=== PATIENT | male | born 1970 ===

== ENCOUNTER 2017-05-18 21:22 | Inpatient (IN) | payer MEDICARE, MEDICAID ==
[2017-05-18 21:25] VITALS: O2SAT 98
--- NOTE | 2017-05-18 21:56 | ED PDOC ---
HPI: Psych/Substance Abuse Time Seen by Provider: 05/18/17 21:30 Chief Complaint (Nursing): Psychiatric Evaluation Chief Complaint (Provider): suicidal ideations History Per: Patient History/Exam Limitations: no limitations Additional History Per: Patient Additional Complaint(s): 47 y/o male history of diabetes, depression brought in by EMS for crisis eval. Patient states he has been having suicidal ideations since Father's Day, due to of his father. Patient denies current plan. Denies homicidal ideations, hallucinations, drug/alcohol use. Patient also notes chronic diabetic foot ulcer to bottom of right foot a months. States he is being followed by a Floating Operator out of [facility]. Denies fever, nausea/vomiting, swelling to area. Past Medical History Reviewed: Historical Data, Nursing Documentation, Vital Signs Vital Signs: Last Vital Signs Temp 98.6 F 05/18/17 21:23 Pulse 124 H 05/18/17 21:23 Resp 20 05/18/17 21:23 BP 114/61 05/18/17 21:23 Pulse Ox 98 05/18/17 21:23 - Medical History PMH: Anxiety, Depression, Diabetes (Blood sugar 283), HTN, Schizophrenia Denies: Hepatitis, HIV, Chronic Kidney Disease, Seizures, Sexually Transmitted Disease - Family History Family History: States: Unknown Family Hx - Immunization History Hx Tetanus Toxoid Vaccination: No Hx Influenza Vaccination: No Hx Pneumococcal Vaccination: No - Home Medications Home Medications: Ambulatory Orders Medication Instructions Recorded chlorproMAZINE [Thorazine] 50 mg PO QID #0 tab 05/26/15 clonazePAM [Klonopin] 0.5 mg PO TID #0 tab 05/26/15 traZODone [Desyrel] 200 mg PO HS #0 tab 05/26/15 Escitalopram [Lexapro] 20 mg PO DAILY #0 tab 06/03/15 GlipiZIDE [Glucotrol] 2.5 mg PO BID #0 tab 06/03/15 risperiDONE [RisperDAL Tab] 3 mg PO BID #0 tab 06/03/15 metFORMIN [glucOPHAGE] 1,000 mg PO BID 12/27/15 Escitalopram [Lexapro] 20 mg PO DAILY #30 tab 01/06/16 busPIRone [Buspar] 15 mg PO BID #60 tab 01/06/16 hydrOXYzine HCl [Atarax] 50 mg PO Q12 #60 tab 01/06/16 risperiDONE [RisperDAL Tab] 2 mg PO BID #60 tab 01/06/16 traZODone [Desyrel] 50 mg PO HS PRN #30 tab 01/06/16 - Allergies Allergies/Adverse Reactions: Allergies Allergy/AdvReac Type Severity Reaction Status Date / Time No Known Allergies Allergy Verified 10/13/15 19:18 Review of Systems ROS Statement: Except As Marked, All Systems Reviewed And Found Negative Psych: Positive for: Suicidal ideation Physical Exam - Reviewed Nursing Documentation Reviewed: Yes Vital Signs Reviewed: Yes - Physical Exam Appears: Positive for: Well, Non-toxic, No Acute Distress (poor hygiene) Head Exam: Positive for: ATRAUMATIC, NORMAL INSPECTION, NORMOCEPHALIC Skin: Positive for: Normal Color Eye Exam: Positive for: Normal appearance ENT: Positive for: Normal ENT Inspection Cardiovascular/Chest: Positive for: Regular Rate, Rhythm Respiratory: Positive for: Normal Breath Sounds Extremity: Positive for: Normal ROM, Other (2x2cm right plantar foot ulceration near base 2-3 digits. Ulcer dry; no active drainage, surrounding erythema, edema, or tenderness noted) Neurologic/Psych: Positive for: Alert, Oriented. Negative for: Motor/Sensory Deficits - Laboratory Results Result Diagrams: 05/18/17 22:05 05/18/17 22:06 - ECG ECG: Positive for: Viewed By Me (reviewed by ED attending) ECG Rhythm: Positive for: Sinus Rhythm O2 Sat by Pulse Oximetry: 98 Pulse Ox Interpretation: Normal - Radiology X-Ray: Viewed By Me X-Ray Interpretation: No Acute Disease - Other Rad xray right foot X-Ray: Viewed By Me (reviewed with ED attending) X-Ray Interpretation: no acute findings, chronic surgical changes - Progress ED Course And Treament: labs, urine, crisis eval Patient evaluated by commissary worker; to be admitted as per Dr. Navarro. Medical Decision Making Medical Decision Making: Patient medically stable for psych admission. Disposition - Clinical Impression Clinical Impression: Schizoaffective disorder - Patient ED Disposition Is Patient to be Admitted: Yes - Disposition Disposition Time: 23:45 Condition: STABLE
[2017-05-18 22:10] LABS: BASO # 0.1 K/uL (0.0-0.2); BASO % 1.3 % (0.0-2.0); EOS # 0.1 K/uL (0.0-0.7); EOS % 0.9 % (0.0-4.0); HEMATOCRIT 39.1 % (35.0-51.0); LYMPH # 3.1 K/uL (1.0-4.3); LYMPH % 29.1 % (20.0-40.0); MEAN CELL VOLUME 100.2 fl (80.0-94.0); MEAN CORPUSCULAR HEMOGLOBIN 34.3 pg (27.0-31.0); MEAN CORPUSCULAR HGB CONC 34.2 g/dL (33.0-37.0); MONO # 0.8 K/uL (0.0-0.8); NEUT # 6.4 K/uL (1.8-7.0); NEUT % 60.7 % (50.0-75.0); RED CELL DISTRIBUTION WIDTH 12.9 % (11.5-14.5); WHITE BLOOD COUNT 10.6 K/uL (4.8-10.8)
[2017-05-18 22:21] LABS: ALB/GLOB RATIO 0.9 (1.0-2.1); ALCOHOL SERUM 163 mg/dl (0-10); ALKALINE PHOSPHATASE 84 U/L (38-126); ALT/SGPT 62 U/L (21-72); AST/SGOT 51 U/L (17-59); BLOOD UREA NITROGEN 7 mg/dl (9-20); CARBON DIOXIDE 21 mmol/L (22-30); CHLORIDE 92 mmol/L (98-107); GFR AFRICAN-AMERICAN > 60; GLUCOSE,RANDOM 245 mg/dL (75-110); POTASSIUM 4.1 MMOL/L (3.6-5.0); SODIUM 128 mmol/l (132-148); TOTAL PROTEIN 8.4 G/DL (6.3-8.2)
[2017-05-18 22:53] LABS: RBC URINE 1 /hpf (0-3); URINE BACTERIA RARE (<OCC); URINE BILIRUBIN NEGATIVE (NEGATIVE); URINE BLOOD SMALL (NEGATIVE); URINE COLOR YELLOW (YELLOW); URINE GLUCOSE (UA) 150 mg/dL (Normal); URINE KETONE NEGATIVE (NEGATIVE); URINE LEUKOCYTE ESTERASE NEG Leu/uL (Negative); URINE PROTEIN NEGATIVE (NEGATIVE); URINE UROBILINOGEN 0.2-1.0 mg/dL (0.2-1.0); WBC URINE 1 /hpf (0-5)
[2017-05-18] MEDS ORDERED: Sodium Chloride 0.9% 1,000 ML IV STA (23:13)
[2017-05-18] MEDS ORDERED: Dextrose 50% SYRINGE Inj (50 ml) IV PRN (23:14)
[2017-05-18] MEDS ORDERED: Glucagon Recombinant 1 mg Inj IM PRN (23:14)
[2017-05-19] MEDS ORDERED: Alum-Mag Hydrox-Simethicone Susp (30 mL) PO PRN (02:45)
[2017-05-19] MEDS ORDERED: Magnesium Hydroxide Susp 30 ml UD PO PRN (02:45)
[2017-05-19] MEDS ORDERED: DiphenhydrAMINE 50 mg/ml Inj IM PRN (02:45)
[2017-05-19 06:27] VITALS: RESP 18
[2017-05-19] MEDS ORDERED: Insulin Regular 100 units/ml SC SCH (07:30)
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
[2017-05-19] MEDS: Insulin Regular 100 units/ml SC SCH ×3 (09:26→16:49)
--- NOTE | 2017-05-19 10:29 | RAD ---
HISTORY: admit COMPARISON: None available. TECHNIQUE: Chest, one view. FINDINGS: In a soto limited by habitus. LUNGS: No focal consolidation. Please note that chest x-ray has limited sensitivity for the detection of pulmonary masses. PLEURA: No significant pleural effusion identified. No definite pneumothorax . CARDIOVASCULAR: The cardiomediastinal silhouette appears within normal limits of size. OSSEOUS STRUCTURES: Osseous demineralization. Degenerative changes of the spine and shoulders. VISUALIZED UPPER ABDOMEN: Elevation of the right hemidiaphragm. OTHER FINDINGS: None. IMPRESSION: No focal consolidation, significant pleural effusion, or definite pneumothorax identified.
[2017-05-19 11:42] LABS: T4 8.71 ug/dl (5.5-11.0)
[2017-05-19 11:56] LABS: THYROID STIMULATING HORMONE 0.94 mIU/ML (0.46-4.68)
--- NOTE | 2017-05-19 13:39 | CP.PCM.CON ---
<Robert Champion - Last Filed: 05/19/17 17:26> History of Present Illness - History of Present Illness History of Present Illness: 47 YO M w/ h/o uncontrolled DM, depresion anxiety came into the ER after having suicidal ideations. He was drinking at home on his mother birthday and he started having feelings of committing suicide. He has a history of previous suicide attempts. PT admits to decrease in appetitie. He has normal bowl and bladder. - He states he lost all his medications 2 months ago and has not been taking them. - He also complains of a foot ulcer on the bottom of the right foot. His foot ulcer started 8 months ago and he saw a doctor one month ago for him to come to the hospital which he didnt do. He states it reoccurs. Denies any fever, chills , nausea or vomiting. He also has had pins and needle sensation down his legs and feet for some time. He is concerned that that the fungus from his foot has spread to his face. - Pt states he used to have htn in the past but no longer has it after he lost 60 pounds. - Pt report of a non productive cough which has been occuring for some time can not quantify a specific time period. Denies any coughling up of blood or weight loss. When patient was here one year ago Chest CT showed extensive cystic changes in lungs as well as bronchiectasis. Also a non specific ill defined nodular density at the lingula .8cmx1.3cm was seen. 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 PMH: DM, Depression, Anxiety, Schizophrenia PSH: Right shoulder pain. "toe surgery" by Dr. Brennan FH: Mother: Bone Cancer. Brother: DM, Depression SH: 1/2 PPD x 30 years. Socially uses alcohol, lives with his mother Past Patient History - Infectious Disease Hx of Infectious Diseases: None - Tetanus Immunizations Tetanus Immunization: Unknown - Past Medical History & Family History Past Medical History?: Yes - Past Social History Smoking Status: Heavy Smoker > 10 Cigarettes Daily - CARDIAC Hx Hypertension: Yes - PULMONARY Hx Tuberculosis: No - NEUROLOGICAL Hx Seizures: No - HEENT Hx HEENT Problems: No - RENAL Hx Chronic Kidney Disease: No - ENDOCRINE/METABOLIC Hx Endocrine Disorders: Yes Hx Diabetes Mellitus Type 2: Yes - HEMATOLOGICAL/ONCOLOGICAL Hx Human Immunodeficiency Virus (HIV): No - INTEGUMENTARY Hx Dermatological Problems: No - MUSCULOSKELETAL/RHEUMATOLOGICAL Hx Musculoskeletal Disorders: No Hx Falls: Yes Hx Unsteady Gait: No - GASTROINTESTINAL Hx Gastrointestinal Disorders: No - GENITOURINARY/GYNECOLOGICAL Hx Sexually Transmitted Disorders: Yes (erectile Dysfunction) - PSYCHIATRIC Hx Anxiety: Yes Hx Depression: Yes Hx Schizophrenia: Yes Hx Substance Use: No - SURGICAL HISTORY Hx Surgeries: Yes Hx Orthopedic Surgery: Yes (Right shoulder 1991 rotator cuff and dislocation 1988) - ANESTHESIA Hx Anesthesia: Yes Hx Anesthesia Reactions: No Hx Malignant Hyperthermia: No Meds Home Medications: Home Medication List Medication Instructions Recorded Confirmed Type Aluminum Hydroxide/Magnesium H 30 ml PO Q4 PRN #1 udc 05/19/17 Rx [Maalox 30 ml] DiphenhydrAMINE [Benadryl] 50 mg PO Q6 PRN #30 cap 05/19/17 Rx LORazepam [Ativan] 2 mg PO Q4 PRN #30 tab 05/19/17 Rx MetFORMIN [glucoPHAGE] 1,000 mg PO BID 30 Days 05/19/17 Rx Nicotine 14 mg/24 hr [Nicoderm CQ] 1 each TD DAILY #30 patch 05/19/17 Rx Sertraline [Zoloft] 50 mg PO DAILY #30 tab 05/19/17 Rx chlordiazePOXIDE [Chlordiazepoxide 25 mg PO TID #30 cap 05/19/17 Rx HCl] risperiDONE [RisperDAL Tab] 0.5 mg PO Q12 #30 tab 05/19/17 Rx Allergies/Adverse Reactions: Allergies Allergy/AdvReac Type Severity Reaction Status Date / Time No Known Allergies Allergy Verified 10/13/15 19:18 - Medications Medications: Current Medications Acetaminophen (Tylenol 325mg Tab) 650 mg PO Q4 PRN PRN Reason: Pain, moderate (4-7) Al Hydrox/Mg Hydrox/Simethicone (Maalox Plus 30 Ml) 30 ml PO Q4 PRN PRN Reason: Dyspepsia Chlordiazepoxide (Librium) 25 mg PO TID JOESPH Last Admin: 05/19/17 12:21 Dose: 25 mg Diphenhydramine HCl (Benadryl) 50 mg IM Q6 PRN PRN Reason: Extrapyramidal S/S Unable PO Diphenhydramine HCl (Benadryl) 50 mg PO Q6 PRN PRN Reason: Extrapyramidal Symptoms Diphenhydramine HCl (Benadryl) 50 mg PO HS PRN PRN Reason: Sleep Haloperidol (Haldol) 5 mg PO Q4 PRN PRN Reason: Agitation Haloperidol Lactate (Haldol) 5 mg IM Q4 PRN PRN Reason: Agitation, Unable to Take PO Insulin Human Regular (Humulin R) 0 units SC ACCU-CHECK JOESPH PRN Reason: Protocol Last Admin: 05/19/17 12:16 Dose: 2 unit Lorazepam (Ativan) 2 mg IM Q4 PRN PRN Reason: Anxiety/Agitation,Unable PO Lorazepam (Ativan) 2 mg PO Q4 PRN PRN Reason: Anxiety/Agitation Last Admin: 05/19/17 05:09 Dose: 2 mg Magnesium Hydroxide (Milk Of Magnesia) 30 ml PO HS PRN PRN Reason: Constipation Metformin HCl (Glucophage) 1,000 mg PO BID [facility] Last Admin: 05/19/17 12:13 Dose: 1,000 mg Nicotine (Nicoderm Cq) 1 patch TD DAILY [facility] Risperidone (Risperdal Tab) 0.5 mg PO Q12 [facility] Last Admin: 05/19/17 12:14 Dose: 0.5 mg Sertraline HCl (Zoloft) 50 mg PO DAILY [facility] Last Admin: 05/19/17 12:15 Dose: 50 mg Physical Exam - Constitutional Appears: No Acute Distress, Unkempt - Head Exam Head Exam: NORMAL INSPECTION - Eye Exam Eye Exam: EOMI, Normal appearance Pupil Exam: PERRL - ENT Exam ENT Exam: Mucous Membranes Moist, Normal Exam - Neck Exam Neck exam: Positive for: Normal Inspection - Respiratory Exam Respiratory Exam: Clear to Auscultation Bilateral, NORMAL BREATHING PATTERN Additional comments: decreased breath sound at left lower base - Cardiovascular Exam Cardiovascular Exam: REGULAR RHYTHM, +S1, +S2 - Extremities Exam Extremities exam: Negative for: calf tenderness Additional comments: Normal ROM -The right foot appears to be edematous. Has a foul odor, similar to that of psudomonas. 2x 2 cm right plantar foot ulceration near base 2-3 digits. - Onchomycosis noted on toenails b/l on both feet. - Neurological Exam Neurological exam: Alert, CN II-XII Intact, Oriented x3 - Psychiatric Exam Psychiatric exam: Depressed - Skin Additional comments: Cystic acne noted on the malor region of his face b/l Results - Vital Signs Recent Vital Signs: Last Vital Signs Temp 98.1 F 05/19/17 06:00 Pulse 91 H 05/19/17 06:00 Resp 18 05/19/17 06:00 BP 120/80 05/19/17 06:00 Pulse Ox 98 05/19/17 01:13 - Labs Result Diagrams: 05/18/17 22:05 05/18/17 22:06 Labs: Laboratory Results - last 24 hr 05/19/17 05/19/17 05/19/17 06:30 11:00 11:06 POC Glucose (mg/dL) 259 H 218 H Triglycerides 56 Cholesterol 106 LDL Cholesterol Direct 63 HDL Cholesterol 31 Thyroxine (T4) 8.71 TSH 3rd Generation 0.94 Assessment & Plan - Assessment and Plan (Free Text) Assessment: 1) Depression - Mx as per psych 2) Schizophrenia - Mx as per psych 3) DM 2 - Metformin 1000 BID (hold untill Contrast foot mri is done) - Sliding scale - F/U w/ HBA1c 4) Right foot ulcer most likely secondary to uncontrolled diabetes: Most likely psuedomonas in orgin - F/U with x ray reports for foot - MRI w/ and w/o contrast recommended - Wound care consult placed - podiatry consult requested - Wound culture recommended - SEND PATIENT TO THE ER TO BE REVALUATED AND TRANSFER TO MED SURG: FOOT ULCER LIKELY CAUSED BY PSEUDOMONAS. WORKUP AND TREATMENT HAS BEEN DISCUSSED WITH THE ER ATTENDING. 5) Hyponatremia most likely secondary to anti psychotic medication Recommend Normal saline @ 75 ml hour 6) Chronic Non productive cough - X ray from this visit was wnl - Chest CT from 12/2015 showed extensive cystic changes in lungs as well as bronchiectasis. Also a non specific ill defined nodular density at the lingula .8cmx1.3cm was seen - Have patient follow up outpatient for further work up. - Encourage to to stop smoking - Recommend non contrast CT while patient is admitted. <Toro Peck - Last Filed: 05/19/17 23:43> Results - Vital Signs Recent Vital Signs: Last Vital Signs Temp 97.9 F 05/19/17 15:41 Pulse 105 H 05/19/17 15:41 Resp 18 05/19/17 15:41 BP 111/68 05/19/17 15:41 Pulse Ox 98 05/19/17 01:13 - Labs Result Diagrams: 05/18/17 22:05 05/18/17 22:06 Labs: Laboratory Results - last 24 hr 05/19/17 05/19/17 05/19/17 06:30 11:00 11:00 POC Glucose (mg/dL) 259 H Hemoglobin A1c 9.1 H Triglycerides 56 Cholesterol 106 LDL Cholesterol Direct 63 HDL Cholesterol 31 Thyroxine (T4) 8.71 TSH 3rd Generation 0.94 RPR 05/19/17 05/19/17 05/19/17 11:00 11:06 15:35 POC Glucose (mg/dL) 218 H 262 H Hemoglobin A1c Triglycerides Cholesterol LDL Cholesterol Direct HDL Cholesterol Thyroxine (T4) TSH 3rd Generation RPR Nonreactive Attending/Attestation - Attestation I have personally seen and examined this patient.: Yes I have fully participated in the care of the patient.: Yes I have reviewed all pertinent clinical information: Yes Notes (Text): 05/19/17 23:43 Patient was transferred to ER and then I admitted patient to general medical floor. Please see my H&P dated 05/19/17. Toro Peck D.O.
[2017-05-19 15:42] VITALS: BP 111/68; PULSE 105; TEMP 97.9
--- NOTE | 2017-05-19 16:06 | RAD ---
PROCEDURE: Right Foot Radiographs. HISTORY: foot ulcer COMPARISON: None. FINDINGS: BONES: Normal. No fracture. Current study reveals what appears represent acute destructive changes involving the base of the proximal phalanx 2nd toe of. There appears to be lateral and possibly some plantar subluxation of the base of the proximal phalanx 2nd toe as well. Gas within the medial aspect of the 2nd toe near the distal aspect of the proximal phalanx felt be present. It is unclear whether there are disorder destructive changes of the head of the 2nd metatarsal. There are destructive changes of the head of the 1st metatarsal which appear chronic (Chronic osteomyelitis) and are associated with medial and probably dorsal subluxation of the proximal aspect of the proximal phalanx, at this 1st MTP joint. Early destructive changes proximal aspect of the proximal phalanx 1st toe not excluded. Significant soft tissue swelling most significant involving the 1st and 2nd toes with surrounding cellulitis. Consistent with surrounding cellulitis. Postoperative resection distal aspect of the 3rd metatarsal with the proximal migration of the remaining digits of the 3rd toe. JOINTS: As above SOFT TISSUES: As above OTHER FINDINGS: None. IMPRESSION: Findings consistent with acute destructive changes/ osteomyelitis involving the proximal aspect proximal phalanx 2nd toe with significant soft tissue swelling and air within the medial soft tissues consistent with cellulitis ; rule out gas-forming organism. It is unclear whether there may be early destructive changes involving the head of the 2nd metatarsal as well. . There is lateral and suspected plantar subluxation of the proximal aspect of the proximal phalanx Chronic destructive changes (chronic osteomyelitis) involving the head of the 1st metatarsal with medial and suspected dorsal subluxation of the proximal aspect of the proximal phalanx 1st toe. Early destructive changes proximal aspect of the proximal phalanx 1st toe not excluded. . Diffuse soft tissue swelling on consistent with cellulitis Postoperative amputation distal aspect 3rd metatarsal with proximal migration of the remaining digits of the 3rd toe.
--- NOTE | 2017-05-19 17:53 | CP.PCM.CON ---
History of Present Illness - History of Present Illness History of Present Illness: 47 y/o male with PMHX of DM, schizophrenic disorder, suicidal ideations presents to our service with wound on the right foot. Patient states he has had the ulcer for over [address] King at [facility] but has not seen him in over a month. Pt states he does not take his diabetes or psych medications because he lost them 2 months ago. Patient experiences depression which is why he was brought into the hospital. Patient admits to social EtOH use and smokes 1 pack of cigarettes every 2 days. Patient denies any drug use. Patient has a history of shoulder surgery and a right foot partial amputation to remove part of his 3rd toe. Patient denies doing anything to treat the wound. Pt denies F/N/V/C/SOB. Review of Systems - Review of Systems Review of Systems: All systems reviewed and found to be negative outside of HPI Past Patient History - Infectious Disease Hx of Infectious Diseases: None - Tetanus Immunizations Tetanus Immunization: Unknown - Past Medical History & Family History Past Medical History?: Yes - Past Social History Smoking Status: Heavy Smoker > 10 Cigarettes Daily - CARDIAC Hx Hypertension: Yes - PULMONARY Hx Tuberculosis: No - NEUROLOGICAL Hx Seizures: No - HEENT Hx HEENT Problems: No - RENAL Hx Chronic Kidney Disease: No - ENDOCRINE/METABOLIC Hx Endocrine Disorders: Yes Hx Diabetes Mellitus Type 2: Yes - HEMATOLOGICAL/ONCOLOGICAL Hx Human Immunodeficiency Virus (HIV): No - INTEGUMENTARY Hx Dermatological Problems: No - MUSCULOSKELETAL/RHEUMATOLOGICAL Hx Musculoskeletal Disorders: No Hx Falls: Yes Hx Unsteady Gait: No - GASTROINTESTINAL Hx Gastrointestinal Disorders: No - GENITOURINARY/GYNECOLOGICAL Hx Sexually Transmitted Disorders: Yes (erectile Dysfunction) - PSYCHIATRIC Hx Anxiety: Yes Hx Depression: Yes Hx Schizophrenia: Yes Hx Substance Use: No - SURGICAL HISTORY Hx Surgeries: Yes Hx Orthopedic Surgery: Yes (Right shoulder 1991 rotator cuff and dislocation 1988) - ANESTHESIA Hx Anesthesia: Yes Hx Anesthesia Reactions: No Hx Malignant Hyperthermia: No Meds Home Medications: Home Medication List Medication Instructions Recorded Confirmed Type Aluminum Hydroxide/Magnesium H 30 ml PO Q4 PRN #1 udc 05/19/17 Rx [Maalox 30 ml] DiphenhydrAMINE [Benadryl] 50 mg PO Q6 PRN #30 cap 05/19/17 Rx LORazepam [Ativan] 2 mg PO Q4 PRN #30 tab 05/19/17 Rx MetFORMIN [glucoPHAGE] 1,000 mg PO BID 30 Days 05/19/17 Rx Nicotine 14 mg/24 hr [Nicoderm CQ] 1 each TD DAILY #30 patch 05/19/17 Rx Sertraline [Zoloft] 50 mg PO DAILY #30 tab 05/19/17 Rx chlordiazePOXIDE [Chlordiazepoxide 25 mg PO TID #30 cap 05/19/17 Rx HCl] risperiDONE [RisperDAL Tab] 0.5 mg PO Q12 #30 tab 05/19/17 Rx Allergies/Adverse Reactions: Allergies Allergy/AdvReac Type Severity Reaction Status Date / Time No Known Allergies Allergy Verified 10/13/15 19:18 - Medications Medications: Current Medications Acetaminophen (Tylenol 325mg Tab) 650 mg PO Q4 PRN PRN Reason: Pain, moderate (4-7) Last Admin: 05/19/17 15:11 Dose: 650 mg Al Hydrox/Mg Hydrox/Simethicone (Maalox Plus 30 Ml) 30 ml PO Q4 PRN PRN Reason: Dyspepsia Chlordiazepoxide (Librium) 25 mg PO TID [facility] Last Admin: 05/19/17 16:56 Dose: 25 mg Diphenhydramine HCl (Benadryl) 50 mg IM Q6 PRN PRN Reason: Extrapyramidal S/S Unable PO Diphenhydramine HCl (Benadryl) 50 mg PO Q6 PRN PRN Reason: Extrapyramidal Symptoms Diphenhydramine HCl (Benadryl) 50 mg PO HS PRN PRN Reason: Sleep Haloperidol (Haldol) 5 mg PO Q4 PRN PRN Reason: Agitation Haloperidol Lactate (Haldol) 5 mg IM Q4 PRN PRN Reason: Agitation, Unable to Take PO Insulin Human Regular (Humulin R) 0 units SC ACCU-CHECK [facility] PRN Reason: Protocol Last Admin: 05/19/17 16:49 Dose: 3 unit Lorazepam (Ativan) 2 mg IM Q4 PRN PRN Reason: Anxiety/Agitation,Unable PO Lorazepam (Ativan) 2 mg PO Q4 PRN PRN Reason: Anxiety/Agitation Last Admin: 05/19/17 15:07 Dose: 2 mg Magnesium Hydroxide (Milk Of Magnesia) 30 ml PO HS PRN PRN Reason: Constipation Metformin HCl (Glucophage) 1,000 mg PO BID [facility] Last Admin: 05/19/17 16:48 Dose: 1,000 mg Nicotine (Nicoderm Cq) 1 patch TD DAILY [facility] Risperidone (Risperdal Tab) 0.5 mg PO Q12 [facility] Last Admin: 05/19/17 12:14 Dose: 0.5 mg Sertraline HCl (Zoloft) 50 mg PO DAILY [facility] Last Admin: 05/19/17 12:15 Dose: 50 mg Physical Exam - Constitutional Appears: Well, Non-toxic, No Acute Distress - Extremities Exam Additional comments: Right lower extremity focused exam: Vasc: DP/PT 2/4, TG warm to warm, no varicosities, CFT < 3 sec x 5. Derm: 2x2cm sub met 3 ulceration with hyperkeratotic borders. (+) malodor. Mild erythema noted at periwound area. No fluctuance, no drainage. No prone to bone. Hyperpigmentation noted at dorsal aspect of 3rd toe. Neuro: Protective sensation diminished B/L. Ortho: Minimal tenderness on palpation of ulceration. Muscle strength testing deferred at this time due to nature of wound. - Neurological Exam Neurological exam: Alert, Oriented x3 - Psychiatric Exam Psychiatric exam: Normal Affect, Normal Mood Results - Vital Signs Recent Vital Signs: Last Vital Signs Temp 97.9 F 05/19/17 15:41 Pulse 105 H 05/19/17 15:41 Resp 18 05/19/17 15:41 BP 111/68 05/19/17 15:41 Pulse Ox 98 05/19/17 01:13 - Labs Result Diagrams: 05/18/17 22:05 05/18/17 22:06 Labs: Laboratory Results - last 24 hr 05/19/17 05/19/17 05/19/17 06:30 11:00 11:00 POC Glucose (mg/dL) 259 H Hemoglobin A1c 9.1 H Triglycerides 56 Cholesterol 106 LDL Cholesterol Direct 63 HDL Cholesterol 31 Thyroxine (T4) 8.71 TSH 3rd Generation 0.94 RPR 05/19/17 05/19/17 05/19/17 11:00 11:06 15:35 POC Glucose (mg/dL) 218 H 262 H Hemoglobin A1c Triglycerides Cholesterol LDL Cholesterol Direct HDL Cholesterol Thyroxine (T4) TSH 3rd Generation RPR Nonreactive Assessment & Plan - Assessment and Plan (Free Text) Assessment: 47 y/o diabetic male presents with right plantar ulceration. Plan: Pt seen and evaluated at bedside Discussed plan with Dr. Bennett Discussed plan with medical team to transfer pt to ER so he can be transferred to a medical floor for possible IV abx Discussed plan with medical team to order MRI Chart and x-rays reviewed - images reveal possible chronic osteomyelitis of the 1st and 2nd metatarsals and hx of 3rd met head resection Wound culture taken and sent Applied DSD to R foot Ordered MRI of R foot and awaiting results Podiatry will continue to follow patient while in house
--- NOTE | 2017-05-19 23:53 | CARD ---
APPROVED REPORT EKG Measurement Heart [id number] <Conclusion> Normal sinus rhythm Normal ECG
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
== END 2017-05-19 18:36 | disposition short-term general hospital (02) | DRG 885 ==
LOC: H.ER 21:22 → H.ERHOLD 23:47 → H.STEP 05-19 02:30
PROVIDERS: ADMIT Psychiatry & Neurology Psychiatry; ATTEND Psychiatry & Neurology Psychiatry
DX: F32.3 Major depressive disorder, single episode, severe with psychotic features (principal); E11.621 Type 2 diabetes mellitus with foot ulcer; E87.1 Hypo-osmolality and hyponatremia; R45.851 Suicidal ideations; F10.99 Alcohol use, unspecified with unspecified alcohol-induced disorder; M86.671 Other chronic osteomyelitis, right ankle and foot; E11.65 Type 2 diabetes mellitus with hyperglycemia; I10 Essential (primary) hypertension; Y90.6 Blood alcohol level of 120-199 mg/100 ml; B96.5 Pseudomonas (aeruginosa) (mallei) (pseudomallei) as the cause of diseases classified elsewhere; Z91.19 Patient's noncompliance with other medical treatment and regimen; L97.519 Non-pressure chronic ulcer of other part of right foot with unspecified severity; T43.505A Adverse effect of unspecified antipsychotics and neuroleptics, initial encounter; R05 Cough; F17.210 Nicotine dependence, cigarettes, uncomplicated

== ENCOUNTER 2017-05-19 18:35 | Inpatient (IN) | payer MEDICARE, MEDICAID ==
--- NOTE | 2017-05-19 19:17 | ED PDOC ---
HPI: General Adult Time Seen by Provider: 05/19/17 18:40 Chief Complaint (Nursing): Wound Check Chief Complaint (Provider): Diabetic Foot Ulcer History Per: Patient History/Exam Limitations: no limitations Onset/Duration Of Symptoms: Days (ulcer started getting worse in October (7x months)) Current Symptoms Are (Timing): Still Present Severity: Moderate Additional Complaint(s): 47 year old male with a pertinent medical history of hypertension and diabetes is sent to the ED from psych for a diabetic foot ulcer for IV antibiotics as per podiatry. The patient had a toe removed by from the [facility]. In October (7x months ago) his ulcer on his right foot started to worsen. He denies having fever. Patient is non-compliant with his hypertension and diabetic medications because he lost his medications. PMD: Past Medical History Reviewed: Historical Data, Nursing Documentation, Vital Signs Vital Signs: Last Vital Signs Temp 98.7 F 05/19/17 19:07 Pulse 97 H 05/19/17 19:07 Resp 16 05/19/17 19:07 BP 110/79 05/19/17 19:07 Pulse Ox 100 05/19/17 19:07 - Medical History PMH: Anxiety, Depression, Diabetes (Blood sugar 283), HTN, Schizophrenia, Sexually Transmitted Disease (erectile Dysfunction) Denies: Hepatitis, HIV, Chronic Kidney Disease, Seizures - Surgical History Other surgeries: toe removed - Family History Family History: States: Unknown Family Hx - Social History Current smoker - smoking cessation education provided: No Alcohol: None Drugs: Denies - Immunization History Hx Tetanus Toxoid Vaccination: No Hx Influenza Vaccination: No Hx Pneumococcal Vaccination: No - Home Medications Home Medications: Ambulatory Orders Medication Instructions Recorded chlorproMAZINE [Thorazine] 50 mg PO QID #0 tab 05/26/15 clonazePAM [Klonopin] 0.5 mg PO TID #0 tab 05/26/15 traZODone [Desyrel] 200 mg PO HS #0 tab 05/26/15 Escitalopram [Lexapro] 20 mg PO DAILY #0 tab 06/03/15 GlipiZIDE [Glucotrol] 2.5 mg PO BID #0 tab 06/03/15 risperiDONE [RisperDAL Tab] 3 mg PO BID #0 tab 06/03/15 metFORMIN [glucOPHAGE] 1,000 mg PO BID 12/27/15 Escitalopram [Lexapro] 20 mg PO DAILY #30 tab 01/06/16 busPIRone [Buspar] 15 mg PO BID #60 tab 01/06/16 hydrOXYzine HCl [Atarax] 50 mg PO Q12 #60 tab 01/06/16 risperiDONE [RisperDAL Tab] 2 mg PO BID #60 tab 01/06/16 traZODone [Desyrel] 50 mg PO HS PRN #30 tab 01/06/16 Aluminum Hydroxide/Magnesium H 30 ml PO Q4 PRN #1 udc 05/19/17 [Maalox 30 ml] DiphenhydrAMINE [Benadryl] 50 mg PO Q6 PRN #30 cap 05/19/17 LORazepam [Ativan] 2 mg PO Q4 PRN #30 tab 05/19/17 MetFORMIN [glucoPHAGE] 1,000 mg PO BID 30 Days 05/19/17 Nicotine 14 mg/24 hr [Nicoderm CQ] 1 each TD DAILY #30 patch 05/19/17 Sertraline [Zoloft] 50 mg PO DAILY #30 tab 05/19/17 chlordiazePOXIDE [Chlordiazepoxide 25 mg PO TID #30 cap 05/19/17 HCl] risperiDONE [RisperDAL Tab] 0.5 mg PO Q12 #30 tab 05/19/17 - Allergies Allergies/Adverse Reactions: Allergies Allergy/AdvReac Type Severity Reaction Status Date / Time No Known Allergies Allergy Verified 10/13/15 19:18 Review of Systems ROS Statement: Except As Marked, All Systems Reviewed And Found Negative Constitutional: Negative for: Fever Musculoskeletal: Positive for: Other (foot ulcer infection) Physical Exam - Reviewed Nursing Documentation Reviewed: Yes Vital Signs Reviewed: Yes - Physical Exam Appears: Positive for: Well, Non-toxic, No Acute Distress Head Exam: Positive for: ATRAUMATIC, NORMOCEPHALIC Skin: Positive for: Normal Color, Warm, Dry Neck: Positive for: Normal Cardiovascular/Chest: Positive for: Regular Rate, Rhythm Respiratory: Positive for: Normal Breath Sounds. Negative for: Respiratory Distress Extremity: Positive for: Other (left foot has dressing: exam deferred, patient is followed by podiatry) Neurologic/Psych: Positive for: Alert, Oriented (3x) - ECG O2 Sat by Pulse Oximetry: 100 (RA) Pulse Ox Interpretation: Normal Medical Decision Making Medical Decision Makin:40 Initial impression: 47 year old male with an infected diabetic left foot ulcer. Initial plan: * CMP * CBC * d-dimer * sed rate * PT/PTT * vancomycin inj 1gm sodium chloride .9% 250ml IVPB * zosyn 4.5gm sodium chloride .9% 100ml IVPB * blood culture * US duplex extremities venous right * reevaluation 19:19 Patient will be admitted to med/surg under Toro Peck MD for an infected diabetic foot ulcer. Scribe Attestation: Documented by Ara Remy, acting as a scribe for Aure Abdi MD. Provider Scribe Attestation: All medical record entries made by the Scribe were at my direction and personally dictated by me. I have reviewed the chart and agree that the record accurately reflects my personal performance of the history, physical exam, medical decision making, and the department course for this patient. I have also personally directed, reviewed, and agree with the discharge instructions and disposition.
[2017-05-19] MEDS ORDERED: Piperacillin/Tazobact 4.5 GM in Sodium Chloride 0.9% 100 ML IVPB ONE (19:30)
--- NOTE | 2017-05-19 20:38 | CP.PCM.HP ---
History of Present Illness - History of Present Illness History of Present Illness: Hospitalist Admission H&P (Patient was seen and examined in the ER Bed 21 at 7: 30 PM 05/19/17) PMD: Dr. Blue but has not seen him for some time now CODE STATUS: FULL CODE. NO Living Will/Advance Directive. Designates Arielle Fuller [phone] as his Health Care Proxy. CHIEF COMPLAINT: Right Foot Ulcer 47 year old male (DM 2 Insulin Dependent, Anxiety/Depression, Schizophrenia, Suicide Attempt October 2016 by overdosing on Insulin, RUL Lung Mass, Acne) who was brought into [facility] ER on 05/18/17 after he called 911 stating that he was suicidal. He was drinking alcohol at his home as it was his Mom's birthday, afterwards feelings of wanting to kill himself were brought on. He was cleared by the ER for in-patient Psychiatry Unit at [facility]. Hospitalist service was consulted for medical management. Examination earlier today in the Psychiatry Unit revealed an Right Foot Pedal Surface ulcer that was malodorous. Patient revealed that he has had an ulcer in this area for the past 8 months and it was not until end of March 2017 that he went to see Dr. King who at that time had instructed him to go immediately to the hospital. However, patient stated he did not go and did not have an explanation as to why he did not. It was recommended by me that the patient be transferred to the medical floor for further management. Patient was transferred to the ER for admission to medical surgical unit. As patient had seen Dr. Blue in the past and although patient has not seen him for some time, patient was admitted to the Hospitalist service for further management. Currently upon FULL ROS: Poor Appetite for some time Hears "robotic" voices telling him to hurt himself Dry cough that comes and goes Episode of nausea/vomiting after breakfast this morning but then had lunch and dinner without incidence. NO abdominal pain Some lightheadedness after the episode of nausea/vomiting in the morning but not afterwards Blurriness of vision that has been present for some time now NO other complaints UPON FULL ROS PMHx:DM 2 Insulin Dependent, Anxiety/Depression, Schizophrenia, Suicide Attempt October 2016 by overdosing on Insulin, RUL Lung Mass, Acne, Left Ankle Fracture , Right Shoulder Dislocation PSHx: Left Ankle Surgery 1982, Right Shoulder Surgery 1991 ALL: Denies Medications: NOT taking any medications at home as he had lost his insurance Social Hx: Unemployed, Living with Mom, (+) Tobacco: 1 pack every 2 days for past 2.5 years, (+) Alcohol: 3 beers on Saturdays and Sundays, NO illicit drugs Family Hx: Mom ("Bone CA"), Dad ( of [place] at 62 y/o), Step Brother ( of [place] at 31) Present on Admission - Present on Admission Any Indicators Present on Admission: Yes History of DVT/PE: No History of Uncontrolled Diabetes: Yes Urinary Catheter: No Decubitus Ulcer Present: No Review of Systems - Review of Systems Review of Systems: Please See HPI Past Patient History - Infectious Disease Hx of Infectious Diseases: None - Tetanus Immunizations Tetanus Immunization: Unknown - Past Medical History & Family History Past Medical History?: Yes Pertinent Family History: Please See HPI - Past Social History Alcohol: None Drugs: Denies - CARDIAC Hx Hypertension: Yes - PULMONARY Hx Tuberculosis: No - NEUROLOGICAL Hx Seizures: No - HEENT Hx HEENT Problems: No - RENAL Hx Chronic Kidney Disease: No - ENDOCRINE/METABOLIC Hx Endocrine Disorders: Yes Hx Diabetes Mellitus Type 2: Yes - HEMATOLOGICAL/ONCOLOGICAL Hx Human Immunodeficiency Virus (HIV): No - INTEGUMENTARY Hx Dermatological Problems: No - MUSCULOSKELETAL/RHEUMATOLOGICAL Hx Musculoskeletal Disorders: Yes Hx Falls: Yes Other/Comment: Right foot wound - GASTROINTESTINAL Hx Gastrointestinal Disorders: No - GENITOURINARY/GYNECOLOGICAL Hx Sexually Transmitted Disorders: Yes (erectile Dysfunction) - PSYCHIATRIC Hx Anxiety: Yes Hx Depression: Yes Hx Schizophrenia: Yes - SURGICAL HISTORY Hx Surgeries: Yes Hx Orthopedic Surgery: Yes (Right shoulder 1991 rotator cuff and dislocation 1988) - ANESTHESIA Hx Anesthesia: Yes Hx Anesthesia Reactions: No Hx Malignant Hyperthermia: No Meds Allergies/Adverse Reactions: Allergies Allergy/AdvReac Type Severity Reaction Status Date / Time No Known Allergies Allergy Verified 10/13/15 19:18 Physical Exam - Constitutional Appears: Non-toxic, No Acute Distress - Head Exam Head Exam: ATRAUMATIC, NORMAL INSPECTION, NORMOCEPHALIC - Eye Exam Eye Exam: EOMI, Normal appearance, PERRL Pupil Exam: NORMAL ACCOMODATION, PERRL - ENT Exam ENT Exam: Mucous Membranes Moist, Normal Exam, Normal External Ear Exam, Normal Oropharynx - Neck Exam Neck exam: Positive for: Normal Inspection Additional comments: NO cervical/supraclavicular/submandibular lymphadenopathy - Respiratory Exam Respiratory Exam: Clear to Auscultation Bilateral, NORMAL BREATHING PATTERN Additional comments: CTA B/L, NO R/R/W - Cardiovascular Exam Cardiovascular Exam: REGULAR RHYTHM, +S1, +S2 Additional comments: NO S1 and NS2, NO M/R/G - GI/Abdominal Exam GI & Abdominal Exam: Normal Bowel Sounds, Soft Additional comments: BSx4, Soft, NT, ND, NO HSM, NO guarding/rebound tenderness - Extremities Exam Additional comments: Pulses are strong and equal bilateral UE Pulse in the Left LE is stronger than the Right LE (+) Edema and erythema of all of the toes of the right foot (+) Right foot pedal surface ulcer at the base of the second phalynx that has a hyperkeratotic rim with surround erythema, warmth, and edema and is malodorous and is slightly tender to palpation. Capillary Refill is 2 seconds bilateral UE and LE - Neurological Exam Neurological exam: Alert, CN II-XII Intact, Oriented x3 - Psychiatric Exam Psychiatric exam: Flat Affect Additional comments: Patient is more concerned about the Acne on his skin than the Right Foot Ulcer despite explaining the seriousness of the lesion. Results - Vital Signs Recent Vital Signs: Last Vital Signs Temp 98.7 F 05/19/17 19:07 Pulse 97 H 05/19/17 19:07 Resp 16 05/19/17 19:07 BP 110/79 05/19/17 19:07 Pulse Ox 100 05/19/17 19:33 - Labs Result Diagrams: 05/19/17 19:55 05/19/17 20:25 Assessment & Plan (1) Diabetic ulcer of right foot Assessment and Plan: Admit the medical surgical unit Osteomyelitis is likely Right Foot X Ray 05/18/17 showed acute destructive changes/osteomyelitis (please see full report) MRI Right Foot with and without contrast ordered for 9 AM 05/20/17 as Metformin for DM 2 was given in the Psychiatry Unit today 05/19/17 at 9 AM F/U Venous Doppler of the Right Leg F/U Wound Culture performed by Podiatry Resident working with Dr. Aleena Perez: there help is greatly appreciated F/U Blood Culture F/U ESR F/U ID Dr. Khloe Robert further recommendations concerning antibiotic Vancomycin 1 gm IV Q12H starting at 7 PM 05/19/17 F/U Vancomycin Trough at 6:30 AM 05/21/17 Zosyn 3.375 gm IV Q6H Status: Acute (2) Hyponatremia Assessment and Plan: Na on 05/18/17 was 128 This could be possibly secondary to Risperidone which can cause release of ADH. Therefore NO excess free fluid and Nursing order placed to fluid restrict patient for now at 2 L per day Monitor if it does not improve with the fluid restriction than speak with Psychiatry to see if Risperdal dose can be reduced and also further workup the Hyponatremia with Urine Osm, Urine Na, Morning Cortisol (TSH and Triglycerides were normal) Status: Acute (3) Suicide ideation Assessment and Plan: 1:[address] Malhotra consult Status: Acute (4) DM type 2, uncontrolled, with lower extremity ulcer Assessment and Plan: Patient states that he was on Metformin 1,000 mg PO 2x/day, Januvia unspecified dose 2x/day, Lantus 24 units SC 1x/day but has not taken these medications since this past December 2016 due to lack of insurance and then he stated that he lost the medications. Hold the Metformin for 48 hours after the performance of the MRI Right Foot with and with out contrast at 9 AM on 05/20/17. Also probably not a good idea to place this patient on Insulin for alf considering prior suicide attempt by overdosing on insulin Regular Insulin Sliding Scale Medium with Accuchecks ACHS for now Heart Healthy Low Carbohydrate Diet Lisinopril 2.5 mg PO 1x/day for Renal Protection HgBA1C is 9.1 LDL is at goal < 100 at 63 therefore hold off on Statin TSH and T4 are normal Status: Acute (5) Mass of right lung Assessment and Plan: Upon discharge from Psychiatry at [facility] in December 2015 (please see that admission for details) patient and his were insructed to follow up with PMD Dr. Blue for repeat CT Chest of Chest for questionable area in the Right Lung. However, this never happened. CT Chest without contrast has been ordered stat Status: Suspected (6) Anxiety and depression Assessment and Plan: Sertraline 50 mg PO 1x/day Status: Chronic (7) Schizophrenia, unspecified Assessment and Plan: Risperidone 0.5 mg PO Q12H F/U further recommendations from Psychiatry Dr. Marya Status: Chronic (8) Alcohol intoxication Assessment and Plan: As per ER records 05/18/17 patient presented intoxicated I did not see any signs of withdrawl at the time of my exam in the ER Ativan 1 mg IV Q6H PRN Agitation/Signs Withdrawl Status: Acute (9) Nicotine addiction Assessment and Plan: Nicotine Patch 14 mg TD 1x/day Status: Chronic (10) Prophylactic measure Assessment and Plan: Protonix 40 mg PO 1x/day for GI Prophylaxis Heparin 5,000 Unit SQ Q8H and SCD Left Leg for DVT Prophylaxis for DVT Risk Score of 2 Status: Acute
[2017-05-19 20:41] LABS: BASO # 0.1 K/uL (0.0-0.2); BASO % 0.9 % (0.0-2.0); EOS # 0.1 K/uL (0.0-0.7); EOS % 1.1 % (0.0-4.0); HEMATOCRIT 37.2 % (35.0-51.0); LYMPH % 23.3 % (20.0-40.0); MEAN CELL VOLUME 101.8 fl (80.0-94.0); MEAN CORPUSCULAR HGB CONC 33.4 g/dL (33.0-37.0); MEAN PLATELET VOLUME 9.6 fl (7.2-11.7); MONO # 0.8 K/uL (0.0-0.8); NEUT # 5.5 K/uL (1.8-7.0); NEUT % 64.7 % (50.0-75.0); WHITE BLOOD COUNT 8.5 K/uL (4.8-10.8)
[2017-05-19 20:50] LABS: PARTIAL THROMBOPLASTIN TIME 32.3 Seconds (25.6-37.1)
[2017-05-19 20:56] LABS: ALB/GLOB RATIO 0.9 (1.0-2.1); ALKALINE PHOSPHATASE 74 U/L (38-126); ALT/SGPT 50 U/L (21-72); AST/SGOT 40 U/L (17-59); BILIRUBIN,TOTAL 0.8 mg/dl (0.2-1.3); BLOOD UREA NITROGEN 11 mg/dl (9-20); CALCIUM 8.6 mg/dL (8.4-10.2); CARBON DIOXIDE 27 mmol/L (22-30); CHLORIDE 94 mmol/L (98-107); GFR AFRICAN-AMERICAN > 60; GLUCOSE,RANDOM 210 mg/dL (75-110); SODIUM 131 mmol/l (132-148); TOTAL PROTEIN 7.4 G/DL (6.3-8.2)
--- NOTE | 2017-05-19 20:58 | US ---
EXAM: US Duplex Right Lower Extremity Veins CLINICAL HISTORY: 47 years old, male; Signs and symptoms; Edema, localized; Lower extremity, right; Additional info: Leg edema TECHNIQUE: Real-time ultrasound scan of the veins of the right lower extremity with color Doppler flow, spectral waveform analysis and compression. COMPARISON: No relevant prior studies available. FINDINGS: Deep veins: Normal color and spectral Doppler flow. Normal compressibility. No deep vein thrombosis from common femoral to popliteal vein. Superficial veins: No thrombosis. Soft tissues: No popliteal cyst. IMPRESSION: 1. No evidence of DVT within RIGHT lower extremity. 2. Incidental/non-acute findings are described above.
--- NOTE | 2017-05-19 21:01 | CT ---
EXAM: CT Chest Without Intravenous Contrast CLINICAL HISTORY: 47 years old, male; Signs and symptoms; Mass, lump, or swelling in the chest; Additional info: History of questionable right uppler lobe mass TECHNIQUE: Axial computed tomography images of the chest without intravenous contrast. This CT exam was performed using one or more of the following dose reduction techniques: automated exposure control, adjustment of the mA and/or kV according to patient size, and/or use of iterative reconstruction technique. Coronal and sagittal reformatted images were created and reviewed. COMPARISON: No relevant prior studies available. FINDINGS: Limitations: Lack of intravenous contrast. Lungs: Moderate emphysematous changes. No consolidation. Minimal atelectasis/scarring. Few pulmonary nodules, up to 0.3 cm. Pleural space: No pneumothorax. No significant effusion. Heart: No cardiomegaly. No significant pericardial effusion. Bones/joints: No acute fracture. Soft tissues: Mild gynecomastia. Vasculature: Mild atherosclerotic disease. No aneurysm. Lymph nodes: No pathologically enlarged lymph nodes. Liver: Fatty infiltration. Gallbladder and bile ducts: Gallstone. Adrenals: Small LEFT adrenal adenoma. Mild hypertrophy of RIGHT adrenal gland. IMPRESSION: 1. Emphysema. 2. Pulmonary nodules. For low-risk patients, no follow-up is necessary. For high-risk patients (smoking history or other known risk factors) recommend CT at 12 months and if unchanged, no further follow-up. 3. Incidental/non-acute findings are described above.
[2017-05-19] MEDS: Insulin Regular 100 units/ml SC SCH (22:04)
[2017-05-19] MEDS: Pantoprazole 40 mg EC Tab PO SCH (22:04)
--- NOTE | 2017-05-19 23:00 | US ---
EXAM: US Duplex Left Lower Extremity Veins CLINICAL HISTORY: 47 years old, male; Abnormal findings; Abnormal lab test; Elevated d-dimer TECHNIQUE: Real-time ultrasound scan of the veins of the left lower extremity with color Doppler flow, spectral waveform analysis and compression. COMPARISON: No relevant prior studies available. FINDINGS: Deep veins: Normal color and spectral Doppler flow. Normal compressibility. No deep vein thrombosis from common femoral to popliteal vein. Superficial veins: No thrombosis. Soft tissues: No popliteal cyst. IMPRESSION: 1. No evidence of DVT within LEFT lower extremity. 2. Incidental/non-acute findings are described above.
[2017-05-20] MEDS: Piperacillin/Tazobact 3.375 GM in Sodium Chloride 0.9% 100 ML IVPB SCH ×3 (04:02→17:40)
[2017-05-20] MEDS: Insulin Regular 100 units/ml SC SCH ×4 (06:29→21:41)
--- NOTE | 2017-05-20 06:53 | CP.PCM.PN ---
Subjective - Date & Time of Evaluation Date of Evaluation: 05/20/17 Time of Evaluation: 06:30 - Subjective Subjective: 47 y/o male with PMHX of DM, schizophrenic disorder, suicidal ideations is consulted with podiatry for right sub met 2 ulcer. He is seen at bedside resting comfortably. Nurse was also in the room monitoring. He states that he has throbbing pain at the area of the ulcer. He denies any acute events overnight. He denies n/v/sob/cp/chills or F. Objective - Vital Signs/Intake and Output Vital Signs (last 24 hours): Temp Pulse Resp BP Pulse Ox 97.2 F L 91 H 20 99/67 L 98 05/20/17 00:04 05/20/17 00:04 05/20/17 00:04 05/20/17 00:04 05/20/17 00:04 Intake and Output: 05/19/17 05/20/17 18:59 06:59 Intake Total 100 Balance 100 - Medications Medications: Current Medications Heparin Sodium (Porcine) (Heparin) 5,000 units SC Q8 [facility] PRN Reason: Protocol Last Admin: 05/20/17 01:00 Dose: 5,000 units Vancomycin HCl 1 gm/ Sodium (Chloride) 250 mls @ 166.667 mls/hr IVPB Q12H [facility] Last Admin: 05/20/17 06:28 Dose: 166.667 mls/hr Piperacillin Sod/Tazobactam (Sod 3.375 gm/ Sodium Chloride) 100 mls @ 100 mls/ hr IVPB Q6 [facility] Last Admin: 05/20/17 04:02 Dose: 100 mls/hr Insulin Human Regular (Humulin R) 0 units SC ACHS [facility] Last Admin: 05/20/17 06:29 Dose: 6 units Lisinopril (Zestril) 2.5 mg PO DAILY [facility] Lorazepam (Ativan) 1 mg IVP Q6 PRN PRN Reason: Agitation Last Admin: 05/20/17 02:03 Dose: 1 mg Nicotine (Nicoderm Cq) 1 patch TD DAILY [facility] Pantoprazole Sodium (Protonix Ec Tab) 40 mg PO DAILY [facility] Last Admin: 05/19/17 22:04 Dose: 40 mg Risperidone (Risperdal Tab) 0.5 mg PO Q12H [facility] Last Admin: 05/19/17 22:04 Dose: 0.5 mg Sertraline HCl (Zoloft) 50 mg PO DAILY [facility] - Labs Labs: 05/19/17 19:55 05/19/17 20:25 PT 16.1 Seconds (9.8-13.1) H 05/19/17 19:55 INR 1.4 (0.9-1.2) H 05/19/17 19:55 APTT 32.3 Seconds (25.6-37.1) 05/19/17 19:55 - Constitutional Appears: Well, Non-toxic, No Acute Distress - Extremities Exam Additional comments: Vasc: DP/PT 2/4, TG warm to warm, no varicosities, CFT < 3 sec x 5. no peripheral edema noted bilaterally. Derm: 2x2cm sub met 3 ulceration with hyperkeratotic borders. (+) malodor present. Mild erythema noted at periwound area. No fluctuance, no drainage. No prone to bone. Hyperpigmentation noted at dorsal aspect of 3rd toe. Neuro: Protective sensation diminished B/L. Ortho: Throbbing tenderness on palpation of ulceration. - Neurological Exam Neurological Exam: Alert, Awake, Oriented x3 - Psychiatric Exam Psychiatric exam: Normal Affect, Normal Mood Assessment and Plan - Assessment and Plan (Free Text) Assessment: 47 y/o diabetic male presents with right plantar ulceration. Plan: Patient seen and evaluated at bedside Discussed plan in detail with Dr. Bennett Chart, labs and vitals: afebrile, no leukocytosis, ESR elevated (63) Chart and x-rays reviewed: images reveal possible chronic osteomyelitis of the 1st and 2nd metatarsals and hx of 3rd met head resection MRI ordered of R foot (r/o OM) Per Dr. Bennett pt will require weber- or isolated metatarsal head resection as ulceration is secondary to transfer lesion pending MRI results Foot wound cx pending Applied DSD to R foot Podiatry will continue to follow patient while in house
--- NOTE | 2017-05-20 08:40 | CP.PCM.PCO ---
Physician Communication Note - Physician Communication Note Physician Communication Note: Please see above
[2017-05-20] MEDS: Pantoprazole 40 mg EC Tab PO SCH (09:32)
--- NOTE | 2017-05-20 09:45 | CP.PCM.PN ---
Subjective - Date & Time of Evaluation Date of Evaluation: 05/20/17 Time of Evaluation: 09:20 - Subjective Subjective: 47 YO M seen ambulating in the hallway. He appears to be doing well. Denies any overnight events. He continues to hear robotic voices and feels is dosage of his psych medication needs to be increased. He is tolerating regular diet well with no nausea or vomiting. Denies any problems with urinating and passing stool. Denies any fever, chills, night sweats. - He is concerned about his facial acne. He has been advised to follow up outpatient with his PMD treatment, because the pharmacy was called and didn't have any antibacterial face washes. - He is scheduled to have his MRI of his foot today. Objective - Vital Signs/Intake and Output Vital Signs (last 24 hours): Temp Pulse Resp BP Pulse Ox 97.2 F L 91 H 20 99/67 L 98 05/20/17 00:04 05/20/17 00:04 05/20/17 00:04 05/20/17 00:04 05/20/17 00:04 Intake and Output: 05/20/17 05/20/17 06:59 18:59 Intake Total 100 Balance 100 - Medications Medications: Current Medications Heparin Sodium (Porcine) (Heparin) 5,000 units SC Q8 [facility] PRN Reason: Protocol Last Admin: 05/20/17 01:00 Dose: 5,000 units Vancomycin HCl 1 gm/ Sodium (Chloride) 250 mls @ 166.667 mls/hr IVPB Q12H [facility] Last Admin: 05/20/17 06:28 Dose: 166.667 mls/hr Piperacillin Sod/Tazobactam (Sod 3.375 gm/ Sodium Chloride) 100 mls @ 100 mls/ hr IVPB Q6 [facility] Last Admin: 05/20/17 04:02 Dose: 100 mls/hr Insulin Human Regular (Humulin R) 0 units SC ACHS [facility] Last Admin: 05/20/17 06:29 Dose: 6 units Lisinopril (Zestril) 2.5 mg PO DAILY [facility] Lorazepam (Ativan) 1 mg IVP Q6 PRN PRN Reason: Agitation Last Admin: 05/20/17 02:03 Dose: 1 mg Nicotine (Nicoderm Cq) 1 patch TD DAILY [facility] Pantoprazole Sodium (Protonix Ec Tab) 40 mg PO DAILY [facility] Last Admin: 05/19/17 22:04 Dose: 40 mg Risperidone (Risperdal Tab) 0.5 mg PO Q12H [facility] Last Admin: 05/19/17 22:04 Dose: 0.5 mg Saccharomyces Boulardii (Florastor) 250 mg PO BID [facility] Sertraline HCl (Zoloft) 50 mg PO DAILY [facility] - Labs Labs: 05/19/17 19:55 05/19/17 20:25 PT 16.1 Seconds (9.8-13.1) H 05/19/17 19:55 INR 1.4 (0.9-1.2) H 05/19/17 19:55 APTT 32.3 Seconds (25.6-37.1) 05/19/17 19:55 - Constitutional Appears: No Acute Distress - Head Exam Head Exam: NORMAL INSPECTION - Eye Exam Eye Exam: Normal appearance, PERRL Pupil Exam: PERRL - Respiratory Exam Respiratory Exam: Clear to Ausculation Bilateral, NORMAL BREATHING PATTERN - Cardiovascular Exam Cardiovascular Exam: REGULAR RHYTHM, +S1, +S2 - GI/Abdominal Exam GI & Abdominal Exam: Soft, Normal Bowel Sounds. absent: Tenderness - Extremities Exam Additional comments: Dressing over right foot appears clean dry and intact - Neurological Exam Neurological Exam: Alert, Awake, Oriented x3 - Skin Additional comments: Acne and erythema noted over bridge of the nose and malar region Assessment and Plan - Assessment and Plan (Free Text) Assessment: Assessment & Plan (1) Diabetic ulcer of right foot Assessment and Plan: Osteomyelitis is likely Right Foot X Ray 05/18/17 showed acute destructive changes/osteomyelitis (please see full report) MRI Right Foot with and without contrast ordered for 9 AM today as Metformin for DM 2 was given in the Psychiatry Unit yesterday on 05/19/17 at 9 AM No evidence of DVT on Rt and lft lower extremities on Venous Doppler F/U Wound Culture performed by Podiatry Resident working with Dr. Aleena Perez: there help is greatly appreciated ESR was 63 F/U Blood Culture F/U ID Dr. Khloe Robert further recommendations concerning antibiotic Vancomycin 1 gm IV Q12H starting at 7 PM 05/19/17 F/U Vancomycin Trough at 6:30 AM 05/21/17 Zosyn 3.375 gm IV Q6H Status: Acute (2) Hyponatremia Assessment and Plan: Na on 05/19/17 is 131 This could be possibly secondary to Risperidone which can cause release of ADH. Therefore NO excess free fluid and Nursing order placed to fluid restrict patient for now at 2 L per day Monitor if it does not improve with the fluid restriction than speak with Psychiatry to see if Risperdal dose can be reduced and also further workup the Hyponatremia with Urine Osm, Urine Na, Morning Cortisol (TSH and Triglycerides were normal) - F/U w/ BMP Status: Acute (3) Suicide ideation Assessment and Plan: 1:[address] Malhotra consult Status: Acute (4) DM type 2, uncontrolled, with lower extremity ulcer Assessment and Plan: Patient states that he was on Metformin 1,000 mg PO 2x/day, Januvia unspecified dose 2x/day, Lantus 24 units SC 1x/day but has not taken these medications since this past December 2016 due to lack of insurance and then he stated that he lost the medications. Hold the Metformin for 48 hours after the performance of the MRI Right Foot with and with out contrast at 9 AM on 05/20/17. Also probably not a good idea to place this patient on Insulin for chcf considering prior suicide attempt by overdosing on insulin Regular Insulin Sliding Scale Medium with Accuchecks ACHS for now Heart Healthy Low Carbohydrate Diet Lisinopril 2.5 mg PO 1x/day for Renal Protection HgBA1C is 9.1 LDL is at goal < 100 at 63 therefore hold off on Statin TSH and T4 are normal Status: Acute (5) Mass of right lung Assessment and Plan: Upon discharge from Psychiatry at [facility] in December 2015 (please see that admission for details) patient and his were insructed to follow up with PMD Dr. Blue for repeat CT Chest of Chest for questionable area in the Right Lung. However, this never happened. - Repeat CT on 05/19 was limited because contrast was not used. But showed findings of empysema. Few pulm nodules up to.3cm in size. Reccomend CT in 1 year. Status: Suspected (6) Anxiety and depression Assessment and Plan: Sertraline 50 mg PO 1x/day Status: Chronic (7) Schizophrenia, unspecified Assessment and Plan: Risperidone 0.5 mg PO Q12H F/U further recommendations from Psychiatry Dr. Malhotra Status: Chronic (8) Alcohol intoxication Assessment and Plan: As per ER records 05/18/17 patient presented intoxicated I did not see any signs of withdrawl at the time of my exam in the ER Ativan 1 mg IV Q6H PRN Agitation/Signs Withdrawl Status: Acute (9) Nicotine addiction Assessment and Plan: Nicotine Patch 14 mg TD 1x/day Status: Chronic (10) Facial adult acne possibley secondary to the Rispirdone - Pharmacy was called, they do not carry any antibacterial face washes, or topical acne antibiotics - Patient has been advised to follow up with his PMD outpatient (11) Prophylactic measure Assessment and Plan: Protonix 40 mg PO 1x/day for GI Prophylaxis Heparin 5,000 Unit SQ Q8H and SCD Left Leg for DVT Prophylaxis for DVT Risk Score of 2 Status: Acute
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
[2017-05-20] MEDS: Saccharomyces Boulardi 250 mg Cap PO SCH ×2 (12:15→17:21)
[2017-05-20 12:59] LABS: BLOOD UREA NITROGEN 7 mg/dl (9-20); CALCIUM 8.7 mg/dL (8.4-10.2); CARBON DIOXIDE 28 mmol/L (22-30); CHLORIDE 96 mmol/L (98-107); GFR AFRICAN-AMERICAN > 60; GLUCOSE,RANDOM 231 mg/dL (75-110); POTASSIUM 3.7 MMOL/L (3.6-5.0); SODIUM 132 mmol/l (132-148)
[2017-05-20] MEDS ORDERED: Piperacillin/Tazobact 3.375 GM in Sodium Chloride 0.9% 100 ML IVPB SCH (18:00)
--- NOTE | 2017-05-20 19:22 | CP.PCM.PN ---
Subjective - Date & Time of Evaluation Date of Evaluation: 05/20/17 Time of Evaluation: 19:20 - Subjective Subjective: ID NOTE AGREE C PRESENT RX ,FORMAL NOTE TO FOLLOW Objective - Vital Signs/Intake and Output Vital Signs (last 24 hours): Temp Pulse Resp BP Pulse Ox 99 F 90 18 103/70 96 05/20/17 16:12 05/20/17 16:12 05/20/17 16:12 05/20/17 16:12 05/20/17 16:12 - Medications Medications: Current Medications Heparin Sodium (Porcine) (Heparin) 5,000 units SC Q8 [facility] PRN Reason: Protocol Last Admin: 05/20/17 17:21 Dose: 5,000 units Vancomycin HCl 1 gm/ Sodium (Chloride) 250 mls @ 166.667 mls/hr IVPB Q12H [facility] Last Admin: 05/20/17 06:28 Dose: 166.667 mls/hr Piperacillin Sod/Tazobactam (Sod 3.375 gm/ Sodium Chloride) 100 mls @ 100 mls/ hr IVPB 0000,0600,1200,1800 [facility] Insulin Human Regular (Humulin R) 0 units SC ACHS [facility] Last Admin: 05/20/17 17:22 Dose: 6 units Lisinopril (Zestril) 2.5 mg PO DAILY [facility] Last Admin: 05/20/17 09:33 Dose: 2.5 mg Lorazepam (Ativan) 1 mg IVP Q6 PRN PRN Reason: Agitation Last Admin: 05/20/17 02:03 Dose: 1 mg Nicotine (Nicoderm Cq) 1 patch TD DAILY [facility] Last Admin: 05/20/17 12:15 Dose: 1 patch Pantoprazole Sodium (Protonix Ec Tab) 40 mg PO DAILY [facility] Last Admin: 05/20/17 09:32 Dose: 40 mg Risperidone (Risperdal Tab) 1 mg PO Q12 [facility] Saccharomyces Boulardii (Florastor) 250 mg PO BID [facility] Last Admin: 05/20/17 17:21 Dose: 250 mg Sertraline HCl (Zoloft) 50 mg PO DAILY [facility] Last Admin: 05/20/17 09:32 Dose: 50 mg - Labs Labs: 05/19/17 19:55 05/20/17 12:10 PT 16.1 Seconds (9.8-13.1) H 05/19/17 19:55 INR 1.4 (0.9-1.2) H 05/19/17 19:55 APTT 32.3 Seconds (25.6-37.1) 05/19/17 19:55
[2017-05-21] MEDS: Piperacillin/Tazobact 3.375 GM in Sodium Chloride 0.9% 100 ML IVPB SCH ×4 (00:15→18:04)
[2017-05-21] MEDS: Insulin Regular 100 units/ml SC SCH ×4 (06:42→21:15)
--- NOTE | 2017-05-21 07:34 | CP.PCM.PN ---
Subjective - Date & Time of Evaluation Date of Evaluation: 05/21/17 Time of Evaluation: 09:30 - Subjective Subjective: Patient seen and examined bedside with podiatry residents. lying in bed in nDA. Denies any CP, SOB, palpitations. n, cough, pain. Complains of throbbing sensation to his right foot. Still concerned with his facial acne Still with suicidal thoughts and hearing voices about killing himself Objective - Vital Signs/Intake and Output Vital Signs (last 24 hours): Temp Pulse Resp BP Pulse Ox 99 F 81 20 129/84 98 05/21/17 01:19 05/21/17 01:19 05/21/17 01:19 05/21/17 01:19 05/21/17 01:19 - Medications Medications: Current Medications Heparin Sodium (Porcine) (Heparin) 5,000 units SC Q8 [facility] PRN Reason: Protocol Last Admin: 05/21/17 00:12 Dose: 5,000 units Vancomycin HCl 1 gm/ Sodium (Chloride) 250 mls @ 166.667 mls/hr IVPB Q12H [facility] Last Admin: 05/21/17 06:57 Dose: 166.667 mls/hr Piperacillin Sod/Tazobactam (Sod 3.375 gm/ Sodium Chloride) 100 mls @ 100 mls/ hr IVPB 0000,0600,1200,1800 [facility] Last Admin: 05/21/17 06:01 Dose: 100 mls/hr Insulin Human Regular (Humulin R) 0 units SC ACHS [facility] Last Admin: 05/21/17 06:42 Dose: 6 units Lisinopril (Zestril) 2.5 mg PO DAILY [facility] Last Admin: 05/20/17 09:33 Dose: 2.5 mg Lorazepam (Ativan) 1 mg IVP Q6 PRN PRN Reason: Agitation Last Admin: 05/21/17 06:10 Dose: 1 mg Nicotine (Nicoderm Cq) 1 patch TD DAILY [facility] Last Admin: 05/20/17 12:15 Dose: 1 patch Pantoprazole Sodium (Protonix Ec Tab) 40 mg PO DAILY [facility] Last Admin: 05/20/17 09:32 Dose: 40 mg Risperidone (Risperdal Tab) 1 mg PO Q12 [facility] Last Admin: 05/20/17 21:17 Dose: 1 mg Saccharomyces Boulardii (Florastor) 250 mg PO BID [facility] Last Admin: 05/20/17 17:21 Dose: 250 mg Sertraline HCl (Zoloft) 50 mg PO DAILY [facility] Last Admin: 05/20/17 09:32 Dose: 50 mg - Labs Labs: 05/19/17 19:55 05/20/17 12:10 PT 16.1 Seconds (9.8-13.1) H 05/19/17 19:55 INR 1.4 (0.9-1.2) H 05/19/17 19:55 APTT 32.3 Seconds (25.6-37.1) 05/19/17 19:55 - Constitutional Appears: Non-toxic, No Acute Distress - Head Exam Head Exam: ATRAUMATIC, NORMAL INSPECTION, NORMOCEPHALIC - Eye Exam Eye Exam: EOMI, Normal appearance, PERRL Pupil Exam: NORMAL ACCOMODATION Additional comments: facial acne with erythema mostly located to nasolabial folds - ENT Exam ENT Exam: Mucous Membranes Moist, Normal Exam - Neck Exam Neck Exam: Full ROM, Normal Inspection - Respiratory Exam Respiratory Exam: Clear to Ausculation Bilateral, NORMAL BREATHING PATTERN. absent: Rales, Rhonchi, Wheezes - Cardiovascular Exam Cardiovascular Exam: REGULAR RHYTHM, RRR, +S1, +S2. absent: JVD - GI/Abdominal Exam GI & Abdominal Exam: Soft, Normal Bowel Sounds. absent: Distended, Guarding, Tenderness, Rebound - Rectal Exam Rectal Exam: Deferred - Extremities Exam Extremities Exam: Full ROM, Normal Capillary Refill, Normal Inspection. absent : Calf Tenderness, Pedal Edema - Back Exam Back Exam: NORMAL INSPECTION - Neurological Exam Neurological Exam: Alert, Awake, CN II-XII Intact, Oriented x3 - Psychiatric Exam Psychiatric exam: Anxious, Depressed Additional comments: suicidal thoughts and hearing voices - Skin Skin Exam: Erythema (facial with acne), Warm Assessment and Plan - Assessment and Plan (Free Text) Assessment: 47 year old male with PMH DM 2 Insulin Dependent, Anxiety/Depression, Schizophrenia, Suicide Attempt October 2016 by overdosing on Insulin, Acne was brought into [facility] ER on 05/18/17 after he called 911 stating that he was suicidal. He was drinking alcohol at his home as it was his Mom's birthday, afterwards feelings of wanting to kill himself , with auditory hallucinations. He was cleared by the ER for in-patient Psychiatry Unit at [facility]. Hospitalist service was consulted for medical management. Examination in the Psychiatry Unit revealed an Right Foot Pedal Surface ulcer that was malodorous. Patient revealed that he has had an ulcer in this area for the past 8 months and it was not until end of March 2017 that he went to see Dr. King who at that time had instructed him to go immediately to the hospital. However, patient stated he did not go and did not have an explanation as to why he did not.Patient admitted to medical floor for further management. Podiatry consulted and started on IV Vancomycin and Zosyn. 1. Diabetic ulcer of right foot Cultures still pending Podiatry and ID on consult Follow up MRI of the foot to rule out Osteomyelis Continue Vancomycin and Zosyn IV Possible for OR depending on MRI redaings If osteomyelitis present will need PICC line placement for fci IVantibiotics 2. Hyponatremia resolved 3. Suicidal ideation with hallucinations/ schizofrenia psychiatry consult appreciated Continue risperdal, Zoloft and 1:1 observation for safety 4. DM type 2, uncontrolled, with lower extremity ulcer Patient states that he was on Metformin 1,000 mg PO 2x/day, Januvia unspecified dose 2x/day, Lantus 24 units SC 1x/day but has not taken these medications since this past December 2016 due to lack of insurance and then he stated that he lost the medications. Hold the Metformin for 48 hours after the performance of the MRI Right Foot with and with out contrast at 9 AM on 05/20/17. Also probably not a good idea to place this patient on Insulin for fci considering prior suicide attempt by overdosing on insulin Regular Insulin Sliding Scale Medium with Accuchecks ACHS for now Heart Healthy Low Carbohydrate Diet Lisinopril 2.5 mg PO 1x/day for Renal Protection HgBA1C is 9.5 Start Glipizide 10 mg po BID and Januvia 100 mg po daily LDL is at goal < 100 at 63 therefore hold off on Statin TSH and T4 are normal 5.Multiple lung nodules seen on CT chest Follow up with repeat Ct in 6 months - 1 year 6. Anxiety and depression management as per psych 7. 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 Prophylactic measure Protonix for GI Prophylaxis Heparin and SCD for DVT Prophylaxis
[2017-05-21] MEDS: Saccharomyces Boulardi 250 mg Cap PO SCH ×2 (09:05→16:26)
[2017-05-21] MEDS: Pantoprazole 40 mg EC Tab PO SCH (09:06)
--- NOTE | 2017-05-21 11:58 | CP.PCM.PN ---
Subjective - Date & Time of Evaluation Date of Evaluation: 05/21/17 Time of Evaluation: 08:00 - Subjective Subjective: 47 year old male patient with PMHx of DM, schizophrenia, suicidal ideations seen at bedside resting comfortably. Patient reports continued throbbing to the ulcer site and admits that he typically has no feeling to both feet. Patient denies any acute events overnight. Patient is AAOx3 and NAD. Patient denies N/V/ F/D/SOB/CP. No other pedal complaints at this time. Objective - Vital Signs/Intake and Output Vital Signs (last 24 hours): Temp Pulse Resp BP Pulse Ox 97.5 F L 75 19 108/72 94 L 05/21/17 08:01 05/21/17 08:01 05/21/17 08:01 05/21/17 09:06 05/21/17 08:01 - Medications Medications: Current Medications Heparin Sodium (Porcine) (Heparin) 5,000 units SC Q8 [facility] PRN Reason: Protocol Last Admin: 05/21/17 09:05 Dose: 5,000 units Vancomycin HCl 1 gm/ Sodium (Chloride) 250 mls @ 166.667 mls/hr IVPB Q12H [facility] Last Admin: 05/21/17 06:57 Dose: 166.667 mls/hr Piperacillin Sod/Tazobactam (Sod 3.375 gm/ Sodium Chloride) 100 mls @ 100 mls/ hr IVPB 0000,0600,1200,1800 [facility] Last Admin: 05/21/17 06:01 Dose: 100 mls/hr Insulin Human Regular (Humulin R) 0 units SC ACHS [facility] Last Admin: 05/21/17 06:42 Dose: 6 units Lisinopril (Zestril) 2.5 mg PO DAILY [facility] Last Admin: 05/21/17 09:06 Dose: 2.5 mg Lorazepam (Ativan) 1 mg IVP Q6 PRN PRN Reason: Agitation Last Admin: 05/21/17 06:10 Dose: 1 mg Nicotine (Nicoderm Cq) 1 patch TD DAILY [facility] Last Admin: 05/21/17 09:06 Dose: 1 patch Pantoprazole Sodium (Protonix Ec Tab) 40 mg PO DAILY [facility] Last Admin: 05/21/17 09:06 Dose: 40 mg Risperidone (Risperdal Tab) 1 mg PO Q12 [facility] Last Admin: 05/21/17 09:06 Dose: 1 mg Saccharomyces Boulardii (Florastor) 250 mg PO BID [facility] Last Admin: 05/21/17 09:05 Dose: 250 mg Sertraline HCl (Zoloft) 50 mg PO DAILY [facility] Last Admin: 05/21/17 09:07 Dose: 50 mg - Labs Labs: 05/19/17 19:55 05/20/17 12:10 PT 16.1 Seconds (9.8-13.1) H 05/19/17 19:55 INR 1.4 (0.9-1.2) H 05/19/17 19:55 APTT 32.3 Seconds (25.6-37.1) 05/19/17 19:55 - Constitutional Appears: Well, Non-toxic, No Acute Distress - Extremities Exam Additional comments: Focused right lower extremity physical exam: Vasc: DP and PT pulses palpable 2/4. CFT WNL to all digits tested. No edema noted. Mild erythema noted to periwound. Neuro: Gross sensation diminished. Derm: Ulceration measuring approximately 0.8 x 1.5 x 1.3 cm noted sub met 3. + malodor, undermining, and tunneling @ 9:00. Serosanguinous drainage noted. No fluctuance noted. No probe to bone. Hyperkeratotic rim noted. Hyperpigmentation noted to dorsum of foot. Ortho: Tenderness to palpation noted to ulceration. - Neurological Exam Neurological Exam: Alert, Awake, Oriented x3 - Psychiatric Exam Psychiatric exam: Normal Affect, Normal Mood Assessment and Plan - Assessment and Plan (Free Text) Assessment: 47 year old male with plantar ulceration secondary to DM Plan: Patient seen and evaluated with Hospitalist Dr. Ulrich present. Charts, labs, vitals reviewed. Discussed with attending Dr. Bennett. Dressings changed with DSD. Wound cx still pending. Awaiting full report of MRI R foot to rule out OM Per Dr. Bennett, patient will require weber- or isolated metatarsal head resection as ulceration is secondary to transfer lesions. Awaiting MRI results. Podiatry will continue to follow patient while in-house.
--- NOTE | 2017-05-21 13:44 | CT ---
PROCEDURE: CT Chest with contrast (Pulmonary Angiogram) HISTORY: elevated d-dimmer COMPARISON: Comparison made with CT scan chest 05/19/2017. TECHNIQUE: Axial computed tomography images were obtained of the chest in the pulmonary arterial phase of enhancement. Coronal and sagittal reformatted images were created and reviewed. Intravenous contrast dose: 98 cc Visipaque 320 contrast material. Radiation dose: Total exam DLP = 431.97 mGy-cm. This CT exam was performed using one or more of the following dose reduction techniques: Automated exposure control, adjustment of the mA and/or kV according to patient size, and/or use of iterative reconstruction technique. FINDINGS: PULMONARY ARTERIES: The visualized portions of the pulmonary trunk, right and left main, lobar, segmental and proximal subsegmental branches of the pulmonary arteries are the well opacified. No definitive filling defects seen to suggest acute central pulmonary embolus. Pulmonary trunk measures approximately 3.3 cm. Rule out underlying mild pulmonary arterial hypertension. . Few small bilateral hilar lymph nodes. AORTA: Ascending thoracic aorta measures approximately 3.7 cm and descending thoracic aorta measures approximately 2.8 cm. Three-vessel arch. No evidence of aortic dissection. LUNGS: Significant centrilobular emphysematous changes upper lobe predominance. . No focal consolidation. . Few small pulmonary nodules again noted. Recommend followup CT scan in 6 months the to assess stability PLEURAL SPACES: Unremarkable. No effusion or pneuomothorax. HEART: Unremarkable. No cardiomegaly. No significant pericardial effusion. LYMPH NODES: Again noted are several small mediastinal lymph nodes nonspecific. BONES, CHEST WALL: Unremarkable. No fracture or destructive lesion Suspect old fracture right proximal 7th rib. OTHER FINDINGS: Bilateral mild changes of gynecomastia. . Fatty infiltration. Cholelithiasis with wall thickening of the gallbladder that could be due to incomplete distention secondary to nonfasting state. Small hiatal hernia with wall thickening of the distal esophagus that could be due to protrusion gastric mucosa. Esophagitis not excluded. Left adrenal nodule. Mild enlarged right adrenal gland. IMPRESSION: No evidence of acute central pulmonary embolus. Significant centrilobular emphysematous changes upper lobe predominance. Few small pulmonary nodules again noted. Recommend followup CT scan in 6 months. See above discussion for additional details an incidental findings.
--- NOTE | 2017-05-21 19:17 | CON ---
DATE: 05/21/2017 The patient is on [address]. HISTORY OF PRESENT ILLNESS: The patient is a 47-year-old male with a history of insulin-dependent diabetes, anxiety, severe depression, schizophrenia, suicide attempt in the past, apparently attempted to overdose on insulin. He also has a history of a right upper lobe mass. He was brought to [facility] ER initially to be evaluated for suicidal ideation. Subsequently he was noted to have a right foot ulceration that was definitely malodorous. He also gave history of this ulcer for some time and he had been ignoring it and did not go see his Public Health Social Worker or primary care physician. He had also had a history of infection of this foot in the past, for which he has had a toe removed. His primary care physician is Dr. Blue who he has not seen in some time. The patient is alert and cooperative with me, but states he does hear voices and that was why originally he came to the ER. He has not been taking any of his medications that was given because he lost his insurance. He has been living with his mother. He a smoker and drinks beer on the weekends. No history of lung disease. PHYSICAL EXAMINATION: HEENT: Head is normocephalic and atraumatic. EYES: Within normal limits. EARS: Within normal limits. NOSE: No discharge. THROAT: Some mild erythema. NECK: Supple. LUNGS: Decreased breath sounds at bases. HEART: Regular sinus rhythm. ABDOMEN: Positive bowel sounds. EXTREMITIES: He has pulses bilaterally, left being stronger than those on the right. He has a surface ulcer at the base of the 2nd phalanx that has a hyperkeratotic rim with erythema and edema. It is malodorous and is tender to palpation. The wound has been cultured and patient is also being seen by podiatry who had ordered an MRI and at present time, waiting for the results of that. LABORATORY DATA: His white count is 8.5, hemoglobin is 12.4, platelet count is low at 128. Sed rate is high at 63. Blood sugars are up. GFR is greater than 60. Two creatinines, one is 0.6 and one is 0.7. Vancomycin trough was 5.7. IMPRESSION AND PLAN: At the present time, we will continue with the vancomycin and piperacillin pending the results of all returns of cultures that were taken. Follow the vancomycin troughs regularly and we shall review the MRI. I feel this patient should definitely be treated long-term with IV antibiotics, at least 4-6 weeks. Kye Robert MD cc: 61 TT: 05/21/2017 19:16:15 Confirmation # [id number] Dictation # [id number] chirag PAT
[2017-05-22] MEDS: Piperacillin/Tazobact 3.375 GM in Sodium Chloride 0.9% 100 ML IVPB SCH ×5 (00:11→23:02)
[2017-05-22] MEDS: Insulin Regular 100 units/ml SC SCH ×4 (07:28→21:47)
[2017-05-22 08:12] LABS: ALB/GLOB RATIO 0.8 (1.0-2.1); ALKALINE PHOSPHATASE 69 U/L (38-126); ALT/SGPT 44 U/L (21-72); AST/SGOT 42 U/L (17-59); BILIRUBIN,TOTAL 0.4 mg/dl (0.2-1.3); BLOOD UREA NITROGEN 9 mg/dl (9-20); CALCIUM 8.9 mg/dL (8.4-10.2); CARBON DIOXIDE 28 mmol/L (22-30); CHLORIDE 98 mmol/L (98-107); GFR AFRICAN-AMERICAN > 60; GLUCOSE,RANDOM 268 mg/dL (75-110); POTASSIUM 3.8 MMOL/L (3.6-5.0); SODIUM 135 mmol/l (132-148); TOTAL PROTEIN 7.1 G/DL (6.3-8.2)
[2017-05-22] MEDS: Pantoprazole 40 mg EC Tab PO SCH (08:40)
[2017-05-22] MEDS: Saccharomyces Boulardi 250 mg Cap PO SCH ×2 (08:40→16:27)
--- NOTE | 2017-05-22 08:43 | CP.PCM.PN ---
Subjective - Date & Time of Evaluation Date of Evaluation: 05/22/17 Time of Evaluation: 09:30 - Subjective Subjective: Patient seen and examined bedside.Hemodynamically stable, afebrile . Denies any CP, SOB, palpitations. Complains of throbbing sensation to his right foot. MRI foot showed plantar 2.5 cm abscess and osteomyelitis of distal seconda metatarsal and first phalanx Still with suicidal thoughts and hearing voices Objective - Vital Signs/Intake and Output Vital Signs (last 24 hours): Temp Pulse Resp BP Pulse Ox 98.3 F 77 19 109/73 97 05/22/17 08:02 05/22/17 08:40 05/22/17 08:02 05/22/17 08:40 05/22/17 08:02 - Medications Medications: Current Medications Glipizide (Glucotrol) 10 mg PO BIDAC [facility] Last Admin: 05/22/17 08:39 Dose: 10 mg Heparin Sodium (Porcine) (Heparin) 5,000 units SC Q8 [facility] PRN Reason: Protocol Last Admin: 05/22/17 08:39 Dose: 5,000 units Piperacillin Sod/Tazobactam (Sod 3.375 gm/ Sodium Chloride) 100 mls @ 100 mls/ hr IVPB 0000,0600,1200,1800 [facility] Last Admin: 05/22/17 05:58 Dose: 100 mls/hr Vancomycin HCl 1 gm/ Sodium (Chloride) 250 mls @ 166.667 mls/hr IVPB Q12@0900, 2100 [facility] Last Admin: 05/22/17 08:41 Dose: 166.667 mls/hr Insulin Human Regular (Humulin R) 0 units SC ACHS [facility] Last Admin: 05/22/17 07:28 Dose: 4 units Lisinopril (Zestril) 2.5 mg PO DAILY [facility] Last Admin: 05/22/17 08:40 Dose: 2.5 mg Lorazepam (Ativan) 1 mg IVP Q6 PRN PRN Reason: Agitation Last Admin: 05/22/17 03:55 Dose: 1 mg Nicotine (Nicoderm Cq) 1 patch TD DAILY [facility] Last Admin: 05/22/17 08:40 Dose: 1 patch Pantoprazole Sodium (Protonix Ec Tab) 40 mg PO DAILY [facility] Last Admin: 05/22/17 08:40 Dose: 40 mg Risperidone (Risperdal Tab) 1 mg PO Q12 [facility] Last Admin: 05/22/17 08:40 Dose: 1 mg Saccharomyces Boulardii (Florastor) 250 mg PO BID [facility] Last Admin: 05/22/17 08:40 Dose: 250 mg Sertraline HCl (Zoloft) 50 mg PO DAILY [facility] Last Admin: 05/22/17 08:41 Dose: 50 mg Sitagliptin Phosphate (Januvia) 100 mg PO DAILY [facility] Last Admin: 05/22/17 08:40 Dose: 100 mg - Labs Labs: 05/19/17 19:55 05/22/17 07:00 PT 16.1 Seconds (9.8-13.1) H 05/19/17 19:55 INR 1.4 (0.9-1.2) H 05/19/17 19:55 APTT 32.3 Seconds (25.6-37.1) 05/19/17 19:55 - Constitutional Appears: Non-toxic, No Acute Distress - Head Exam Head Exam: ATRAUMATIC, NORMAL INSPECTION, NORMOCEPHALIC Additional comments: facial acne - Eye Exam Eye Exam: EOMI, Normal appearance, PERRL Pupil Exam: NORMAL ACCOMODATION - ENT Exam ENT Exam: Mucous Membranes Moist, Normal Exam - Neck Exam Neck Exam: Full ROM, Normal Inspection - Respiratory Exam Respiratory Exam: Clear to Ausculation Bilateral. absent: Rales, Rhonchi, Wheezes - Cardiovascular Exam Cardiovascular Exam: REGULAR RHYTHM, +S1, +S2. absent: JVD - GI/Abdominal Exam GI & Abdominal Exam: Soft, Normal Bowel Sounds. absent: Distended, Tenderness, Rebound - Rectal Exam Rectal Exam: Deferred - Extremities Exam Extremities Exam: Full ROM, Normal Capillary Refill, Normal Inspection. absent : Calf Tenderness, Pedal Edema - Back Exam Back Exam: NORMAL INSPECTION - Neurological Exam Neurological Exam: Alert, Awake, CN II-XII Intact, Oriented x3 - Psychiatric Exam Psychiatric exam: Anxious, Flat Affect - Skin Skin Exam: Dry, Warm Additional comments: facial acne right foot plantar aspect ulcer 2.1x 1.9 cm Assessment and Plan - Assessment and Plan (Free Text) Assessment: 47 year old male with PMH DM 2 Insulin Dependent, Anxiety/Depression, Schizophrenia, Suicide Attempt October 2016 by overdosing on Insulin, Acne was brought into [facility] ER on 05/18/17 after he called 911 stating that he was suicidal. He was drinking alcohol at his home as it was his Mom's birthday, afterwards feelings of wanting to kill himself , with auditory hallucinations. He was cleared by the ER for in-patient Psychiatry Unit at [facility]. Hospitalist service was consulted for medical management. Examination in the Psychiatry Unit revealed an Right Foot Pedal Surface ulcer that was malodorous. Patient revealed that he has had an ulcer in this area for the past 8 months and it was not until end of March 2017 that he went to see Dr. King who at that time had instructed him to go immediately to the hospital. However, patient stated he did not go and did not have an explanation as to why he did not.Patient admitted to medical floor for further management. Podiatry consulted and patient was started on IV Vancomycin and Zosyn.MRI of the foot showed 2.5 cm abscess to plantar aspect and osteomyelitis of distal second metatarsal and first phalanx. Patient to go to OR in AM by podiatry 1. Diabetic ulcer of right foot Cultures still pending Podiatry and ID on consult MRI of the foot showed plantar abscess and osteomyelitis For OR in AM Will place PICC line in Am for terminal block assembler IV antibiotics ( 4-6 weeks) 2. Hyponatremia resolved 3. Suicidal ideation with hallucinations/ schizofrenia psychiatry consult appreciated Continue risperdal, Zoloft and 1:1 observation for safety 4. DM type 2, uncontrolled, with lower extremity ulcer Patient states that he was on Metformin 1,000 mg PO 2x/day, Januvia unspecified dose 2x/day, Lantus 24 units SC 1x/day but has not taken these medications since this past December 2016 due to lack of insurance and then he stated that he lost the medications. Hold the Metformin for 48 hours after the performance of the MRI Right Foot with and with out contrast at 9 AM on 05/20/17. Also probably not a good idea to place this patient on Insulin for custodial considering prior suicide attempt by overdosing on insulin Regular Insulin Sliding Scale Medium with Accuchecks ACHS for now Heart Healthy Low Carbohydrate Diet Lisinopril 2.5 mg PO 1x/day for Renal Protection HgBA1C is 9.5 Start Glipizide 10 mg po BID and Januvia 100 mg po daily LDL is at goal < 100 at 63 therefore hold off on Statin TSH and T4 are normal 5.Multiple lung nodules seen on CT chest Follow up with repeat Ct in 6 months - 1 year 6. Anxiety and depression management as per psych 7. 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 Prophylactic measure Protonix for GI Prophylaxis Heparin and SCD for DVT Prophylaxis
--- NOTE | 2017-05-22 09:29 | CP.PCM.PN ---
Subjective - Date & Time of Evaluation Date of Evaluation: 05/22/17 Time of Evaluation: 08:30 - Subjective Subjective: 47 year old male patient with PMHx of DM, schizophrenia, suicidal ideations seen for right foot ulcer. Patient was seen at bedside resting comfortably. Patient states that he has no pain but admits to a throbbing sensation of is right foot. Patient denies any acute events overnight. Patient denies N/V/F/D/ SOB/CP or chills. No other pedal complaints at this time. Objective - Vital Signs/Intake and Output Vital Signs (last 24 hours): Temp Pulse Resp BP Pulse Ox 98.3 F 77 19 109/73 97 05/22/17 08:02 05/22/17 08:40 05/22/17 08:02 05/22/17 08:40 05/22/17 08:02 - Medications Medications: Current Medications Glipizide (Glucotrol) 10 mg PO BIDAC [facility] Last Admin: 05/22/17 08:39 Dose: 10 mg Heparin Sodium (Porcine) (Heparin) 5,000 units SC Q8 [facility] PRN Reason: Protocol Last Admin: 05/22/17 08:39 Dose: 5,000 units Piperacillin Sod/Tazobactam (Sod 3.375 gm/ Sodium Chloride) 100 mls @ 100 mls/ hr IVPB 0000,0600,1200,1800 [facility] Last Admin: 05/22/17 05:58 Dose: 100 mls/hr Vancomycin HCl 1 gm/ Sodium (Chloride) 250 mls @ 166.667 mls/hr IVPB Q12@0900, 2100 [facility] Last Admin: 05/22/17 08:41 Dose: 166.667 mls/hr Insulin Human Regular (Humulin R) 0 units SC ACHS [facility] Last Admin: 05/22/17 07:28 Dose: 4 units Lisinopril (Zestril) 2.5 mg PO DAILY [facility] Last Admin: 05/22/17 08:40 Dose: 2.5 mg Lorazepam (Ativan) 1 mg IVP Q6 PRN PRN Reason: Agitation Last Admin: 05/22/17 03:55 Dose: 1 mg Nicotine (Nicoderm Cq) 1 patch TD DAILY [facility] Last Admin: 05/22/17 08:40 Dose: 1 patch Pantoprazole Sodium (Protonix Ec Tab) 40 mg PO DAILY [facility] Last Admin: 05/22/17 08:40 Dose: 40 mg Risperidone (Risperdal Tab) 1 mg PO Q12 [facility] Last Admin: 05/22/17 08:40 Dose: 1 mg Saccharomyces Boulardii (Florastor) 250 mg PO BID [facility] Last Admin: 05/22/17 08:40 Dose: 250 mg Sertraline HCl (Zoloft) 50 mg PO DAILY [facility] Last Admin: 05/22/17 08:41 Dose: 50 mg Sitagliptin Phosphate (Januvia) 100 mg PO DAILY [facility] Last Admin: 05/22/17 08:40 Dose: 100 mg - Labs Labs: 05/19/17 19:55 05/22/17 07:00 PT 16.1 Seconds (9.8-13.1) H 05/19/17 19:55 INR 1.4 (0.9-1.2) H 05/19/17 19:55 APTT 32.3 Seconds (25.6-37.1) 05/19/17 19:55 - Constitutional Appears: Well, Non-toxic, No Acute Distress - Extremities Exam Additional comments: Focused right lower extremity physical exam: Vasc: DP and PT pulses palpable 2/4. CFT WNL to all digits tested. No edema noted. Mild erythema noted to periwound. Neuro: Gross sensation diminished and protective sensation diminished. Derm: Ulceration measuring approximately 0.8 x 1.5 x 1.3 cm noted sub met 3. + malodor, undermining, and tunneling.. Serosanguinous drainage noted. No fluctuance noted. No probe to bone. Hyperkeratotic rim noted. Hyperpigmentation noted to dorsum of foot. Opening to 1st interspace Right foot noted: 1 cc of serousangious drainage expressed and probes approximately 1.5 cm; mild purulence and mild odor noted to drainage Ortho: Mild tenderness to palpation noted to ulceration. - Neurological Exam Neurological Exam: Alert, Awake, Oriented x3 - Psychiatric Exam Psychiatric exam: Normal Affect, Normal Mood Assessment and Plan - Assessment and Plan (Free Text) Assessment: 47 year old male with Right plantar ulceration secondary to DM Plan: Patient seen and evaluated at bedside. Charts, labs, vitals reviewed Discussed plan in detail with attending Dr. Bennett. Dressings changed with DSD. Wound cx still pending. Awaiting full report of MRI R foot to rule out OM. Will continue to monitor R 1st interspace opening: serousangous fluid expressed with mild odor X-rays ordered and reviewed: no signs of soft tissue emphysema Patient to OR tomorrow afternoon for Right Christine metatarsal head resection NPO after 6AM Heparin to be stopped in AM Podiatry will continue to follow patient while in-house.
--- NOTE | 2017-05-22 10:54 | RAD ---
PROCEDURE: Right foot dated 05/22/2017 HISTORY: Right foot ulcer COMPARISON: Comparison made with prior study 05/18/2017. Correlation also made with MRI of the lower extremity 05/20/2017 FINDINGS: Current study re- demonstrates. Destructive changes involving the base of the proximal phalanx 2nd toe . There appears to be lateral and possibly some plantar subluxation of the base of the proximal phalanx 2nd toe as well. Gas within the medial aspect of the 2nd toe near the distal aspect of the proximal phalanx felt be present. It is unclear whether there are disorder destructive changes of the head of the 2nd metatarsal. There are destructive changes of the head of the 1st metatarsal which appear chronic (questionable chronic osteomyelitis) and are associated with medial and probably dorsal subluxation of the proximal aspect of the proximal phalanx, at this 1st MTP joint. Early destructive changes proximal aspect of the proximal phalanx 1st toe not excluded. Significant soft tissue swelling most significant involving the 1st and 2nd toes consistent with surrounding cellulitis most pronounced involving the plantar soft tissues where apparent ulceration is located. Please refer 2 of MRI of the right foot and corresponding report. No change postoperative resection distal aspect of the 3rd metatarsal with the proximal migration of the remaining digits of the 3rd toe. IMPRESSION: Re- demonstrated are destructive changes/ osteomyelitis involving the proximal aspect proximal phalanx 2nd toe with significant soft tissue swelling consistent with cellulitis. It is unclear whether there may be early destructive changes involving the head of the 2nd metatarsal as well. . There is lateral and suspected plantar subluxation of the proximal aspect of the proximal phalanx Chronic destructive changes (questionable chronic osteomyelitis) involving the head of the 1st metatarsal with medial and suspected dorsal subluxation of the proximal aspect of the proximal phalanx 1st toe. Early destructive changes proximal aspect of the proximal phalanx 1st toe not excluded. . Diffuse soft tissue swelling on consistent with cellulitis Again noted are postoperative amputation distal aspect 3rd metatarsal with proximal migration of the remaining digits of the 3rd toe.
[2017-05-23] MEDS: Piperacillin/Tazobact 3.375 GM in Sodium Chloride 0.9% 100 ML IVPB SCH ×4 (05:41→23:58)
[2017-05-23 06:16] LABS: MEAN CELL VOLUME 101.9 fl (80.0-94.0); MEAN CORPUSCULAR HEMOGLOBIN 34.5 pg (27.0-31.0); MEAN CORPUSCULAR HGB CONC 33.9 g/dL (33.0-37.0); RED CELL DISTRIBUTION WIDTH 12.9 % (11.5-14.5); WHITE BLOOD COUNT 6.3 K/uL (4.8-10.8)
[2017-05-23] MEDS: Insulin Regular 100 units/ml SC SCH ×4 (07:22→21:54)
--- NOTE | 2017-05-23 07:59 | CP.PCM.PN ---
Subjective - Date & Time of Evaluation Date of Evaluation: 05/23/17 Time of Evaluation: 08:24 - Subjective Subjective: 47 y/o male seen at bedside for R foot ulceration. Pt appears to be resting comfortably and is in NAD. Pt is AAOx3. Pt states that he has not had anything to eat or drink since midnight last night. Pt is aware of going to surgery today. Pt denies of any acute overnight events. Pt denies of any F/N/V/C/SOB. Pt 's dressing is clean, dry, and intact. Objective - Vital Signs/Intake and Output Vital Signs (last 24 hours): Temp Pulse Resp BP Pulse Ox 98.2 F 72 19 133/78 96 05/23/17 01:00 05/23/17 01:00 05/23/17 01:00 05/23/17 01:00 05/23/17 01:00 - Medications Medications: Current Medications Glipizide (Glucotrol) 10 mg PO BIDAC [facility] Last Admin: 05/22/17 16:27 Dose: 10 mg Heparin Sodium (Porcine) (Heparin) 5,000 units SC Q8 [facility] PRN Reason: Protocol Last Admin: 05/23/17 00:59 Dose: 5,000 units Piperacillin Sod/Tazobactam (Sod 3.375 gm/ Sodium Chloride) 100 mls @ 100 mls/ hr IVPB 0000,0600,1200,1800 [facility] Last Admin: 05/23/17 05:41 Dose: 100 mls/hr Vancomycin HCl 1 gm/ Sodium (Chloride) 250 mls @ 166.667 mls/hr IVPB Q12@0900, 2100 [facility] Last Admin: 05/22/17 20:43 Dose: 166.667 mls/hr Insulin Human Regular (Humulin R) 0 units SC ACHS [facility] Last Admin: 05/23/17 07:22 Dose: 6 units Lisinopril (Zestril) 2.5 mg PO DAILY [facility] Last Admin: 05/22/17 08:40 Dose: 2.5 mg Lorazepam (Ativan) 1 mg IVP Q6 PRN PRN Reason: Agitation Last Admin: 05/23/17 02:30 Dose: 1 mg Nicotine (Nicoderm Cq) 1 patch TD DAILY [facility] Last Admin: 05/22/17 08:40 Dose: 1 patch Pantoprazole Sodium (Protonix Ec Tab) 40 mg PO DAILY [facility] Last Admin: 05/22/17 08:40 Dose: 40 mg Risperidone (Risperdal Tab) 1 mg PO Q12 [facility] Last Admin: 05/22/17 21:47 Dose: 1 mg Saccharomyces Boulardii (Florastor) 250 mg PO BID [facility] Last Admin: 05/22/17 16:27 Dose: 250 mg Sertraline HCl (Zoloft) 50 mg PO DAILY [facility] Last Admin: 05/22/17 08:41 Dose: 50 mg Sitagliptin Phosphate (Januvia) 100 mg PO DAILY [facility] Last Admin: 05/22/17 08:40 Dose: 100 mg - Labs Labs: 05/23/17 05:15 05/22/17 07:00 PT 16.1 Seconds (9.8-13.1) H 05/19/17 19:55 INR 1.4 (0.9-1.2) H 05/19/17 19:55 APTT 32.3 Seconds (25.6-37.1) 05/19/17 19:55 - Constitutional Appears: Well, Non-toxic, No Acute Distress - Extremities Exam Additional comments: Pt's dressing is clean, dry and intact. No strike through noted. No malodor noted. - Neurological Exam Neurological Exam: Alert, Awake, Oriented x3 Assessment and Plan - Assessment and Plan (Free Text) Assessment: 47 y/o male with R foot ulceration secondary to DM neuropathy Plan: Pt was seen and examined at bedside Plan discussed with attending Dr. Bennett Right foot xray report: -OM of proximal aspect proximal phalanx 2nd toe with significant soft tissue swelling consistent with cellulitis. -Lateral & suspected plantar subluxation of the proximal aspect of the proximal phalanx. -Chronic destructive changes (questionable chronic osteomyelitis) involving the head of the 1st metatarsal with medial and suspected dorsal subluxation of the proximal aspect of the proximal phalanx 1st toe. Early destructive changes proximal aspect of the proximal phalanx 1st toe not excluded. Diffuse soft tissue swelling on consistent with cellulitis Right foot MRI: taken, pending official report Plan for OR today early afternoon for right foot 2nd metatarsal head resection and wound debridement. Will require medical clearance from primary team prior to OR Pt NPO status was confirmed Pt has exhausted all conservative treatment at this time now requires surgical intervention Pt was explained procedure and post-operative course All pt's questions were answered to satisfaction No guarantees were made Pt understands all risks, benefits and complications of procedure Iv abx as per ID (on garrison and dilshad) Podiatry will continue to follow pt while he remains in house
[2017-05-23] MEDS: Saccharomyces Boulardi 250 mg Cap PO SCH ×2 (08:19→17:03)
[2017-05-23] MEDS: Pantoprazole 40 mg EC Tab PO SCH (08:20)
--- NOTE | 2017-05-23 09:43 | PCM.PYCHPN ---
Psychiatric Progress Note - Psychiatric Progress Note Patient seen today, length of contact: Patient evaluated, chart reviewed Patient Chief Complaint: "I'm still hearing voices" Problems Identified/Issues Discussed: Patient continues to report command auditory hallucinations to harm himself, but he denies any current plan/intent. We discussed increasing the Risperdal again for his continued psychosis. He is stressed about his pending surgical procedure. Medication Change: Yes (Increase Risperdal to 3 mg PO HS) Medical Record Reviewed: Yes Mental Status Examination - Cognitive Function Orientation: Person, Place, Situation, Time Memory: Intact Attention: WNL Concentration: WNL Association: [facility] Fund of Knowledge: [facility] Decription of patient's judgement and insights: Fair I/J - Mood Mood: Depressed - Affect Affect: Constricted - Speech Speech: Appropriate - Formal Thought Process Formal Thought Process: Hallucinations Psychotic Thoughts and Behaviors: +CAH - Suicidal Ideation Suicidal Ideation: No Plan: Patient reports command auditory hallucinations to harm himself, but denies actual suicidal plan or intent and does not want to respond to the voices. - Homicidal Ideation Homicidal Ideation: No Goal/Treatment Plan - Goal/Treatment Plan Need for Continued Stay: Remain at risks for inpatient hospitalization Progress Toward Problem(s) and Goals/Treatment Plan: Impression: Major Depressive Disorder w/ psychotic features, Alcohol Use Disorder Recommendations: -Increase Risperdal to 3 mg PO HS -Continue Zoloft 50 mg PO Daily -Continue 1:1 for safety
[2017-05-23] MEDS: Sodium Chloride 0.9% 1,000 ML IV SCH (10:13)
[2017-05-23 11:10] LABS: RBC URINE 3 /hpf (0-3); URINE BACTERIA RARE (<OCC); URINE BILIRUBIN NEGATIVE (NEGATIVE); URINE BLOOD NEGATIVE (NEGATIVE); URINE COLOR YELLOW (YELLOW); URINE GLUCOSE (UA) >=500 mg/dL (Normal); URINE KETONE NEGATIVE (NEGATIVE); URINE LEUKOCYTE ESTERASE NEG Leu/uL (Negative); URINE PROTEIN NEGATIVE (NEGATIVE); URINE UROBILINOGEN 0.2-1.0 mg/dL (0.2-1.0); WBC URINE < 1 /hpf (0-5)
--- NOTE | 2017-05-23 13:05 | CP.PCM.PN ---
Subjective - Date & Time of Evaluation Date of Evaluation: 05/23/17 Time of Evaluation: 12:48 - Subjective Subjective: - 47 YO M w/ h/o uncontrolled DM2, schizophrenia w/ a ulcer at the base of his right foot is seen at bedside. Patient is hemodynamically stable. Denies any chest pain, SOB, palpitations. Continues complaining of throbbing sensation of his foot. Pts dressing over right foot appears clean, dry intact. The right foot wound showed positive culture for Proteus mirabilis and Staph aureaus. - Pt has been NPO overnight, he is scheduled for surgery today at 2pm for right foot 2nd metatarsal head resection and wound debridement. - Denies N/V/D/fever - Patient is medically cleared for surgery. Objective - Vital Signs/Intake and Output Vital Signs (last 24 hours): Temp Pulse Resp BP Pulse Ox 98.4 F 78 20 129/72 97 05/23/17 09:00 05/23/17 09:00 05/23/17 09:00 05/23/17 09:00 05/23/17 09:00 - Medications Medications: Current Medications Glipizide (Glucotrol) 10 mg PO BIDAC [facility] Last Admin: 05/23/17 08:20 Dose: Not Given Heparin Sodium (Porcine) (Heparin) 5,000 units SC Q8 [facility] PRN Reason: Protocol Last Admin: 05/23/17 00:59 Dose: 5,000 units Piperacillin Sod/Tazobactam (Sod 3.375 gm/ Sodium Chloride) 100 mls @ 100 mls/ hr IVPB 0000,0600,1200,1800 [facility] Last Admin: 05/23/17 11:28 Dose: 100 mls/hr Vancomycin HCl 1 gm/ Sodium (Chloride) 250 mls @ 166.667 mls/hr IVPB Q12@0900, 2100 [facility] Last Admin: 05/23/17 08:23 Dose: 166.667 mls/hr Sodium Chloride (Sodium Chloride 0.9%) 1,000 mls @ 100 mls/hr IV .Q10H [facility] Stop: 05/24/17 08:44 Last Admin: 05/23/17 10:13 Dose: 100 mls/hr Insulin Human Regular (Humulin R) 0 units SC ACHS [facility] Last Admin: 05/23/17 12:11 Dose: Not Given Lisinopril (Zestril) 2.5 mg PO DAILY [facility] Last Admin: 05/23/17 08:21 Dose: Not Given Lorazepam (Ativan) 1 mg IVP Q6 PRN PRN Reason: Agitation Last Admin: 05/23/17 10:33 Dose: 1 mg Nicotine (Nicoderm Cq) 1 patch TD DAILY [facility] Last Admin: 05/23/17 10:10 Dose: 1 patch Pantoprazole Sodium (Protonix Ec Tab) 40 mg PO DAILY [facility] Last Admin: 05/23/17 08:20 Dose: Not Given Risperidone (Risperdal Tab) 3 mg PO [facility] Saccharomyces Boulardii (Florastor) 250 mg PO BID [facility] Last Admin: 05/23/17 08:19 Dose: Not Given Sertraline HCl (Zoloft) 50 mg PO DAILY [facility] Last Admin: 05/23/17 08:21 Dose: Not Given Sitagliptin Phosphate (Januvia) 100 mg PO DAILY [facility] Last Admin: 05/23/17 08:20 Dose: Not Given - Labs Labs: 05/23/17 05:15 05/22/17 07:00 PT 16.1 Seconds (9.8-13.1) H 05/19/17 19:55 INR 1.4 (0.9-1.2) H 05/19/17 19:55 APTT 32.3 Seconds (25.6-37.1) 05/19/17 19:55 - Constitutional Appears: No Acute Distress - Head Exam Head Exam: ATRAUMATIC, NORMAL INSPECTION, NORMOCEPHALIC - Eye Exam Eye Exam: Normal appearance Pupil Exam: NORMAL ACCOMODATION, PERRL - ENT Exam ENT Exam: Mucous Membranes Moist - Respiratory Exam Respiratory Exam: Clear to Ausculation Bilateral, NORMAL BREATHING PATTERN - Cardiovascular Exam Cardiovascular Exam: REGULAR RHYTHM, +S1, +S2 - GI/Abdominal Exam GI & Abdominal Exam: Soft, Normal Bowel Sounds - Extremities Exam Additional comments: Dressing over right foot appears C/D/I - Neurological Exam Neurological Exam: Alert, Awake, CN II-XII Intact, Oriented x3 - Psychiatric Exam Psychiatric exam: Anxious, Normal Affect, Normal Mood - Skin Skin Exam: Normal Color Additional comments: Acne over malar region of face. Assessment and Plan - Assessment and Plan (Free Text) Assessment: Assessment: 47 year old male with PMH DM 2 Insulin Dependent, Anxiety/Depression, Schizophrenia, Suicide Attempt October 2016 by overdosing on Insulin, Acne was brought into [facility] ER on 05/18/17 after he called 911 stating that he was suicidal. He was drinking alcohol at his home as it was his Mom's birthday, afterwards feelings of wanting to kill himself , with auditory hallucinations. He was cleared by the ER for in-patient Psychiatry Unit at [facility]. Hospitalist service was consulted for medical management. Examination in the Psychiatry Unit revealed an Right Foot Pedal Surface ulcer that was malodorous. Patient revealed that he has had an ulcer in this area for the past 8 months and it was not until end of March 2017 that he went to see Dr. King who at that time had instructed him to go immediately to the hospital. However, patient stated he did not go and did not have an explanation as to why he did not.Patient admitted to medical floor for further management. Podiatry consulted and patient was started on IV Vancomycin and Zosyn.MRI of the foot showed 2.5 cm abscess to plantar aspect and osteomyelitis of distal second metatarsal and first phalanx. Patient is scheduled for surgery today 1. Diabetic ulcer of right foot Podiatry and ID on consult MRI of the foot showed plantar abscess and osteomyelitis Cultures were positive for Proteus mirabilis and Staph Aureus OR today at 2pm for 2nd metatarsal head resection and wound debridement of right foot. Will place PICC line for nursing home IV antibiotics ( 4-6 weeks) 2. Hyponatremia resolved 3. Suicidal ideation with hallucinations/ schizofrenia psychiatry consult appreciated Continue risperdal, Zoloft and 1:1 observation for safety 4. DM type 2, uncontrolled, with lower extremity ulcer Patient states that he was on Metformin 1,000 mg PO 2x/day, Januvia unspecified dose 2x/day, Lantus 24 units SC 1x/day but has not taken these medications since this past December 2016 due to lack of insurance and then he stated that he lost the medications. 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 Anxiety and depression management as per psych 7. Alcohol intoxication no signs of withdrawal As per ER records 05/18/17 patient presented intoxicated Ativan 1 mg IV Q6H PRN Agitation/Signs Withdrawl 8.Nicotine addiction Nicotine Patch 14 mg TD 1x/day 9.Facial adult acne possibly secondary to the Rispirdone Patient has been advised to follow up with his PMD/credentials specialist outpatient 10. Prophylactic measure Protonix for GI Prophylaxis ( Heparin hugo for surgery today) restart after surgery . SCD for DVT Prophylaxis
[2017-05-23] MEDS ORDERED: Sodium Chloride 0.9% 1,000 ML IV ONE ×2 (14:06→15:52)
--- NOTE | 2017-05-23 14:18 | MRI ---
MRI right forefoot History: Diabetic ulcer. Evaluate for osteomyelitis. Comparison: None available. Technique: Multi-echo multiplanar sequences were performed through the right forefoot without and with the use of intravenous contrast. Findings: Plantar soft tissue abscess containing gas and fluid estimated at approximately 3 centimeters at the level of the 2nd digit at the metatarsal head and proximal phalanges. Prominent soft tissue ulceration with adjacent edema and inflammation. Prominent bone marrow signal abnormality within the 2nd digit at the level of the proximal phalanx and metatarsal head with decreased T1 signal and increased STIR signal consistent with acute osteomyelitis. Osseous deformity of the proximal base of the 2nd phalanx. Superior subluxation of the proximal phalanx in relationship to the metatarsal head. Marrow edema extends into the 2nd metatarsal shaft. Prominent signal abnormality with patchy decreased T1 signal and patchy increased STIR signal seen at the head of the 3rd metatarsal bone with adjacent signal abnormality within the 3rd metatarsal shaft which may represent an osteomyelitis, possibly acute on chronic. Apparent osseous deformity at this level. Clinical correlation. Correlation with bony CT may be helpful to better evaluate fine osseous anatomy at this level. Prominent deformity of the 1st metatarsal head with prominent dislocation of the 1st MTP joint space with medial subluxation and dislocation of the 1st proximal phalanx in relationship to the metatarsal head. Cortical irregularity noted at the base of the 1st proximal phalanx and head of the 1st metatarsal bone. Signal abnormality is noted with patchy decreased T1 signal and increased STIR signal at these levels which may represent an osteomyelitis, possibly acute on chronic. Clinical correlation. Correlation with bone CT may be helpful to better evaluate the osseous anatomy at this level and exclude osseous injury. Fraying with increased signal seen at the visualized Lisfranc ligament which may represent a low grade sprain and or mild partial tearing. Minimal nonspecific reactive edema seen at the head of the 5th metatarsal bone. Impression: 1. Plantar soft tissue abscess containing gas and fluid estimated at approximately 3 centimeters at the level of the 2nd digit at the metatarsal head and proximal phalanges. Prominent soft tissue ulceration with adjacent edema and inflammation. Prominent bone marrow signal abnormality within the 2nd digit at the level of the proximal phalanx and metatarsal head with decreased T1 signal and increased STIR signal consistent with acute osteomyelitis. Osseous deformity of the proximal base of the 2nd phalanx. Superior subluxation of the proximal phalanx in relationship to the metatarsal head. Marrow edema extends into the 2nd metatarsal shaft. 2. Prominent signal abnormality with patchy decreased T1 signal and patchy increased STIR signal seen at the head of the 3rd metatarsal bone with adjacent signal abnormality within the 3rd metatarsal shaft which may represent an osteomyelitis, possibly acute on chronic. Apparent osseous deformity at this level. Clinical correlation. Correlation with bony CT may be helpful to better evaluate fine osseous anatomy at this level. 3. Prominent deformity of the 1st metatarsal head with prominent dislocation of the 1st MTP joint space with medial subluxation and dislocation of the 1st proximal phalanx in relationship to the metatarsal head. Cortical irregularity noted at the base of the 1st proximal phalanx and head of the 1st metatarsal bone. Signal abnormality is noted with patchy decreased T1 signal and increased STIR signal at these levels which may represent an osteomyelitis, possibly acute on chronic. Clinical correlation. Correlation with bone CT may be helpful to better evaluate the osseous anatomy at this level and exclude osseous injury. 4. Fraying with increased signal seen at the visualized Lisfranc ligament which may represent a low grade sprain and or mild partial tearing. 5. Minimal nonspecific reactive edema seen at the head of the 5th metatarsal bone. These findings were preliminarily reported at 1:21 p.m. on 05/20/[address] Mat Gasca from [facility].
[2017-05-23] MEDS ORDERED: Bupivacaine 0.5% 50 ML IJ ONE ×2 (14:20→15:07)
[2017-05-23] MEDS ORDERED: Lidocaine 1% Inj (20ml) IJ ONE (14:20)
[2017-05-23] MEDS ORDERED: Oxycodone/Acetaminophen 5/325 mg Tab PO PRN (15:24)
[2017-05-23] MEDS ORDERED: HYDROmorphone 0.5 mg/0.5 ml ISec IVP PRN (15:26)
--- NOTE | 2017-05-23 15:31 | PCM.SURG1 ---
Surgeon's Initial Post Op Note - Surgeon's Notes Surgeon: Dr. Chiquita Bennett Credit Reference Clerk: Dr. Peace Ashley Type of Anesthesia: MAC, Local Anesthesia Administered By: Dr. Benson Pre-Operative Diagnosis: Chronic, infected right foot diabetic ulceration with osteomyelitis of second metatarsal head and second proximal phalanx Operative Findings: See operative report. M: 2-0 and 3-0 nylon suture, 0.25 inch iodoform packing. I: 20 cc 1:1 1% lidocaine plain and 0.5% marcaine plain Post-Operative Diagnosis: same Operation Performed: right foot second metatarsal head and second proximal phalanx base resection with debridement of wound and primary wound closure Specimen/Specimens Removed: Right foot second metatarsal head bone and second proximal phalanx base Estimated Blood Loss: EBL {In ML}: 15 Blood Products Given: N/A Drains Used: No Drains Post-Op Condition: Good Date of Surgery/Procedure: 05/23/17 Time of Surgery/Procedure: 14:30
--- NOTE | 2017-05-23 18:06 | OP ---
PROCEDURE DATE: 05/23/2017 PREOPERATIVE DIAGNOSIS: Right foot second digit and second metatarsal osteomyelitis with right foot plantar partial thickness ulceration. POSTOPERATIVE DIAGNOSIS: Right foot second digit and second metatarsal osteomyelitis with right foot plantar partial thickness ulceration. PRIMARY SURGEON: Chiquita Bennett DPM. ANESTHESIOLOGY CRNA: Dr. Ag Cespedes, PGY-1. ANESTHESIOLOGIST: Dr. Benson. ANESTHESIA TYPE: IV sedation with local. Local was 20 mL of a 1:1 mixture of 0.5% Marcaine plain to 1% lidocaine plain. PROCEDURE PERFORMED: Right foot second metatarsal head resection with right second digit proximal phalanx base resection, debridement of right foot plantar ulcer, and delayed primary closure of right foot. INDICATIONS: The patient is a 47-year-old male with the above stated diagnosis. The patient signed the consent after careful explanation of risks, benefits and complications. Elaborating further, the patient was told that the patient will need to follow up with IV antibiotics for a period of 8+ weeks, and the previously discussed surgical procedure that was suggested was extended from selected digit amputation and extending to second ray amputation with additional also debridement as needed. The patient understands the risk of potential additional foot infection with risk of foot and additional spread of osteomyelitis threatening the foot. The patient requesting only metatarsal head resection and base of the second digit to be bony procedures to control osteomyelitis. The consent after explanation of the subsequent risks, benefits , complications. PREPARATION: The patient was then wheeled into the operating room and placed on the operating room table in the supine position. IV sedation was began, and once confirmed to have been achieved, 20 mL of a 1:1 local mixture of 0.5% Marcaine plain to 1% lidocaine plain was injected in a local block type fashion to the right foot. Local anesthesia was confirmed to have been achieved. The foot was prepped and draped in the usual sterile manner and the procedure began. PROCEDURE #1: Attention was then directed to the dorsal aspect of the right second digit where using a #15 blade, a longitudinal incision measuring 4 cm was made overlying the first metatarsophalangeal joint. At this time, the incision was extended down through the dermal and epidermal tissue layers down to subcutaneous tissue with care taken to avoid all vital neurovascular structures and all bleeders ligated and cauterized as needed. At this time, using a #15 blade, head and base of second metatarsal and second proximal phalanx respectively were then freed of their fibrous and ligamentous attachments at the level of the metatarsophalangeal joint. Periosteum and metatarsophalangeal joint capsule were then resected using a #15 blade and combination of crown and collar. Once all soft tissue attachments were appreciated, reduction of second digit was appreciated. Digit noted to still be contracted and subluxed dorsally of the metatarsal head. Transverse tenotomy was then performed of extensor digitorum longus and extensor digitorum brevis tendon bodies extending to the second digit. At this time, improved translocation and reduction of subluxation of second digit was appreciated, though not completely reduced to proper anatomical position. At this time, a sagittal saw was introduced to operative field and a bevel transverse osteotomy was placed, oriented dorsal distally to plantar proximally of the second metatarsal head and neck. This specimen was then passed from the operative field and sent for microbiology and pathology. Attention was then directed to the proximal aspect of the proximal phalanx base where oscillating saw was then used to resect the base. This specimen was then passed for wound culture and pathology. At this time, surgical correction of the second digit was noted to be greatly improved. Attention was then directed to the plantar aspect of the right foot to the second metatarsal head plantar ulceration, which was debrided of all hyperkeratotic and fibrotic tissue using a #15 blade down to the layer of subcutaneous tissue. Total area resected totalled 5 cm2. At this time, pulse lavage was introduced to the operative field. Surgical sites were then flushed with copious amounts of sterile saline totaling 3000 mL in total. At this time, attention was then directed back to the dorsal aspect of the foot where quarter inch iodoform packing was placed into the dorsal surgical site. Full thickness closure of the dorsal incision was achieved using 3-0 nylon in a horizontal bridging suture type fashion. Attention was then directed to the plantar aspect of the foot to the ulceration site, which has to this point been debrided. Delayed primary reclosure was performed. Resection of ulcer margins to create a longitudinal oriented ulcer bed was created to allow for better plantar skin cosmesis and reduction of scar tissue. Primary wound closure was then achieved using 2-0 nylon suture in a retention suture type fashion. Skin closure was appreciated to be well coapted at this time. Both surgical sites were then cleansed with sterile saline. Dressed with Betadine soaked 4 x 4 Adaptic, 4 x 4 gauze, ABD pads, Zaid, Kerlix and a loosely adhered Miguel Angel wrap. POSTOPERATIVE CONDITION: The patient was taken to the PACU unit with vital signs stable and neurovascular status intact to the right foot and right second digit respectively. The patient will be followed inhouse at [facility] by podiatry service and Dr. Bennett. Ag Cespedes DPM Chiqutia Bennett DPM cc: [id number] TT: 05/23/2017 18:05:13 mn MTDD
--- NOTE | 2017-05-23 19:18 | CARD ---
APPROVED REPORT EKG Measurement Heart [id number] <Conclusion> Normal sinus rhythm Prolonged QT Abnormal ECG
[2017-05-23] MEDS: Oxycodone/Acetaminophen 5/325 mg Tab PO PRN (22:44)
[2017-05-24] MEDS: Sodium Chloride 0.9% 1,000 ML IV SCH ×3 (02:00→12:42)
[2017-05-24] MEDS: Oxycodone/Acetaminophen 5/325 mg Tab PO PRN ×2 (04:12→13:23)
[2017-05-24] MEDS: Piperacillin/Tazobact 3.375 GM in Sodium Chloride 0.9% 100 ML IVPB SCH ×3 (05:37→17:42)
--- NOTE | 2017-05-24 06:51 | CP.PCM.PN ---
Subjective - Date & Time of Evaluation Date of Evaluation: 05/24/17 Time of Evaluation: 06:46 - Subjective Subjective: 47 y/o male seen at bedside for POD#1 s/p R 2nd met head and proximal phalanx resection (DOS: 05/23/17). Patient is resting comfortably, AAOx3 and NAD. Patient admits that 30 minutes after he got back to his room from surgery, he walked from his bed to the bathroom and back, without using his surgical shoe. Patient states that blood was oozing from his surgical site as he was walking on it. Patient did not know he had to use the surgical shoe. Patient reports increased pain to his right foot this morning. Patient was not wearing his surgical shoe this morning. Patient denies N/V/F/D/SOB/CP. No other pedal complaints at this time. Objective - Vital Signs/Intake and Output Vital Signs (last 24 hours): Temp Pulse Resp BP Pulse Ox 98.9 F 81 18 109/74 97 05/24/17 05:05 05/24/17 05:05 05/24/17 05:05 05/24/17 05:05 05/24/17 05:05 Intake and Output: 05/23/17 05/24/17 18:59 06:59 Intake Total 900 Balance 900 - Medications Medications: Current Medications Acetaminophen (Tylenol 325mg Tab) 650 mg PO Q4 PRN PRN Reason: Pain, Mild (1-3) Glipizide (Glucotrol) 10 mg PO BIDAC [facility] Last Admin: 05/23/17 17:03 Dose: 10 mg Heparin Sodium (Porcine) (Heparin) 5,000 units SC Q8 [facility] PRN Reason: Protocol Last Admin: 05/23/17 00:59 Dose: 5,000 units Piperacillin Sod/Tazobactam (Sod 3.375 gm/ Sodium Chloride) 100 mls @ 100 mls/ hr IVPB 0000,0600,1200,1800 [facility] [place] Last Admin: 05/24/17 05:37 Dose: 100 mls/hr Vancomycin HCl 1 gm/ Sodium (Chloride) 250 mls @ 166.667 mls/hr IVPB Q12@0900, 2100 [facility] [place] Last Admin: 05/23/17 21:14 Dose: 166.667 mls/hr Sodium Chloride (Sodium Chloride 0.9%) 1,000 mls @ 100 mls/hr IV .Q10H [facility] [place] Stop: 05/24/17 08:44 Last Admin: 05/24/17 06:32 Dose: Not Given Sodium Chloride (Sodium Chloride 0.9%) 1,000 mls @ 100 mls/hr IV .Q10H [facility] [place] Last Admin: 05/24/17 02:00 Dose: Not Given Insulin Human Regular (Humulin R) 0 units SC ACHS [facility] [place] Last Admin: 05/23/17 21:54 Dose: 8 units Lisinopril (Zestril) 2.5 mg PO DAILY [facility] Last Admin: 05/23/17 08:21 Dose: Not Given Lorazepam (Ativan) 1 mg IVP Q6 PRN PRN Reason: Agitation Last Admin: 05/23/17 10:33 Dose: 1 mg Nicotine (Nicoderm Cq) 1 patch TD DAILY [facility] Last Admin: 05/23/17 10:10 Dose: 1 patch Oxycodone/Acetaminophen (Percocet 5/325 Mg Tab) 1 tab PO Q4 PRN PRN Reason: Pain, moderate (4-7) Stop: 05/26/17 15:25 Oxycodone/Acetaminophen (Percocet 5/325 Mg Tab) 2 tab PO Q4 PRN PRN Reason: Pain, severe (8-10) Stop: 05/26/17 15:25 Last Admin: 05/24/17 04:12 Dose: 2 tab Pantoprazole Sodium (Protonix Ec Tab) 40 mg PO DAILY [facility] Last Admin: 05/23/17 08:20 Dose: Not Given Risperidone (Risperdal Tab) 3 mg PO HS [facility] [place] Last Admin: 05/23/17 21:16 Dose: 3 mg Saccharomyces Boulardii (Florastor) 250 mg PO BID [facility] [place] Last Admin: 05/23/17 17:03 Dose: 250 mg Sertraline HCl (Zoloft) 50 mg PO DAILY [facility] Last Admin: 05/23/17 08:21 Dose: Not Given Sitagliptin Phosphate (Januvia) 100 mg PO DAILY [facility] [place] Last Admin: 05/23/17 08:20 Dose: Not Given - Labs Labs: 05/23/17 05:15 05/22/17 07:00 PT 16.1 Seconds (9.8-13.1) H 06/22/17 19:55 INR 1.4 (0.9-1.2) H 05/19/17 19:55 APTT 32.3 Seconds (25.6-37.1) 05/19/17 19:55 - Constitutional Appears: Well, Non-toxic, No Acute Distress - Extremities Exam Additional comments: Focused right lower extremity physical exam: Vasc: DP and PT pulses palpable 2/4. CFT WNL to all digits tested. Nonpitting edema noted to forefoot. Erythema noted to 2nd digit. Neuro: Gross sensation diminished. Derm: Surgical site at dorsum of 2nd digit and plantar 2nd met head appear to be well-coapted with sutures intact and packing in place. No wound dehiscence noted. Sanguinous drainage noted to surgical sites. No fluctuance, malodor, purulence noted. Hyperpigmentation noted to dorsum of foot. Ortho: Pain on palpation noted to forefoot. - Neurological Exam Neurological Exam: Alert, Awake, Oriented x3 - Psychiatric Exam Psychiatric exam: Normal Affect, Normal Mood Assessment and Plan - Assessment and Plan (Free Text) Assessment: 47 year old male POD#1 s/p right 2nd met head resection and 2nd proximal phalanx base resection Plan: Patient was examined and evaluated. Charts, labs, vitals reviewed: afebrile, WBC WNL @ 6.3 Discussed with attending, Dr. Bennett. Packing was removed; no active drainage was noted, surgical sutures are intact Dressing changed with betadine soaked adaptic, 4x4s, kerlix, ABD, and OFELIA. Surgical shoe re-applied to foot. Informed patient of the importance of wearing surgical shoe while ambulating. Partial WB to right heel. Continue abx per ID: Vancomycin, Zosyn Pt is for PICC line placement Stable per podiatry Podiatry will continue to follow while in-house.
[2017-05-24 07:40] LABS: BLOOD UREA NITROGEN 9 mg/dl (9-20); CALCIUM 8.2 mg/dL (8.4-10.2); CARBON DIOXIDE 27 mmol/L (22-30); CHLORIDE 97 mmol/L (98-107); GFR AFRICAN-AMERICAN > 60; GLUCOSE,RANDOM 232 mg/dL (75-110); POTASSIUM 3.4 MMOL/L (3.6-5.0); SODIUM 133 mmol/l (132-148)
[2017-05-24 07:52] LABS: HEMATOCRIT 34.2 % (35.0-51.0); MEAN CELL VOLUME 102.4 fl (80.0-94.0); MEAN CORPUSCULAR HEMOGLOBIN 34.5 pg (27.0-31.0); MEAN CORPUSCULAR HGB CONC 33.7 g/dL (33.0-37.0); RED CELL DISTRIBUTION WIDTH 12.8 % (11.5-14.5); WHITE BLOOD COUNT 7.4 K/uL (4.8-10.8)
--- NOTE | 2017-05-24 09:16 | CP.PCM.PN ---
Subjective - Date & Time of Evaluation Date of Evaluation: 05/24/17 Time of Evaluation: 09:10 - Subjective Subjective: 47 YO M seen at bedside on POD#1 s/p R 2nd met head and proximal phalanx resection 05/23/17. Patient is seen at bedside doing well. He slept well over night.Pain is controlled with medication. Has been tolerating PO intake, denies any nausea or vomiting. Has been passing flatus with no problem. - PAtient states he did not know that he has to wear a surgical shoe after the surgery, but now he has been wearing the shoe. - Since his increase in dosage of Risperidone he states that his auditory hallucinations have subsided. - Denies any chest pain, SOB, F/N/V * Will consult IR to place PICC line for long term care pharmacist antibiotics Objective - Vital Signs/Intake and Output Vital Signs (last 24 hours): Temp Pulse Resp BP Pulse Ox 97.7 F 75 20 95/62 L 98 05/24/17 08:22 05/24/17 08:22 05/24/17 08:22 05/24/17 08:22 05/24/17 08:22 - Medications Medications: Current Medications Acetaminophen (Tylenol 325mg Tab) 650 mg PO Q4 PRN PRN Reason: Pain, Mild (1-3) Glipizide (Glucotrol) 10 mg PO BIDAC [facility] Last Admin: 05/23/17 17:03 Dose: 10 mg Heparin Sodium (Porcine) (Heparin) 5,000 units SC Q8 JOESPH PRN Reason: Protocol Last Admin: 05/23/17 00:59 Dose: 5,000 units Piperacillin Sod/Tazobactam (Sod 3.375 gm/ Sodium Chloride) 100 mls @ 100 mls/ hr IVPB 0000,0600,1200,1800 [facility] Last Admin: 05/24/17 05:37 Dose: 100 mls/hr Vancomycin HCl 1 gm/ Sodium (Chloride) 250 mls @ 166.667 mls/hr IVPB Q12@0900, 2100 [facility] Last Admin: 05/23/17 21:14 Dose: 166.667 mls/hr Sodium Chloride (Sodium Chloride 0.9%) 1,000 mls @ 100 mls/hr IV .Q10H [facility] Last Admin: 05/24/17 02:00 Dose: Not Given Insulin Human Regular (Humulin R) 0 units SC ACHS [facility] Last Admin: 05/23/17 21:54 Dose: 8 units Lisinopril (Zestril) 2.5 mg PO DAILY [facility] Last Admin: 05/23/17 08:21 Dose: Not Given Lorazepam (Ativan) 1 mg IVP Q6 PRN PRN Reason: Agitation Last Admin: 05/23/17 10:33 Dose: 1 mg Nicotine (Nicoderm Cq) 1 patch TD DAILY [facility] Last Admin: 05/23/17 10:10 Dose: 1 patch Oxycodone/Acetaminophen (Percocet 5/325 Mg Tab) 1 tab PO Q4 PRN PRN Reason: Pain, moderate (4-7) Stop: 05/26/17 15:25 Oxycodone/Acetaminophen (Percocet 5/325 Mg Tab) 2 tab PO Q4 PRN PRN Reason: Pain, severe (8-10) Stop: 05/26/17 15:25 Last Admin: 05/24/17 04:12 Dose: 2 tab Pantoprazole Sodium (Protonix Ec Tab) 40 mg PO DAILY [facility] Last Admin: 05/23/17 08:20 Dose: Not Given Risperidone (Risperdal Tab) 3 mg PO HS [facility] Last Admin: 05/23/17 21:16 Dose: 3 mg Saccharomyces Boulardii (Florastor) 250 mg PO BID [facility] Last Admin: 05/23/17 17:03 Dose: 250 mg Sertraline HCl (Zoloft) 50 mg PO DAILY [facility] Last Admin: 05/23/17 08:21 Dose: Not Given Sitagliptin Phosphate (Januvia) 100 mg PO DAILY [facility] Last Admin: 05/23/17 08:20 Dose: Not Given - Labs Labs: 05/24/17 05:25 05/24/17 05:25 PT 16.1 Seconds (9.8-13.1) H 05/19/17 19:55 INR 1.4 (0.9-1.2) H 05/19/17 19:55 APTT 32.3 Seconds (25.6-37.1) 05/19/17 19:55 - Constitutional Appears: No Acute Distress - Head Exam Head Exam: NORMAL INSPECTION, NORMOCEPHALIC - Eye Exam Eye Exam: Normal appearance - Neck Exam Neck Exam: Full ROM, Normal Inspection - Respiratory Exam Respiratory Exam: Clear to Ausculation Bilateral, NORMAL BREATHING PATTERN - Cardiovascular Exam Cardiovascular Exam: REGULAR RHYTHM, +S1, +S2 - GI/Abdominal Exam GI & Abdominal Exam: Soft, Normal Bowel Sounds. absent: Tenderness - Extremities Exam Additional comments: Right foot Surgical boot and dressing intact. Sensation over toes diminished secondary most likely to DM. Capilary refill <2 sec. Bad toenail hygine, - Neurological Exam Neurological Exam: Alert, Awake, Oriented x3 Assessment and Plan - Assessment and Plan (Free Text) Assessment: Assessment: 47 year old male with PMH DM 2 Insulin Dependent, Anxiety/Depression, Schizophrenia, Suicide Attempt October 2016 by overdosing on Insulin, Acne was brought into [facility] ER on 05/18/17 after he called 911 stating that he was suicidal. He was drinking alcohol at his home as it was his Mom's birthday, afterwards feelings of wanting to kill himself , with auditory hallucinations. He was cleared by the ER for in-patient Psychiatry Unit at [facility]. Hospitalist service was consulted for medical management. Examination in the Psychiatry Unit revealed an Right Foot Pedal Surface ulcer that was malodorous. Patient revealed that he has had an ulcer in this area for the past 8 months and it was not until end of March 2017 that he went to see Dr. King who at that time had instructed him to go immediately to the hospital. However, patient stated he did not go and did not have an explanation as to why he did not.Patient admitted to medical floor for further management. Podiatry consulted and patient was started on IV Vancomycin and Zosyn.MRI of the foot showed 2.5 cm abscess to plantar aspect and osteomyelitis of distal second metatarsal and first phalanx. Patient is POD#1 s/p R 2nd met head and proximal phalanx resection 05/23/17. Tolerated the procedure well. 1. Diabetic ulcer of right foot Podiatry and ID on consult MRI of the foot showed plantar abscess and osteomyelitis Cultures were positive for Proteus mirabilis and Staph Aureus POD#1 s/p R 2nd met head and proximal phalanx resection 05/23/17. Tolerated the procedure well. Post op Hb: was 11.5. Consider placing PICC line for jail IV antibiotics ( 4-6 weeks). Consult IR. Pain is controlled with Percocet Wear Surgical Shoe Continue with Physio therapy 2. Hyponatremia resolved 3. Suicidal ideation with hallucinations/ schizophrenia psychiatry consult appreciated Continue risperdal, Zoloft and 1:1 observation for safety 4. DM type 2, uncontrolled, with lower extremity ulcer Patient states that he was on Metformin 1,000 mg PO 2x/day, Januvia unspecified dose 2x/day, Lantus 24 units SC 1x/day but has not taken these medications since this past December 2016 due to lack of insurance and then he stated that he lost the medications. Consider starting the Metformin after the surgery today, was initially hugo after contrast MRI was done for 48 hours Also probably not a good idea to place this patient on Insulin for long term care pharmacist considering prior suicide attempt by overdosing on insulin Regular Insulin Sliding Scale Medium with Accuchecks ACHS for now Heart Healthy Low Carbohydrate Diet Lisinopril 2.5 mg PO 1x/day for Renal Protection HgBA1C is 9.5 Start Glipizide 10 mg po BID and Januvia 100 mg po daily LDL is at goal < 100 at 63 therefore hold off on Statin TSH and T4 are normal 5.Multiple lung nodules seen on CT chest Follow up with repeat Ct in 6 months - 1 year 6. Anxiety and depression management as per psych 7. 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 Prophylactic measure Protonix for GI Prophylaxis Heparin SCD for DVT Prophylaxis
[2017-05-24] MEDS: Saccharomyces Boulardi 250 mg Cap PO SCH ×2 (09:19→16:29)
[2017-05-24] MEDS: Pantoprazole 40 mg EC Tab PO SCH (09:20)
[2017-05-24] MEDS: Insulin Regular 100 units/ml SC SCH ×3 (09:21→17:44)
--- NOTE | 2017-05-24 09:57 | PCM.PYCHPN ---
Psychiatric Progress Note - Psychiatric Progress Note Patient seen today, length of contact: Patient evaluated, chart reviewed Patient Chief Complaint: "I'm still hearing voices" Problems Identified/Issues Discussed: Patient continues to report auditory hallucinations, but denies any ideation to harm himself. We discussed increasing the Risperdal again for his continued psychosis. Patient is agreeable to psychiatric hospitalization once he is medically stable. Medication Change: Yes (Increase Risperdal to 2 mg PO Q12) Medical Record Reviewed: Yes Mental Status Examination - Cognitive Function Orientation: Person, Place, Situation, Time Memory: Intact Attention: WNL Concentration: WNL Association: [facility] Fund of Knowledge: [facility] Decription of patient's judgement and insights: Fair I/J - Mood Mood: Depressed - Affect Affect: Constricted - Speech Speech: Appropriate - Formal Thought Process Formal Thought Process: Hallucinations Psychotic Thoughts and Behaviors: +AH - Suicidal Ideation Suicidal Ideation: No - Homicidal Ideation Homicidal Ideation: No Goal/Treatment Plan - Goal/Treatment Plan Need for Continued Stay: Remain at risks for inpatient hospitalization, Discharge may exacerbated symptoms Progress Toward Problem(s) and Goals/Treatment Plan: Impression: Major Depressive Disorder w/ psychotic features, Alcohol Use Disorder Recommendations: -Increase Risperdal to 2 mg PO Q12 -Continue Zoloft 50 mg PO Daily -Continue 1:1 for safety -Transfer to geriatric psychiatry unit once he is medically stable
--- NOTE | 2017-05-24 11:57 | PCM.SURG1 ---
Surgeon's Initial Post Op Note - Surgeon's Notes Surgeon: Willian Oconnor MD College Dean: None Type of Anesthesia: Local Pre-Operative Diagnosis: Poor venous access Operative Findings: Patent right basilic vein. Post-Operative Diagnosis: Poor venous access Operation Performed: Single lumen picc placement right basilic vein, 35 cm. Tip in SVC. Specimen/Specimens Removed: nONE Estimated Blood Loss: EBL {In ML}: 2 Blood Products Given: N/A Drains Used: No Drains Post-Op Condition: Fair Date of Surgery/Procedure: 05/24/17 Time of Surgery/Procedure: 11:50
--- NOTE | 2017-05-24 14:21 | RAD ---
Right foot 05/23/2017. . Two views of the right foot performed and compared with prior study 05/22/2017. Findings: The current study reveals interval resection distal aspect 2nd metatarsal. Subcutaneous air and infiltration changes within the surgical bed. Persistent surrounding the circumferential soft tissue swelling. Questionable chronic osteomyelitis distal aspect 1st metatarsal associated with medial and probably dorsal subluxation of the proximal aspect of the proximal phalanx, at this 1st MTP joint. Early destructive changes proximal aspect of the proximal phalanx 1st toe not excluded. . No other changes. Impression: interval resection distal aspect 2nd metatarsal. Subcutaneous air and infiltration changes within the surgical bed. Persistent surrounding the circumferential soft tissue swelling. . No other changes ; see above discussion for additional details.
[2017-05-24 16:29] VITALS: BP 114/78; PULSE 78; RESP 18; TEMP 97.6; O2SAT 97
--- NOTE | 2017-05-24 17:29 | CP.PCM.DIS ---
Provider - Provider Date of Admission: 05/19/17 19:19 Attending physician: Toro Peck MD Primary care physician: Dr. Blue Consults: psychiatry ID consult podiatry consult Time Spent in preparation of Discharge (in minutes): 20 Hospital Course - Lab Results Lab Results: Micro Results 05/19/17 19:55 Blood-Venous Blood Culture - Preliminary NO GROWTH AFTER 4 DAYS Most Recent Lab Values WBC 7.4 K/uL (4.8-10.8) 05/24/17 05:25 RBC 3.34 Mil/uL (4.40-5.90) L 05/24/17 05:25 Hgb 11.5 g/dL (12.0-18.0) L 05/24/17 05:25 Hct 34.2 % (35.0-51.0) L 05/24/17 05:25 MCV 102.4 fl (80.0-94.0) H 05/24/17 05:25 MCH 34.5 pg (27.0-31.0) H 05/24/17 05:25 MCHC 33.7 g/dL (33.0-37.0) 05/24/17 05:25 RDW 12.8 % (11.5-14.5) 05/24/17 05:25 Plt Count 169 K/uL (130-400) 05/24/17 05:25 MPV 9.6 fl (7.2-11.7) 05/19/17 19:55 Neut % (Auto) 64.7 % (50.0-75.0) 05/19/17 19:55 Lymph % (Auto) 23.3 % (20.0-40.0) 05/19/17 19:55 Luce % (Auto) 10.0 % (0.0-10.0) 05/19/17 19:55 Eos % (Auto) 1.1 % (0.0-4.0) 05/19/17 19:55 Baso % (Auto) 0.9 % (0.0-2.0) 05/19/17 19:55 Neut # 5.5 K/uL (1.8-7.0) 05/19/17 19:55 Lymph # 2.0 K/uL (1.0-4.3) 05/19/17 19:55 Luce # 0.8 K/uL (0.0-0.8) 05/19/17 19:55 Eos # 0.1 K/uL (0.0-0.7) 05/19/17 19:55 Baso # 0.1 K/uL (0.0-0.2) 05/19/17 19:55 ESR 63 mm/hr (0-15) H 05/19/17 19:55 PT 16.1 Seconds (9.8-13.1) H 05/19/17 19:55 INR 1.4 (0.9-1.2) H 05/19/17 19:55 APTT 32.3 Seconds (25.6-37.1) 05/19/17 19:55 D-Dimer, Quantitative 567 ng/mlDDU (0-230) H 05/19/17 19:55 Sodium 133 mmol/l (132-148) 05/24/17 05:25 Potassium 3.4 MMOL/L (3.6-5.0) L 05/24/17 05:25 Chloride 97 mmol/L (98-107) L 05/24/17 05:25 Carbon Dioxide 27 mmol/L (22-30) 05/24/17 05:25 Anion Gap 12 (10-20) 05/24/17 05:25 BUN 9 mg/dl (9-20) 05/24/17 05:25 Creatinine 0.6 mg/dL (0.8-1.5) L 05/24/17 05:25 Est GFR ( Amer) > 60 05/24/17 05:25 Est GFR (Non-Af Amer) > 60 05/24/17 05:25 POC Glucose (mg/dL) 289 mg/dL (65-110) H 05/24/17 16:35 Random Glucose 232 mg/dL (75-110) H 05/24/17 05:25 Hemoglobin A1c 9.1 % (4.2-6.5) H 05/24/17 12:05 Calcium 8.2 mg/dL (8.4-10.2) L 05/24/17 05:25 Total Bilirubin 0.4 mg/dl (0.2-1.3) 05/22/17 07:00 AST 42 U/L (17-59) 05/22/17 07:00 ALT 44 U/L (21-72) 05/22/17 07:00 Alkaline Phosphatase 69 U/L (38-126) 05/22/17 07:00 Total Protein 7.1 G/DL (6.3-8.2) 05/22/17 07:00 Albumin 3.2 g/dL (3.5-5.0) L 05/22/17 07:00 Globulin 3.9 gm/dL (2.2-3.9) 05/22/17 07:00 Albumin/Globulin Ratio 0.8 (1.0-2.1) L 05/22/17 07:00 Procalcitonin 0.08 NG/ML (0.19-0.49) L 05/22/17 07:00 Urine Color Yellow (YELLOW) 05/23/17 10:53 Urine Clarity Clear (Clear) 05/23/17 10:53 Urine pH 6.0 (5.0-8.0) 05/23/17 10:53 Ur Specific Norman 1.017 (1.003-1.030) 05/23/17 10:53 Urine Protein Negative mg/dL (NEGATIVE) 05/23/17 10:53 Urine Glucose (UA) >=500 mg/dL (Normal) 05/23/17 10:53 Urine Ketones Negative mg/dL (NEGATIVE) 05/23/17 10:53 Urine Blood Negative (NEGATIVE) 05/23/17 10:53 Urine Nitrate Negative (NEGATIVE) 05/23/17 10:53 Urine Bilirubin Negative (NEGATIVE) 05/23/17 10:53 Urine Urobilinogen 0.2-1.0 mg/dL (0.2-1.0) 05/23/17 10:53 Ur Leukocyte Esterase Neg Bebo/uL (Negative) 05/23/17 10:53 Urine RBC (Auto) 3 /hpf (0-3) 05/23/17 10:53 Urine Microscopic WBC < 1 /hpf (0-5) 05/23/17 10:53 Ur Squamous Epith Cells < 1 /hpf (0-5) 05/23/17 10:53 Urine Bacteria Rare (<OCC) 05/23/17 10:53 Vancomycin Trough 5.9 ug/mL (5.0-10.0) 05/21/17 18:50 - Hospital Course Hospital Course: 47 year old male with PMH DM 2 Insulin Dependent, Anxiety/Depression, Schizophrenia, Suicide Attempt October 2016 by overdosing on Insulin, Acne was brought into [facility] ER on 05/18/17 after he called 911 stating that he was suicidal. He was drinking alcohol at his home as it was his Mom's birthday, afterwards feelings of wanting to kill himself , with auditory hallucinations. He was cleared by the ER for in-patient Psychiatry Unit at [facility]. Hospitalist service was consulted for medical management. Examination in the Psychiatry Unit revealed an Right Foot Pedal Surface ulcer that was malodorous. Patient revealed that he has had an ulcer in this area for the past 8 months and it was not until end of March 2017 that he went to see Dr. King who at that time had instructed him to go immediately to the hospital. However, patient stated he did not go and did not have an explanation as to why he did not.Patient admitted to medical floor for further management. Podiatry and ID was consulted and patient was started on IV Vancomycin and Zosyn.MRI of the foot showed 2.5 cm abscess to plantar aspect and osteomyelitis of distal second metatarsal and first phalanx. Patient underwent Right 2nd met head and proximal phalanx resection 05/23/17. Tolerated the procedure well.Post procedure medically doing well but still with auditory hallucinations. Patient will need to continue IV antibiotics for osteomyelitis for 4-6 weeks . PICC line placed .PT was consulted and patient trained for partial weight bearing to RLE as per podiatry recommendations. Discussed with patient and psychiatrist . Patient still needs to be treated and optimized or his psychiatric condition and psych admission is recommended. Patient agrees with plan and to go to psych unit for management. [facility] patient while in house and after discharge 1. Diabetic ulcer of right foot Podiatry and ID consulted MRI of the foot showed plantar abscess and osteomyelitis Cultures were positive for Proteus mirabilis and Staph Aureus POD#2 s/p R 2nd met head and proximal phalanx resection 05/23/17. Tolerated the procedure well. Will need iv antibiotics for 4-6 weeks. PICC line placed Partil lweight bearing to RLE PT consulted . Will need to wear the special orthopedic boot at all times Podiatry to follow up . Pain is controlled with Percocet 2. Hyponatremia resolved 3. Suicidal ideation with hallucinations/ schizophrenia psychiatry consult appreciated Continue risperdal, Zoloft and 1:1 observation for safety Will d/c to psych unit for further management 4. DM type 2, uncontrolled, with lower extremity ulcer Patient states that he was on Metformin 1,000 mg PO 2x/day, Januvia unspecified dose 2x/day, Lantus 24 units SC 1x/day but has not taken these medications since this past December 2016 due to lack of insurance and then he stated that he lost the medications. Started metformin after the surgery , was initially hugo after contrast MRI was done for 48 hours Also probably not a good idea to place this patient on Insulin for assisted considering prior suicide attempt by overdosing on insulin Regular Insulin Sliding Scale Medium with Accuchecks ACHS for now Heart Healthy Low Carbohydrate Diet Lisinopril 2.5 mg PO 1x/day for Renal Protection HgBA1C is 9.5 Started Glipizide 10 mg po BID and Januvia 100 mg po daily LDL is at goal < 100 at 63 therefore hold off on Statin TSH and T4 are normal 5.Multiple lung nodules seen on CT chest Follow up with repeat Ct in 6 months - 1 year 6. Anxiety and depression management as per psych 7. 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 Prophylactic measure Protonix for GI Prophylaxis Heparin SCD for DVT Prophylaxis Discharge Exam - Head Exam Head Exam: NORMAL INSPECTION, NORMOCEPHALIC - Eye Exam Eye Exam: EOMI, Normal appearance, PERRL Pupil Exam: NORMAL ACCOMODATION - ENT Exam ENT Exam: Mucous Membranes Moist, Normal Exam - Neck Exam Neck exam: Full Rom, Normal Inspection - Respiratory Exam Respiratory Exam: Clear to PA & Lateral, NORMAL BREATHING PATTERN. absent: Rhonchi, Respiratory Distress - Cardiovascular Exam Cardiovascular Exam: REGULAR RHYTHM, +S1, +S2. absent: JVD - GI/Abdominal Exam GI & Abdominal Exam: Normal Bowel Sounds, Soft. absent: Distended, Guarding, Rebound, Tenderness - Rectal Exam Rectal Exam: Deferred - Extremities Exam Extremities exam: normal capillary refill, pedal pulses present Additional comments: right foot dressing in place, toes appear edematous with dry blood, warm to touch - Back Exam Back exam: NORMAL INSPECTION - Neurological Exam Neurological exam: Alert, CN II-XII Intact, Oriented x3 - Psychiatric Exam Psychiatric exam: Anxious, Flat Affect Additional comments: with auditory hallucinations - Skin Skin Exam: Dry, Warm Discharge Plan - Follow Up Plan Condition: STABLE Disposition: DISCH TO PSYCH HOSP PLAN READ Patient education suggested?: No Additional Instructions: partial weight bearing to RLE wear orthopedic boot at all times Follow up with podiatry IV antibiotics for 4-6 weeks Remove PICC line after IV antibiotic treatment finished Referrals: Andrea Blue MD [Staff Provider] -
--- NOTE | 2017-05-24 18:28 | CP.PCM.PN ---
Subjective - Date & Time of Evaluation Date of Evaluation: 05/24/17 Time of Evaluation: 18:28 - Subjective Subjective: I D NOTE CULTURES REVIEWED WII START ROCEPHEN 2GM IVPBQ24 DC ZOSYN Objective - Vital Signs/Intake and Output Vital Signs (last 24 hours): Temp Pulse Resp BP Pulse Ox 97.6 F 78 18 114/78 97 05/24/17 16:28 05/24/17 16:28 05/24/17 16:28 05/24/17 16:28 05/24/17 16:28 - Medications Medications: Current Medications Acetaminophen (Tylenol 325mg Tab) 650 mg PO Q4 PRN PRN Reason: Pain, Mild (1-3) Glipizide (Glucotrol) 10 mg PO BIDAC [facility] Last Admin: 05/24/17 16:29 Dose: 10 mg Heparin Sodium (Porcine) (Heparin) 5,000 units SC Q8 JOESPH PRN Reason: Protocol Last Admin: 05/24/17 17:43 Dose: 5,000 units Vancomycin HCl 1 gm/ Sodium (Chloride) 250 mls @ 166.667 mls/hr IVPB Q12@0900, 2100 [facility] Last Admin: 05/24/17 09:20 Dose: 166.667 mls/hr Sodium Chloride (Sodium Chloride 0.9%) 1,000 mls @ 100 mls/hr IV .Q10H [facility] Last Admin: 05/24/17 12:42 Dose: Not Given Ceftriaxone Sodium 2 gm/ (Sodium Chloride) 100 mls @ 100 mls/hr IVPB DAILY [facility] Insulin Human Regular (Humulin R) 0 units SC ACHS [facility] Last Admin: 05/24/17 17:44 Dose: 6 units Lisinopril (Zestril) 2.5 mg PO DAILY [facility] Last Admin: 05/24/17 09:29 Dose: Not Given Lorazepam (Ativan) 1 mg IVP Q6 PRN PRN Reason: Agitation Last Admin: 05/23/17 10:33 Dose: 1 mg Metformin HCl (Glucophage) 1,000 mg PO BID [facility] Last Admin: 05/24/17 17:43 Dose: 1,000 mg Nicotine (Nicoderm Cq) 1 patch TD DAILY [facility] Last Admin: 05/24/17 09:19 Dose: 1 patch Oxycodone/Acetaminophen (Percocet 5/325 Mg Tab) 1 tab PO Q4 PRN PRN Reason: Pain, moderate (4-7) Stop: 05/26/17 15:25 Oxycodone/Acetaminophen (Percocet 5/325 Mg Tab) 2 tab PO Q4 PRN PRN Reason: Pain, severe (8-10) Stop: 05/26/17 15:25 Last Admin: 05/24/17 13:23 Dose: 2 tab Pantoprazole Sodium (Protonix Ec Tab) 40 mg PO DAILY [facility] Last Admin: 05/24/17 09:20 Dose: 40 mg Risperidone (Risperdal Tab) 2 mg PO Q12 [facility] Last Admin: 05/24/17 12:40 Dose: 2 mg Saccharomyces Boulardii (Florastor) 250 mg PO BID [facility] Last Admin: 05/24/17 16:29 Dose: 250 mg Sertraline HCl (Zoloft) 50 mg PO DAILY [facility] Last Admin: 05/24/17 09:20 Dose: 50 mg Sitagliptin Phosphate (Januvia) 100 mg PO DAILY [facility] Last Admin: 05/24/17 09:19 Dose: 100 mg - Labs Labs: 05/24/17 05:25 05/24/17 05:25 PT 16.1 Seconds (9.8-13.1) H 05/19/17 19:55 INR 1.4 (0.9-1.2) H 05/19/17 19:55 APTT 32.3 Seconds (25.6-37.1) 05/19/17 19:55
[2017-05-25] MEDS ORDERED: cefTRIAXone 2 GM in Sodium Chloride 0.9% 100 ML IVPB SCH (09:00)
--- NOTE | 2017-05-25 11:52 | VASCULAR ---
PROCEDURE: Date of procedure: 05/24/2017 Procedure: 1. Placement of a right arm PICC with ultrasound and fluoroscopic guidance, CPT 05732 2. PICC tip confirmation with spot radiograph and is in the superior vena cava Medications: 1 percent lidocaine Total Fluoro time: 3 seconds Radiation: 0.35 mGy EBL: 2 cc HISTORY: Infection requiring long-term IV antibiotics TECHNIQUE: Following informed consent and procedure time-out, the patient was placed supine on the interventional table and the right arm prepped and draped in the usual sterile fashion. Ultrasound showed a patent and compressible right basilic vein. After the skin was anesthetized with lidocaine, the basilic vein was accessed with micro micropuncture technique using ultrasound guidance. A guidewire was then advanced under fluoroscopic guidance into the superior vena cava. An image documenting ultrasound guidance for vascular access was permanently saved. The length of the single-lumen 4 Estonian PICC was trimmed to 35 centimeters and advanced through a peel-away sheath. The PICC was position with tip of PICC confirm a spot radiograph the superior vena cava. The PICC was secured to the patient's skin. The PICC was flushed. A biopatch and sterile dressing was applied. IMPRESSION: Placement of a single-lumen 4 Estonian PICC trimmed to 35 centimeters via right basilic vein. The tip of the PICC is confirmed with spot radiograph and is in the superior vena cava.
== END 2017-05-24 18:44 | DRG 623 ==
LOC: H.ER 18:35 → H.ERHOLD 19:19 → H.MEDSURG1 21:20
PROVIDERS: ADMIT Family Medicine; ATTEND Family Medicine
PROC: 0JBQ0ZZ Excision of Right Foot Subcutaneous Tissue and Fascia, Open Approach (ICD-10-PCS; 2017-05-23)
PROC: 0YQM0ZZ Repair Right Foot, Open Approach (ICD-10-PCS; 2017-05-23)
PROC: 0QBN0ZZ Excision of Right Metatarsal, Open Approach (ICD-10-PCS; 2017-05-23 14:00)
PROC: 02HV33Z Insertion of Infusion Device into Superior Vena Cava, Percutaneous Approach (ICD-10-PCS; principal; 2017-05-24)
DX: E11.69 Type 2 diabetes mellitus with other specified complication (principal); R45.851 Suicidal ideations; M86.671 Other chronic osteomyelitis, right ankle and foot; E11.40 Type 2 diabetes mellitus with diabetic neuropathy, unspecified; E11.621 Type 2 diabetes mellitus with foot ulcer; F32.3 Major depressive disorder, single episode, severe with psychotic features; E87.1 Hypo-osmolality and hyponatremia; R44.0 Auditory hallucinations; L02.611 Cutaneous abscess of right foot; L97.519 Non-pressure chronic ulcer of other part of right foot with unspecified severity; Z79.4 Long term (current) use of insulin; E11.65 Type 2 diabetes mellitus with hyperglycemia; T43.595A Adverse effect of other antipsychotics and neuroleptics, initial encounter; F20.9 Schizophrenia, unspecified; Z91.19 Patient's noncompliance with other medical treatment and regimen; Z91.14 Patient's other noncompliance with medication regimen; F17.200 Nicotine dependence, unspecified, uncomplicated; L70.9 Acne, unspecified; F41.9 Anxiety disorder, unspecified; I10 Essential (primary) hypertension; B95.61 Methicillin susceptible Staphylococcus aureus infection as the cause of diseases classified elsewhere; B96.4 Proteus (mirabilis) (morganii) as the cause of diseases classified elsewhere; R91.8 Other nonspecific abnormal finding of lung field; F10.129 Alcohol abuse with intoxication, unspecified; Z91.018 Allergy to other foods

== ENCOUNTER 2017-05-24 19:18 | Inpatient (IN) | payer MEDICARE, MEDICAID ==
[2017-05-24 19:54] VITALS: BMI 26.1
[2017-05-24] MEDS ORDERED: DiphenhydrAMINE 50 mg/ml Inj IM PRN (20:23)
[2017-05-24] MEDS ORDERED: Magnesium Hydroxide Susp 30 ml UD PO PRN (20:23)
[2017-05-24] MEDS ORDERED: Alum-Mag Hydrox-Simethicone Susp (30 mL) PO PRN (20:23)
[2017-05-24] MEDS ORDERED: Bismuth Subsalicylate 262 mg/15 ml Sus (240 ml) PO SCH ×2 (21:00)
[2017-05-24] MEDS ORDERED: Patient's Own Med (Vancomycin 1 Gm [Vancomycin 1gm In Normal Saline Addvantage] 1 GM) IVPB SCH (21:00)
[2017-05-24] MEDS: Insulin Regular 100 units/ml SC SCH (21:02)
[2017-05-24] MEDS: Oxycodone/Acetaminophen 5/325 mg Tab PO PRN (21:08)
[2017-05-24] MEDS ORDERED: Bismuth Subsalicylate 262 mg/15 ml Sus (240 ml) PO PRN (22:16)
[2017-05-25 07:43] LABS: T4 9.48 ug/dl (5.5-11.0)
[2017-05-25] MEDS: Oxycodone/Acetaminophen 5/325 mg Tab PO PRN ×3 (08:20→23:57)
[2017-05-25] MEDS: Insulin Regular 100 units/ml SC SCH ×4 (08:22→21:08)
[2017-05-25] MEDS: Saccharomyces Boulardi 250 mg Cap PO SCH ×2 (08:24→16:17)
[2017-05-25] MEDS: Pantoprazole 40 mg EC Tab PO SCH (08:25)
[2017-05-25] MEDS: cefTRIAXone 2 GM in Sodium Chloride 0.9% 100 ML IVPB SCH (08:30)
--- NOTE | 2017-05-25 08:39 | CP.PCM.CON ---
History of Present Illness - History of Present Illness History of Present Illness: 47 y/o male with PMH of DM, schizophrenic disorder and suicidal ideations is seen by podiatry at bedside for POD#2 s/p R 2nd met head and proximal phalanx resection (DOS: 05/23/17). Patient is resting comfortably, AAOx3 and NAD. Patient states that he has been partially walking on his right foot without the surgical shoe. Patient was wearing surgical shoe at time of our visit. Patient states he is experiencing a throbbing pain that comes and goes. Patient states his pain is well controlled by Percocet. Patient denies N/V/F/D/SOB/CP. No other pedal complaints at this time. Review of Systems - Review of Systems All systems: reviewed and no additional remarkable complaints except (per HPI) Review of Systems: review of systems shown to be negative except as per HPI - Constitutional Constitutional: As Per HPI Past Patient History - Infectious Disease Hx of Infectious Diseases: None - Tetanus Immunizations Tetanus Immunization: Unknown - Past Medical History & Family History Past Medical History?: Yes - Past Social History Smoking Status: Current Some Days Smoker - CARDIAC Hx Hypertension: Yes - PULMONARY Hx Tuberculosis: No - NEUROLOGICAL Hx Seizures: No - HEENT Hx HEENT Problems: No - RENAL Hx Chronic Kidney Disease: No - ENDOCRINE/METABOLIC Hx Endocrine Disorders: Yes Hx Diabetes Mellitus Type 2: Yes - HEMATOLOGICAL/ONCOLOGICAL Hx Human Immunodeficiency Virus (HIV): No - INTEGUMENTARY Hx Dermatological Problems: No Other/Comment: Facial rash - MUSCULOSKELETAL/RHEUMATOLOGICAL Hx Musculoskeletal Disorders: Yes Hx Falls: Yes Hx Osteomyelitis: Yes Other/Comment: Right foot wound - GASTROINTESTINAL Hx Gastrointestinal Disorders: No - GENITOURINARY/GYNECOLOGICAL Hx Sexually Transmitted Disorders: Yes (erectile Dysfunction) - PSYCHIATRIC Hx Depression: Yes Hx Schizophrenia: Yes Hx Substance Use: (denies) - SURGICAL HISTORY Hx Surgeries: Yes Hx Orthopedic Surgery: Yes (Right shoulder 1992 rotator cuff and dislocation 1988) Other/Comment: R foot wound debridement - ANESTHESIA Hx Anesthesia: Yes Hx Anesthesia Reactions: No Hx Malignant Hyperthermia: No Meds Allergies/Adverse Reactions: Allergies Allergy/AdvReac Type Severity Reaction Status Date / Time walnut Allergy ITCHING Verified 05/25/17 06:02 water chestnut Allergy ITCHING Verified 05/25/17 06:02 apples Allergy ITCHING Uncoded 05/25/17 06:02 - Medications Medications: Current Medications Acetaminophen (Tylenol 325mg Tab) 650 mg PO Q4 PRN PRN Reason: Pain, Mild (1-3) Acetaminophen (Tylenol 325mg Tab) 650 mg PO Q4 PRN PRN Reason: for pain 4-7 Al Hydrox/Mg Hydrox/Simethicone (Maalox Plus 30 Ml) 30 ml PO Q4 PRN PRN Reason: Dyspepsia Bismuth Subsalicylate (Pepto-Bismol) 524 mg PO Q4 PRN PRN Reason: Diarrhea Diphenhydramine HCl (Benadryl) 50 mg IM Q6 PRN PRN Reason: Extrapyramidal S/S Unable PO Diphenhydramine HCl (Benadryl) 50 mg PO Q6 PRN PRN Reason: Extrapyramidal Symptoms Diphenhydramine HCl (Benadryl) 50 mg PO HS PRN PRN Reason: Sleep Last Admin: 05/25/17 00:00 Dose: 50 mg Glipizide (Glucotrol) 10 mg PO BIDAC [facility] Last Admin: 05/25/17 08:24 Dose: 10 mg Haloperidol (Haldol) 5 mg PO Q4 PRN PRN Reason: Agitation Haloperidol Lactate (Haldol) 5 mg IM Q4 PRN PRN Reason: Agitation, Unable to Take PO Ceftriaxone Sodium 2 gm/ (Sodium Chloride) 100 mls @ 100 mls/hr IVPB DAILY [facility] Last Admin: 05/25/17 08:30 Dose: 100 mls/hr Vancomycin HCl 1 gm/ Sodium (Chloride) 250 mls @ 166.667 mls/hr IVPB Q12 [facility] Last Admin: 05/24/17 21:21 Dose: 166.667 mls/hr Insulin Human Regular (Humulin R) 0 units SC ACHS [facility] PRN Reason: Protocol Last Admin: 05/25/17 08:22 Dose: 1 unit Lisinopril (Zestril) 2.5 mg PO DAILY [facility] Last Admin: 05/25/17 08:25 Dose: 2.5 mg Lorazepam (Ativan) 2 mg IM Q4 PRN PRN Reason: Anxiety/Agitation,Unable PO Lorazepam (Ativan) 2 mg PO Q4 PRN PRN Reason: anxiety/agitation Magnesium Hydroxide (Milk Of Magnesia) 30 ml PO HS PRN PRN Reason: Constipation Nicotine (Nicoderm Cq) 1 patch TD DAILY [facility] Last Admin: 05/25/17 08:24 Dose: 1 patch Oxycodone/Acetaminophen (Percocet 5/325 Mg Tab) 1 tab PO Q4 PRN PRN Reason: Pain, moderate (4-7) Stop: 05/27/17 20:18 Oxycodone/Acetaminophen (Percocet 5/325 Mg Tab) 2 tab PO Q4 PRN PRN Reason: Pain, severe (8-10) Stop: 05/27/17 20:18 Last Admin: 05/25/17 08:20 Dose: 2 tab Pantoprazole Sodium (Protonix Ec Tab) 40 mg PO DAILY [facility] Last Admin: 05/25/17 08:25 Dose: 40 mg Risperidone (Risperdal Tab) 2 mg PO Q12 [facility] Last Admin: 05/25/17 08:24 Dose: 2 mg Saccharomyces Boulardii (Florastor) 250 mg PO BID [facility] Last Admin: 05/25/17 08:24 Dose: 250 mg Sertraline HCl (Zoloft) 50 mg PO DAILY [facility] Last Admin: 05/25/17 08:25 Dose: 50 mg Sitagliptin Phosphate (Januvia) 100 mg PO DAILY [facility] Last Admin: 05/25/17 08:24 Dose: 100 mg Physical Exam - Constitutional Appears: Well, Non-toxic, No Acute Distress - Extremities Exam Additional comments: Right lower extremity focused physical exam: Vasc: DP/PT pulses palpable 2/4. CFT <3 sec x5 digits. Nonpitting edema noted to forefoot. Neuro: Gross sensation diminished. Derm: Sanguinous strikethrough noted at dorsal aspect of dressing. Surgical sites at dorsum of 2nd digit and plantar 2nd met head appear to be well-coapted with sutures intact. No wound dehiscence noted. Sanguinous drainage noted to surgical sites. No fluctuance, malodor, or purulence noted. Hyperpigmentation noted to dorsum of foot. Ortho: Pain on palpation noted to forefoot. - Neurological Exam Neurological exam: Alert, Oriented x3 - Psychiatric Exam Psychiatric exam: Normal Affect, Normal Mood Results - Vital Signs Recent Vital Signs: Last Vital Signs Temp 97.3 F L 05/25/17 05:53 Pulse 78 05/25/17 08:25 Resp 20 05/25/17 05:53 BP 120/77 05/25/17 08:25 Pulse Ox - Labs Labs: Laboratory Results - last 24 hr 05/24/17 05/25/17 05/25/17 20:31 05:45 07:06 POC Glucose (mg/dL) 293 H 183 H Thyroxine (T4) 9.48 TSH 3rd Generation 2.17 Assessment & Plan - Assessment and Plan (Free Text) Assessment: 47 year old male POD#2 s/p right 2nd met head resection and 2nd proximal phalanx base resection Plan: Patient was seen and evaluated at bedside Charts, labs, vitals reviewed: afebrile, WBC 7.4 Discussed with attending, Dr. Bennett. Surgical sites examined with all sutures shown to be intact Dressing changed with betadine soaked adaptic, 4x4s, kerlix, ABD, and OFELIA. Surgical shoe re-applied to foot. Reminded patient of the importance of wearing surgical shoe while ambulating. Partial WB to right heel. Cont. abx per ID (Dr. Villa following): currently on Vancomycin IV, patient has PICC line, F/U ID recs regarding duration of IV abx Wound cx 05/19/17: Proteus mirabilis, Staph aureus Wound cx 05/23/17 intra-op pending Stable per podiatry Podiatry will continue to follow while in-house.
[2017-05-25] MEDS ORDERED: cefTRIAXone (Rocephin) 2 gm Inj IVPB SCH (09:00)
--- NOTE | 2017-05-25 10:46 | CP.PCM.CON ---
<Robert Champion - Last Filed: 05/25/17 11:38> History of Present Illness - History of Present Illness History of Present Illness: 47 year old male (DM 2 Insulin Dependent, Anxiety/Depression, Schizophrenia, Suicide Attempt October 2016 by overdosing on Insulin, RUL Lung Mass, Acne) who was brought into [facility] ER on 05/18/17 after he called 911 stating that he was suicidal. He was admitted to [facility] untill 05/19/17 when he was evaluated by the hospitalist team and the podiatry team, and transferred to [facility] for further work up and treatment for his right foot ulcer which she failed to get treatment for even after being refered by his PMD. On MRI he was found to have osteomyelitis of second metatarsal head and second proximal phalanx. Patient had tolerated the procedure well, and a PICC line was placed for IV antibiotics for the next 4-6 weeks. Patient was transfered back to [facility] yesterday for psych treatment. PMHx:DM 2 Insulin Dependent, Anxiety/Depression, Schizophrenia, Suicide Attempt October 2016 by overdosing on Insulin, RUL Lung Mass, Acne, Left Ankle Fracture , Right Shoulder Dislocation PSHx: Left Ankle Surgery 1981, Right Shoulder Surgery 1991 ALL: Denies Medications: NOT taking any medications at home as he had lost his insurance Social Hx: Unemployed, Living with Mom, (+) Tobacco: 1 pack every 2 days for past 2.5 years, (+) Alcohol: 3 beers on Saturdays and Sundays, NO illicit drugs Family Hx: Mom ("Bone [place]"), Dad ( of [place] at 62 y/o), Step Brother ( of [place] at 31) Review of Systems - Review of Systems All systems: reviewed and no additional remarkable complaints except Review of Systems: Acne noted on the maller region of the face. Past Patient History - Infectious Disease Hx of Infectious Diseases: None - Tetanus Immunizations Tetanus Immunization: Unknown - Past Medical History & Family History Past Medical History?: Yes - Past Social History Smoking Status: Current Some Days Smoker - CARDIAC Hx Hypertension: Yes - PULMONARY Hx Tuberculosis: No - NEUROLOGICAL Hx Seizures: No - HEENT Hx HEENT Problems: No - RENAL Hx Chronic Kidney Disease: No - ENDOCRINE/METABOLIC Hx Endocrine Disorders: Yes Hx Diabetes Mellitus Type 2: Yes - HEMATOLOGICAL/ONCOLOGICAL Hx Human Immunodeficiency Virus (HIV): No - INTEGUMENTARY Hx Dermatological Problems: No Other/Comment: Facial rash - MUSCULOSKELETAL/RHEUMATOLOGICAL Hx Musculoskeletal Disorders: Yes Hx Falls: Yes Hx Osteomyelitis: Yes Other/Comment: Right foot wound - GASTROINTESTINAL Hx Gastrointestinal Disorders: No - GENITOURINARY/GYNECOLOGICAL Hx Sexually Transmitted Disorders: Yes (erectile Dysfunction) - PSYCHIATRIC Hx Depression: Yes Hx Schizophrenia: Yes Hx Substance Use: (denies) - SURGICAL HISTORY Hx Surgeries: Yes Hx Orthopedic Surgery: Yes (Right shoulder 1991 rotator cuff and dislocation 1988) Other/Comment: R foot wound debridement - ANESTHESIA Hx Anesthesia: Yes Hx Anesthesia Reactions: No Hx Malignant Hyperthermia: No Meds Allergies/Adverse Reactions: Allergies Allergy/AdvReac Type Severity Reaction Status Date / Time walnut Allergy ITCHING Verified 05/25/17 06:02 water chestnut Allergy ITCHING Verified 05/25/17 06:02 apples Allergy ITCHING Uncoded 05/25/17 06:02 - Medications Medications: Current Medications Acetaminophen (Tylenol 325mg Tab) 650 mg PO Q4 PRN PRN Reason: Pain, Mild (1-3) Acetaminophen (Tylenol 325mg Tab) 650 mg PO Q4 PRN PRN Reason: for pain 4-7 Al Hydrox/Mg Hydrox/Simethicone (Maalox Plus 30 Ml) 30 ml PO Q4 PRN PRN Reason: Dyspepsia Bismuth Subsalicylate (Pepto-Bismol) 524 mg PO Q4 PRN PRN Reason: Diarrhea Diphenhydramine HCl (Benadryl) 50 mg IM Q6 PRN PRN Reason: Extrapyramidal S/S Unable PO Diphenhydramine HCl (Benadryl) 50 mg PO Q6 PRN PRN Reason: Extrapyramidal Symptoms Diphenhydramine HCl (Benadryl) 50 mg PO HS PRN PRN Reason: Sleep Last Admin: 05/25/17 00:00 Dose: 50 mg Glipizide (Glucotrol) 10 mg PO BIDAC [facility] Last Admin: 05/25/17 08:24 Dose: 10 mg Haloperidol (Haldol) 5 mg PO Q4 PRN PRN Reason: Agitation Haloperidol Lactate (Haldol) 5 mg IM Q4 PRN PRN Reason: Agitation, Unable to Take PO Ceftriaxone Sodium 2 gm/ (Sodium Chloride) 100 mls @ 100 mls/hr IVPB DAILY [facility] Last Admin: 05/25/17 08:30 Dose: 100 mls/hr Vancomycin HCl 1 gm/ Sodium (Chloride) 250 mls @ 166.667 mls/hr IVPB Q12 [facility] Last Admin: 05/25/17 10:08 Dose: 166.667 mls/hr Insulin Human Regular (Humulin R) 0 units SC ACHS [facility] PRN Reason: Protocol Last Admin: 05/25/17 08:22 Dose: 1 unit Lisinopril (Zestril) 2.5 mg PO DAILY [facility] Last Admin: 05/25/17 08:25 Dose: 2.5 mg Lorazepam (Ativan) 2 mg IM Q4 PRN PRN Reason: Anxiety/Agitation,Unable PO Lorazepam (Ativan) 2 mg PO Q4 PRN PRN Reason: anxiety/agitation Magnesium Hydroxide (Milk Of Magnesia) 30 ml PO HS PRN PRN Reason: Constipation Nicotine (Nicoderm Cq) 1 patch TD DAILY [facility] Last Admin: 05/25/17 08:24 Dose: 1 patch Oxycodone/Acetaminophen (Percocet 5/325 Mg Tab) 1 tab PO Q4 PRN PRN Reason: Pain, moderate (4-7) Stop: 05/27/17 20:18 Oxycodone/Acetaminophen (Percocet 5/325 Mg Tab) 2 tab PO Q4 PRN PRN Reason: Pain, severe (8-10) Stop: 05/27/17 20:18 Last Admin: 05/25/17 08:20 Dose: 2 tab Pantoprazole Sodium (Protonix Ec Tab) 40 mg PO DAILY [facility] Last Admin: 05/25/17 08:25 Dose: 40 mg Risperidone (Risperdal Tab) 2 mg PO Q12 [facility] Last Admin: 05/25/17 08:24 Dose: 2 mg Saccharomyces Boulardii (Florastor) 250 mg PO BID [facility] Last Admin: 05/25/17 08:24 Dose: 250 mg Sertraline HCl (Zoloft) 50 mg PO DAILY [facility] Last Admin: 05/25/17 08:25 Dose: 50 mg Sitagliptin Phosphate (Januvia) 100 mg PO DAILY [facility] Last Admin: 05/25/17 08:24 Dose: 100 mg Physical Exam - Constitutional Appears: No Acute Distress - Head Exam Head Exam: NORMAL INSPECTION - Eye Exam Eye Exam: EOMI, Normal appearance - Neck Exam Neck exam: Positive for: Normal Inspection - Respiratory Exam Respiratory Exam: Clear to Auscultation Bilateral, NORMAL BREATHING PATTERN - Cardiovascular Exam Cardiovascular Exam: REGULAR RHYTHM, +S1, +S2 - GI/Abdominal Exam GI & Abdominal Exam: Normal Bowel Sounds, Soft. absent: Tenderness - Extremities Exam Extremities exam: Positive for: normal inspection. Negative for: calf tenderness Additional comments: Dressing over right foot clean dry and intact. Surgical boot in place. Neuro vascular intact. - Neurological Exam Neurological exam: Alert, Oriented x3 - Skin Additional comments: Acne and erythema over mallor region of the face Results - Vital Signs Recent Vital Signs: Last Vital Signs Temp 97.3 F L 05/25/17 05:53 Pulse 78 05/25/17 08:25 Resp 20 05/25/17 05:53 BP 120/77 05/25/17 08:25 Pulse Ox - Labs Labs: Laboratory Results - last 24 hr 05/24/17 05/25/17 05/25/17 20:31 05:45 07:06 POC Glucose (mg/dL) 293 H 183 H Thyroxine (T4) 9.48 TSH 3rd Generation 2.17 Assessment & Plan - Assessment and Plan (Free Text) Assessment: 47 year old male with PMH DM 2 Insulin Dependent, Anxiety/Depression, Schizophrenia, Suicide Attempt October 2016 by overdosing on Insulin, Acne was brought into [facility] ER on 05/18/17 after he called 911 stating that he was suicidal. He was drinking alcohol at his home as it was his Mom's birthday, afterwards feelings of wanting to kill himself , with auditory hallucinations. He was cleared by the ER for in-patient Psychiatry Unit at [facility]. Hospitalist service was consulted for medical management. Examination in the Psychiatry Unit revealed an Right Foot Pedal Surface ulcer that was malodorous. Patient revealed that he has had an ulcer in this area for the past 8 months and it was not until end of March 2017 that he went to see Dr. King who at that time had instructed him to go immediately to the hospital. However, patient stated he did not go and did not have an explanation as to why he did not.Patient admitted to medical floor for further management. Podiatry and ID was consulted and patient was started on IV Vancomycin and Zosyn.MRI of the foot showed 2.5 cm abscess to plantar aspect and osteomyelitis of distal second metatarsal and first phalanx. Patient underwent Right 2nd met head and proximal phalanx resection 05/23/17. Tolerated the procedure well.Post procedure medically doing well but still with auditory hallucinations. Patient will need to continue IV antibiotics for osteomyelitis for 4-6 weeks . PICC line placed .PT was consulted and patient trained for partial weight bearing to RLE as per podiatry recommendations. Patient is now currently in [facility] podiatry to follow up patient while in house and after discharge 1. Diabetic ulcer of right foot Podiatry and ID consulted MRI of the foot showed plantar abscess and osteomyelitis Cultures were positive for Proteus mirabilis and Staph Aureus POD#2 s/p R 2nd met head and proximal phalanx resection 05/23/17. Tolerated the procedure well. Will need iv antibiotics for 4-6 weeks. PICC line placed. Curently receiving Vancomycin and clindamycin Partil lweight bearing to RLE PT consulted . Will need to wear the special orthopedic boot at all times Pain is controlled with Percocet 2. Hyponatremia resolved 3. Suicidal ideation with hallucinations/ schizophrenia psychiatry consult appreciated Continue risperdal, Zoloft and 1:1 observation for safety - continue psych recommendation 4. DM type 2, uncontrolled, with lower extremity ulcer Patient states that he was on Metformin 1,000 mg PO 2x/day, Januvia unspecified dose 2x/day, Lantus 24 units SC 1x/day but has not taken these medications since this past December 2016 due to lack of insurance and then he stated that he lost the medications. 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 Anxiety and depression management as per psych 7. 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 Prophylactic measure Protonix for GI Prophylaxis Heparin SCD for DVT Prophylaxis <Vivian Ventura - Last Filed: 05/25/17 12:49> Meds - Medications Medications: Current Medications Acetaminophen (Tylenol 325mg Tab) 650 mg PO Q4 PRN PRN Reason: Pain, Mild (1-3) Acetaminophen (Tylenol 325mg Tab) 650 mg PO Q4 PRN PRN Reason: for pain 4-7 Al Hydrox/Mg Hydrox/Simethicone (Maalox Plus 30 Ml) 30 ml PO Q4 PRN PRN Reason: Dyspepsia Bismuth Subsalicylate (Pepto-Bismol) 524 mg PO Q4 PRN PRN Reason: Diarrhea Diphenhydramine HCl (Benadryl) 50 mg IM Q6 PRN PRN Reason: Extrapyramidal S/S Unable PO Diphenhydramine HCl (Benadryl) 50 mg PO Q6 PRN PRN Reason: Extrapyramidal Symptoms Diphenhydramine HCl (Benadryl) 50 mg PO HS PRN PRN Reason: Sleep Last Admin: 05/25/17 00:00 Dose: 50 mg Glipizide (Glucotrol) 10 mg PO BIDAC [facility] Last Admin: 05/25/17 08:24 Dose: 10 mg Haloperidol (Haldol) 5 mg PO Q4 PRN PRN Reason: Agitation Haloperidol Lactate (Haldol) 5 mg IM Q4 PRN PRN Reason: Agitation, Unable to Take PO Ceftriaxone Sodium 2 gm/ (Sodium Chloride) 100 mls @ 100 mls/hr IVPB DAILY [facility] Last Admin: 05/25/17 08:30 Dose: 100 mls/hr Vancomycin HCl 1 gm/ Sodium (Chloride) 250 mls @ 166.667 mls/hr IVPB Q12 [facility] Last Admin: 05/25/17 10:08 Dose: 166.667 mls/hr Insulin Human Regular (Humulin R) 0 units SC ACHS [facility] PRN Reason: Protocol Last Admin: 05/25/17 11:52 Dose: 2 unit Lisinopril (Zestril) 2.5 mg PO DAILY [facility] Last Admin: 05/25/17 08:25 Dose: 2.5 mg Lorazepam (Ativan) 2 mg IM Q4 PRN PRN Reason: Anxiety/Agitation,Unable PO Lorazepam (Ativan) 2 mg PO Q4 PRN PRN Reason: anxiety/agitation Magnesium Hydroxide (Milk Of Magnesia) 30 ml PO HS PRN PRN Reason: Constipation Nicotine (Nicoderm Cq) 1 patch TD DAILY [facility] Last Admin: 05/25/17 08:24 Dose: 1 patch Oxycodone/Acetaminophen (Percocet 5/325 Mg Tab) 1 tab PO Q4 PRN PRN Reason: Pain, moderate (4-7) Stop: 05/27/17 20:18 Oxycodone/Acetaminophen (Percocet 5/325 Mg Tab) 2 tab PO Q4 PRN PRN Reason: Pain, severe (8-10) Stop: 05/27/17 20:18 Last Admin: 05/25/17 08:20 Dose: 2 tab Pantoprazole Sodium (Protonix Ec Tab) 40 mg PO DAILY [facility] Last Admin: 05/25/17 08:25 Dose: 40 mg Risperidone (Risperdal Tab) 2 mg PO Q12 [facility] Last Admin: 05/25/17 08:24 Dose: 2 mg Saccharomyces Boulardii (Florastor) 250 mg PO BID [facility] Last Admin: 05/25/17 08:24 Dose: 250 mg Sertraline HCl (Zoloft) 50 mg PO DAILY [facility] Last Admin: 05/25/17 08:25 Dose: 50 mg Sitagliptin Phosphate (Januvia) 100 mg PO DAILY [facility] Last Admin: 05/25/17 08:24 Dose: 100 mg Results - Vital Signs Recent Vital Signs: Last Vital Signs Temp 97.3 F L 05/25/17 05:53 Pulse 78 05/25/17 08:25 Resp 20 05/25/17 05:53 BP 120/77 05/25/17 08:25 Pulse Ox - Labs Labs: Laboratory Results - last 24 hr 05/24/17 05/25/17 05/25/17 20:31 05:45 07:06 POC Glucose (mg/dL) 293 H 183 H Thyroxine (T4) 9.48 TSH 3rd Generation 2.17 Attending/Attestation - Attestation I have personally seen and examined this patient.: Yes I have fully participated in the care of the patient.: Yes I have reviewed all pertinent clinical information: Yes Notes (Text): 05/25/17 12:49 seen and examined with resident, discussed with Dr. Robert Champion, agree [facility] findings and plan as above.
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
--- NOTE | 2017-05-26 08:04 | CP.PCM.PN ---
Subjective - Date & Time of Evaluation Date of Evaluation: 05/26/17 Time of Evaluation: 07:55 - Subjective Subjective: 47 y/o male seen and evaluated by podiatry at bedside for POD#3 s/p R 2nd met head and proximal phalanx resection (DOS: 05/23/17). Patient is resting comfortably at bedside. Patient states he is experiencing a throbbing pain which bothers him the most. Denies any acute events overnight. Patient denies N/ V/F/D/SOB/CP or chills. No other pedal complaints at this time. Objective - Vital Signs/Intake and Output Vital Signs (last 24 hours): Temp Pulse Resp BP Pulse Ox 97.7 F 75 18 119/75 05/26/17 06:00 05/26/17 06:00 05/26/17 06:00 05/26/17 06:00 - Medications Medications: Current Medications Acetaminophen (Tylenol 325mg Tab) 650 mg PO Q4 PRN PRN Reason: Pain, Mild (1-3) Acetaminophen (Tylenol 325mg Tab) 650 mg PO Q4 PRN PRN Reason: for pain 4-7 Al Hydrox/Mg Hydrox/Simethicone (Maalox Plus 30 Ml) 30 ml PO Q4 PRN PRN Reason: Dyspepsia Bismuth Subsalicylate (Pepto-Bismol) 524 mg PO Q4 PRN PRN Reason: Diarrhea Diphenhydramine HCl (Benadryl) 50 mg IM Q6 PRN PRN Reason: Extrapyramidal S/S Unable PO Diphenhydramine HCl (Benadryl) 50 mg PO Q6 PRN PRN Reason: Extrapyramidal Symptoms Diphenhydramine HCl (Benadryl) 50 mg PO HS PRN PRN Reason: Sleep Last Admin: 05/25/17 00:00 Dose: 50 mg Glipizide (Glucotrol) 10 mg PO BIDAC JOESPH Last Admin: 05/25/17 16:17 Dose: 10 mg Haloperidol (Haldol) 5 mg PO Q4 PRN PRN Reason: Agitation Last Admin: 05/25/17 23:58 Dose: 5 mg Haloperidol Lactate (Haldol) 5 mg IM Q4 PRN PRN Reason: Agitation, Unable to Take PO Ceftriaxone Sodium 2 gm/ (Sodium Chloride) 100 mls @ 100 mls/hr IVPB DAILY [facility] Last Admin: 05/25/17 08:30 Dose: 100 mls/hr Vancomycin HCl 1 gm/ Sodium (Chloride) 250 mls @ 166.667 mls/hr IVPB Q12 [facility] Last Admin: 05/25/17 21:11 Dose: 166.667 mls/hr Insulin Human Regular (Humulin R) 0 units SC ACHS JOESPH PRN Reason: Protocol Last Admin: 05/25/17 21:08 Dose: Not Given Lisinopril (Zestril) 2.5 mg PO DAILY [facility] Last Admin: 05/25/17 08:25 Dose: 2.5 mg Lorazepam (Ativan) 2 mg IM Q4 PRN PRN Reason: Anxiety/Agitation,Unable PO Lorazepam (Ativan) 2 mg PO Q4 PRN PRN Reason: anxiety/agitation Magnesium Hydroxide (Milk Of Magnesia) 30 ml PO HS PRN PRN Reason: Constipation Nicotine (Nicoderm Cq) 1 patch TD DAILY [facility] Last Admin: 05/25/17 08:24 Dose: 1 patch Oxycodone/Acetaminophen (Percocet 5/325 Mg Tab) 1 tab PO Q4 PRN PRN Reason: Pain, moderate (4-7) Stop: 05/27/17 20:18 Last Admin: 05/25/17 23:57 Dose: 1 tab Oxycodone/Acetaminophen (Percocet 5/325 Mg Tab) 2 tab PO Q4 PRN PRN Reason: Pain, severe (8-10) Stop: 05/27/17 20:18 Last Admin: 05/25/17 08:20 Dose: 2 tab Pantoprazole Sodium (Protonix Ec Tab) 40 mg PO DAILY [facility] Last Admin: 05/25/17 08:25 Dose: 40 mg Risperidone (Risperdal Tab) 2 mg PO Q12 [facility] Last Admin: 05/25/17 21:10 Dose: 2 mg Saccharomyces Boulardii (Florastor) 250 mg PO BID [facility] Last Admin: 05/25/17 16:17 Dose: 250 mg Sertraline HCl (Zoloft) 50 mg PO DAILY [facility] Last Admin: 05/25/17 08:25 Dose: 50 mg Sitagliptin Phosphate (Januvia) 100 mg PO DAILY [facility] Last Admin: 05/25/17 08:24 Dose: 100 mg - Constitutional Appears: Well, Non-toxic, No Acute Distress - Extremities Exam Additional comments: Right lower extremity focused physical exam: Vasc: DP/PT pulses palpable 2/4. CFT <3 sec x5 digits. Nonpitting edema noted to forefoot. Neuro: Gross sensation diminished. Derm: Sanguinous strikethrough noted on surgical dressing covering dorsal surgical incision site. Surgical sites at dorsum of 2nd digit and plantar 2nd met head appear to be well-coapted with sutures intact. No wound dehiscence noted. No drainage noted to the surgical site. No fluctuance, malodor, or purulence noted. Hyperpigmentation noted to dorsum of foot. Ortho: Pain on palpation noted to forefoot. - Neurological Exam Neurological Exam: Alert, Awake, Oriented x3 - Psychiatric Exam Psychiatric exam: Normal Affect, Normal Mood Assessment and Plan - Assessment and Plan (Free Text) Assessment: 47 year old male POD#3 s/p right 2nd met head resection and 2nd proximal phalanx base resection Plan: Patient was seen and evaluated at bedside Charts, labs, vitals reviewed: afebrile Discussed plan with attending Dr. Bennett Surgical sites examined with all sutures shown to be intact Dressing changed with betadine soaked adaptic, 4x4s, kerlix, ABD, and OFELIA. Surgical shoe re-applied to foot. Reminded patient of the importance of wearing surgical shoe while ambulating. Partial WB to right heel. Cont. abx per ID (Dr. Villa following): currently on Vancomycin IV, patient has PICC line, F/U ID recs regarding duration of IV abx Wound cx 05/19/17: Proteus mirabilis, Staph aureus Wound cx 05/23/17 intra-op prelim. no growth Stable per podiatry Podiatry will continue to follow while in-house.
--- NOTE | 2017-05-26 08:12 | PCM.PYCHPN ---
Psychiatric Progress Note - Psychiatric Progress Note Patient seen today, length of contact: Patient evaluated, case discussed with team, chart reviewed, 35 min Patient Chief Complaint: "I'm hearing less voices" Problems Identified/Issues Discussed: Patient reports that he continues to hear intermittent auditory hallucinations but that they are diminished and not command in nature. He reports that his mood is improving overall. He denies adverse effects to medications. We discussed continued titration of Risperdal. r/b/se reviewed. Medication Change: Yes (Increase Risperdal to 2 mg PO Daily/ 3 mg PO HS) Medical Record Reviewed: Yes Consults ordered or reviewed: Medicine consult, Podiatry consult Mental Status Examination - Cognitive Function Orientation: Person, Place, Situation, Time Memory: Intact Attention: WNL Concentration: WNL Association: WNL Fund of Knowledge: WNL - Mood Mood: Depressed - Affect Affect: Constricted, Depressed - Speech Speech: Appropriate - Formal Thought Process Formal Thought Process: Hallucinations Psychotic Thoughts and Behaviors: +AH (not command) - Suicidal Ideation Suicidal Ideation: No - Homicidal Ideation Homicidal Ideation: No Goal/Treatment Plan - Goal/Treatment Plan Need for Continued Stay: Remain at risks for inpatient hospitalization, Discharge may exacerbated symptoms Progress Toward Problem(s) and Goals/Treatment Plan: Major Depressive Disorder w/ psychotic features, Alcohol Use Disorder; patient continues to be acutely psychotic. He would benefit from continued hospitalization for treatment, safety and stabilization. -Continue Zoloft 50 mg PO Daily -Increase Risperdal to 2 mg PO AM/ 3 mg PO HS; will continue to titrate as clinically indicated -Individual and group therapy -Medicine/surgery/podiatry consults -Disposition planning Estimated Date of D/C: 05/30/17
[2017-05-26] MEDS: Insulin Regular 100 units/ml SC SCH ×4 (08:28→21:07)
[2017-05-26] MEDS: Saccharomyces Boulardi 250 mg Cap PO SCH ×2 (08:29→16:27)
[2017-05-26] MEDS: Pantoprazole 40 mg EC Tab PO SCH (08:32)
[2017-05-26] MEDS: cefTRIAXone 2 GM in Sodium Chloride 0.9% 100 ML IVPB SCH (10:30)
[2017-05-26] MEDS ORDERED: Hydrogen Peroxide 3% Soln (480ml) TP ONE (12:29)
[2017-05-26] MEDS: Oxycodone/Acetaminophen 5/325 mg Tab PO PRN ×3 (12:29→19:36)
[2017-05-27] MEDS: Oxycodone/Acetaminophen 5/325 mg Tab PO PRN ×3 (02:20→21:22)
--- NOTE | 2017-05-27 08:20 | CP.PCM.PN ---
Subjective - Date & Time of Evaluation Date of Evaluation: 05/27/17 Time of Evaluation: 08:20 - Subjective Subjective: 47 y/o male seen and evaluated by podiatry at bedside for POD#4 s/p R 2nd met head and proximal phalanx resection (DOS: 05/23/17). Patient is resting comfortably at bedside. Patient states he is still experiencing the intermittent throbbing pain for which he takes Percocet, but overall feels alright today. Patient denies any acute events overnight. Patient denies F/C/N/V /SOB. No other pedal complaints at this time. Objective - Vital Signs/Intake and Output Vital Signs (last 24 hours): Temp Pulse Resp BP Pulse Ox 97.1 F L 68 18 113/73 05/27/17 05:57 05/27/17 05:57 05/27/17 05:57 05/27/17 05:57 - Medications Medications: Current Medications Acetaminophen (Tylenol 325mg Tab) 650 mg PO Q4 PRN PRN Reason: Pain, Mild (1-3) Acetaminophen (Tylenol 325mg Tab) 650 mg PO Q4 PRN PRN Reason: for pain 4-7 Al Hydrox/Mg Hydrox/Simethicone (Maalox Plus 30 Ml) 30 ml PO Q4 PRN PRN Reason: Dyspepsia Bismuth Subsalicylate (Pepto-Bismol) 524 mg PO Q4 PRN PRN Reason: Diarrhea Diphenhydramine HCl (Benadryl) 50 mg IM Q6 PRN PRN Reason: Extrapyramidal S/S Unable PO Diphenhydramine HCl (Benadryl) 50 mg PO Q6 PRN PRN Reason: Extrapyramidal Symptoms Diphenhydramine HCl (Benadryl) 50 mg PO HS PRN PRN Reason: Sleep Last Admin: 05/25/17 00:00 Dose: 50 mg Glipizide (Glucotrol) 10 mg PO BIDAC JOESPH Last Admin: 05/26/17 16:27 Dose: 10 mg Haloperidol (Haldol) 5 mg PO Q4 PRN PRN Reason: Agitation Last Admin: 05/25/17 23:58 Dose: 5 mg Haloperidol Lactate (Haldol) 5 mg IM Q4 PRN PRN Reason: Agitation, Unable to Take PO Ceftriaxone Sodium 2 gm/ (Sodium Chloride) 100 mls @ 100 mls/hr IVPB DAILY [facility] Last Admin: 05/26/17 10:30 Dose: 100 mls/hr Vancomycin HCl 1 gm/ Sodium (Chloride) 250 mls @ 166.667 mls/hr IVPB Q12 [facility] Last Admin: 05/26/17 21:12 Dose: 166.667 mls/hr Insulin Human Regular (Humulin R) 0 units SC ACHS [facility] PRN Reason: Protocol Last Admin: 05/26/17 21:07 Dose: Not Given Lisinopril (Zestril) 2.5 mg PO DAILY [facility] Last Admin: 05/26/17 08:30 Dose: 2.5 mg Lorazepam (Ativan) 2 mg IM Q4 PRN PRN Reason: Anxiety/Agitation,Unable PO Lorazepam (Ativan) 2 mg PO Q4 PRN PRN Reason: anxiety/agitation Magnesium Hydroxide (Milk Of Magnesia) 30 ml PO HS PRN PRN Reason: Constipation Nicotine (Nicoderm Cq) 1 patch TD DAILY [facility] Last Admin: 05/26/17 08:30 Dose: 1 patch Oxycodone/Acetaminophen (Percocet 5/325 Mg Tab) 1 tab PO Q4 PRN PRN Reason: Pain, moderate (4-7) Stop: 05/27/17 20:18 Last Admin: 05/25/17 23:57 Dose: 1 tab Oxycodone/Acetaminophen (Percocet 5/325 Mg Tab) 2 tab PO Q4 PRN PRN Reason: Pain, severe (8-10) Stop: 05/27/17 20:18 Last Admin: 05/27/17 02:20 Dose: 2 tab Pantoprazole Sodium (Protonix Ec Tab) 40 mg PO DAILY [facility] Last Admin: 05/26/17 08:32 Dose: 40 mg Risperidone (Risperdal Tab) 2 mg PO DAILY [facility] Last Admin: 05/26/17 08:58 Dose: 2 mg Risperidone (Risperdal Tab) 3 mg PO HS [facility] Last Admin: 05/26/17 21:07 Dose: 3 mg Saccharomyces Boulardii (Florastor) 250 mg PO BID [facility] Last Admin: 05/26/17 16:27 Dose: 250 mg Sertraline HCl (Zoloft) 50 mg PO DAILY [facility] Last Admin: 05/26/17 08:29 Dose: 50 mg Sitagliptin Phosphate (Januvia) 100 mg PO DAILY [facility] Last Admin: 05/26/17 08:29 Dose: 100 mg Zolpidem Tartrate (Ambien) 5 mg PO HS PRN PRN Reason: Insomnia - Constitutional Appears: Well, Non-toxic, No Acute Distress - Extremities Exam Additional comments: Right lower extremity focused physical exam: Vasc: DP/PT pulses palpable 2/4. CFT <3 sec x5 digits. Mild nonpitting edema noted to forefoot surrounding surgical incision site. Neuro: Protective sensation grossly diminished. Derm: Sanguinous strikethrough noted on portion of surgical dressing covering dorsal surgical incision site. Surgical sites at dorsum of 2nd digit and plantar 2nd met head well-coapted with sutures intact. No wound dehiscence, no drainage, no fluctuance, malodor, or purulence noted. Ortho: Pain on palpation noted to forefoot. - Neurological Exam Neurological Exam: Alert, Awake, Oriented x3 - Psychiatric Exam Psychiatric exam: Normal Affect, Normal Mood Assessment and Plan - Assessment and Plan (Free Text) Assessment: 47 year old male POD#4 s/p right 2nd met head resection and 2nd proximal phalanx base resection Plan: Patient was seen and evaluated at bedside Charts, labs, vitals reviewed: afebrile Discussed plan with attending Dr. Bennett Surgical sites examined with all sutures shown to be intact Cleaned surgical incision sites and dry blood with peroxide and 4x4s Dressing changed with betadine soaked adaptic, 4x4s, kerlix, ABD, and OFELIA. Surgical shoe re-applied to foot. Patient to continue using walker and partial WB to right heel. Cont. abx per ID (Dr. Robert following): currently on Vancomycin IV, patient has PICC line, F/U ID recs regarding duration of IV abx Wound cx 05/19/17: Proteus mirabilis, Staph aureus Wound cx 05/23/17 intra-op prelim. no growth Stable per podiatry. Discussed with patient again importance of following up with Dr. Bennett as an outpatient. Pt will require further foot surgery in future (following completion of IV abx) for weber-metatarsal head resection. Podiatry will continue to follow while in-house.
[2017-05-27] MEDS: Saccharomyces Boulardi 250 mg Cap PO SCH ×2 (08:51→16:52)
[2017-05-27] MEDS: Insulin Regular 100 units/ml SC SCH ×4 (08:52→21:07)
[2017-05-27] MEDS: Pantoprazole 40 mg EC Tab PO SCH (08:54)
[2017-05-27] MEDS: cefTRIAXone 2 GM in Sodium Chloride 0.9% 100 ML IVPB SCH (10:51)
[2017-05-27] MEDS ORDERED: Oxycodone/Acetaminophen 5/325 mg Tab PO PRN (21:12)
[2017-05-28] MEDS: Saccharomyces Boulardi 250 mg Cap PO SCH (08:40)
[2017-05-28] MEDS: Pantoprazole 40 mg EC Tab PO SCH (08:43)
[2017-05-28] MEDS: Insulin Regular 100 units/ml SC SCH ×3 (09:26→22:43)
--- NOTE | 2017-05-28 10:43 | CP.PCM.PN ---
Subjective - Date & Time of Evaluation Date of Evaluation: 05/28/17 Time of Evaluation: 10:38 - Subjective Subjective: 47 y/o male seen and evaluated by podiatry at bedside for POD#5 s/p R 2nd met head and proximal phalanx resection (DOS: 05/23/17). Patient is resting and asleep at time of visit. Patient states he is still experiencing the intermittent throbbing pain for which he takes Percocet, but overall feels alright today. Patient states that he has been ambulating with the surgical shoe at all times, with and without the walker, but that the throbbing pain comes when he does not use the walker. Patient denies any acute events overnight. Patient denies F/C/N/V/SOB. No other pedal complaints at this time. Objective - Vital Signs/Intake and Output Vital Signs (last 24 hours): Temp Pulse Resp BP Pulse Ox 97.7 F 76 16 111/71 05/28/17 05:59 05/28/17 08:46 05/28/17 05:59 05/28/17 08:46 - Medications Medications: Current Medications Acetaminophen (Tylenol 325mg Tab) 650 mg PO Q4 PRN PRN Reason: Pain, Mild (1-3) Acetaminophen (Tylenol 325mg Tab) 650 mg PO Q4 PRN PRN Reason: for pain 4-7 Al Hydrox/Mg Hydrox/Simethicone (Maalox Plus 30 Ml) 30 ml PO Q4 PRN PRN Reason: Dyspepsia Bismuth Subsalicylate (Pepto-Bismol) 524 mg PO Q4 PRN PRN Reason: Diarrhea Diphenhydramine HCl (Benadryl) 50 mg IM Q6 PRN PRN Reason: Extrapyramidal S/S Unable PO Diphenhydramine HCl (Benadryl) 50 mg PO Q6 PRN PRN Reason: Extrapyramidal Symptoms Diphenhydramine HCl (Benadryl) 50 mg PO HS PRN PRN Reason: Sleep Last Admin: 05/25/17 00:00 Dose: 50 mg Glipizide (Glucotrol) 10 mg PO BIDAC JOESPH Last Admin: 05/28/17 08:40 Dose: 10 mg Haloperidol (Haldol) 5 mg PO Q4 PRN PRN Reason: Agitation Last Admin: 05/27/17 16:57 Dose: 5 mg Haloperidol Lactate (Haldol) 5 mg IM Q4 PRN PRN Reason: Agitation, Unable to Take PO Ceftriaxone Sodium 2 gm/ (Sodium Chloride) 100 mls @ 100 mls/hr IVPB DAILY [facility] Last Admin: 05/27/17 10:51 Dose: 100 mls/hr Vancomycin HCl 1 gm/ Sodium (Chloride) 250 mls @ 166.667 mls/hr IVPB Q12 [facility] Last Admin: 05/28/17 08:44 Dose: 166.667 mls/hr Insulin Human Regular (Humulin R) 0 units SC ACHS JOESPH PRN Reason: Protocol Last Admin: 05/28/17 09:26 Dose: Not Given Lisinopril (Zestril) 2.5 mg PO DAILY [facility] Last Admin: 05/28/17 08:46 Dose: 2.5 mg Lorazepam (Ativan) 2 mg IM Q4 PRN PRN Reason: Anxiety/Agitation,Unable PO Lorazepam (Ativan) 2 mg PO Q4 PRN PRN Reason: anxiety/agitation Magnesium Hydroxide (Milk Of Magnesia) 30 ml PO HS PRN PRN Reason: Constipation Nicotine (Nicoderm Cq) 1 patch TD DAILY [facility] Last Admin: 05/28/17 08:43 Dose: 1 patch Oxycodone/Acetaminophen (Percocet 5/325 Mg Tab) 1 tab PO Q6 PRN PRN Reason: Pain, moderate (4-7) Stop: 05/30/17 21:13 Oxycodone/Acetaminophen (Percocet 5/325 Mg Tab) 2 tab PO Q6 PRN PRN Reason: Pain, severe (8-10) Stop: 05/30/17 21:14 Last Admin: 05/27/17 21:22 Dose: 2 tab Pantoprazole Sodium (Protonix Ec Tab) 40 mg PO DAILY [facility] Last Admin: 05/28/17 08:43 Dose: 40 mg Risperidone (Risperdal Tab) 2 mg PO DAILY [facility] Last Admin: 05/28/17 08:44 Dose: 2 mg Risperidone (Risperdal Tab) 3 mg PO HS [facility] Last Admin: 05/27/17 21:19 Dose: 3 mg Saccharomyces Boulardii (Florastor) 250 mg PO BID [facility] Last Admin: 05/28/17 08:40 Dose: 250 mg Sertraline HCl (Zoloft) 50 mg PO DAILY [facility] Last Admin: 05/28/17 08:48 Dose: 50 mg Sitagliptin Phosphate (Januvia) 100 mg PO DAILY [facility] Last Admin: 05/28/17 08:42 Dose: 100 mg Zolpidem Tartrate (Ambien) 5 mg PO HS PRN PRN Reason: Insomnia - Constitutional Appears: Well, Non-toxic, No Acute Distress - Extremities Exam Additional comments: Right lower extremity focused physical exam: Vasc: DP/PT pulses palpable 2/4. CFT <3 sec x5 digits. Mild nonpitting edema noted to forefoot surrounding surgical incision site. Neuro: Protective sensation grossly diminished. Derm: Minimal sanguinous strikethrough noted today on surgical dressing covering dorsal surgical incision site. Surgical sites at dorsum of 2nd digit and plantar 2nd met head well-coapted with sutures intact. Mild maceration noted to dorsal surgical incision site. No wound dehiscence, no drainage, no fluctuance, malodor, or purulence noted. Ortho: No pain on palpation noted to forefoot dorsally or plantarly at surgical incision sites. - Neurological Exam Neurological Exam: Alert, Awake, Oriented x3 - Psychiatric Exam Psychiatric exam: Normal Affect, Normal Mood Assessment and Plan - Assessment and Plan (Free Text) Assessment: 47 year old male POD#5 s/p right 2nd met head resection and 2nd proximal phalanx base resection Plan: Patient was seen and evaluated at bedside Charts, labs, vitals reviewed: afebrile Discussed plan with attending Dr. Bennett Surgical sites examined with all sutures shown to be intact Dressing changed with betadine soaked Telfa, 4x4s, kerlix and OFELIA. Surgical shoe re-applied to foot. Patient to continue using walker and partial WB to right heel. Cont. abx per ID (Dr. Robert following) Patient to be DC Tuesday or Tuesday- contact ID to find out duration of IV abx Wound cx 05/23/17 intra-op prelim. no growth - final pending Stable per podiatry. Discussed with patient again importance of following up with Dr. Bennett as an outpatient in [facility]. Pt will require further foot surgery in future (following completion of IV abx) for weber-metatarsal head resection. Podiatry will continue to follow while in-house.
[2017-05-28] MEDS: cefTRIAXone 2 GM in Sodium Chloride 0.9% 100 ML IVPB SCH (10:47)
--- NOTE | 2017-05-28 11:13 | PCM.PYCHPN ---
Psychiatric Progress Note - Psychiatric Progress Note Patient seen today, length of contact: Patient evaluated, case discussed with team, chart reviewed, 35 min Patient Chief Complaint: came to hospital feeling depressed hearing voices commentary and command to hurt self-reports is less believes would not act on it believes he would not act on it believes current dose is helping -does feel as though is depressed. rx adherent per staff. receiving iv antibiotics for foot being followed by podiatry. 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 therapy Medication Change: No (increase sertraline to 75mg po day (25mg po x one dose today)) Medical Record Reviewed: Yes Mental Status Examination - Cognitive Function Orientation: Person, Place, Situation, Time Memory: Intact Attention: WNL Concentration: WNL Association: WNL Fund of Knowledge: [facility] Decription of patient's judgement and insights: impaired - Mood Mood: Depressed - Affect Affect: Constricted, Depressed - Speech Speech: Appropriate - Formal Thought Process Formal Thought Process: Hallucinations - Suicidal Ideation Suicidal Ideation: No - Homicidal Ideation Homicidal Ideation: No Goal/Treatment Plan - Goal/Treatment Plan Need for Continued Stay: Remain at risks for inpatient hospitalization, Discharge may exacerbated symptoms Progress Toward Problem(s) and Goals/Treatment Plan: inpt admission adjust med per clinical status-will increase sertraline to75mg vital signs and clinical observation per clinical status and protocol follow up per pmd and podiatry discharge planning in progress Estimated Date of D/C: 05/30/17 - Smoking Cessation Smoking Cessation Initiated: No Reason for not providing: deferred
[2017-05-28] MEDS ORDERED: Vancomycin 1 g Inj ONE (17:00)
[2017-05-28] MEDS ORDERED: Saccharomyces Boulardi 250 mg Cap ONE (17:00)
[2017-05-28] MEDS ORDERED: Insulin Regular 100 units/ml ONE (17:00)
[2017-05-28] MEDS ORDERED: Oxycodone/Acetaminophen 5/325 mg Tab ONE (17:00)
[2017-05-28] MEDS: Oxycodone/Acetaminophen 5/325 mg Tab PO PRN (21:48)
[2017-05-29] MEDS: Saccharomyces Boulardi 250 mg Cap PO SCH ×2 (08:39→16:07)
[2017-05-29] MEDS: Pantoprazole 40 mg EC Tab PO SCH (08:40)
[2017-05-29] MEDS: Insulin Regular 100 units/ml SC SCH ×5 (08:41→21:15)
[2017-05-29] MEDS: Oxycodone/Acetaminophen 5/325 mg Tab PO PRN ×2 (08:44→16:06)
[2017-05-29] MEDS: cefTRIAXone 2 GM in Sodium Chloride 0.9% 100 ML IVPB SCH (08:50)
--- NOTE | 2017-05-29 10:14 | CP.PCM.PN ---
Subjective - Date & Time of Evaluation Date of Evaluation: 05/29/17 Time of Evaluation: 10:11 - Subjective Subjective: 47 y/o male seen and evaluated by podiatry at bedside for POD#6 s/p R 2nd met head and proximal phalanx resection (DOS: 05/23/17). Patient is resting at time of visit. Patient states he is still experiencing the intermittent throbbing pain for which he takes Percocet, but overall feels alright today. Patient states that he has been ambulating with the surgical shoe at all times, with and without the walker. Patient denies any acute events overnight. Patient denies F/C/N/V/SOB. No other pedal complaints at this time. Objective - Vital Signs/Intake and Output Vital Signs (last 24 hours): Temp Pulse Resp BP Pulse Ox 97.1 F L 63 20 132/90 05/29/17 06:00 05/29/17 08:42 05/29/17 06:00 05/29/17 08:42 - Medications Medications: Current Medications Acetaminophen (Tylenol 325mg Tab) 650 mg PO Q4 PRN PRN Reason: Pain, Mild (1-3) Acetaminophen (Tylenol 325mg Tab) 650 mg PO Q4 PRN PRN Reason: for pain 4-7 Al Hydrox/Mg Hydrox/Simethicone (Maalox Plus 30 Ml) 30 ml PO Q4 PRN PRN Reason: Dyspepsia Bismuth Subsalicylate (Pepto-Bismol) 524 mg PO Q4 PRN PRN Reason: Diarrhea Diphenhydramine HCl (Benadryl) 50 mg IM Q6 PRN PRN Reason: Extrapyramidal S/S Unable PO Diphenhydramine HCl (Benadryl) 50 mg PO Q6 PRN PRN Reason: Extrapyramidal Symptoms Diphenhydramine HCl (Benadryl) 50 mg PO HS PRN PRN Reason: Sleep Last Admin: 05/25/17 00:00 Dose: 50 mg Glipizide (Glucotrol) 10 mg PO BIDAC JOESPH Last Admin: 05/29/17 08:40 Dose: 10 mg Haloperidol (Haldol) 5 mg PO Q4 PRN PRN Reason: Agitation Last Admin: 05/28/17 19:30 Dose: 5 mg Haloperidol Lactate (Haldol) 5 mg IM Q4 PRN PRN Reason: Agitation, Unable to Take PO Ceftriaxone Sodium 2 gm/ (Sodium Chloride) 100 mls @ 100 mls/hr IVPB DAILY [facility] Last Admin: 05/29/17 08:50 Dose: 100 mls/hr Vancomycin HCl 1 gm/ Sodium (Chloride) 250 mls @ 166.667 mls/hr IVPB Q12 [facility] Last Admin: 05/28/17 21:51 Dose: 166.667 mls/hr Insulin Human Regular (Humulin R) 0 units SC ACHS JOESPH PRN Reason: Protocol Last Admin: 05/29/17 08:41 Dose: 1 unit Lisinopril (Zestril) 2.5 mg PO DAILY [facility] Last Admin: 05/29/17 08:42 Dose: 2.5 mg Lorazepam (Ativan) 2 mg IM Q4 PRN PRN Reason: Anxiety/Agitation,Unable PO Lorazepam (Ativan) 2 mg PO Q4 PRN PRN Reason: anxiety/agitation Magnesium Hydroxide (Milk Of Magnesia) 30 ml PO HS PRN PRN Reason: Constipation Nicotine (Nicoderm Cq) 1 patch TD DAILY [facility] Last Admin: 05/29/17 08:39 Dose: 1 patch Oxycodone/Acetaminophen (Percocet 5/325 Mg Tab) 1 tab PO Q6 PRN PRN Reason: Pain, moderate (4-7) Stop: 05/30/17 21:13 Oxycodone/Acetaminophen (Percocet 5/325 Mg Tab) 2 tab PO Q6 PRN PRN Reason: Pain, severe (8-10) Stop: 05/30/17 21:14 Last Admin: 05/29/17 08:44 Dose: 2 tab Pantoprazole Sodium (Protonix Ec Tab) 40 mg PO DAILY [facility] Last Admin: 05/29/17 08:40 Dose: 40 mg Risperidone (Risperdal Tab) 2 mg PO DAILY [facility] Last Admin: 05/29/17 08:41 Dose: 2 mg Risperidone (Risperdal Tab) 3 mg PO HS [facility] Last Admin: 05/28/17 21:51 Dose: 3 mg Saccharomyces Boulardii (Florastor) 250 mg PO BID [facility] Last Admin: 05/29/17 08:39 Dose: 250 mg Sertraline HCl (Zoloft) 75 mg PO DAILY [facility] Last Admin: 05/29/17 08:43 Dose: 75 mg Sitagliptin Phosphate (Januvia) 100 mg PO DAILY [facility] Last Admin: 05/29/17 08:39 Dose: 100 mg Zolpidem Tartrate (Ambien) 5 mg PO HS PRN PRN Reason: Insomnia - Constitutional Appears: Well, Non-toxic, No Acute Distress - Extremities Exam Additional comments: Right lower extremity focused physical exam: Vasc: DP/PT pulses palpable 2/4. CFT <3 sec x5 digits. Mild nonpitting edema noted to forefoot surrounding surgical incision site. Neuro: Protective sensation grossly diminished. Derm: Minimal sanguinous strikethrough noted today on surgical dressing covering dorsal surgical incision site. Surgical sites at dorsum of 2nd digit and plantar 2nd met head well-coapted with sutures intact. No maceration noted to surgical areas today. No wound dehiscence, no drainage, no fluctuance, malodor, or purulence noted. Ortho: No pain on palpation noted to forefoot dorsally or plantarly at surgical incision sites. - Neurological Exam Neurological Exam: Alert, Awake, Oriented x3 - Psychiatric Exam Psychiatric exam: Normal Affect, Normal Mood Assessment and Plan - Assessment and Plan (Free Text) Assessment: 47 year old male POD#6 s/p right 2nd met head resection and 2nd proximal phalanx base resection Plan: Patient was seen and evaluated at bedside Charts, labs, vitals reviewed: afebrile Discussed plan with attending Dr. Bennett Surgical sites examined with all sutures shown to be intact Dressing changed with betadine soaked adaptic, 4x4s, kerlix and OFELIA. Surgical shoe re-applied to foot. Patient to continue using walker and partial WB to right heel. Cont. abx per ID (Dr. Robert following) Patient to be DC Tuesday or Tuesday- ID to find out duration of IV abx PICC line placed Wound cx 05/23/17 final growth- Staph Aureus Stable per podiatry. Discussed with patient again importance of following up with Dr. Bennett as an outpatient in [facility]. Pt may require further foot surgery in future (following completion of IV abx) for weber-metatarsal head resection. Podiatry will continue to follow while in-house.
--- NOTE | 2017-05-29 14:50 | PCM.PYCHPN ---
Psychiatric Progress Note - Psychiatric Progress Note Patient seen today, length of contact: Patient evaluated, case discussed with team, chart reviewed, 35 min Patient Chief Complaint: came to hospital feeling depressed hearing voices commentary and command to hurt self-reports is less believes would not act on it believes he would not act on it believes current dose is helping -does feel as though is depressed. rx adherent per staff. receiving iv antibiotics for foot being followed by podiatry. Problems Identified/Issues Discussed: alteration in mood alteration in cognition alteration in skin integrity Medical Problems: per chart Diagnostic Results: per psychiatry per medicine per nursing per pediatric social worker per recreational therapy Medication Change: No Medical Record Reviewed: Yes Mental Status Examination - Cognitive Function Orientation: Person, Place, Situation, Time Memory: Intact Attention: WNL Concentration: WNL Association: WNL Fund of Knowledge: WN Decription of patient's judgement and insights: impaired - Mood Mood: Depressed - Affect Affect: Constricted, Depressed - Speech Speech: Appropriate - Formal Thought Process Formal Thought Process: Hallucinations - Suicidal Ideation Suicidal Ideation: No - Homicidal Ideation Homicidal Ideation: No Goal/Treatment Plan - Goal/Treatment Plan Need for Continued Stay: Remain at risks for inpatient hospitalization, Discharge may exacerbated symptoms Progress Toward Problem(s) and Goals/Treatment Plan: inpt admission adjust med per clinical status-maintain sertraline 75mg po day reassess am denies notable side effects practice meditation with pt-+teachback noted vital signs and clinical observation per clinical status and protocol follow up per pmd and podiatry discharge planning in progress Estimated Date of D/C: 05/30/17 - Smoking Cessation Smoking Cessation Initiated: No Reason for not providing: deferred
[2017-05-30] MEDS: Oxycodone/Acetaminophen 5/325 mg Tab PO PRN ×3 (05:30→19:47)
--- NOTE | 2017-05-30 08:11 | CP.PCM.PN ---
Subjective - Date & Time of Evaluation Date of Evaluation: 05/30/17 Time of Evaluation: 08:08 - Subjective Subjective: 47 y/o male seen and evaluated by podiatry at bedside for POD#7 s/p R 2nd met head and proximal phalanx resection (DOS: 05/23/17). Pt states that he is having throbbing pain today but he just took his medication and feels better. Patient states that he has been ambulating with the surgical shoe at all times, with and without the walker. Pt denies any acute events overnight. Pt denies F/C/N/V/ SOB. Pt's dressing is clean, dry and intact. Pt denies of any new pedal complains. Objective - Vital Signs/Intake and Output Vital Signs (last 24 hours): Temp Pulse Resp BP Pulse Ox 97 F L 92 H 18 100/65 05/30/17 05:41 05/30/17 05:41 05/30/17 05:41 05/30/17 05:41 - Medications Medications: Current Medications Acetaminophen (Tylenol 325mg Tab) 650 mg PO Q4 PRN PRN Reason: Pain, Mild (1-3) Acetaminophen (Tylenol 325mg Tab) 650 mg PO Q4 PRN PRN Reason: for pain 4-7 Al Hydrox/Mg Hydrox/Simethicone (Maalox Plus 30 Ml) 30 ml PO Q4 PRN PRN Reason: Dyspepsia Bismuth Subsalicylate (Pepto-Bismol) 524 mg PO Q4 PRN PRN Reason: Diarrhea Diphenhydramine HCl (Benadryl) 50 mg IM Q6 PRN PRN Reason: Extrapyramidal S/S Unable PO Diphenhydramine HCl (Benadryl) 50 mg PO Q6 PRN PRN Reason: Extrapyramidal Symptoms Diphenhydramine HCl (Benadryl) 50 mg PO HS PRN PRN Reason: Sleep Last Admin: 05/25/17 00:00 Dose: 50 mg Glipizide (Glucotrol) 10 mg PO BIDAC JOESPH Last Admin: 05/29/17 16:07 Dose: 10 mg Haloperidol (Haldol) 5 mg PO Q4 PRN PRN Reason: Agitation Last Admin: 05/29/17 18:21 Dose: 5 mg Haloperidol Lactate (Haldol) 5 mg IM Q4 PRN PRN Reason: Agitation, Unable to Take PO Ceftriaxone Sodium 2 gm/ (Sodium Chloride) 100 mls @ 100 mls/hr IVPB DAILY [facility] Last Admin: 05/29/17 08:50 Dose: 100 mls/hr Vancomycin HCl 1 gm/ Sodium (Chloride) 250 mls @ 166.667 mls/hr IVPB Q12 [facility] Last Admin: 05/29/17 21:15 Dose: 166.667 mls/hr Insulin Human Regular (Humulin R) 0 units SC ACHS JOESPH PRN Reason: Protocol Last Admin: 05/29/17 21:15 Dose: Not Given Lisinopril (Zestril) 2.5 mg PO DAILY [facility] Last Admin: 05/29/17 08:42 Dose: 2.5 mg Lorazepam (Ativan) 2 mg IM Q4 PRN PRN Reason: Anxiety/Agitation,Unable PO Lorazepam (Ativan) 2 mg PO Q4 PRN PRN Reason: anxiety/agitation Magnesium Hydroxide (Milk Of Magnesia) 30 ml PO HS PRN PRN Reason: Constipation Nicotine (Nicoderm Cq) 1 patch TD DAILY [facility] Last Admin: 05/29/17 16:15 Dose: Not Given Oxycodone/Acetaminophen (Percocet 5/325 Mg Tab) 1 tab PO Q6 PRN PRN Reason: Pain, moderate (4-7) Stop: 05/30/17 21:13 Last Admin: 05/29/17 23:15 Dose: 1 tab Oxycodone/Acetaminophen (Percocet 5/325 Mg Tab) 2 tab PO Q6 PRN PRN Reason: Pain, severe (8-10) Stop: 05/30/17 21:14 Last Admin: 05/30/17 05:30 Dose: 2 tab Pantoprazole Sodium (Protonix Ec Tab) 40 mg PO DAILY [facility] Last Admin: 05/29/17 08:40 Dose: 40 mg Risperidone (Risperdal Tab) 2 mg PO DAILY [facility] Last Admin: 05/29/17 08:41 Dose: 2 mg Risperidone (Risperdal Tab) 3 mg PO HS [facility] Last Admin: 05/29/17 21:15 Dose: 3 mg Saccharomyces Boulardii (Florastor) 250 mg PO BID [facility] Last Admin: 05/29/17 16:07 Dose: 250 mg Sertraline HCl (Zoloft) 75 mg PO DAILY [facility] Last Admin: 05/29/17 08:43 Dose: 75 mg Sitagliptin Phosphate (Januvia) 100 mg PO DAILY [facility] Last Admin: 05/29/17 08:39 Dose: 100 mg Zolpidem Tartrate (Ambien) 5 mg PO HS PRN PRN Reason: Insomnia Last Admin: 05/29/17 21:14 Dose: 5 mg - Constitutional Appears: Well, Non-toxic, No Acute Distress - Extremities Exam Additional comments: Right lower extremity focused physical exam: Vasc: DP/PT pulses palpable 2/4. CFT <3 sec x5 digits. Mild nonpitting edema noted to forefoot surrounding surgical incision site. Derm: Minimal sanguinous strikethrough noted through surgical dressing covering dorsal surgical incision site. Surgical sites at dorsum of 2nd digit and plantar 2nd met head well-coapted, surgical sutures are intact. No maceration noted. No wound dehiscence, no drainage, no fluctuance, malodor, or purulence noted. Neuro: Protective sensation grossly diminished. Ortho: No pain upon palpation noted to forefoot dorsally or plantarly at surgical incision sites. - Neurological Exam Neurological Exam: Alert, Awake, Oriented x3 - Psychiatric Exam Psychiatric exam: Normal Affect, Normal Mood Assessment and Plan - Assessment and Plan (Free Text) Assessment: 47 year old male POD#7 s/p right 2nd met head resection and 2nd proximal phalanx base resection Plan: Patient was seen and evaluated at bedside Discussed plan with attending Dr. Bennett Charts, labs, vitals reviewed: afebrile Dressing changed with betadine soaked adaptic, 4x4s, kerlix and OFELIA. Surgical shoe re-applied to foot. Patient to continue using walker and partial WB to right heel. Cont. abx per ID (Dr. Robert following) Pt's discharge in progress - ID to find out duration of IV abx PICC line placed Wound cx 05/23/17 final growth- Staph Aureus Stable per podiatry. Discussed with patient again importance of following up with Dr. Bennett as an outpatient in [facility]. Pt may require further foot surgery in future (following completion of IV abx) for weber-metatarsal head resection. Pt demonstrated verbal understanding Podiatry will continue to follow while in-house.
[2017-05-30] MEDS: Saccharomyces Boulardi 250 mg Cap PO SCH ×3 (08:25→16:16)
[2017-05-30] MEDS: Insulin Regular 100 units/ml SC SCH ×4 (08:26→21:09)
[2017-05-30] MEDS: Pantoprazole 40 mg EC Tab PO SCH (08:28)
[2017-05-30] MEDS: cefTRIAXone 2 GM in Sodium Chloride 0.9% 100 ML IVPB SCH (10:28)
--- NOTE | 2017-05-30 16:43 | PCM.PYCHPN ---
Psychiatric Progress Note - Psychiatric Progress Note Patient seen today, length of contact: Patient evaluated, case discussed with team, chart reviewed, 35 min Patient Chief Complaint: seen seated in common area by nursing station, reports has had iv removed, foot improving less pain. reports on going depression, voices are less commentary. pt is dressed in street attire. recalls yester'days lesson about meditation. rx adherent.. being followed by podiatry. came to hospital feeling depressed hearing voices commentary and command to hurt self-reports is less believes would not act on it believes he would not act on it believes current dose is helping -does feel as though is depressed. rx adherent per staff. receiving iv antibiotics for foot being followed by podiatry. Problems Identified/Issues Discussed: alteration in mood alteration in cognition alteration in skin integrity Medical Problems: per chart Diagnostic Results: per psychiatry per medicine per nursing per long term care social worker per recreational therapy DSM 5 Symptoms Update: depression, commentary auditory hallucinations Medication Change: Yes (wellbutrin sr 150mg po daily, first dose now) Medical Record Reviewed: Yes Mental Status Examination - Cognitive Function Orientation: Person, Place, Situation, Time Memory: Intact Attention: WNL Concentration: WNL Association: [facility] Fund of Knowledge: [facility] Decription of patient's judgement and insights: impaired - Mood Mood: Depressed - Affect Affect: Constricted, Depressed - Speech Speech: Appropriate - Formal Thought Process Formal Thought Process: Hallucinations - Suicidal Ideation Suicidal Ideation: No - Homicidal Ideation Homicidal Ideation: No Goal/Treatment Plan - Goal/Treatment Plan Need for Continued Stay: Remain at risks for inpatient hospitalization, Discharge may exacerbated symptoms Progress Toward Problem(s) and Goals/Treatment Plan: inpt admission adjust med per clinical status-increase sertraline to 100mg po day reassess am denies notable side effects add wellbutrin sr 150mg po day practice meditation with pt-+teachback noted vital signs and clinical observation per clinical status and protocol follow up per pmd and podiatry discharge planning in progress Estimated Date of D/C: 05/30/17 - Smoking Cessation Smoking Cessation Initiated: No Reason for not providing: deferred
--- NOTE | 2017-05-30 16:50 | CP.PCM.PN ---
Subjective - Date & Time of Evaluation Date of Evaluation: 05/30/17 Time of Evaluation: 16:48 - Subjective Subjective: I D NOTE FOR PRESENT CONTINUE VANCOMYCIN /ROCEPHEN FOR TOTAL OF 6 WEEKS WILL BE ABLE TO USE ROCEPHEN IVPB Q24H AND WILL CONSIDER ZYVOX 600MG PO BID RATHER THAN VANCOMYCIN C HIGH RENAL RISK Objective - Vital Signs/Intake and Output Vital Signs (last 24 hours): Temp Pulse Resp BP Pulse Ox 97.4 F L 86 18 95/63 L 05/30/17 16:30 05/30/17 16:30 05/30/17 16:30 05/30/17 16:30 - Medications Medications: Current Medications Acetaminophen (Tylenol 325mg Tab) 650 mg PO Q4 PRN PRN Reason: Pain, Mild (1-3) Acetaminophen (Tylenol 325mg Tab) 650 mg PO Q4 PRN PRN Reason: for pain 4-7 Al Hydrox/Mg Hydrox/Simethicone (Maalox Plus 30 Ml) 30 ml PO Q4 PRN PRN Reason: Dyspepsia Bismuth Subsalicylate (Pepto-Bismol) 524 mg PO Q4 PRN PRN Reason: Diarrhea Bupropion HCl (Wellbutrin Sr 150 Mg) 150 mg PO DAILY [facility] Diphenhydramine HCl (Benadryl) 50 mg IM Q6 PRN PRN Reason: Extrapyramidal S/S Unable PO Diphenhydramine HCl (Benadryl) 50 mg PO Q6 PRN PRN Reason: Extrapyramidal Symptoms Diphenhydramine HCl (Benadryl) 50 mg PO HS PRN PRN Reason: Sleep Last Admin: 05/25/17 00:00 Dose: 50 mg Glipizide (Glucotrol) 10 mg PO BIDAC [facility] Last Admin: 05/30/17 08:26 Dose: 10 mg Haloperidol (Haldol) 5 mg PO Q4 PRN PRN Reason: Agitation Last Admin: 05/29/17 18:21 Dose: 5 mg Haloperidol Lactate (Haldol) 5 mg IM Q4 PRN PRN Reason: Agitation, Unable to Take PO Ceftriaxone Sodium 2 gm/ (Sodium Chloride) 100 mls @ 100 mls/hr IVPB DAILY [facility] Last Admin: 05/30/17 10:28 Dose: 100 mls/hr Vancomycin HCl 1 gm/ Sodium (Chloride) 250 mls @ 166.667 mls/hr IVPB Q12 [facility] Last Admin: 05/30/17 09:17 Dose: 166.667 mls/hr Insulin Human Regular (Humulin R) 0 units SC ACHS [facility] PRN Reason: Protocol Last Admin: 05/30/17 16:18 Dose: 1 unit Lisinopril (Zestril) 2.5 mg PO DAILY [facility] Last Admin: 05/30/17 08:29 Dose: 2.5 mg Lorazepam (Ativan) 2 mg IM Q4 PRN PRN Reason: Anxiety/Agitation,Unable PO Lorazepam (Ativan) 2 mg PO Q4 PRN PRN Reason: anxiety/agitation Magnesium Hydroxide (Milk Of Magnesia) 30 ml PO HS PRN PRN Reason: Constipation Nicotine (Nicoderm Cq) 1 patch TD DAILY [facility] Last Admin: 05/30/17 08:27 Dose: 1 patch Oxycodone/Acetaminophen (Percocet 5/325 Mg Tab) 1 tab PO Q6 PRN PRN Reason: Pain, moderate (4-7) Stop: 05/30/17 21:13 Last Admin: 05/29/17 23:15 Dose: 1 tab Oxycodone/Acetaminophen (Percocet 5/325 Mg Tab) 2 tab PO Q6 PRN PRN Reason: Pain, severe (8-10) Stop: 05/30/17 21:14 Last Admin: 05/30/17 11:35 Dose: 2 tab Pantoprazole Sodium (Protonix Ec Tab) 40 mg PO DAILY [facility] Last Admin: 05/30/17 08:28 Dose: 40 mg Risperidone (Risperdal Tab) 2 mg PO DAILY [facility] Last Admin: 05/30/17 08:28 Dose: 2 mg Risperidone (Risperdal Tab) 3 mg PO HS [facility] Last Admin: 05/29/17 21:15 Dose: 3 mg Saccharomyces Boulardii (Florastor) 250 mg PO BID [facility] Last Admin: 05/30/17 16:16 Dose: 250 mg Sertraline HCl (Zoloft) 75 mg PO DAILY [facility] Last Admin: 05/30/17 08:30 Dose: 75 mg Sitagliptin Phosphate (Januvia) 100 mg PO DAILY [facility] Last Admin: 05/30/17 08:27 Dose: 100 mg Zolpidem Tartrate (Ambien) 5 mg PO HS PRN PRN Reason: Insomnia Last Admin: 05/29/17 21:14 Dose: 5 mg
[2017-05-30] MEDS: buPROPion SR 150 MG TABLET PO SCH (21:08)
[2017-05-31] MEDS ORDERED: Oxycodone/Acetaminophen 5/325 mg Tab PO PRN (05:17)
[2017-05-31] MEDS: Insulin Regular 100 units/ml SC SCH ×4 (08:07→21:29)
[2017-05-31] MEDS: Pantoprazole 40 mg EC Tab PO SCH (08:08)
[2017-05-31] MEDS: buPROPion SR 150 MG TABLET PO SCH (08:08)
[2017-05-31] MEDS: Saccharomyces Boulardi 250 mg Cap PO SCH ×2 (08:08→17:01)
[2017-05-31 10:14] LABS: BASO % 0.2 % (0.0-2.0); EOS # 0.3 K/uL (0.0-0.7); EOS % 3.3 % (0.0-4.0); HEMOGLOBIN 12.1 g/dL (12.0-18.0); LYMPH # 2.8 K/uL (1.0-4.3); LYMPH % 32.9 % (20.0-40.0); MEAN CELL VOLUME 101.7 fl (80.0-94.0); MEAN CORPUSCULAR HEMOGLOBIN 34.3 pg (27.0-31.0); MEAN CORPUSCULAR HGB CONC 33.8 g/dL (33.0-37.0); MEAN PLATELET VOLUME 10.5 fl (7.2-11.7); MONO # 0.6 K/uL (0.0-0.8); MONO % 7.5 % (0.0-10.0); NEUT # 4.8 K/uL (1.8-7.0); NEUT % 56.1 % (50.0-75.0); NRBC % 0.2 % (0.0-0.0); RBC 3.52 Mil/uL (4.40-5.90); RED CELL DISTRIBUTION WIDTH 12.9 % (11.5-14.5); WHITE BLOOD COUNT 8.6 K/uL (4.8-10.8)
[2017-05-31 10:26] LABS: ALBUMIN 3.6 g/dL (3.5-5.0)
[2017-05-31 10:29] LABS: ALB/GLOB RATIO 0.8 (1.0-2.1); AST/SGOT 79 U/L (17-59); BLOOD UREA NITROGEN 9 mg/dl (9-20); GFR AFRICAN-AMERICAN > 60; GFR NON-AFRICAN AMERICAN > 60
[2017-05-31 10:30] LABS: ALT/SGPT 71 U/L (21-72); CALCIUM 9.4 mg/dL (8.4-10.2); HDL CHOLESTEROL 25 MG/DL (30-70); LDL CHOLESTEROL 77 mg/dL (0-129)
[2017-05-31] MEDS: cefTRIAXone 2 GM in Sodium Chloride 0.9% 100 ML IVPB SCH (10:30)
--- NOTE | 2017-05-31 11:45 | CP.PCM.PN ---
Subjective - Date & Time of Evaluation Date of Evaluation: 05/31/17 Time of Evaluation: 11:43 - Subjective Subjective: I D NOTE VANCOMYCIN TROUGH IS 8.5 CONTINUE SAME TREATMENT Objective - Vital Signs/Intake and Output Vital Signs (last 24 hours): Temp Pulse Resp BP Pulse Ox 97.3 F L 75 18 134/85 05/31/17 05:29 05/31/17 08:06 05/31/17 05:29 05/31/17 08:06 - Medications Medications: Current Medications Acetaminophen (Tylenol 325mg Tab) 650 mg PO Q4 PRN PRN Reason: Pain, Mild (1-3) Acetaminophen (Tylenol 325mg Tab) 650 mg PO Q4 PRN PRN Reason: for pain 4-7 Al Hydrox/Mg Hydrox/Simethicone (Maalox Plus 30 Ml) 30 ml PO Q4 PRN PRN Reason: Dyspepsia Bismuth Subsalicylate (Pepto-Bismol) 524 mg PO Q4 PRN PRN Reason: Diarrhea Bupropion HCl (Wellbutrin Sr 150 Mg) 150 mg PO DAILY [facility] Last Admin: 05/31/17 08:08 Dose: 150 mg Diphenhydramine HCl (Benadryl) 50 mg IM Q6 PRN PRN Reason: Extrapyramidal S/S Unable PO Diphenhydramine HCl (Benadryl) 50 mg PO Q6 PRN PRN Reason: Extrapyramidal Symptoms Diphenhydramine HCl (Benadryl) 50 mg PO HS PRN PRN Reason: Sleep Last Admin: 05/25/17 00:00 Dose: 50 mg Glipizide (Glucotrol) 10 mg PO BIDAC [facility] Last Admin: 05/31/17 08:06 Dose: 10 mg Haloperidol (Haldol) 5 mg PO Q4 PRN PRN Reason: Agitation Last Admin: 05/31/17 00:51 Dose: 5 mg Haloperidol Lactate (Haldol) 5 mg IM Q4 PRN PRN Reason: Agitation, Unable to Take PO Ceftriaxone Sodium 2 gm/ (Sodium Chloride) 100 mls @ 100 mls/hr IVPB DAILY [facility] Last Admin: 05/31/17 10:30 Dose: 100 mls/hr Vancomycin HCl 1 gm/ Sodium (Chloride) 250 mls @ 166.667 mls/hr IVPB Q12 [facility] Last Admin: 05/31/17 11:29 Dose: 166.667 mls/hr Insulin Human Regular (Humulin R) 0 units SC ACHS [facility] PRN Reason: Protocol Last Admin: 05/31/17 11:36 Dose: 3 u Lisinopril (Zestril) 2.5 mg PO DAILY [facility] Last Admin: 05/31/17 08:06 Dose: 2.5 mg Lorazepam (Ativan) 2 mg IM Q4 PRN PRN Reason: Anxiety/Agitation,Unable PO Lorazepam (Ativan) 2 mg PO Q4 PRN PRN Reason: anxiety/agitation Magnesium Hydroxide (Milk Of Magnesia) 30 ml PO HS PRN PRN Reason: Constipation Nicotine (Nicoderm Cq) 1 patch TD DAILY [facility] Last Admin: 05/31/17 08:08 Dose: 1 patch Oxycodone/Acetaminophen (Percocet 5/325 Mg Tab) 1 tab PO Q6 PRN PRN Reason: Pain, moderate (4-7) Stop: 06/03/17 05:17 Oxycodone/Acetaminophen (Percocet 5/325 Mg Tab) 2 tab PO Q6 PRN PRN Reason: Pain, severe (8-10) Stop: 06/03/17 05:18 Last Admin: 05/31/17 05:39 Dose: 2 tab Pantoprazole Sodium (Protonix Ec Tab) 40 mg PO DAILY [facility] Last Admin: 05/31/17 08:08 Dose: 40 mg Risperidone (Risperdal Tab) 2 mg PO DAILY [facility] Last Admin: 05/31/17 08:08 Dose: 2 mg Risperidone (Risperdal Tab) 3 mg PO HS [facility] Last Admin: 05/30/17 21:08 Dose: 3 mg Saccharomyces Boulardii (Florastor) 250 mg PO BID [facility] Last Admin: 05/31/17 08:08 Dose: 250 mg Sertraline HCl (Zoloft) 100 mg PO DAILY [facility] Last Admin: 05/31/17 08:08 Dose: 100 mg Sitagliptin Phosphate (Januvia) 100 mg PO DAILY [facility] Last Admin: 05/31/17 08:08 Dose: 100 mg Zolpidem Tartrate (Ambien) 5 mg PO HS PRN PRN Reason: Insomnia Last Admin: 05/29/17 21:14 Dose: 5 mg - Labs Labs: 05/31/17 10:00 07/04/17 10:00
--- NOTE | 2017-05-31 12:01 | CP.PCM.PN ---
Subjective - Date & Time of Evaluation Date of Evaluation: 05/31/17 Time of Evaluation: 10:30 - Subjective Subjective: 47 y/o male seen and evaluated by podiatry at bedside 8 days s/p R 2nd met head and proximal phalanx resection (DOS: 05/23/17). Pt states that he is still taking the Percocet for the occasional throbbing pain. Patient states the pain woke him at 5:30 this morning and he needed the Percocet. Patient states that he has been ambulating with the surgical shoe at all times, with and without the walker. Pt denies any acute events overnight. Pt denies F/C/N/V/SOB.Pt denies of any new pedal complaints at this time. Objective - Vital Signs/Intake and Output Vital Signs (last 24 hours): Temp Pulse Resp BP Pulse Ox 97.3 F L 75 18 134/85 05/31/17 05:29 05/31/17 08:06 05/31/17 05:29 05/31/17 08:06 - Medications Medications: Current Medications Acetaminophen (Tylenol 325mg Tab) 650 mg PO Q4 PRN PRN Reason: Pain, Mild (1-3) Acetaminophen (Tylenol 325mg Tab) 650 mg PO Q4 PRN PRN Reason: for pain 4-7 Al Hydrox/Mg Hydrox/Simethicone (Maalox Plus 30 Ml) 30 ml PO Q4 PRN PRN Reason: Dyspepsia Bismuth Subsalicylate (Pepto-Bismol) 524 mg PO Q4 PRN PRN Reason: Diarrhea Bupropion HCl (Wellbutrin Sr 150 Mg) 150 mg PO DAILY [facility] Last Admin: 05/31/17 08:08 Dose: 150 mg Diphenhydramine HCl (Benadryl) 50 mg IM Q6 PRN PRN Reason: Extrapyramidal S/S Unable PO Diphenhydramine HCl (Benadryl) 50 mg PO Q6 PRN PRN Reason: Extrapyramidal Symptoms Diphenhydramine HCl (Benadryl) 50 mg PO HS PRN PRN Reason: Sleep Last Admin: 05/25/17 00:00 Dose: 50 mg Glipizide (Glucotrol) 10 mg PO BIDAC [facility] Last Admin: 05/31/17 08:06 Dose: 10 mg Haloperidol (Haldol) 5 mg PO Q4 PRN PRN Reason: Agitation Last Admin: 05/31/17 00:51 Dose: 5 mg Haloperidol Lactate (Haldol) 5 mg IM Q4 PRN PRN Reason: Agitation, Unable to Take PO Ceftriaxone Sodium 2 gm/ (Sodium Chloride) 100 mls @ 100 mls/hr IVPB DAILY [facility] Last Admin: 05/31/17 10:30 Dose: 100 mls/hr Vancomycin HCl 1 gm/ Sodium (Chloride) 250 mls @ 166.667 mls/hr IVPB Q12 [facility] Last Admin: 05/31/17 11:29 Dose: 166.667 mls/hr Insulin Detemir (Levemir) 10 units SC HS [facility] Insulin Human Regular (Humulin R) 0 units SC ACHS [facility] PRN Reason: Protocol Last Admin: 05/31/17 11:36 Dose: 3 u Lisinopril (Zestril) 2.5 mg PO DAILY [facility] Last Admin: 05/31/17 08:06 Dose: 2.5 mg Lorazepam (Ativan) 2 mg IM Q4 PRN PRN Reason: Anxiety/Agitation,Unable PO Lorazepam (Ativan) 2 mg PO Q4 PRN PRN Reason: anxiety/agitation Magnesium Hydroxide (Milk Of Magnesia) 30 ml PO HS PRN PRN Reason: Constipation Nicotine (Nicoderm Cq) 1 patch TD DAILY [facility] Last Admin: 05/31/17 08:08 Dose: 1 patch Oxycodone/Acetaminophen (Percocet 5/325 Mg Tab) 1 tab PO Q6 PRN PRN Reason: Pain, moderate (4-7) Stop: 06/03/17 05:17 Oxycodone/Acetaminophen (Percocet 5/325 Mg Tab) 2 tab PO Q6 PRN PRN Reason: Pain, severe (8-10) Stop: 06/03/17 05:18 Last Admin: 05/31/17 05:39 Dose: 2 tab Pantoprazole Sodium (Protonix Ec Tab) 40 mg PO DAILY [facility] Last Admin: 05/31/17 08:08 Dose: 40 mg Risperidone (Risperdal Tab) 2 mg PO DAILY [facility] Last Admin: 05/31/17 08:08 Dose: 2 mg Risperidone (Risperdal Tab) 3 mg PO HS [facility] Last Admin: 05/30/17 21:08 Dose: 3 mg Saccharomyces Boulardii (Florastor) 250 mg PO BID [facility] Last Admin: 05/31/17 08:08 Dose: 250 mg Sertraline HCl (Zoloft) 100 mg PO DAILY [facility] Last Admin: 05/31/17 08:08 Dose: 100 mg Sitagliptin Phosphate (Januvia) 100 mg PO DAILY [facility] Last Admin: 05/31/17 08:08 Dose: 100 mg Zolpidem Tartrate (Ambien) 5 mg PO HS PRN PRN Reason: Insomnia Last Admin: 05/29/17 21:14 Dose: 5 mg - Labs Labs: 05/31/17 10:00 05/31/17 10:00 - Constitutional Appears: Well, Non-toxic, No Acute Distress - Extremities Exam Additional comments: Right lower extremity focused physical exam: Vasc: DP/PT pulses palpable 2/4. CFT <3 sec x 5 digits. No pedal edema. Derm: Minimal sanguinous strikethrough noted through surgical dressing covering dorsal surgical incision site. Surgical sites at dorsum of 2nd digit and plantar 2nd met head well-coapted, surgical sutures are intact. No maceration noted to surgical incision sites. No wound dehiscence, no drainage, no fluctuance, malodor, or purulence noted. Neuro: Protective sensation grossly diminished. Ortho: No pain upon palpation noted to forefoot dorsally or plantarly at surgical incision sites. - Neurological Exam Neurological Exam: Alert, Awake, Oriented x3 - Psychiatric Exam Psychiatric exam: Normal Affect, Normal Mood Assessment and Plan - Assessment and Plan (Free Text) Assessment: 47 year old male 8 days s/p right 2nd met head resection and 2nd proximal phalanx base resection Plan: Patient was seen and evaluated at bedside Discussed plan with attending Dr. Bennett Charts, labs, vitals reviewed: afebrile, WBC 8.6 Dressing changed with betadine soaked adaptic, DSD and OFELIA bandage Surgical shoe re-applied to foot. Patient to continue using walker and partial WB to right heel. Percocet dosage decreased to 1 tab po q4 prn for moderate pain to decrease risk of addiction Pt's discharge in progress - ID recommends 6 weeks Vancomycin and Rocephin IV Will F/U with ID regarding patient's ability to get IV meds at home as he does not have a working refrigerator Social work to determine if patient can F/U in outpatient infusion center if ID says ok to Vancomycin once daily Stable per podiatry. Discussed with patient again importance of following up with Dr. Bennett as an outpatient in [facility]. Pt may require further foot surgery in future (following completion of IV abx) Pt demonstrated verbal understanding Podiatry will continue to follow while in-house.
--- NOTE | 2017-05-31 14:03 | PCM.PYCHPN ---
Psychiatric Progress Note - Psychiatric Progress Note Patient seen today, length of contact: Patient evaluated, case discussed with team, chart reviewed, 35 min Patient Chief Complaint: seen seated in common area by nursing station, reports has had iv removed, foot improving less pain. reports on going depression, voices are less commentary. pt is dressed in street attire. recalls lesson about meditation reports is beneficial. rx adherent.. being followed by podiatry. came to hospital feeling depressed hearing voices commentary and command to hurt self-reports is less believes would not act on it believes he would not act on it believes current dose is helping -does feel as though is depressed. rx adherent per staff. receiving iv antibiotics for foot being followed by podiatry. Problems Identified/Issues Discussed: alteration in mood alteration in cognition alteration in skin integrity Medical Problems: per chart Diagnostic Results: per psychiatry per medicine per nursing per group social worker per recreational therapy Medication Change: No Medical Record Reviewed: Yes Mental Status Examination - Cognitive Function Orientation: Person, Place, Situation, Time Memory: Intact Attention: WNL Concentration: WNL Association: WNL Fund of Knowledge: WNL Decription of patient's judgement and insights: impaired - Mood Mood: Depressed - Affect Affect: Constricted, Depressed - Speech Speech: Appropriate - Formal Thought Process Formal Thought Process: Hallucinations - Suicidal Ideation Suicidal Ideation: No - Homicidal Ideation Homicidal Ideation: No Goal/Treatment Plan - Goal/Treatment Plan Need for Continued Stay: Remain at risks for inpatient hospitalization, Discharge may exacerbated symptoms Progress Toward Problem(s) and Goals/Treatment Plan: inpt admission reports current regimen working denies side effects practice meditation with pt-+teachback noted vital signs and clinical observation per clinical status and protocol follow up per pmd and podiatry discharge planning in progress Estimated Date of D/C: 06/03/17 - Smoking Cessation Smoking Cessation Initiated: No Reason for not providing: defers
[2017-05-31] MEDS: Oxycodone/Acetaminophen 5/325 mg Tab PO PRN (20:18)
[2017-05-31] MEDS ORDERED: Insulin Detemir 100 Units/ml Inj SC SCH (22:00)
[2017-06-01] MEDS: Oxycodone/Acetaminophen 5/325 mg Tab PO PRN ×2 (04:36→21:30)
[2017-06-01 05:33] VITALS: O2SAT 100
--- NOTE | 2017-06-01 08:44 | CP.PCM.PN ---
Subjective - Date & Time of Evaluation Date of Evaluation: 06/01/17 Time of Evaluation: 08:40 - Subjective Subjective: 47 y/o male seen at bedside 9 days s/p R 2nd met head and proximal phalanx resection (DOS: 05/23/17). Pt states that he is still taking the Percocet for the occasional throbbing pain. Pt states that they reduced the dose of his percocet. Pt states that he only slept 2 hours last night because of the pain. Pt states that he has been ambulating with the surgical shoe at all times, with and without the walker. Pt denies any acute events overnight. Pt denies F/C/N/V/ SOB. Pt's dressing is clean, dry and intact. Pt denies of any new pedal complaints at this time. Objective - Vital Signs/Intake and Output Vital Signs (last 24 hours): Temp Pulse Resp BP Pulse Ox 97.1 F L 82 20 139/95 H 100 06/01/17 05:33 06/01/17 05:33 06/01/17 05:33 06/01/17 05:33 06/01/17 05:33 - Medications Medications: Current Medications Acetaminophen (Tylenol 325mg Tab) 650 mg PO Q4 PRN PRN Reason: Pain, Mild (1-3) Acetaminophen (Tylenol 325mg Tab) 650 mg PO Q4 PRN PRN Reason: for pain 4-7 Al Hydrox/Mg Hydrox/Simethicone (Maalox Plus 30 Ml) 30 ml PO Q4 PRN PRN Reason: Dyspepsia Bismuth Subsalicylate (Pepto-Bismol) 524 mg PO Q4 PRN PRN Reason: Diarrhea Bupropion HCl (Wellbutrin Sr 150 Mg) 150 mg PO DAILY [facility] Last Admin: 05/31/17 08:08 Dose: 150 mg Diphenhydramine HCl (Benadryl) 50 mg IM Q6 PRN PRN Reason: Extrapyramidal S/S Unable PO Diphenhydramine HCl (Benadryl) 50 mg PO Q6 PRN PRN Reason: Extrapyramidal Symptoms Diphenhydramine HCl (Benadryl) 50 mg PO HS PRN PRN Reason: Sleep Last Admin: 05/25/17 00:00 Dose: 50 mg Glipizide (Glucotrol) 10 mg PO BIDAC [facility] Last Admin: 05/31/17 17:01 Dose: 10 mg Haloperidol (Haldol) 5 mg PO Q4 PRN PRN Reason: Agitation Last Admin: 06/01/17 02:58 Dose: 5 mg Haloperidol Lactate (Haldol) 5 mg IM Q4 PRN PRN Reason: Agitation, Unable to Take PO Ceftriaxone Sodium 2 gm/ (Sodium Chloride) 100 mls @ 100 mls/hr IVPB DAILY [facility] Last Admin: 05/31/17 10:30 Dose: 100 mls/hr Vancomycin HCl 1 gm/ Sodium (Chloride) 250 mls @ 166.667 mls/hr IVPB Q12 [facility] Last Admin: 05/31/17 21:19 Dose: 166.667 mls/hr Insulin Detemir (Levemir) 10 units SC HS [facility] Last Admin: 05/31/17 21:23 Dose: 10 unit Insulin Human Regular (Humulin R) 0 units SC ACHS [facility] PRN Reason: Protocol Last Admin: 05/31/17 21:29 Dose: Not Given Lisinopril (Zestril) 2.5 mg PO DAILY [facility] Last Admin: 05/31/17 08:06 Dose: 2.5 mg Lorazepam (Ativan) 2 mg IM Q4 PRN PRN Reason: Anxiety/Agitation,Unable PO Lorazepam (Ativan) 2 mg PO Q4 PRN PRN Reason: anxiety/agitation Magnesium Hydroxide (Milk Of Magnesia) 30 ml PO HS PRN PRN Reason: Constipation Nicotine (Nicoderm Cq) 1 patch TD DAILY [facility] Last Admin: 05/31/17 08:08 Dose: 1 patch Oxycodone/Acetaminophen (Percocet 5/325 Mg Tab) 1 tab PO Q6 PRN PRN Reason: Pain, moderate (4-7) Stop: 06/03/17 05:17 Last Admin: 06/01/17 04:36 Dose: 1 tab Pantoprazole Sodium (Protonix Ec Tab) 40 mg PO DAILY [facility] Last Admin: 05/31/17 08:08 Dose: 40 mg Risperidone (Risperdal Tab) 2 mg PO DAILY [facility] Last Admin: 05/31/17 08:08 Dose: 2 mg Saccharomyces Boulardii (Florastor) 250 mg PO BID [facility] Last Admin: 05/31/17 17:01 Dose: 250 mg Sertraline HCl (Zoloft) 100 mg PO DAILY [facility] Last Admin: 05/31/17 08:08 Dose: 100 mg Sitagliptin Phosphate (Januvia) 100 mg PO DAILY [facility] Last Admin: 05/31/17 08:08 Dose: 100 mg Zolpidem Tartrate (Ambien) 5 mg PO HS PRN PRN Reason: Insomnia Last Admin: 05/29/17 21:14 Dose: 5 mg - Labs Labs: 05/31/17 10:00 05/31/17 10:00 - Constitutional Appears: Well, Non-toxic, No Acute Distress - Extremities Exam Additional comments: Right lower extremity focused exam: Vasc: DP/PT pulses palpable 2/4. CFT <3 sec x 5 digits. No pedal edema. Derm: Surgical sites at dorsum of 2nd digit and plantar 2nd met head well- coapted, surgical sutures are intact. No active drainage noted from the surgical site, No maceration noted to surgical incision sites. No wound dehiscence, no fluctuance, malodor, or purulence noted. Neuro: Protective sensation grossly diminished. Ortho: mild tenderness upon palpation noted to forefoot dorsally or plantarly at surgical incision sites. - Neurological Exam Neurological Exam: Alert, Awake, Oriented x3 - Psychiatric Exam Psychiatric exam: Normal Affect, Normal Mood Assessment and Plan - Assessment and Plan (Free Text) Assessment: 47 year old male 9 days s/p right 2nd met head resection and 2nd proximal phalanx base resection Plan: Patient was seen and evaluated at bedside Pt discussed plan with attending Dr. Bennett Charts, labs, vitals reviewed: afebrile, WBC 8.6 (05/31) Dressing changed with betadine soaked adaptic, DSD and OFELIA bandage Surgical shoe re-applied to foot. Patient to continue using walker and partial WB to right heel. Percocet dosage decreased to 1 tab po q4 prn for moderate pain to decrease risk of addiction Pt's discharge in progress - ID recommends 6 weeks Vancomycin and Rocephin IV Social work to determine if patient can F/U in outpatient infusion center if ID says ok to Vancomycin once daily Stable per podiatry. Discussed with patient again importance of following up with Dr. Bennett as an outpatient in [facility]. Pt may require further foot surgery in future (following completion of IV abx) Pt demonstrated verbal understanding Podiatry will continue to follow while in-house.
[2017-06-01] MEDS: Saccharomyces Boulardi 250 mg Cap PO SCH ×2 (08:50→17:08)
[2017-06-01] MEDS: Insulin Regular 100 units/ml SC SCH ×4 (08:50→21:05)
[2017-06-01] MEDS: Pantoprazole 40 mg EC Tab PO SCH (08:51)
[2017-06-01] MEDS: buPROPion SR 150 MG TABLET PO SCH (08:52)
[2017-06-01] MEDS: cefTRIAXone 2 GM in Sodium Chloride 0.9% 100 ML IVPB SCH (10:45)
--- NOTE | 2017-06-01 17:11 | PCM.PYCHPN ---
Psychiatric Progress Note - Psychiatric Progress Note Patient seen today, length of contact: Patient evaluated, case discussed with team, chart reviewed, 35 min Patient Chief Complaint: pt seen with dish cloth inspector, status discussed, reported voices are perceived to be of a robotic nature, possibly pt's own thoughts, thoughts that he realizes are not true-does not want to take his own life, rx adherent, seen by podiatry to follow up opd seen seated in common area by nursing station, reports has had iv removed, foot improving less pain. reports on going depression, voices are less commentary. pt is dressed in street attire. recalls lesson about meditation reports is beneficial. rx adherent.. being followed by podiatry. came to hospital feeling depressed hearing voices commentary and command to hurt self-reports is less believes would not act on it believes he would not act on it believes current dose is helping -does feel as though is depressed. rx adherent per staff. receiving iv antibiotics for foot being followed by podiatry. Problems Identified/Issues Discussed: alteration in mood alteration in cognition alteration in skin integrity Medical Problems: per chart Diagnostic Results: per psychiatry per medicine per nursing per director of social services per recreational therapy DSM 5 Symptoms Update: alteration in mood, alteration in perception , alteration in skin integrity Medication Change: No Medical Record Reviewed: Yes Mental Status Examination - Cognitive Function Orientation: Person, Place, Situation, Time Memory: Intact Attention: WNL Concentration: WNL Association: WNL Fund of Knowledge: [facility] Decription of patient's judgement and insights: impaired-improving - Mood Mood: Depressed - Affect Affect: Constricted, Depressed - Speech Speech: Appropriate - Formal Thought Process Formal Thought Process: Hallucinations, Other Psychotic Thoughts and Behaviors: ?renumberative thoughts - Suicidal Ideation Suicidal Ideation: No - Homicidal Ideation Homicidal Ideation: No Goal/Treatment Plan - Goal/Treatment Plan Need for Continued Stay: Remain at risks for inpatient hospitalization, Discharge may exacerbated symptoms Progress Toward Problem(s) and Goals/Treatment Plan: inpt admission reports current regimen working denies side effects practice meditation with pt-+teachback noted vital signs and clinical observation per clinical status and protocol follow up per pmd and podiatry-opd discharge planning in progress Estimated Date of D/C: 06/03/17 - Smoking Cessation Smoking Cessation Initiated: No Reason for not providing: defers
[2017-06-01] MEDS ORDERED: Insulin Detemir 100 Units/ml Inj SC SCH (22:00)
[2017-06-02 05:50] VITALS: BP 131/92; PULSE 83; RESP 20; TEMP 97.7
[2017-06-02] MEDS: Insulin Regular 100 units/ml SC SCH (08:42)
[2017-06-02] MEDS: cefTRIAXone 2 GM in Sodium Chloride 0.9% 100 ML IVPB SCH (08:51)
[2017-06-02] MEDS: Saccharomyces Boulardi 250 mg Cap PO SCH (08:52)
[2017-06-02] MEDS: Pantoprazole 40 mg EC Tab PO SCH (08:55)
[2017-06-02] MEDS: buPROPion SR 150 MG TABLET PO SCH (08:56)
[2017-06-02] MEDS: Oxycodone/Acetaminophen 5/325 mg Tab PO PRN (09:08)
--- NOTE | 2017-06-02 09:43 | CP.PCM.PN ---
Subjective - Date & Time of Evaluation Date of Evaluation: 06/02/17 Time of Evaluation: 09:41 - Subjective Subjective: 47 y/o male seen at bedside 10 days s/p R 2nd met head and proximal phalanx resection (DOS: 05/23/17). Pt states that he still has occasional throbbing pain. Pt states that he has been ambulating with the surgical shoe at all times , with and without the walker. Pt denies any acute events overnight. Pt denies F /C/N/V/SOB. Pt's dressing is clean, dry and intact. Pt denies of any new pedal complaints at this time. Objective - Vital Signs/Intake and Output Vital Signs (last 24 hours): Temp Pulse Resp BP Pulse Ox 97.7 F 83 20 131/92 H 100 06/02/17 05:49 06/02/17 08:56 06/02/17 05:49 06/02/17 08:56 06/01/17 05:33 - Medications Medications: Current Medications Acetaminophen (Tylenol 325mg Tab) 650 mg PO Q4 PRN PRN Reason: Pain, Mild (1-3) Acetaminophen (Tylenol 325mg Tab) 650 mg PO Q4 PRN PRN Reason: for pain 4-7 Al Hydrox/Mg Hydrox/Simethicone (Maalox Plus 30 Ml) 30 ml PO Q4 PRN PRN Reason: Dyspepsia Bismuth Subsalicylate (Pepto-Bismol) 524 mg PO Q4 PRN PRN Reason: Diarrhea Bupropion HCl (Wellbutrin Sr 150 Mg) 150 mg PO DAILY [facility] Last Admin: 06/02/17 08:56 Dose: 150 mg Diphenhydramine HCl (Benadryl) 50 mg IM Q6 PRN PRN Reason: Extrapyramidal S/S Unable PO Diphenhydramine HCl (Benadryl) 50 mg PO Q6 PRN PRN Reason: Extrapyramidal Symptoms Diphenhydramine HCl (Benadryl) 50 mg PO HS PRN PRN Reason: Sleep Last Admin: 05/25/17 00:00 Dose: 50 mg Glipizide (Glucotrol) 10 mg PO BIDAC [facility] Last Admin: 06/02/17 08:54 Dose: 10 mg Haloperidol (Haldol) 5 mg PO Q4 PRN PRN Reason: Agitation Last Admin: 06/01/17 02:58 Dose: 5 mg Haloperidol Lactate (Haldol) 5 mg IM Q4 PRN PRN Reason: Agitation, Unable to Take PO Ceftriaxone Sodium 2 gm/ (Sodium Chloride) 100 mls @ 100 mls/hr IVPB DAILY [facility] Last Admin: 06/02/17 08:51 Dose: 100 mls/hr Insulin Detemir (Levemir) 14 units SC HS [facility] Last Admin: 06/01/17 21:10 Dose: 14 unit Insulin Human Regular (Humulin R) 0 units SC ACHS [facility] PRN Reason: Protocol Last Admin: 06/02/17 08:42 Dose: Not Given Linezolid (Zyvox) 600 mg PO Q12 [facility] Last Admin: 06/02/17 08:57 Dose: 600 mg Lisinopril (Zestril) 2.5 mg PO DAILY [facility] Last Admin: 06/02/17 08:56 Dose: 2.5 mg Lorazepam (Ativan) 2 mg IM Q4 PRN PRN Reason: Anxiety/Agitation,Unable PO Lorazepam (Ativan) 2 mg PO Q4 PRN PRN Reason: anxiety/agitation Magnesium Hydroxide (Milk Of Magnesia) 30 ml PO HS PRN PRN Reason: Constipation Nicotine (Nicoderm Cq) 1 patch TD DAILY [facility] Last Admin: 06/02/17 08:55 Dose: 1 patch Oxycodone/Acetaminophen (Percocet 5/325 Mg Tab) 1 tab PO Q6 PRN PRN Reason: Pain, moderate (4-7) Stop: 06/03/17 05:17 Last Admin: 06/02/17 09:08 Dose: 1 tab Pantoprazole Sodium (Protonix Ec Tab) 40 mg PO DAILY [facility] Last Admin: 06/02/17 08:55 Dose: 40 mg Risperidone (Risperdal Tab) 2 mg PO DAILY [facility] Last Admin: 06/01/17 21:36 Dose: 2 mg Saccharomyces Boulardii (Florastor) 250 mg PO BID [facility] Last Admin: 06/02/17 08:52 Dose: 250 mg Sertraline HCl (Zoloft) 100 mg PO DAILY [facility] Last Admin: 06/02/17 08:57 Dose: 100 mg Sitagliptin Phosphate (Januvia) 100 mg PO DAILY [facility] Last Admin: 06/02/17 08:54 Dose: 100 mg - Labs Labs: 05/31/17 10:00 05/31/17 10:00 - Constitutional Appears: Well, Non-toxic, No Acute Distress - Extremities Exam Additional comments: Right lower extremity focused exam: Vasc: DP/PT pulses palpable 2/4. CFT <3 sec x 5 digits. No pedal edema. Derm: Surgical sites at dorsum of 2nd digit and plantar 2nd met head well- coapted, surgical sutures are intact. No active drainage noted from the surgical site, No maceration noted to surgical incision sites. No wound dehiscence, no fluctuance, malodor, or purulence noted. Neuro: Protective sensation grossly diminished. Ortho: mild tenderness upon palpation noted to forefoot dorsally or plantarly at surgical incision sites. - Neurological Exam Neurological Exam: Alert, Awake, Oriented x3 - Psychiatric Exam Psychiatric exam: Normal Affect, Normal Mood Assessment and Plan - Assessment and Plan (Free Text) Assessment: 47 year old male 10 days s/p right 2nd met head resection and 2nd proximal phalanx base resection Plan: Patient evaluated and chart reviewed Pt plan discussed in details with attending Dr. Bennett Charts, labs, vitals reviewed: afebrile Dressing changed with betadine soaked adaptic, DSD and OFELIA bandage Surgical shoe re-applied to foot. Patient to continue using walker and partial WB to right heel. Pt's discharge in progress - ID recommends 6 weeks Vancomycin and Rocephin IV Stable per podiatry. Discussed with patient again importance of following up with Dr. Bennett as an outpatient in [facility]. Pt may require further foot surgery in future (following completion of IV abx) Pt demonstrated verbal understanding Podiatry will continue to follow while in-house.
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
[2020-05-28] MEDS ORDERED: Pantoprazole 40 mg EC Tab PO ONE (09:00)
[2020-05-28] MEDS ORDERED: Saccharomyces Boulardi 250 mg Cap ONE (09:00)
[2020-05-28] MEDS ORDERED: Insulin Regular 100 units/ml ONE (09:00)
[2020-05-28] MEDS ORDERED: Vancomycin 1 g Inj ONE (09:00)
[2020-05-28] MEDS ORDERED: cefTRIAXone (Rocephin) 1 gm Inj ONE (09:00)
== END 2017-06-02 15:10 | disposition home or self-care (01) | DRG 885 ==
LOC: H.STEP 19:55
PROVIDERS: ADMIT Psychiatry & Neurology Psychiatry; ATTEND Psychiatry & Neurology Psychiatry
PROC: GZHZZZZ Group Psychotherapy (ICD-10-PCS; principal; 2017-05-24)
DX: F32.3 Major depressive disorder, single episode, severe with psychotic features (principal); E11.621 Type 2 diabetes mellitus with foot ulcer; E87.1 Hypo-osmolality and hyponatremia; E11.65 Type 2 diabetes mellitus with hyperglycemia; F20.0 Paranoid schizophrenia; M86.9 Osteomyelitis, unspecified; F25.9 Schizoaffective disorder, unspecified; Z72.89 Other problems related to lifestyle; Z91.19 Patient's noncompliance with other medical treatment and regimen; L70.8 Other acne; R91.8 Other nonspecific abnormal finding of lung field; Z79.4 Long term (current) use of insulin; Z91.018 Allergy to other foods; F17.200 Nicotine dependence, unspecified, uncomplicated; E11.69 Type 2 diabetes mellitus with other specified complication; B96.4 Proteus (mirabilis) (morganii) as the cause of diseases classified elsewhere; B95.61 Methicillin susceptible Staphylococcus aureus infection as the cause of diseases classified elsewhere

== ENCOUNTER 2017-06-11 22:39 | Inpatient (IN) | payer MEDICAID, MEDICARE ==
[2017-06-11 22:39] VITALS: BMI 26.1
[2017-06-11 23:34] LABS: BASO # 0.1 K/uL (0.0-0.2); BASO % 2.2 % (0.0-2.0); EOS # 0.1 K/uL (0.0-0.7); EOS % 0.9 % (0.0-4.0); HEMATOCRIT 39.3 % (35.0-51.0); LYMPH # 3.1 K/uL (1.0-4.3); MEAN CELL VOLUME 100.1 fl (80.0-94.0); MEAN CORPUSCULAR HEMOGLOBIN 34.2 pg (27.0-31.0); MEAN CORPUSCULAR HGB CONC 34.2 g/dL (33.0-37.0); MEAN PLATELET VOLUME 7.9 fl (7.2-11.7); MONO # 0.6 K/uL (0.0-0.8); MONO % 8.5 % (0.0-10.0); NEUT # 2.7 K/uL (1.8-7.0); NEUT % 41.4 % (50.0-75.0); RED CELL DISTRIBUTION WIDTH 12.7 % (11.5-14.5); WHITE BLOOD COUNT 6.6 K/uL (4.8-10.8)
--- NOTE | 2017-06-11 23:35 | CP.PCM.CON ---
History of Present Illness - History of Present Illness History of Present Illness: This is a 47 yo male pt w/ pmh anxiety, depression DM, HTN, schizophrenia who presents to ED tonight complaining of right foot pain and thoughts of wanting to hurt himself. Of note pt is 3 weeks s/p right foot partial amputation of infected bone right foot (2nd metatarsal head and 2nd proximal phalanx base). Pt says that he pulled the PICC line out of his arm 3 days days, says this was an attempt at suicide. Says she has been wearing surgical shoe, says he was unable to follow-up with his surgeon Dr. Bennett at [facility]. Reports some minimal pain to the right foot. Denies f/n/v/c/sob/cp at this time. Denies any other pedal complaints today. Review of Systems - Review of Systems Review of Systems: As per HPI Past Patient History - Infectious Disease Hx of Infectious Diseases: None - Tetanus Immunizations Tetanus Immunization: Unknown - Past Medical History & Family History Past Medical History?: Yes - Past Social History Smoking Status: Current Some Days Smoker - CARDIAC Hx Hypertension: Yes - PULMONARY Hx Tuberculosis: No - NEUROLOGICAL Hx Seizures: No - HEENT Hx HEENT Problems: No - RENAL Hx Chronic Kidney Disease: No - ENDOCRINE/METABOLIC Hx Endocrine Disorders: Yes Hx Diabetes Mellitus Type 2: Yes - HEMATOLOGICAL/ONCOLOGICAL Hx Human Immunodeficiency Virus (HIV): No - INTEGUMENTARY Hx Dermatological Problems: No Other/Comment: Facial rash - MUSCULOSKELETAL/RHEUMATOLOGICAL Hx Musculoskeletal Disorders: Yes Hx Falls: Yes Hx Osteomyelitis: Yes Other/Comment: Right foot wound - GASTROINTESTINAL Hx Gastrointestinal Disorders: No - GENITOURINARY/GYNECOLOGICAL Hx Sexually Transmitted Disorders: Yes (erectile Dysfunction) - PSYCHIATRIC Hx Anxiety: Yes Hx Depression: Yes Hx Schizophrenia: Yes Hx Substance Use: (denies) - SURGICAL HISTORY Hx Surgeries: Yes Hx Orthopedic Surgery: Yes (Right shoulder 1992 rotator cuff and dislocation 1988) Other/Comment: R foot wound debridement - ANESTHESIA Hx Anesthesia: Yes Hx Anesthesia Reactions: No Hx Malignant Hyperthermia: No Meds Allergies/Adverse Reactions: Allergies Allergy/AdvReac Type Severity Reaction Status Date / Time almond Allergy ITCHING Verified 05/27/17 06:32 cashew nut Allergy ITCHING Verified 05/27/17 06:32 walnut Allergy ITCHING Verified 05/25/17 06:02 water chestnut Allergy ITCHING Verified 05/25/17 06:02 apples Allergy ITCHING Uncoded 05/25/17 06:02 Physical Exam - Constitutional Appears: Non-toxic, No Acute Distress - Extremities Exam Additional comments: Right lower extremity focused: VASC- DP/PT pulses are palpable, skin temp runs warm to cool, cap refill < 3 sec to all digits, mild non-pitting edema noted to dorsum of foot NEURO- protective pedal sensation is diminished DERM- surgical site to dorsum of foot overlying 2nd metatarsal head appears to be healing, all sutures intact, slight dehisence noted to central aspect of incision with dried sanguinous material, plantar foot surgical site appears well -coapted and healing with all sutures intact with no evidence dehisence, no drainage, no fluctuance, no erythema, no ascending cellulitis, no clinical sings of infection ORTHO- slight tenderness noted to palpation of surgical wounds, able to wiggle all toes freely - Neurological Exam Neurological exam: Alert, CN II-XII Intact - Psychiatric Exam Psychiatric exam: Anxious, Depressed, Suicidal Ideation Results - Vital Signs Recent Vital Signs: Last Vital Signs Temp 98.3 F 06/11/17 22:40 Pulse 108 H 06/11/17 22:40 Resp 16 06/11/17 22:40 BP 134/88 06/11/17 22:40 Pulse Ox 100 06/11/17 22:40 - Labs Result Diagrams: 06/11/17 23:25 06/11/17 23:25 Assessment & Plan - Assessment and Plan (Free Text) Assessment: 47 yo male pt 3 week s/p right foot partial amputation 2/2 osteomylelitis seen in ED for post-operative care Plan: Pt S&E at bedside Plan discussed with attending Dr. Bennett in detail Chart labs and vitals reviewed: afebrile, wbc 6.6, Alcohol 347 Tramadol given per ED for pain All sutures removed with sterile suture kit, pt tolerated procedure well without incident Incision sites cleansed with sterile saline, and bacitracin and bandaids applied to incisions sites. Pt is stable from podiatry standpoint. Reminded pt of importance of following up with Dr. Bennett as an outpatient at [facility] podiatry clinic Advised pt that foot problems may worsen with potential loss of limb if he fails to follow-up. F/u within 1 week [facility] pod clinic Dr. Bennett (next clinic is Wednesday 06/13)
[2017-06-11 23:43] LABS: ALB/GLOB RATIO 0.9 (1.0-2.1); ALKALINE PHOSPHATASE 104 U/L (38-126); ALT/SGPT 47 U/L (21-72); AST/SGOT 52 U/L (17-59); BILIRUBIN,TOTAL 0.5 mg/dl (0.2-1.3); BLOOD UREA NITROGEN 4 mg/dl (9-20); CALCIUM 8.4 mg/dL (8.4-10.2); CARBON DIOXIDE 19 mmol/L (22-30); CHLORIDE 106 mmol/L (98-107); GFR AFRICAN-AMERICAN > 60; GLUCOSE,RANDOM 178 mg/dL (75-110); POTASSIUM 3.7 MMOL/L (3.6-5.0); SODIUM 140 mmol/l (132-148); TOTAL PROTEIN 8.5 G/DL (6.3-8.2)
--- NOTE | 2017-06-11 23:43 | ED PDOC ---
Lower Extremity Pain/Injury Time Seen by Provider: 06/11/17 22:45 Chief Complaint (Nursing): Psychiatric Evaluation Chief Complaint (Provider): Psychiatric Evaluation History Per: Patient History/Exam Limitations: no limitations Onset/Duration Of Symptoms: Days (3 Days) Severity: Mild Additional Complaint(s): 47 y/o male patient presenting to the ED hearing voices in his head telling him to hurt himself. Patient states he has been hearing the voices for three days and that he does not want to hurt himself and even if he did he does not know how to. Patient also had an infection in the bone of his right foot which required surgery that was performed here at [facility]. Patient was due to to follow up with surgeon and attempted to but was unable to get an appointment so he has had no post-op care since the surgery occurred on May 24. Patient reports minimal pain to the right foot and denies, fever, trauma, calf pain or shortness of breath. Past Medical History Reviewed: Historical Data, Nursing Documentation, Vital Signs Vital Signs: Last Vital Signs Temp 98.3 F 06/11/17 22:40 Pulse 108 H 06/11/17 22:40 Resp 16 06/11/17 22:40 BP 134/88 06/11/17 22:40 Pulse Ox 100 06/11/17 22:40 - Medical History PMH: Anxiety, Depression, Diabetes (Blood sugar 283), HTN, Schizophrenia, Sexually Transmitted Disease (erectile Dysfunction) Denies: Hepatitis, HIV, Chronic Kidney Disease, Seizures - Surgical History Other surgeries: Right Foot Surgery Due to Infection - Family History Family History: States: Unknown Family Hx - Immunization History Hx Tetanus Toxoid Vaccination: No Hx Influenza Vaccination: No Hx Pneumococcal Vaccination: No - Home Medications Home Medications: Ambulatory Orders Medication Instructions Recorded Glipizide [Glucotrol] 10 mg PO BID 06/11/17 Lisinopril [Zestril] 2.5 mg PO DAILY 06/11/17 Sertraline [Zoloft] 100 mg PO DAILY 06/11/17 Risperidone [Risperdal] 3 mg PO TID 06/12/17 - Allergies Allergies/Adverse Reactions: Allergies Allergy/AdvReac Type Severity Reaction Status Date / Time almond Allergy ITCHING Verified 05/27/17 06:32 cashew nut Allergy ITCHING Verified 05/27/17 06:32 walnut Allergy ITCHING Verified 05/25/17 06:02 water chestnut Allergy ITCHING Verified 05/25/17 06:02 apples Allergy ITCHING Uncoded 05/25/17 06:02 Review of Systems ROS Statement: Except As Marked, All Systems Reviewed And Found Negative Constitutional: Positive for: Other ((-)Trauma). Negative for: Fever Respiratory: Negative for: Shortness of Breath Musculoskeletal: Positive for: Foot Pain ((+)Minimal pain to the right foot (-) Calf Pain) Physical Exam - Reviewed Nursing Documentation Reviewed: Yes Vital Signs Reviewed: Yes - Physical Exam Appears: Positive for: Non-toxic, No Acute Distress Head Exam: Positive for: NORMAL INSPECTION, NORMOCEPHALIC Skin: Positive for: Normal Color, Warm, Dry Neck: Positive for: Normal, Painless ROM, Supple Cardiovascular/Chest: Positive for: Regular Rate, Rhythm. Negative for: Murmur Respiratory: Positive for: Normal Breath Sounds. Negative for: Respiratory Distress Pulses-Dorsalis Pedis (L): 2+ (Bilaterally) Pulses-Dorsalis Pedis (R): 2+ (Bilaterally) Extremity: Positive for: Normal ROM, Capillary Refill (Less than two seconds ), Swelling ((+)Minimal swelling to the dorsum of right foot with healing suture wound.), Other ((-)Discharge, Erythema). Negative for: Calf Tenderness ((-) Bilaterally ) Neurologic/Psych: Positive for: Alert, Oriented, Other ((+)Alcohol present on breath ). Negative for: Motor/Sensory Deficits - Laboratory Results Result Diagrams: 06/11/17 23:25 06/11/17 23:25 - ECG O2 Sat by Pulse Oximetry: 100 (RA) Pulse Ox Interpretation: Normal - Radiology X-Ray: Interpreted by Fl (CXR) X-Ray Interpretation: No Acute Disease Medical Decision Making Medical Decision Making: Time: [id number] Initial impression: Wound Check and Schizophrenia Initial plan: --ALCOHOL SERUM --CMP --DRUG SCREEN, URINE --CRISIS EVALUATION --CBC --BLOOD CULTURE --IV INSERTION --ADMIT --FOOT RIGHT 3 VIEWS X-RAY 2329: Case discussed with Dr. Hand in Podiatry who is aware of the plan and will see the patient in the emergency department. Scribe Attestation: Documented by Giovana Cardoza, acting as a scribe for Boris Tiwari PA-C MD Scribe Attestation: All medical record entries made by the Scribe were at my direction and personally dictated by me. I have reviewed the chart and agree that the record accurately reflects my personal performance of the history, physical exam, medical decision making, and the department course for this patient. I have also personally directed, reviewed, and agree with the discharge instructions and disposition. ED OBSERVATION Date of observation admission: 06/12/17 Time of observation admission: 22:59 - Observation admission statement Patient is being placed in observation because:: wound check, crisis - Progress Note Progress Note: 06/12/17 01:58 Pt. was evaluated by Dr. Hand in ED who spoke with Dr. Bennett and as per Dr. Bennett foot wound has improved drastically. Outpt. f/u arranged. ETOH 347 Pending sobriety for crisis evaluation. 06/12/17 04:14 Sleeping comfortably and in no distress. Pending sobriety and crisis evaluation. 06/12/17 05:00 Pt. evaluated by stephen Scanlon, and arrangements made for admission under Dr. Malhotra's service. Disposition - Clinical Impression Clinical Impression: Depression - Patient ED Disposition Is Patient to be Admitted: No - Disposition Disposition Time: 05:17 Condition: STABLE
[2017-06-11] MEDS ORDERED: Sodium Chloride 0.9% 1,000 ML IV STA (23:53)
[2017-06-11 23:55] LABS: ALCOHOL SERUM 347 mg/dl (0-10)
[2017-06-12] MEDS ORDERED: Naproxen 500 MG TAB PO ONE ×2 (05:32→05:33)
[2017-06-12 06:01] LABS: RBC URINE 1 /hpf (0-3); URINE BACTERIA RARE (<OCC); URINE BILIRUBIN NEGATIVE (NEGATIVE); URINE BLOOD NEGATIVE (NEGATIVE); URINE COLOR YELLOW (YELLOW); URINE GLUCOSE (UA) NEG (Normal); URINE KETONE NEGATIVE (NEGATIVE); URINE LEUKOCYTE ESTERASE NEG Leu/uL (Negative); URINE PROTEIN NEGATIVE (NEGATIVE); URINE UROBILINOGEN 0.2-1.0 mg/dL (0.2-1.0); WBC URINE < 1 /hpf (0-5)
[2017-06-12] MEDS ORDERED: Magnesium Hydroxide Susp 30 ml UD PO PRN (06:57)
[2017-06-12] MEDS ORDERED: DiphenhydrAMINE 50 mg/ml Inj IM PRN (06:57)
[2017-06-12] MEDS ORDERED: Alum-Mag Hydrox-Simethicone Susp (30 mL) PO PRN (06:57)
--- NOTE | 2017-06-12 08:32 | RAD ---
Right foot radiographs Indication: Status post surgery Comparison: Right foot radiographs performed 05/23/17 Findings: Postsurgical changes re-identified with resection of the distal aspect 2nd and 3rd metatarsals. Diffuse soft tissue swelling. Destructive changes involving the base of the 2nd proximal phalanx are not excluded ; acute osteomyelitis is not excluded. Chronic changes perhaps related to chronic osteomyelitis involving the distal aspect 1st metatarsal with medial and possibly anterior subluxation of the proximal aspect of the proximal phalanx at the 1st MTP joint. Destructive changes not excluded. Impression: Diffuse soft tissue swelling. Postsurgical changes of the 2nd and 3rd proximal phalanx as well as extensive chronic appearing changes related to the 1st MTP as above. Destructive changes involving the base of the 2nd proximal phalanx cannot be excluded ; acute osteomyelitis is not excluded. Please note MRI without and with IV contrast is most sensitive in detection of osteomyelitis. Findings discussed with Dr. Abdi on 06/12/17 at 8:29 a.m. This study has also been marked for PA review.
--- NOTE | 2017-06-12 08:39 | CARD ---
APPROVED REPORT EKG Measurement Heart [id number] <Conclusion> Normal sinus rhythm Normal ECG
--- NOTE | 2017-06-12 09:34 | RAD ---
HISTORY: clearance COMPARISON: Chest x-ray performed 05/19/17 TECHNIQUE: Chest, one view. FINDINGS: LUNGS: No focal consolidation. Please note that chest x-ray has limited sensitivity for the detection of pulmonary masses. PLEURA: No significant pleural effusion identified. No definite pneumothorax . CARDIOVASCULAR: The cardiomediastinal silhouette appears within normal limits of size. OSSEOUS STRUCTURES: No acute osseous abnormality identified. VISUALIZED UPPER ABDOMEN: Unremarkable. OTHER FINDINGS: None. IMPRESSION: No focal consolidation, significant pleural effusion, or definite pneumothorax identified.
[2017-06-12 09:45] LABS: T4 8.8 ug/dl (5.5-11.0)
[2017-06-12 09:59] LABS: THYROID STIMULATING HORMONE 1.59 mIU/ML (0.46-4.68)
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
[2017-06-12] MEDS: Bacitracin OINT 15GM TOP SCH (11:26)
--- NOTE | 2017-06-12 13:27 | CP.PCM.CON ---
History of Present Illness - History of Present Illness History of Present Illness: reason for consult: per hospital protocol hpi 47M PMH DM 2 Insulin Dependent, Anxiety/Depression, Schizophrenia, Suicide Attempt October 2016 by overdosing on Insulin, RUL Lung Mass, Acne is currently admitted to psych for depression. Pt has been referred to podiatry by PMD twice for Osteomyelitis of foot. He underwent amputation with Dr. Donald suarez 3 weeks ago, a PICC line was placed for IV antibiotics for 6 weeks. Patient states today that he did not receive any antibiotics since, and has pulled out his PICC line. Plan is to transfer patient to [facility] for IVABX and place PICC tomorrow. ROS PER HPI ALL OTHER SYSTEMS NEG PMHx:DM 2 Insulin Dependent, Anxiety/Depression, Schizophrenia, Suicide Attempt October 2016 by overdosing on Insulin, RUL Lung Mass, Acne, Left Ankle Fracture , Right Shoulder Dislocation PSHx: Left Ankle Surgery 1981, Right Shoulder Surgery 1991 ALL: Denies Medications: NOT taking any medications at home as he had lost his insurance Social Hx: Unemployed, Living with Mom, (+) Tobacco: 1 pack every 2 days for past 2.5 years, (+) Alcohol: 3 beers on Saturdays and Sundays, NO illicit drugs Family Hx: Mom ("Bone [place]"), Dad ( of [place] at 62 y/o), Step Brother ( of [place] at 31) Exam: GEN: WDWN, alert, cooperative HEENT: NCAT, PERRL, EOMI NECK: supple, no JVD, no lymphadenopathy CARDIAC: +S1S2 RRR LUNG: CTAB No WRR ABD: SOFT NT ND BSX4 NO MASSES NO HSM EXT: +pedal pulses, equal strength +FOOT OSTEO NEURO: AAOx3 SKIN warm, dry PSYCH normal mood, normal affect 06/11/17 23:25 06/11/17 23:25 47M PMH DM 2 Insulin Dependent, Anxiety/Depression, Schizophrenia, Suicide Attempt October 2016 by overdosing on Insulin, RUL Lung Mass, Acne is currently admitted to psych for depression. Pt has been referred to podiatry by PMD twice for Osteomyelitis of foot. He underwent amputation with Dr. Donald suarez 3 weeks ago, a PICC line was placed for IV antibiotics for 6 weeks. Patient states today that he did not receive any antibiotics since, and has pulled out his PICC line. Plan is to transfer patient to [facility] for IVABX and place PICC tomorrow. OSTEOMYELITIS cont IV RX Ceftriaxone, Vancomycin PICC placement on Tuesday Podiatry on Consult Depression Per Psychiatry Past Patient History - Infectious Disease Hx of Infectious Diseases: None - Tetanus Immunizations Tetanus Immunization: Unknown - Past Medical History & Family History Past Medical History?: Yes - Past Social History Smoking Status: Current Some Days Smoker - CARDIAC Hx Hypertension: Yes - PULMONARY Hx Tuberculosis: No - NEUROLOGICAL Hx Seizures: No - HEENT Hx HEENT Problems: No - RENAL Hx Chronic Kidney Disease: No - ENDOCRINE/METABOLIC Hx Endocrine Disorders: Yes Hx Diabetes Mellitus Type 2: Yes - HEMATOLOGICAL/ONCOLOGICAL Hx Human Immunodeficiency Virus (HIV): No - INTEGUMENTARY Hx Dermatological Problems: No Other/Comment: Facial rash - MUSCULOSKELETAL/RHEUMATOLOGICAL Hx Musculoskeletal Disorders: Yes Hx Falls: Yes Hx Osteomyelitis: Yes Other/Comment: Right foot wound - GASTROINTESTINAL Hx Gastrointestinal Disorders: No - GENITOURINARY/GYNECOLOGICAL Hx Sexually Transmitted Disorders: Yes (erectile Dysfunction) - PSYCHIATRIC Hx Anxiety: Yes Hx Bipolar Disorder: Yes Hx Depression: Yes Hx Schizophrenia: Yes Hx Substance Use: Yes - SURGICAL HISTORY Hx Surgeries: Yes Hx Orthopedic Surgery: Yes (Right shoulder 1991 rotator cuff and dislocation 1988) Other/Comment: R foot wound debridement - ANESTHESIA Hx Anesthesia: Yes Hx Anesthesia Reactions: No Hx Malignant Hyperthermia: No Meds Allergies/Adverse Reactions: Allergies Allergy/AdvReac Type Severity Reaction Status Date / Time almond Allergy ITCHING Verified 05/27/17 06:32 cashew nut Allergy ITCHING Verified 05/27/17 06:32 walnut Allergy ITCHING Verified 05/25/17 06:02 water chestnut Allergy ITCHING Verified 05/25/17 06:02 apples Allergy ITCHING Uncoded 05/25/17 06:02 - Medications Medications: Current Medications Acetaminophen (Tylenol 325mg Tab) 650 mg PO Q4 PRN PRN Reason: pain level 1 to 7 Al Hydrox/Mg Hydrox/Simethicone (Maalox Plus 30 Ml) 30 ml PO Q4 PRN PRN Reason: Dyspepsia Bacitracin (Bacitracin Oint) 1 applic TOP DAILY [facility] Last Admin: 06/12/17 11:26 Dose: 1 applic Chlordiazepoxide (Librium) 50 mg PO Q8 JOESPH Last Admin: 06/12/17 11:25 Dose: 50 mg Diphenhydramine HCl (Benadryl) 50 mg IM Q6 PRN PRN Reason: Extrapyramidal S/S Unable PO Diphenhydramine HCl (Benadryl) 50 mg PO Q6 PRN PRN Reason: Extrapyramidal Symptoms Last Admin: 06/12/17 11:29 Dose: 50 mg Diphenhydramine HCl (Benadryl) 50 mg PO HS PRN PRN Reason: Sleep Haloperidol (Haldol) 5 mg PO Q4 PRN PRN Reason: Agitation Last Admin: 06/12/17 11:29 Dose: 5 mg Haloperidol Lactate (Haldol) 5 mg IM Q4 PRN PRN Reason: Agitation, Unable to Take PO Ceftriaxone Sodium 2 gm/ (Sodium Chloride) 100 mls @ 100 mls/hr IVPB DAILY JOESPH Vancomycin HCl 1 gm/ Sodium (Chloride) 250 mls @ 166.667 mls/hr IVPB Q12 JOESPH Lorazepam (Ativan) 2 mg IM Q4 PRN PRN Reason: Anxiety/Agitation,Unable PO Lorazepam (Ativan) 2 mg PO Q4 PRN PRN Reason: Anxiety/Agitation Last Admin: 06/12/17 08:02 Dose: 2 mg Magnesium Hydroxide (Milk Of Magnesia) 30 ml PO HS PRN PRN Reason: Constipation Nicotine (Nicoderm Cq) 1 patch TD DAILY JOESPH Last Admin: 06/12/17 11:24 Dose: 1 patch Risperidone (Risperdal Tab) 2 mg PO HS JOESPH Sertraline HCl (Zoloft) 100 mg PO DAILY JOESPH Last Admin: 06/12/17 11:39 Dose: 100 mg Tramadol HCl (Ultram) 50 mg PO Q6 PRN PRN Reason: Pain, moderate (4-7) Results - Vital Signs Recent Vital Signs: Last Vital Signs Temp 98.1 F 06/12/17 08:20 Pulse 110 H 06/12/17 08:20 Resp 20 06/12/17 08:20 BP 132/93 H 06/12/17 08:20 Pulse Ox 100 06/12/17 06:01 - Labs Result Diagrams: 06/11/17 23:25 06/11/17 23:25 Labs: Laboratory Results - last 24 hr 06/11/17 06/11/17 06/11/17 23:01 23:25 23:25 WBC 6.6 RBC 3.92 L Hgb 13.4 Hct 39.3 MCV 100.1 H MCH 34.2 H MCHC 34.2 RDW 12.7 Plt Count 220 MPV 7.9 Neut % (Auto) 41.4 L Lymph % (Auto) 47.0 H [place] % (Auto) 8.5 Eos % (Auto) 0.9 Baso % (Auto) 2.2 H Neut # 2.7 Lymph # 3.1 [place] # 0.6 Eos # 0.1 Baso # 0.1 Sodium 140 Potassium 3.7 Chloride 106 Carbon Dioxide 19 L Anion Gap 19 BUN 4 L Creatinine 0.6 L Est GFR ( Amer) > 60 Est GFR (Non-Af Amer) > 60 POC Glucose (mg/dL) 166 H Random Glucose 178 H Calcium 8.4 Total Bilirubin 0.5 AST 52 ALT 47 Alkaline Phosphatase 104 Total Protein 8.5 H Albumin 4.0 Globulin 4.5 H Albumin/Globulin Ratio 0.9 L Triglycerides Cholesterol LDL Cholesterol Direct HDL Cholesterol Thyroxine (T4) TSH 3rd Generation Urine Color Urine Clarity Urine pH Ur Specific [place] Urine Protein Urine Glucose (UA) Urine Ketones Urine Blood Urine Nitrate Urine Bilirubin Urine Urobilinogen Ur Leukocyte Esterase Urine RBC (Auto) Urine Microscopic WBC Urine Bacteria Urine Opiates Screen Urine Methadone Screen Ur Barbiturates Screen Ur Phencyclidine Scrn Ur Amphetamines Screen U Benzodiazepines Scrn U Oth Cocaine Metabols U Cannabinoids Screen Alcohol, Quantitative 347 H* 06/12/17 06/12/17 06/12/17 02:28 02:28 08:00 WBC RBC Hgb Hct MCV MCH MCHC RDW Plt Count MPV Neut % (Auto) Lymph % (Auto) [place] % (Auto) Eos % (Auto) Baso % (Auto) Neut # Lymph # [place] # Eos # Baso # Sodium Potassium Chloride Carbon Dioxide Anion Gap BUN Creatinine Est GFR ( Amer) Est GFR (Non-Af Amer) POC Glucose (mg/dL) Random Glucose Calcium Total Bilirubin AST ALT Alkaline Phosphatase Total Protein Albumin Globulin Albumin/Globulin Ratio Triglycerides 92 D Cholesterol 160 LDL Cholesterol Direct 97 HDL Cholesterol 46 Thyroxine (T4) 8.80 TSH 3rd Generation 1.59 Urine Color Yellow Urine Clarity Clear Urine pH 6.0 Ur Specific [place] 1.005 Urine Protein Negative Urine Glucose (UA) Neg Urine Ketones Negative Urine Blood Negative Urine Nitrate Negative Urine Bilirubin Negative Urine Urobilinogen 0.2-1.0 Ur Leukocyte Esterase Neg Urine RBC (Auto) 1 Urine Microscopic WBC < 1 Urine Bacteria Rare Urine Opiates Screen Negative Urine Methadone Screen Negative Ur Barbiturates Screen Negative Ur Phencyclidine Scrn Negative Ur Amphetamines Screen Negative U Benzodiazepines Scrn Negative U Oth Cocaine Metabols Negative U Cannabinoids Screen Negative Alcohol, Quantitative
[2017-06-12] MEDS: cefTRIAXone 2 GM in Dextrose 5% In Water 100 ML IVPB SCH (16:10)
[2017-06-13] MEDS: Bacitracin OINT 15GM TOP SCH (08:47)
[2017-06-13] MEDS: cefTRIAXone 2 GM in Dextrose 5% In Water 100 ML IVPB SCH (08:59)
--- NOTE | 2017-06-13 10:02 | PCM.PYCHPN ---
Psychiatric Progress Note - Psychiatric Progress Note Patient seen today, length of contact: Patient evaluated, case discussed with team, chart reviewed, 35 min Patient Chief Complaint: "I'm depressed." Problems Identified/Issues Discussed: Patient reports that he continues to have auditory hallucinations. We discussed increasing the dosage of Risperdal back to his previous dosage. No signs of ETOH withdrawal noted. Patient continues to report that he feels depressed. Medication Change: Yes (Increase Risperdal to 2 mg PO Q12; Taper Librium) Medical Record Reviewed: Yes Consults ordered or reviewed: Medicine consult; Podiatry consult Mental Status Examination - Cognitive Function Orientation: Person, Place, Situation, Time Memory: Intact Attention: WNL Concentration: WNL Association: WNL Fund of Knowledge: WNL - Mood Mood: Depressed - Affect Affect: Constricted - Speech Speech: Appropriate - Formal Thought Process Formal Thought Process: Hallucinations Psychotic Thoughts and Behaviors: +AH - Suicidal Ideation Suicidal Ideation: No - Homicidal Ideation Homicidal Ideation: No Goal/Treatment Plan - Goal/Treatment Plan Need for Continued Stay: Remain at risks for inpatient hospitalization, Severe depression anxiety Progress Toward Problem(s) and Goals/Treatment Plan: Alcohol Use Disorder; Substance induced mood disorder; Substance induced psychotic disorder; He continues to report depressed mood and auditory hallucinations at this time; unclear if the patient may have some secondary gain in seeking hospitalization, such as direct care and housing. -Medicine consult -Podiatry consult -Continue Zoloft 100 mg PO Daily -Increase Risperdal to 2 mg PO Q12 hr -Taper Librium, no ETOH symptoms at this time -Individual and group therapy -Disposition planning -Nicotine patch Estimated Date of D/C: 06/16/17 - Smoking Cessation Smoking Cessation Initiated: Yes
[2017-06-13] MEDS ORDERED: Lidocaine 1% Inj (20ml) ONE (13:27)
--- NOTE | 2017-06-13 13:41 | PCM.SURG1 ---
Surgeon's Initial Post Op Note - Surgeon's Notes Surgeon: Willian Oconnor MD Handbag Finisher: NONE Type of Anesthesia: Local Pre-Operative Diagnosis: Osteomyelitis Operative Findings: Patent right basilic vein. Post-Operative Diagnosis: Osteomyelitis Operation Performed: Single lumen picc placement via the right basilic vein, 37 cm. Tip in SVC. Specimen/Specimens Removed: none Estimated Blood Loss: EBL {In ML}: 2 Blood Products Given: N/A Drains Used: No Drains Post-Op Condition: Fair Date of Surgery/Procedure: 06/13/17 Time of Surgery/Procedure: 13:40
[2017-06-13 13:47] VITALS: O2SAT 99
[2017-06-13] MEDS: Insulin Lispro (humaLOG) 100 Units/ml Inj SC SCH (17:01)
--- NOTE | 2017-06-13 22:14 | CP.PCM.PN ---
Subjective - Date & Time of Evaluation Date of Evaluation: 06/13/17 Time of Evaluation: 09:00 - Subjective Subjective: 47 year old male patient with PMHx anxiety, depression, DM, HTN, schizophrenia, suicidal ideation seen at bedside in [facility] for 3 weeks s/p right foot partial amputation of infected 2nd metatarsal head and 2nd proximal phalangeal base. Patient reports mild pain to his right foot and describes the pain as throbbing. Patient states that he has been wearing his surgical shoe after he was last discharged, but he does not have the surgical shoe with him at this visit. Patient denies any acute events overnight. Patient denies N/V/F/D/C/SOB/ CP. No other pedal complaints at this time. Objective - Vital Signs/Intake and Output Vital Signs (last 24 hours): Temp Pulse Resp BP Pulse Ox 98.2 F 100 H 18 123/82 99 06/13/17 15:47 06/13/17 15:47 06/13/17 15:47 06/13/17 15:47 06/13/17 13:46 - Medications Medications: Current Medications Acetaminophen (Tylenol 325mg Tab) 650 mg PO Q4 PRN PRN Reason: pain level 1 to 7 Al Hydrox/Mg Hydrox/Simethicone (Maalox Plus 30 Ml) 30 ml PO Q4 PRN PRN Reason: Dyspepsia Bacitracin (Bacitracin Oint) 1 applic TOP DAILY [facility] Last Admin: 06/13/17 08:47 Dose: 1 applic Chlordiazepoxide (Librium) 25 mg PO Q8 [facility] Last Admin: 06/13/17 17:05 Dose: 25 mg Diphenhydramine HCl (Benadryl) 50 mg IM Q6 PRN PRN Reason: Extrapyramidal S/S Unable PO Diphenhydramine HCl (Benadryl) 50 mg PO Q6 PRN PRN Reason: Extrapyramidal Symptoms Last Admin: 06/12/17 11:29 Dose: 50 mg Diphenhydramine HCl (Benadryl) 50 mg PO HS PRN PRN Reason: Sleep Haloperidol (Haldol) 5 mg PO Q4 PRN PRN Reason: Agitation Last Admin: 06/12/17 11:29 Dose: 5 mg Haloperidol Lactate (Haldol) 5 mg IM Q4 PRN PRN Reason: Agitation, Unable to Take PO Ceftriaxone Sodium 2 gm/ (Dextrose) 100 mls @ 100 mls/hr IVPB DAILY [facility] Last Admin: 06/13/17 08:59 Dose: 100 mls/hr Vancomycin HCl 1 gm/ Sodium (Chloride) 250 mls @ 166.667 mls/hr IVPB Q12 [facility] Last Admin: 06/13/17 21:07 Dose: 166.667 mls/hr Insulin Human Lispro (Humalog) 0 units SC ACHS JOESPH PRN Reason: Protocol Last Admin: 06/13/17 17:01 Dose: 2 units Lorazepam (Ativan) 2 mg IM Q4 PRN PRN Reason: Anxiety/Agitation,Unable PO Lorazepam (Ativan) 2 mg PO Q4 PRN PRN Reason: Anxiety/Agitation Last Admin: 06/12/17 08:02 Dose: 2 mg Magnesium Hydroxide (Milk Of Magnesia) 30 ml PO HS PRN PRN Reason: Constipation Nicotine (Nicoderm Cq) 1 patch TD DAILY [facility] Last Admin: 06/13/17 08:48 Dose: 1 patch Risperidone (Risperdal Tab) 2 mg PO Q12 [facility] Last Admin: 06/13/17 21:07 Dose: 2 mg Sertraline HCl (Zoloft) 100 mg PO DAILY [facility] Last Admin: 06/13/17 08:48 Dose: 100 mg Tramadol HCl (Ultram) 50 mg PO Q6 PRN PRN Reason: Pain, moderate (4-7) Last Admin: 06/13/17 09:06 Dose: 50 mg - Constitutional Appears: Well, Non-toxic, No Acute Distress - Extremities Exam Additional comments: RLE focused physical exam: Vasc: DP and PT pulses palpable. CFT <3 seconds to all digit. TG warm to cool. Nonpitting edema noted to forefoot. Neuro: Gross sensation diminished. Derm: Surgical site noted to dorsum of 2nd MPJ appears to be healing well, with slight dehiscence and overlying eschar to central aspect of incision, otherwise well healing cicatrix noted. Hyperpigmentation noted periwound. No drainage, malodor, purulence noted. No fluctuance noted. Surgical site noted to plantar 2nd MPJ appears to be healing well with no wound dehiscence noted. Overlying hyperkeratosis noted. No drainage, purulence, fluctuance, malodor noted. Ortho: Tenderness to palpation noted to dorsal surgical site. No pain on palpation noted to plantar surgical site. - Neurological Exam Neurological Exam: Alert, Awake, Oriented x3 - Psychiatric Exam Psychiatric exam: Depressed Assessment and Plan - Assessment and Plan (Free Text) Assessment: 47 year old male with PMHx anxiety, depression, suicidal amputation s/p 3 weeks right foot partial 2nd ray amputation secondary to osteomyelitis Plan: Patient seen and evaluated at bedside. Discussed with attending, Dr. Bennett Chart, labs, vitals reviewed: afebrile Continue with abx per medicine = vancomycin Pt is stable from podiatry standpoint Podiatry will continue to follow while in house Informed patient to follow up with Dr. Bennett as an outpatient in [facility] podiatry clinic.
[2017-06-14] MEDS: Bacitracin OINT 15GM TOP SCH (08:36)
[2017-06-14] MEDS: Insulin Lispro (humaLOG) 100 Units/ml Inj SC SCH ×5 (08:37→21:36)
[2017-06-14] MEDS: cefTRIAXone 2 GM in Dextrose 5% In Water 100 ML IVPB SCH (08:39)
--- NOTE | 2017-06-14 08:59 | PCM.PYCHPN ---
Psychiatric Progress Note - Psychiatric Progress Note Patient seen today, length of contact: Patient evaluated, case discussed with team, chart reviewed, 35 min Patient Chief Complaint: "I'm okay" Problems Identified/Issues Discussed: Patient reports that he is not currently hearing AH. He reports that his mood is improving. He is more goal oriented. PICC line placed yesterday and patient is back on IV antibiotics. We discussed the importance of compliance with medications and treatment. No signs of ETOH withdrawal noted. Medication Change: Yes (Taper Librium) Medical Record Reviewed: Yes Mental Status Examination - Cognitive Function Orientation: Person, Place, Situation, Time Memory: Intact Attention: WNL Concentration: WNL Association: WNL Fund of Knowledge: WN Decription of patient's judgement and insights: Fair I/J - Mood Mood: Depressed - Affect Affect: Broad - Speech Speech: Appropriate - Formal Thought Process Formal Thought Process: No Impairment Psychotic Thoughts and Behaviors: NO AH/VH/paranoia/delusions - Suicidal Ideation Suicidal Ideation: No - Homicidal Ideation Homicidal Ideation: No Goal/Treatment Plan - Goal/Treatment Plan Need for Continued Stay: Remain at risks for inpatient hospitalization, Severe depression anxiety Progress Toward Problem(s) and Goals/Treatment Plan: Alcohol Use Disorder; Substance induced mood disorder; Substance induced psychotic disorder; Patient is starting to improve clinically. Will continue to monitor for safety. -Medicine consult -Podiatry consult -Continue Zoloft 100 mg PO Daily -Continue Risperdal 2 mg PO Q12 hr -Taper Librium, no ETOH symptoms at this time -Individual and group therapy -Disposition planning -Nicotine patch Estimated Date of D/C: 06/16/17 - Smoking Cessation Smoking Cessation Initiated: Yes
[2017-06-15] MEDS: Insulin Lispro (humaLOG) 100 Units/ml Inj SC SCH ×4 (08:30→21:13)
[2017-06-15] MEDS: Bacitracin OINT 15GM TOP SCH (08:30)
--- NOTE | 2017-06-15 09:08 | CP.PCM.PN ---
Subjective - Date & Time of Evaluation Date of Evaluation: 06/15/17 Time of Evaluation: 07:10 - Subjective Subjective: 47 year old male patient with PMHx anxiety, depression, DM, HTN, schizophrenia, suicidal ideation seen at bedside in [facility] for 3 weeks s/p right foot partial amputation of infected 2nd metatarsal head and 2nd proximal phalangeal base. Patient reports continued pain to his right foot surgical site and also complains of continued swelling to site. Patient denies any acute events overnight. Patient denies N/V/F/D/C/SOB/CP. No other pedal complaints at this time. Objective - Vital Signs/Intake and Output Vital Signs (last 24 hours): Temp Pulse Resp BP Pulse Ox 97.4 F L 89 20 145/98 H 99 06/15/17 05:49 06/15/17 05:49 06/15/17 05:49 06/15/17 05:49 06/13/17 13:46 - Medications Medications: Current Medications Acetaminophen (Tylenol 325mg Tab) 650 mg PO Q4 PRN PRN Reason: pain level 1 to 7 Al Hydrox/Mg Hydrox/Simethicone (Maalox Plus 30 Ml) 30 ml PO Q4 PRN PRN Reason: Dyspepsia Bacitracin (Bacitracin Oint) 1 applic TOP DAILY [facility] Last Admin: 06/15/17 08:30 Dose: 1 applic Chlordiazepoxide (Librium) 25 mg PO Q12 [facility] Last Admin: 06/15/17 08:28 Dose: 25 mg Diphenhydramine HCl (Benadryl) 50 mg IM Q6 PRN PRN Reason: Extrapyramidal S/S Unable PO Diphenhydramine HCl (Benadryl) 50 mg PO Q6 PRN PRN Reason: Extrapyramidal Symptoms Last Admin: 06/12/17 11:29 Dose: 50 mg Diphenhydramine HCl (Benadryl) 50 mg PO HS PRN PRN Reason: Sleep Haloperidol (Haldol) 5 mg PO Q4 PRN PRN Reason: Agitation Last Admin: 06/14/17 16:46 Dose: 5 mg Haloperidol Lactate (Haldol) 5 mg IM Q4 PRN PRN Reason: Agitation, Unable to Take PO Ceftriaxone Sodium 2 gm/ (Dextrose) 100 mls @ 100 mls/hr IVPB DAILY [facility] Last Admin: 06/14/17 08:39 Dose: 100 mls/hr Vancomycin HCl 1 gm/ Sodium (Chloride) 250 mls @ 166.667 mls/hr IVPB Q12 [facility] Last Admin: 06/14/17 21:37 Dose: 166.667 mls/hr Insulin Human Lispro (Humalog) 0 units SC ACHS [facility] PRN Reason: Protocol Last Admin: 06/15/17 08:30 Dose: 2 units Lorazepam (Ativan) 2 mg IM Q4 PRN PRN Reason: Anxiety/Agitation,Unable PO Lorazepam (Ativan) 2 mg PO Q4 PRN PRN Reason: Anxiety/Agitation Last Admin: 06/15/17 05:59 Dose: 2 mg Magnesium Hydroxide (Milk Of Magnesia) 30 ml PO HS PRN PRN Reason: Constipation Nicotine (Nicoderm Cq) 1 patch TD DAILY [facility] Last Admin: 06/15/17 08:31 Dose: 1 patch Risperidone (Risperdal Tab) 2 mg PO Q12 [facility] Last Admin: 06/15/17 08:31 Dose: 2 mg Sertraline HCl (Zoloft) 100 mg PO DAILY [facility] Last Admin: 06/15/17 08:31 Dose: 100 mg Tramadol HCl (Ultram) 50 mg PO Q6 PRN PRN Reason: Pain, moderate (4-7) Last Admin: 06/14/17 13:32 Dose: 50 mg - Constitutional Appears: Well, Non-toxic, No Acute Distress - Extremities Exam Additional comments: RLE focused physical exam: Vasc: DP and PT pulses palpable. CFT <3 seconds to all digits. TG warm to warm. Nonpitting edema noted to forefoot. Neuro: Gross sensation diminished. Derm: Surgical site noted to dorsum of 2nd MPJ appears to be healing well, with an approximately 1mm overlying eschar to central aspect of incision, well healing cicatrix noted. Hyperpigmentation noted periwound. No drainage, malodor , purulence noted. No fluctuance noted. Surgical site noted to plantar 2nd MPJ appears to be healing well with no wound dehiscence noted. Overlying hyperkeratosis noted. No drainage, purulence, fluctuance, malodor noted. Ortho: Tenderness to palpation noted to dorsal surgical site. No pain on palpation noted to plantar surgical site. - Neurological Exam Neurological Exam: Alert, Awake, Oriented x3 - Psychiatric Exam Psychiatric exam: Depressed, Normal Affect Assessment and Plan - Assessment and Plan (Free Text) Assessment: 47 year old male with PMHx anxiety, depression, suicidal ideation s/p 3 weeks R foot partial 2nd ray amputation secondary to osteomyelitis Plan: Patient seen and evaluated at bedside. Discussed with attending, Dr. Bennett Chart, labs, vitals reviewed: afebrile Continue with abx per medicine = vancomycin Pt is stable from podiatry standpoint F/U dispo Informed patient to follow up with Dr. Bennett as an outpatient in [facility] podiatry clinic. Advised patient importance of following up with Dr. Bennett as an outpatient. Patient demonstrates verbal understanding. Podiatry will continue to follow while in house
--- NOTE | 2017-06-15 10:52 | PCM.PYCHPN ---
Psychiatric Progress Note - Psychiatric Progress Note Patient seen today, length of contact: Patient evaluated, case discussed with team, chart reviewed, 35 min Patient Chief Complaint: "I'm okay" Problems Identified/Issues Discussed: Patient is improving clinically. He reports improved mood/sleep/appetite. He no longer reports hallucinations. No ideation to harm self. We discussed the importance of compliance with medications and treatment. No signs of ETOH withdrawal noted. Medication Change: Yes (Stop Librium) Medical Record Reviewed: Yes Mental Status Examination - Cognitive Function Orientation: Person, Place, Situation, Time Memory: Intact Attention: WNL Concentration: WNL Association: [facility] Fund of Knowledge: [facility] Decription of patient's judgement and insights: Fair I/J - Mood Mood: Neutral - Affect Affect: Broad - Speech Speech: Appropriate - Formal Thought Process Formal Thought Process: No Impairment Psychotic Thoughts and Behaviors: NO AH/VH/paranoia/delusions - Suicidal Ideation Suicidal Ideation: No - Homicidal Ideation Homicidal Ideation: No Goal/Treatment Plan - Goal/Treatment Plan Need for Continued Stay: Remain at risks for inpatient hospitalization, Severe depression anxiety Progress Toward Problem(s) and Goals/Treatment Plan: Alcohol Use Disorder; Substance induced mood disorder; Substance induced psychotic disorder; Patient is improving clinically. Will continue to monitor for safety. -Medicine consult -Podiatry consult -Continue Zoloft 100 mg PO Daily -Continue Risperdal 2 mg PO Q12 hr -Stop Librium, no ETOH symptoms at this time -Individual and group therapy -Disposition planning -Nicotine patch Estimated Date of D/C: 06/16/17 - Smoking Cessation Smoking Cessation Initiated: Yes
[2017-06-15] MEDS: cefTRIAXone 2 GM in Dextrose 5% In Water 100 ML IVPB SCH (11:58)
[2017-06-16] MEDS: Insulin Lispro (humaLOG) 100 Units/ml Inj SC SCH ×4 (09:33→21:20)
[2017-06-16] MEDS: Bacitracin OINT 15GM TOP SCH (09:33)
[2017-06-16] MEDS: cefTRIAXone 2 GM in Dextrose 5% In Water 100 ML IVPB SCH (09:58)
--- NOTE | 2017-06-16 13:35 | CP.PCM.PN ---
Subjective - Date & Time of Evaluation Date of Evaluation: 06/16/17 Time of Evaluation: 11:00 - Subjective Subjective: 47 year old male patient with PMHx anxiety, depression, DM, HTN, schizophrenia, suicidal ideation seen at bedside 3 weeks s/p right foot partial amputation of infected 2nd metatarsal head and 2nd proximal phalangeal base. Patient reports decreased pain to his right foot surgical site and also complains of continued swelling to site. Patient denies any acute events overnight. Patient has not been wearing surgical shoe while ambulating. Patient denies N/V/F/D/C/SOB/CP. No other pedal complaints at this time. Objective - Vital Signs/Intake and Output Vital Signs (last 24 hours): Temp Pulse Resp BP Pulse Ox 97.3 F L 84 20 121/77 99 06/16/17 06:00 06/16/17 06:00 06/16/17 06:00 06/16/17 06:00 06/13/17 13:46 - Medications Medications: Current Medications Acetaminophen (Tylenol 325mg Tab) 650 mg PO Q4 PRN PRN Reason: pain level 1 to 7 Al Hydrox/Mg Hydrox/Simethicone (Maalox Plus 30 Ml) 30 ml PO Q4 PRN PRN Reason: Dyspepsia Bacitracin (Bacitracin Oint) 1 applic TOP DAILY [facility] Last Admin: 06/16/17 09:33 Dose: 1 applic Diphenhydramine HCl (Benadryl) 50 mg IM Q6 PRN PRN Reason: Extrapyramidal S/S Unable PO Diphenhydramine HCl (Benadryl) 50 mg PO Q6 PRN PRN Reason: Extrapyramidal Symptoms Last Admin: 06/12/17 11:29 Dose: 50 mg Diphenhydramine HCl (Benadryl) 50 mg PO HS PRN PRN Reason: Sleep Last Admin: 06/16/17 00:08 Dose: 50 mg Haloperidol (Haldol) 5 mg PO Q4 PRN PRN Reason: Agitation Last Admin: 06/16/17 00:07 Dose: 5 mg Haloperidol Lactate (Haldol) 5 mg IM Q4 PRN PRN Reason: Agitation, Unable to Take PO Ceftriaxone Sodium 2 gm/ (Dextrose) 100 mls @ 100 mls/hr IVPB DAILY [facility] Last Admin: 06/16/17 09:58 Dose: 100 mls/hr Vancomycin HCl 1 gm/ Sodium (Chloride) 250 mls @ 166.667 mls/hr IVPB Q12 [facility] Last Admin: 06/16/17 11:14 Dose: 166.667 mls/hr Insulin Human Lispro (Humalog) 0 units SC ACHS [facility] PRN Reason: Protocol Last Admin: 06/16/17 12:57 Dose: 3 units Lorazepam (Ativan) 2 mg IM Q4 PRN PRN Reason: Anxiety/Agitation,Unable PO Lorazepam (Ativan) 2 mg PO Q4 PRN PRN Reason: Anxiety/Agitation Last Admin: 06/15/17 16:33 Dose: 2 mg Magnesium Hydroxide (Milk Of Magnesia) 30 ml PO HS PRN PRN Reason: Constipation Nicotine (Nicoderm Cq) 1 patch TD DAILY [facility] Last Admin: 06/16/17 09:32 Dose: 1 patch Risperidone (Risperdal Tab) 2 mg PO Q12 [facility] Last Admin: 06/16/17 09:32 Dose: 2 mg Sertraline HCl (Zoloft) 100 mg PO DAILY [facility] Last Admin: 06/16/17 09:33 Dose: 100 mg Tramadol HCl (Ultram) 50 mg PO Q6 PRN PRN Reason: Pain, moderate (4-7) Last Admin: 06/16/17 11:24 Dose: 50 mg - Constitutional Appears: Well, Non-toxic, No Acute Distress - Extremities Exam Additional comments: RLE focused physical exam: Vasc: DP and PT pulses palpable. CFT <3 seconds to all digits. TG warm to warm. Nonpitting edema noted to forefoot. Neuro: Gross sensation diminished. Derm: Surgical site noted to dorsum of 2nd MPJ appears to be healing well, with an approximately 1mm overlying eschar to central aspect of incision, well healing cicatrix noted. Hyperpigmentation noted periwound. No drainage, malodor , purulence noted. No fluctuance noted. Surgical site noted to plantar 2nd MPJ appears to be healing well with no wound dehiscence noted. Overlying hyperkeratosis noted. No drainage, purulence, fluctuance, malodor noted. Ortho: Tenderness to palpation noted to dorsal surgical site. No pain on palpation noted to plantar surgical site. - Neurological Exam Neurological Exam: Alert, Awake, Oriented x3 - Psychiatric Exam Psychiatric exam: Depressed Assessment and Plan - Assessment and Plan (Free Text) Assessment: 47 year old male with PMHx anxiety, depression, suicidal ideation s/p 3 weeks R foot partial 2nd ray amputation secondary to osteomyelitis Plan: Patient seen and evaluated at bedside. Discussed with attending, Dr. Bennett. Chart, labs, vitals reviewed: afebrile. Hyperkeratotic lesions to plantar 2nd MPJ sharply pared using a #15 blade without incident. Continue with abx per medicine = ceftriaxone, vancomycin. Pt is stable from podiatry standpoint. F/U dispo - Recommend subacute rehab for 5 week course of IV antibiotics. F/U ID recommendations. Podiatry will continue to follow while in house.
--- NOTE | 2017-06-16 13:44 | PCM.PYCHPN ---
Psychiatric Progress Note - Psychiatric Progress Note Patient seen today, length of contact: Patient evaluated, case discussed with team, chart reviewed, 35 min Patient Chief Complaint: "I'm okay" Problems Identified/Issues Discussed: Patient is improving clinically. He reports improved mood/sleep/appetite. He no longer reports hallucinations. No ideation to harm self. We discussed the importance of compliance with medications and treatment. No signs of ETOH withdrawal noted. Medication Change: No Medical Record Reviewed: Yes Mental Status Examination - Cognitive Function Orientation: Person, Place, Situation, Time Memory: Intact Attention: WNL Concentration: WNL Association: [facility] Fund of Knowledge: [facility] Decription of patient's judgement and insights: Fair I/J - Mood Mood: Neutral - Affect Affect: Broad - Speech Speech: Appropriate - Formal Thought Process Formal Thought Process: No Impairment Psychotic Thoughts and Behaviors: NO AH/VH/paranoia/delusions - Suicidal Ideation Suicidal Ideation: No - Homicidal Ideation Homicidal Ideation: No Goal/Treatment Plan - Goal/Treatment Plan Need for Continued Stay: Remain at risks for inpatient hospitalization, Severe depression anxiety Progress Toward Problem(s) and Goals/Treatment Plan: Alcohol Use Disorder; Substance induced mood disorder; Substance induced psychotic disorder; Patient is improving clinically. Will continue to monitor for safety. -Medicine consult appreciated -Podiatry consult appreciated -ID consult re: recommended antibiotics and length of treatment; patient to be referred to subacute rehab -Continue Zoloft 100 mg PO Daily -Continue Risperdal 2 mg PO Q12 hr -Individual and group therapy -Disposition planning -Nicotine patch Estimated Date of D/C: 06/17/17
[2017-06-17 05:58] VITALS: BP 124/75; PULSE 80; RESP 18; TEMP 97.1
[2017-06-17] MEDS: Insulin Lispro (humaLOG) 100 Units/ml Inj SC SCH ×2 (09:28→12:32)
[2017-06-17] MEDS: Bacitracin OINT 15GM TOP SCH (09:28)
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
[2017-06-17] MEDS: cefTRIAXone 2 GM in Dextrose 5% In Water 100 ML IVPB SCH (11:29)
--- NOTE | 2017-06-20 12:25 | PQF GENQUE ---
Dr. Bennett procedure performed on 06/16 describes hyperkeratotic lesion was sharply pared. Please clarify procedure. This form is a permanent part of the medical record Clarification of your documentation is requested to better reflect the severity of illness and intensity of treatment of your patient. Indicators present [] Specify: [] [] Specify: [] [] Specify: [] [] Specify: [] Location in the medical record that reflects the above clinical findings: [] Treatment Provided: [] PHYSICIAN'S RESPONSE Based on your medical judgment of the clinical indicators outlined above please clarify the following: [] Practitioner response [] If unable to determine, please check the box, sign and date. Present On Admission (POA) Indicator: [] Present at the time of admission [] Not present at the time of admission [] Clinically Undetermined In responding to this query, please exercise your independent professional judgment. The fact that a question is asked does not imply that any particular answer is desired or expected. Thank you for your clarification on this documentation. If you have any questions please call:[ ] * Thank you, [ ]Annabelle Mccray cone machine operator BI
--- NOTE | 2017-06-24 13:11 | VASCULAR ---
PROCEDURE: Date of procedure: 06/13/2017 Procedure: 1. Placement of a right arm PICC with ultrasound and fluoroscopic guidance, CPT 76274 2. PICC tip confirmation with spot radiograph and is in the superior vena cava Medications: 1 percent lidocaine Total Fluoro time: 7 seconds Radiation: 0.83 MGy EBL: 2 cc HISTORY: Infection requiring long-term IV antibiotics TECHNIQUE: Following informed consent and procedure time-out, the patient was placed supine on the interventional table and the right arm prepped and draped in the usual sterile fashion. Ultrasound showed a patent and compressible right basilic vein. After the skin was anesthetized with lidocaine, the basilic vein was accessed with micro micropuncture technique using ultrasound guidance. A guidewire was then advanced under fluoroscopic guidance into the superior vena cava. An image documenting ultrasound guidance for vascular access was permanently saved. The length of the single-lumen 4 Amharic PICC was trimmed to 37 centimeters and advanced through a peel-away sheath. The PICC was position with tip of PICC confirm a spot radiograph the superior vena cava. The PICC was secured to the patient's skin. The PICC was flushed. A biopatch and sterile dressing was applied. IMPRESSION: Placement of a single-lumen 4 Amharic PICC trimmed to 37 centimeters via right basilic vein. The tip of the PICC is confirmed with spot radiograph and is in the superior vena cava.
--- NOTE | 2017-07-01 06:48 | PROCN ---
06/16/17 Procedure Clarification Using a sterile #15 blade, I performed excisional debridement of hyperkeratotic skin at the plantar aspect of the 2nd metatarsophalangeal joint down to healthy skin. The post- debridement plantar superficial circular 2nd MPJ pre-ulcerative lesion measured 1.1 x 1.1 cm in size. Chiquita Bennett DPM
== END 2017-06-17 13:15 | disposition home or self-care (01) | DRG 982 ==
LOC: H.ER 22:39 → H.EROBSV 22:59 → H.ERHOLD 06-12 05:37 → H.PSYCH 06-12 06:30 → OBSVTOIN 06-12 06:30 → H.STEP 06-12 16:00
PROVIDERS: ADMIT Psychiatry & Neurology Psychiatry; ATTEND Psychiatry & Neurology Psychiatry
PROC: 02HV33Z Insertion of Infusion Device into Superior Vena Cava, Percutaneous Approach (ICD-10-PCS; principal; 2017-06-13)
PROC: 0HBMXZZ Excision of Right Foot Skin, External Approach (ICD-10-PCS; 2017-06-16)
DX: F10.929 Alcohol use, unspecified with intoxication, unspecified (principal); F23 Brief psychotic disorder; F10.94 Alcohol use, unspecified with alcohol-induced mood disorder; E11.69 Type 2 diabetes mellitus with other specified complication; M86.9 Osteomyelitis, unspecified; Y90.8 Blood alcohol level of 240 mg/100 ml or more; Z79.4 Long term (current) use of insulin; Z91.018 Allergy to other foods; I10 Essential (primary) hypertension; F17.210 Nicotine dependence, cigarettes, uncomplicated; Z89.431 Acquired absence of right foot; Z91.14 Patient's other noncompliance with medication regimen; L85.9 Epidermal thickening, unspecified

== ENCOUNTER 2017-12-03 22:56 | Inpatient (IN) | payer MEDICARE ==
[2017-12-03 22:56] VITALS: BMI 26.1
[2017-12-03] MEDS ORDERED: Sodium Chloride 0.9% 1,000 ML IV STA (23:34)
[2017-12-04 01:25] LABS: BASO # 0.1 K/uL (0.0-0.2); BASO % 0.5 % (0.0-2.0); EOS # 0.1 K/uL (0.0-0.7); EOS % 0.8 % (0.0-4.0); LYMPH # 0.7 K/uL (1.0-4.3); LYMPH % 6.2 % (20.0-40.0); MEAN CELL VOLUME 100.3 fl (80.0-94.0); MEAN CORPUSCULAR HEMOGLOBIN 34.1 pg (27.0-31.0); MEAN PLATELET VOLUME 9.1 fl (7.2-11.7); MONO # 0.6 K/uL (0.0-0.8); MONO % 5.9 % (0.0-10.0); NEUT # 9.2 K/uL (1.8-7.0); NEUT % 86.6 % (50.0-75.0); NRBC % 0.1 % (0.0-0.0); PLATELET COUNT 178 K/uL (130-400); RED CELL DISTRIBUTION WIDTH 13.5 % (11.5-14.5); WHITE BLOOD COUNT 10.6 K/uL (4.8-10.8)
[2017-12-04 01:35] LABS: ALB/GLOB RATIO 0.9 (1.0-2.1); ALBUMIN 3.6 g/dL (3.5-5.0); ALT/SGPT 42 U/L (21-72); AST/SGOT 42 U/L (17-59); BLOOD UREA NITROGEN 10 mg/dl (9-20); CALCIUM 8.1 mg/dL (8.4-10.2); GFR AFRICAN-AMERICAN > 60; GFR NON-AFRICAN AMERICAN > 60
--- NOTE | 2017-12-04 01:42 | ED PDOC ---
HPI: Abdomen Time Seen by Provider: 12/03/17 23:26 Chief Complaint (Nursing): GI Problem Chief Complaint (Provider): abdominal pain History Per: Patient History/Exam Limitations: no limitations Onset/Duration Of Symptoms: Days (2) Outside of [place] travel?: No Current Symptoms Are (Timing): Still Present Location Of Pain/Discomfort: Diffuse, Epigastric Quality Of Discomfort: Cramping Associated Symptoms: denies: Fever, Chills, Nausea, Vomiting, Diarrhea, Loss Of Appetite, Back Pain, Chest Pain, Constipation, Urinary Symptoms Additional Complaint(s): 47yo M in ED for eval of abdominal pain x 1 day with nausea vomiting and abdominal pain.hx of DM. no diarrhea. no sick contact no foreign travel. hx of alcohol abuse Past Medical History Reviewed: Historical Data, Nursing Documentation, Vital Signs Vital Signs: Last Vital Signs Temp 99.5 F 12/03/17 22:57 Pulse 100 H 12/04/17 03:38 Resp 12 12/04/17 03:38 BP 123/77 12/04/17 03:38 Pulse Ox 100 12/04/17 04:02 - Medical History PMH: Anxiety, Bipolar Disorder, Depression, Diabetes (Blood sugar 283), HTN, Schizophrenia, Sexually Transmitted Disease (erectile Dysfunction) Denies: Hepatitis, HIV, Chronic Kidney Disease, Seizures - Family History Family History: States: Unknown Family Hx - Immunization History Hx Tetanus Toxoid Vaccination: No Hx Influenza Vaccination: No Hx Pneumococcal Vaccination: No - Home Medications Home Medications: Ambulatory Orders Medication Instructions Recorded MetFORMIN [glucoPHAGE] 1,000 mg PO BID #60 tab 06/17/17 - Allergies Allergies/Adverse Reactions: Allergies Allergy/AdvReac Type Severity Reaction Status Date / Time almond Allergy ITCHING Verified 05/27/17 06:32 cashew nut Allergy ITCHING Verified 05/27/17 06:32 walnut Allergy ITCHING Verified 05/25/17 06:02 water chestnut Allergy ITCHING Verified 05/25/17 06:02 apples Allergy ITCHING Uncoded 05/25/17 06:02 Review of Systems ROS Statement: Except As Marked, All Systems Reviewed And Found Negative Constitutional: Negative for: Fever Gastrointestinal: Positive for: Nausea, Vomiting, Abdominal Pain Physical Exam - Reviewed Nursing Documentation Reviewed: Yes Vital Signs Reviewed: Yes - Physical Exam Appears: Positive for: Non-toxic, No Acute Distress, Uncomfortable Head Exam: Positive for: ATRAUMATIC, NORMAL INSPECTION, NORMOCEPHALIC Skin: Positive for: Normal Color, Warm, DRY Neck: Positive for: Normal, Painless ROM Cardiovascular/Chest: Positive for: Regular Rate, Rhythm Respiratory: Positive for: CNT, Normal Breath Sounds Gastrointestinal/Abdominal: Positive for: Bowel Sounds, Soft, Tenderness ( diffuse with guarding. ) Back: Positive for: Normal Inspection Extremity: Positive for: Normal ROM, Other (left foot: healing ulcer noted no drainage no swelling no foul order nuervac intact) Neurologic/Psych: Positive for: Alert, Oriented - Laboratory Results Result Diagrams: 12/04/17 01:12 12/04/17 01:12 - ECG O2 Sat by Pulse Oximetry: 100 - Progress ED Course And Treament: Orders Category Date Time Status ABD & PELVIS IV CONTRAST ONLY [CT] Stat CT 12/03/17 23:34 Ordered COMP METABOLIC PANEL Stat Chem 12/03/17 23:37 Completed CBC (WITH DIFFERENTIAL) Stat ADRYAN 12/03/17 23:37 Results Famotidine [Pepcid] Med 12/03/17 23:57 Discontinued 20 mg .ROUTE .STK-MED ONE Famotidine [Pepcid] Med 12/03/17 23:34 Discontinued 20 mg IVP STAT STA Ondansetron [Zofran Inj] Med 12/03/17 23:57 Discontinued 4 mg .ROUTE .STK-MED ONE Ondansetron [Zofran Inj] Med 12/03/17 23:34 Discontinued 4 mg IVP STAT STA Sodium Chloride 0.9% 1,000 ml Med 12/03/17 23:34 Discontinued IV 1,000 mls/hr BLOOD CULTURE Stat Micro 12/03/17 23:37 Received URINALYSIS Stat URINALYSIS 12/03/17 23:34 Uncollected Medical Decision Making Medical Decision Making: CT scan shows: Addendum created by Fortunato Nur MD on 12/04/2017 3:24 AM Eastern Time ([place] & [place]) Liver: Fatty infiltration. Questionable small faintly enhancing lesion vs focal fatty sparing within periphery of right lobe. Adrenals: 1.2 x 1.2 x 1.1 cm lesion within left adrenal gland, indeterminate. IMPRESSION: 1. Acute pancreatitis. 2. Questionable liver lesion. Suggest nonemergent MRI. 3. Adrenal lesion, indeterminate. Recommend nonemergent MRI. 4. Incidental/non-acute findings are described above. Initial Report created on 12/04/2017 3:05 AM Eastern Time ([place] & [place]) Pt will be admitted under [facility] for acute pancreatitis and IV fluids. Pt will get 250cc/hr of LR. PT received zofran for nausea. Disposition - Clinical Impression Clinical Impression: Acute pancreatitis - Patient ED Disposition Is Patient to be Admitted: Yes - Disposition Disposition Time: 04:02 Condition: STABLE - Pt Status Changed To: Hospital Disposition Of: Inpatient - Admit Certification Admit to Inpatient:: After my assessment, the patient will require hospitalization for at least two midnights. This is because of the severity of symptoms shown, intensity of services needed, and/or the medical risk in this patient being treated as an outpatient.
[2017-12-04] MEDS ORDERED: Sodium Chloride 0.9% 50 ML IV ONE (02:23)
[2017-12-04] MEDS ORDERED: Iohexol 300 100 ML IJ ONE (02:23)
--- NOTE | 2017-12-04 03:05 | CT ---
EXAM: CT Abdomen and Pelvis With Intravenous Contrast CLINICAL HISTORY: 47 years old, male; Pain; Abdominal pain; Generalized; Patient HX: Rlq and llq radiating to epigastric region TECHNIQUE: Axial computed tomography images of the abdomen and pelvis with intravenous contrast. All CT scans at this facility use one or more dose reduction techniques, viz.: automated exposure control; ma/kV adjustment per patient size (including targeted exams where dose is matched to indication; i.e. head); or iterative reconstruction technique. Coronal and sagittal reformatted images were created and reviewed. CONTRAST: 90 mL of omnipaqe administered intravenously. COMPARISON: No relevant prior studies available. FINDINGS: Limitations: Motion artifact - mild. Lower thorax: [id number] emphysematous changes. Minimal atelectasis/scarring. ABDOMEN: Liver: Fatty infiltration. Gallbladder and bile ducts: Calcified gallstone. No significant ductal dilation. Pancreas: Moderate stranding/fluid about pancreas. Mild heterogeneity of head and body of pancreas. No ductal dilation. No discrete peripancreatic collection. Spleen: No splenomegaly. Adrenals: No mass. Kidneys and ureters: Too small to characterize lesion within RIGHT kidney. No hydronephrosis. Stomach and bowel: No definite mural thickening. No obstruction. Appendix: Normal caliber. No definite inflammation. PELVIS: Bladder: Unremarkable. Reproductive: Unremarkable as visualized. ABDOMEN and PELVIS: Intraperitoneal space: Small to moderate free fluid within abdomen and pelvis. No free air. Bones/joints: Degenerative changes of hips and spine. No acute fracture. Soft tissues: Tiny umbilical hernia containing fat. Vasculature: Patent splenic artery and vein. Mild atherosclerotic disease. No aneurysm. Lymph nodes: Mildly enlarged lymph node within ernestina hepatis. Several subcentimeter short axis lymph nodes within upper abdomen, mesentery, retroperitoneum. IMPRESSION: 1. Acute pancreatitis. 2. Incidental/non-acute findings are described above.
[2017-12-04] MEDS ORDERED: Sodium Chloride 0.9% 1,000 ML IV STA (03:31)
[2017-12-04 04:05] LABS: SQUAMOUS EPITHIAL < 1 /hpf (0-5); URINE BACTERIA MOD (<OCC); URINE BILIRUBIN NEGATIVE (NEGATIVE); URINE BLOOD SMALL (NEGATIVE); URINE CLARITY CLOUDY (Clear); URINE COLOR AMBER (YELLOW); URINE GLUCOSE (UA) >=500 mg/dL (Normal); URINE LEUKOCYTE ESTERASE NEG Leu/uL (Negative); URINE NITRATE NEGATIVE (NEGATIVE); URINE PROTEIN 100 mg/dL (NEGATIVE); URINE UROBILINOGEN 0.2-1.0 mg/dL (0.2-1.0)
[2017-12-04] MEDS: Lactated Ringer's 1,000 ML IV SCH ×5 (04:06→20:42)
[2017-12-04] MEDS ORDERED: Morphine 5 MG/ML SYRINGE IM STA (04:09)
[2017-12-04] MEDS ORDERED: Morphine 5 MG/ML SYRINGE IV STA (04:09)
[2017-12-04 04:31] LABS: BANDS 1 % (0-2); LYMPHOCYTE 7 % (20-50); MONOCYTE 7 % (0-10); NEUTROPHIL 85 % (42-75); TOTAL CELLS COUNTED 100
[2017-12-04 04:32] LABS: PLATELET ESTIMATE NORMAL (NORMAL)
[2017-12-04 04:34] LABS: LIPASE 18619 U/L (23-300)
[2017-12-04] MEDS ORDERED: Influenza Vaccine 18yr & older 0.5 ML/45 MCG SYR IM ONE (07:10)
[2017-12-04] MEDS: Enoxaparin 30 mg Syringe SC SCH (09:38)
--- NOTE | 2017-12-04 11:08 | CP.PCM.CON ---
History of Present Illness - History of Present Illness History of Present Illness: 47 y/o male with PMHx of IDDM, anxiety/depression, schizophrenia with hx of suicide attempts, right foot osteomyelitis, RUL lung mass, acne, left ankle fx, and right shoulder dislocation seen on floors for consultation for right foot ulcer. Patient is known to Dr. Bennett and had right foot surgery with removal of bone infection in April. Pt admits he did not follow up after hospital discharge regarding his right foot. States he has no pain in the foot and has not noticed any pus or drainage from the ulcer. Admits he is here after experiencing nausea and vomiting x 2 days. Denies F/C/CP/SOB. PSHx: right foot sx (April 2017), left ankle sx, right shoulder sx ALL: Denies Social Hx: Unemployed, living with mother, 1 pack cigs/2 days; admits to frequent EtOH use, NO illicit drugs Family Hx: mother with history of bone cancer, father from [place] Review of Systems - Review of Systems All systems: reviewed and no additional remarkable complaints except (per HPI) Past Patient History - Infectious Disease Hx of Infectious Diseases: None - Tetanus Immunizations Tetanus Immunization: Unknown - Past Medical History & Family History Past Medical History?: Yes - Past Social History Smoking Status: Heavy Smoker > 10 Cigarettes Daily - CARDIAC Hx Cardiac Disorders: Yes Hx Hypertension: Yes - PULMONARY Hx Respiratory Disorders: Yes Hx Asthma: Yes Hx Tuberculosis: No - NEUROLOGICAL Hx Neurological Disorder: No Hx Seizures: No - HEENT Hx HEENT Problems: No - RENAL Hx Chronic Kidney Disease: No - ENDOCRINE/METABOLIC Hx Endocrine Disorders: Yes (DM) - HEMATOLOGICAL/ONCOLOGICAL Hx Blood Disorders: No Hx Human Immunodeficiency Virus (HIV): No - INTEGUMENTARY Hx Dermatological Problems: Yes Other/Comment: Facial rash - MUSCULOSKELETAL/RHEUMATOLOGICAL Hx Musculoskeletal Disorders: No Hx Falls: No - GASTROINTESTINAL Hx Gastrointestinal Disorders: No - GENITOURINARY/GYNECOLOGICAL Hx Genitourinary Disorders: Yes Hx Sexually Transmitted Disorders: Yes (erectile Dysfunction) - PSYCHIATRIC Hx Psychophysiologic Disorder: Yes Hx Anxiety: Yes Hx Bipolar Disorder: Yes Hx Depression: Yes Hx Schizophrenia: Yes Hx Substance Use: No - SURGICAL HISTORY Hx Surgeries: Yes Hx Orthopedic Surgery: Yes (Right shoulder 1991 rotator cuff and dislocation 1988) Other/Comment: R foot wound debridement - ANESTHESIA Hx Anesthesia: Yes Hx Anesthesia Reactions: No Hx Malignant Hyperthermia: No Has any member of the family had a problem w/ anesthesia?: No Meds Allergies/Adverse Reactions: Allergies Allergy/AdvReac Type Severity Reaction Status Date / Time almond Allergy ITCHING Verified 05/27/17 06:32 cashew nut Allergy ITCHING Verified 05/27/17 06:32 walnut Allergy ITCHING Verified 05/25/17 06:02 water chestnut Allergy ITCHING Verified 05/25/17 06:02 apples Allergy ITCHING Uncoded 05/25/17 06:02 - Medications Medications: Current Medications Enoxaparin Sodium (Lovenox) 30 mg SC DAILY [facility] PRN Reason: Protocol Last Admin: 12/04/17 09:38 Dose: 30 mg Lactated Ringer's (Lactated Ringer's) 1,000 mls @ 250 mls/hr IV .Q4H [facility] Last Admin: 12/04/17 09:04 Dose: 250 mls/hr Morphine Sulfate (Morphine) 2 mg IVP Q4 PRN PRN Reason: Pain, severe (8-10) Last Admin: 12/04/17 07:39 Dose: 2 mg Nicotine (Nicoderm Cq) 1 patch TD DAILY [facility] Last Admin: 12/04/17 09:38 Dose: 1 patch Pantoprazole Sodium (Protonix Inj) 40 mg IVP DAILY [facility] Last Admin: 12/04/17 09:04 Dose: 40 mg Sertraline HCl (Zoloft) 100 mg PO DAILY [facility] Last Admin: 12/04/17 09:37 Dose: 100 mg Physical Exam - Constitutional Appears: Well, Non-toxic, No Acute Distress - Extremities Exam Additional comments: Lower extremity focused exam: Vasc: DP/PT pulses palpable 2/4 B/L. Temp gradient warm to cool from proximal to distal. CFT < 3 sec to all digits. Mild non pitting pedal edema noted to R foot diffusely. Neuro: Protective sensation grossly diminished Derm: Circular ulceration measuring approx 0.9cm in diameter noted to sub met 4 R foot. Hyperkeratotic thickened skin noted to wound borders. No purulence or drainage expressed, no fluctuance, no probe to bone. Post mechanical debridement , malodor noted. Ortho: No tenderness noted to palpation of ulceration. Patient s/p right foot 2nd met head and prox phalanx resection - surgical site healed with no open ulceration noted. - Neurological Exam Neurological exam: Alert, Oriented x3 - Psychiatric Exam Psychiatric exam: Normal Affect, Normal Mood Results - Vital Signs Recent Vital Signs: Last Vital Signs Temp 98.5 F 12/04/17 09:00 Pulse 95 H 12/04/17 08:19 Resp 19 12/04/17 08:19 BP 121/75 12/04/17 08:19 Pulse Ox 98 12/04/17 08:19 - Labs Result Diagrams: 12/04/17 01:12 12/04/17 01:12 Labs: Laboratory Results - last 24 hr 12/03/17 12/04/17 12/04/17 23:35 01:12 01:12 WBC 10.6 D RBC 4.10 L Hgb 14.0 Hct 41.1 MCV 100.3 H MCH 34.1 H MCHC 34.0 RDW 13.5 Plt Count 178 MPV 9.1 Neut % (Auto) 86.6 H Lymph % (Auto) 6.2 L [place] % (Auto) 5.9 Eos % (Auto) 0.8 Baso % (Auto) 0.5 Neut # 9.2 H Lymph # 0.7 L [place] # 0.6 Eos # 0.1 Baso # 0.1 Neutrophils % (Manual) 85 H Band Neutrophils % 1 Lymphocytes % (Manual) 7 L Monocytes % (Manual) 7 Platelet Estimate Normal RBC Morphology Normal Sodium 134 Potassium 3.5 L Chloride 98 Carbon Dioxide 27 Anion Gap 13 BUN 10 Creatinine 0.6 L Est GFR ( Amer) > 60 Est GFR (Non-Af Amer) > 60 POC Glucose (mg/dL) 231 H Random Glucose 252 H Calcium 8.1 L Total Bilirubin 1.1 AST 42 ALT 42 Alkaline Phosphatase 111 Total Protein 7.5 Albumin 3.6 Globulin 3.9 Albumin/Globulin Ratio 0.9 L Lipase Urine Color Urine Clarity Urine pH Ur Specific Walsh Urine Protein Urine Glucose (UA) Urine Ketones Urine Blood Urine Nitrate Urine Bilirubin Urine Urobilinogen Ur Leukocyte Esterase Urine RBC (Auto) Urine Microscopic WBC Ur Squamous Epith Cells Urine Bacteria Hyaline Casts Alcohol, Quantitative 12/04/17 12/04/17 12/04/17 02:43 03:00 06:06 WBC RBC Hgb Hct MCV MCH MCHC RDW Plt Count MPV Neut % (Auto) Lymph % (Auto) [place] % (Auto) Eos % (Auto) Baso % (Auto) Neut # Lymph # [place] # Eos # Baso # Neutrophils % (Manual) Band Neutrophils % Lymphocytes % (Manual) Monocytes % (Manual) Platelet Estimate RBC Morphology Sodium Potassium Chloride Carbon Dioxide Anion Gap BUN Creatinine Est GFR ( Amer) Est GFR (Non-Af Amer) POC Glucose (mg/dL) 169 H Random Glucose Calcium Total Bilirubin AST ALT Alkaline Phosphatase Total Protein Albumin Globulin Albumin/Globulin Ratio Lipase 44089 H Urine Color Michelle Urine Clarity Cloudy Urine pH 5.0 Ur Specific Walsh 1.027 Urine Protein 100 Urine Glucose (UA) >=500 Urine Ketones Negative Urine Blood Small Urine Nitrate Negative Urine Bilirubin Negative Urine Urobilinogen 0.2-1.0 Ur Leukocyte Esterase Neg Urine RBC (Auto) 3 Urine Microscopic WBC 4 Ur Squamous Epith Cells < 1 Urine Bacteria Mod H Hyaline Casts 3-5 H Alcohol, Quantitative < 10 Assessment & Plan - Assessment and Plan (Free Text) Assessment: 47 y/o male with right plantar foot diabetic ulceration Plan: Pt seen and evaluated at bedside Discussed with attending Dr. Bennett Labs and vitals reviewed- afebrile, WBC 10.6 Excisional debridement with sterile #10 blade performed with removal of hyperkeratotic tissue down to healthy skin of wound periphery and subcutaneous tissue within wound Upon debridement, malodor present and wound culture taken of wound bed Rx surgical shoe to be applied to R foot Right foot x-rays ordered to r/o osteomyelitis Cleansed wound with saline and dressed with xeroform DSD Podiatry will continue to follow while in house Thank you for this consult
--- NOTE | 2017-12-04 15:26 | HP ---
CHIEF COMPLAINT: Abdominal pain. HISTORY OF PRESENT ILLNESS: This is a 47-year-old male, a known case of foot cellulitis and questionable osteomyelitis, who was being followed up by Podiatry, started having abdominal pain for about 2 days, it got worse, the patient was brought to the emergency room and was found to have acute pancreatitis and was admitted for further management. REVIEW OF SYSTEMS: Positive for abdominal pain and diarrhea. Review of systems otherwise is negative for headache, dizziness, syncope, loss of consciousness, chest pain, shortness of breath, nausea, vomiting, any new joint or extremity pain. Review of systems of all other organ system is unremarkable. PAST MEDICAL HISTORY: Significant for anxiety, depression, type 2 diabetes, hypertension, schizophrenia, and erectile dysfunction. PERSONAL HISTORY: The patient is currently nonsmoker, nondrinker, no substance abuse. MEDICATIONS: The patient is on multiple medication, which is as per reconciliation sheet, which was reviewed and ordered. ALLERGIES: THE PATIENT IS NOT ALLERGIC TO ANY MEDICATION. APPARENTLY, HE IS ALLERGIC TO ALMOND, CASHEW, WALNUT, CHESTNUT, AND APPLES. FAMILY HISTORY: Noncontributory. PHYSICAL EXAMINATION: GENERAL: Well-built, well-nourished, overweight, 47-year-old male, in no acute distress. VITAL SIGNS: Temperature 99.5, pulse 100, respirations 17, blood pressure 123/77, saturation 96%. HEENT: Pupils are reacting to light. No JVD. No thyromegaly. No lymphadenopathy. No nystagmus. Normocephalic, atraumatic scalp. HEART: S1 and S2, normal and regular. No significant murmur, gallop, or rub is heard. LUNGS: Shows good bilateral air exchange. No rales or rhonchi. ABDOMEN: The patient has mild upper abdominal tenderness. No sign of acute abdomen. No guarding. No rigidity. No rebound. Bowel sounds are present and normal. EXTREMITIES: No edema. No calf swelling. No tenderness. No acute ischemia. CENTRAL NERVOUS SYSTEM: Essentially unchanged. There is no sign of any acute gross focal motor or sensory neurological deficits. SKIN: Reveals patient with right foot, which has a scabbed out ulcer, which does not look infected at this time. DIAGNOSTIC DATA: Available diagnostic data reviewed. WBC 10.6, hemoglobin 14, hematocrit 41, platelets 170. Sodium 134, potassium 3.5, chloride 98, bicarb 27, BUN 10, creatinine 0.6. SMA-12 is unremarkable. Accu-Cheks are elevated. Lipase level is 18,619. Urinalysis is negative. CAT scan of abdomen is consistent with acute pancreatitis. ADMITTING IMPRESSION: Acute pancreatitis, type 2 diabetes with hyperglycemia, hypertension, schizophrenia, psychiatric disorder, and foot ulcer. PLAN: As ordered. Burke Nguyen MD
[2017-12-04] MEDS ORDERED: Risperidone M TAB 2 MG PO STA (18:23)
[2017-12-05] MEDS: Lactated Ringer's 1,000 ML IV SCH ×4 (00:26→17:21)
[2017-12-05 06:23] LABS: HEMOGLOBIN 11.8 g/dL (12.0-18.0); MEAN CELL VOLUME 101.1 fl (80.0-94.0); MEAN CORPUSCULAR HEMOGLOBIN 34.3 pg (27.0-31.0); MEAN CORPUSCULAR HGB CONC 33.9 g/dL (33.0-37.0); RBC 3.45 Mil/uL (4.40-5.90); RED CELL DISTRIBUTION WIDTH 13.3 % (11.5-14.5); WHITE BLOOD COUNT 8.8 K/uL (4.8-10.8)
[2017-12-05 06:29] LABS: AMYLASE 445 U/L (30-110); BLOOD UREA NITROGEN 8 mg/dl (9-20); CALCIUM 7.3 mg/dL (8.4-10.2); GFR AFRICAN-AMERICAN > 60; GFR NON-AFRICAN AMERICAN > 60; HDL CHOLESTEROL 23 MG/DL (30-70); LIPASE 1739 U/L (23-300)
[2017-12-05 06:38] LABS: LDL CHOLESTEROL 47 mg/dL (0-129)
--- NOTE | 2017-12-05 06:46 | CP.PCM.PN ---
Subjective - Date & Time of Evaluation Date of Evaluation: 12/05/17 Time of Evaluation: 06:45 - Subjective Subjective: 47 y/o male seen at bedside this morning with attending Dr. Bennett. Pt denies any acute events overnight. Denies any drainage or pain to the right foot. Admits to wearing surgical shoe at all times weight bearing, and even in bed in case he needs to get up quickly to use the bathroom. States he did not follow up after his last surgery because it was too busy at [facility]. Denies F/C/N /V/CP/SOB Objective - Vital Signs/Intake and Output Vital Signs (last 24 hours): Temp Pulse Resp BP Pulse Ox 99.6 F 104 H 18 112/82 97 12/05/17 00:21 12/05/17 00:21 12/05/17 00:21 12/05/17 00:21 12/05/17 00:21 - Medications Medications: Current Medications Enoxaparin Sodium (Lovenox) 30 mg SC DAILY [facility] PRN Reason: Protocol Last Admin: 12/04/17 09:38 Dose: 30 mg Lactated Ringer's (Lactated Ringer's) 1,000 mls @ 250 mls/hr IV .Q4H [facility] Last Admin: 12/05/17 00:26 Dose: 250 mls/hr Morphine Sulfate (Morphine) 2 mg IVP Q4 PRN PRN Reason: Pain, severe (8-10) Last Admin: 12/05/17 00:22 Dose: 2 mg Morphine Sulfate (Morphine) 1 mg IVP Q4 PRN PRN Reason: Pain, moderate (4-7) Nicotine (Nicoderm Cq) 1 patch TD DAILY [facility] Last Admin: 12/04/17 09:38 Dose: 1 patch Pantoprazole Sodium (Protonix Inj) 40 mg IVP DAILY [facility] Last Admin: 12/04/17 09:04 Dose: 40 mg Sertraline HCl (Zoloft) 100 mg PO DAILY [facility] Last Admin: 12/04/17 09:37 Dose: 100 mg - Labs Labs: 12/04/17 01:12 12/05/17 05:50 - Constitutional Appears: Well, Non-toxic, No Acute Distress - Extremities Exam Additional comments: Lower extremity focused exam: Vasc: DP/PT pulses palpable 2/4 B/L. Temp gradient warm to cool from proximal to distal. CFT < 3 sec to all digits. Mild non pitting pedal edema noted to R foot diffusely. Neuro: Protective sensation grossly diminished Derm: Circular ulceration measuring approx 0.8cm in diameter noted to sub met 4 R foot. Hyperkeratotic thickened skin noted to wound borders. Wound bed is fibrotic in nature with overlying biofilm noted. No purulence or drainage expressed, no fluctuance, no probe to bone. Post mechanical debridement, malodor noted. Ortho: No tenderness noted to palpation of ulceration. Patient s/p right foot 2nd met head and prox phalanx resection - surgical site healed with no open ulceration noted. - Neurological Exam Neurological Exam: Alert, Awake, Oriented x3 - Psychiatric Exam Psychiatric exam: Normal Affect, Normal Mood Assessment and Plan - Assessment and Plan (Free Text) Assessment: Assessment: 47 y/o male with right plantar foot diabetic ulceration Plan: Pt seen and evaluated at bedside with attending Dr. Bennett Labs and vitals reviewed- afebrile, WBC 8.8 Wound bed cleansed with sterile saline Right foot x-rays ordered to r/o osteomyelitis Right foot wound dressed with xeroform DSD Podiatry will continue to follow while in house
[2017-12-05] MEDS: Enoxaparin 30 mg Syringe SC SCH (08:53)
[2017-12-05] MEDS ORDERED: Potassium Chloride 20 mEq ER Tab PO ONE (09:10)
[2017-12-05] MEDS: Piperacillin/Tazobact 3.375 GM in Sodium Chloride 0.9% 100 ML IVPB SCH ×2 (13:38→17:03)
--- NOTE | 2017-12-05 15:22 | CP.PCM.CON ---
History of Present Illness - History of Present Illness History of Present Illness: pt with previous diagnosis of alcohol use disorder and psychotic disorder, depression discharged from hospital on , non compliant with medications due to lack of insurance presented to medical floor due to osteomyelitis pt also presenting with depressed mood, poor sleep , low energy and non command auditory hallucinations denied any current suicidal or homicidal ideations, Past Patient History - Infectious Disease Hx of Infectious Diseases: None - Tetanus Immunizations Tetanus Immunization: Unknown - Past Medical History & Family History Past Medical History?: Yes - Past Social History Smoking Status: Heavy Smoker > 10 Cigarettes Daily - CARDIAC Hx Cardiac Disorders: Yes Hx Hypertension: Yes - PULMONARY Hx Respiratory Disorders: Yes Hx Asthma: Yes Hx Tuberculosis: No - NEUROLOGICAL Hx Neurological Disorder: No Hx Seizures: No - HEENT Hx HEENT Problems: No - RENAL Hx Chronic Kidney Disease: No - ENDOCRINE/METABOLIC Hx Endocrine Disorders: Yes (DM) - HEMATOLOGICAL/ONCOLOGICAL Hx Blood Disorders: No Hx Human Immunodeficiency Virus (HIV): No - INTEGUMENTARY Hx Dermatological Problems: Yes Other/Comment: Facial rash - MUSCULOSKELETAL/RHEUMATOLOGICAL Hx Musculoskeletal Disorders: No Hx Falls: No - GASTROINTESTINAL Hx Gastrointestinal Disorders: No - GENITOURINARY/GYNECOLOGICAL Hx Genitourinary Disorders: Yes Hx Sexually Transmitted Disorders: Yes (erectile Dysfunction) - PSYCHIATRIC Hx Psychophysiologic Disorder: Yes Hx Anxiety: Yes Hx Bipolar Disorder: Yes Hx Depression: Yes Hx Schizophrenia: Yes Hx Substance Use: No - SURGICAL HISTORY Hx Surgeries: Yes Hx Orthopedic Surgery: Yes (Right shoulder 1992 rotator cuff and dislocation 1988) Other/Comment: R foot wound debridement - ANESTHESIA Hx Anesthesia: Yes Hx Anesthesia Reactions: No Hx Malignant Hyperthermia: No Has any member of the family had a problem w/ anesthesia?: No Meds Allergies/Adverse Reactions: Allergies Allergy/AdvReac Type Severity Reaction Status Date / Time almond Allergy ITCHING Verified 05/27/17 06:32 cashew nut Allergy ITCHING Verified 05/27/17 06:32 walnut Allergy ITCHING Verified 05/25/17 06:02 water chestnut Allergy ITCHING Verified 05/25/17 06:02 apples Allergy ITCHING Uncoded 05/25/17 06:02 - Medications Medications: Current Medications Enoxaparin Sodium (Lovenox) 30 mg SC DAILY [facility] PRN Reason: Protocol Last Admin: 12/05/17 08:53 Dose: 30 mg Lactated Ringer's (Lactated Ringer's) 1,000 mls @ 250 mls/hr IV .Q4H [facility] Last Admin: 12/05/17 12:57 Dose: 250 mls/hr Piperacillin Sod/Tazobactam (Sod 3.375 gm/ Sodium Chloride) 100 mls @ 100 mls/ hr IVPB Q8 [facility] PRN Reason: Protocol Last Admin: 12/05/17 13:38 Dose: 100 mls/hr Vancomycin HCl 1 gm/ Sodium (Chloride) 250 mls @ 166.667 mls/hr IVPB Q12@0100, 1300 [facility] PRN Reason: Protocol Morphine Sulfate (Morphine) 2 mg IVP Q4 PRN PRN Reason: Pain, severe (8-10) Last Admin: 12/05/17 00:22 Dose: 2 mg Morphine Sulfate (Morphine) 1 mg IVP Q4 PRN PRN Reason: Pain, moderate (4-7) Nicotine (Nicoderm Cq) 1 patch TD DAILY [facility] Last Admin: 12/05/17 08:53 Dose: 1 patch Pantoprazole Sodium (Protonix Inj) 40 mg IVP DAILY [facility] Last Admin: 12/05/17 08:54 Dose: 40 mg Risperidone (Risperdal Tab) 3 mg PO BID [facility] Last Admin: 12/05/17 12:58 Dose: 3 mg Sertraline HCl (Zoloft) 100 mg PO DAILY [facility] Last Admin: 12/05/17 08:54 Dose: 100 mg Physical Exam - Psychiatric Exam Additional comments: pt cooperative good eye contact, depressed mood and affect, thought form coherent speech normal, reported non command auditory hallucinations, deniedsuicidal or homicidal ideations alert awake ox3 Results - Vital Signs Recent Vital Signs: Last Vital Signs Temp 99.3 F 12/05/17 09:00 Pulse 93 H 12/05/17 09:00 Resp 19 12/05/17 09:00 BP 143/85 12/05/17 09:00 Pulse Ox 95 12/05/17 09:00 - Labs Result Diagrams: 12/05/17 05:50 12/05/17 05:50 Labs: Laboratory Results - last 24 hr 12/04/17 12/04/17 12/05/17 16:08 21:32 05:25 WBC RBC Hgb Hct MCV MCH MCHC RDW Plt Count Sodium Potassium Chloride Carbon Dioxide Anion Gap BUN Creatinine Est GFR ( Amer) Est GFR (Non-Af Amer) POC Glucose (mg/dL) 149 H 122 H 106 Random Glucose Calcium Triglycerides Cholesterol LDL Cholesterol Direct HDL Cholesterol Amylase Lipase 12/05/17 12/05/17 12/05/17 05:50 05:50 10:45 WBC 8.8 RBC 3.45 L Hgb 11.8 L D Hct 34.9 L MCV 101.1 H MCH 34.3 H MCHC 33.9 RDW 13.3 Plt Count 135 Sodium 136 Potassium 3.4 L Chloride 100 Carbon Dioxide 28 Anion Gap 11 BUN 8 L Creatinine 0.6 L Est GFR ( Amer) > 60 Est GFR (Non-Af Amer) > 60 POC Glucose (mg/dL) 240 H Random Glucose 105 Calcium 7.3 L Triglycerides 62 D Cholesterol 80 LDL Cholesterol Direct 47 HDL Cholesterol 23 L Amylase 445 H Lipase 1739 H Assessment & Plan - Assessment and Plan (Free Text) Assessment: schizoaffective disorder depressed Plan: continue with risperidone and zoloft pt would benifit if social work nurse links him to outpatient psychiatric clinic services - Date & Time Date: 12/05/17 Time: 15:22
--- NOTE | 2017-12-05 17:19 | RAD ---
PROCEDURE: Right Foot Radiographs. HISTORY: right diabetic foot ulcer COMPARISON: None. FINDINGS: BONES: Chronic erosive changes seen at the distal 1st metatarsal bone with interval lucency questioned at the proximal segment of the proximal phalanx right great toe. 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 Soft tissue edema is suggested locally but diminished in the interval at the medial forefoot. No definite emphysematous soft tissue change are appreciated. There is difficult to evaluate for potential osteomyelitis, particularly the great toe and follow-up MRI is advised for additional characterization. JOINTS: NormalDegenerative changes seen mildly in the remaining forefoot midfoot and hindfoot joints not affected by prior surgery and arthropathy noted above. Subluxation of the proximal phalanx right great toe relative to the 1st metatarsal is again seen medially. SOFT TISSUES: As above OTHER FINDINGS: None. IMPRESSION: Diabetic arthropathy of the 1st metatarsophalangeal joint is suggested with potential for osteomyelitis not excluded the proximal phalanx right great toe. Stable postop changes are seen at the bones surrounding the 2nd metatarsal phalangeal joint and also the distal 3rd metatarsal bone. Soft tissue edema at the forefoot is diminishing. MRI is advised for additional characterization of the great toe in particular but also remainder the forefoot osseous components.
--- NOTE | 2017-12-05 17:25 | CP.PCM.PN ---
Subjective - Subjective Subjective: No abdominal pain or CP, had some foot pain Objective - Vital Signs/Intake and Output Vital Signs (last 24 hours): Temp Pulse Resp BP Pulse Ox 98.5 F 100 H 19 109/73 95 12/05/17 17:00 12/05/17 17:00 12/05/17 17:00 12/05/17 17:00 12/05/17 17:00 - Medications Medications: Current Medications Enoxaparin Sodium (Lovenox) 30 mg SC DAILY [facility] PRN Reason: Protocol Last Admin: 12/05/17 08:53 Dose: 30 mg Lactated Ringer's (Lactated Ringer's) 1,000 mls @ 250 mls/hr IV .Q4H [facility] Last Admin: 12/05/17 17:21 Dose: Not Given Piperacillin Sod/Tazobactam (Sod 3.375 gm/ Sodium Chloride) 100 mls @ 100 mls/ hr IVPB Q8 [facility] PRN Reason: Protocol Last Admin: 12/05/17 17:03 Dose: 100 mls/hr Vancomycin HCl 1 gm/ Sodium (Chloride) 250 mls @ 166.667 mls/hr IVPB Q12@0100, 1300 [facility] PRN Reason: Protocol Last Admin: 12/05/17 17:02 Dose: 166.667 mls/hr Morphine Sulfate (Morphine) 2 mg IVP Q4 PRN PRN Reason: Pain, severe (8-10) Last Admin: 12/05/17 00:22 Dose: 2 mg Morphine Sulfate (Morphine) 1 mg IVP Q4 PRN PRN Reason: Pain, moderate (4-7) Nicotine (Nicoderm Cq) 1 patch TD DAILY [facility] Last Admin: 12/05/17 08:53 Dose: 1 patch Pantoprazole Sodium (Protonix Inj) 40 mg IVP DAILY [facility] Last Admin: 12/05/17 08:54 Dose: 40 mg Risperidone (Risperdal Tab) 3 mg PO BID [facility] Last Admin: 12/05/17 17:02 Dose: 3 mg Sertraline HCl (Zoloft) 100 mg PO DAILY [facility] Last Admin: 12/05/17 08:54 Dose: 100 mg - Labs Labs: 12/05/17 05:50 12/05/17 05:50 - Constitutional Appears: Non-toxic, No Acute Distress - Head Exam Head Exam: ATRAUMATIC - Eye Exam Eye Exam: EOMI - ENT Exam ENT Exam: Mucous Membranes Moist - Neck Exam Neck Exam: Full ROM - Respiratory Exam Respiratory Exam: Clear to Ausculation Bilateral - Cardiovascular Exam Cardiovascular Exam: REGULAR RHYTHM - GI/Abdominal Exam GI & Abdominal Exam: Soft, Normal Bowel Sounds. absent: Distended, Firm, Guarding, Rigid, Tenderness, Diminished Bowel Sounds, Hernia, Hyperactive Bowel Sounds, Hypoactive Bowel Sounds, Mass, Organomegaly, Pulsatile Mass, Rebound - Neurological Exam Neurological Exam: Alert, Awake, Oriented x3 - Psychiatric Exam Psychiatric exam: Normal Affect, Normal Mood - Skin Additional comments: R foot plantar diabetic ulcer Assessment and Plan - Assessment and Plan (Free Text) Assessment: 1, Panceatitis -Lipase improved, continue IVF, pain management 2,T2DM -follow up A1C. BS seems controlled 3, alcoholism -monitor for W/D 4, Schizophrenia -chronic and stable, psych f/u 5, Diabetic foot ulcer -On IV abx for positive wound culture, X-ray suggested osteo, will obtain MRI, vascular consult appreciated -continue current management, DVT PPX -above d/w Dr Nguyen
[2017-12-05] MEDS: Acetaminophen-Codeine 300/30 mg Tab PO PRN (21:48)
[2017-12-05] MEDS ORDERED: HYDROmorphone 0.5 mg/0.5 ml ISec IVP STA (23:39)
[2017-12-06] MEDS: Piperacillin/Tazobact 3.375 GM in Sodium Chloride 0.9% 100 ML IVPB SCH ×2 (00:01→08:33)
[2017-12-06] MEDS: Lactated Ringer's 1,000 ML IV SCH ×4 (00:01→21:30)
[2017-12-06] MEDS: Acetaminophen-Codeine 300/30 mg Tab PO PRN ×4 (04:22→22:17)
[2017-12-06 06:14] LABS: HEMOGLOBIN 10.6 g/dL (12.0-18.0); MEAN CELL VOLUME 101.9 fl (80.0-94.0); MEAN CORPUSCULAR HEMOGLOBIN 33.9 pg (27.0-31.0); MEAN CORPUSCULAR HGB CONC 33.2 g/dL (33.0-37.0); RBC 3.12 Mil/uL (4.40-5.90); RED CELL DISTRIBUTION WIDTH 13.5 % (11.5-14.5); WHITE BLOOD COUNT 7.3 K/uL (4.8-10.8)
[2017-12-06 06:51] LABS: ALB/GLOB RATIO 0.8 (1.0-2.1); ALBUMIN 2.6 g/dL (3.5-5.0); ALT/SGPT 32 U/L (21-72); AST/SGOT 26 U/L (17-59); BLOOD UREA NITROGEN 5 mg/dl (9-20); CALCIUM 7.2 mg/dL (8.4-10.2); GFR AFRICAN-AMERICAN > 60; GFR NON-AFRICAN AMERICAN > 60; LIPASE 570 U/L (23-300)
[2017-12-06] MEDS: Enoxaparin 30 mg Syringe SC SCH (08:33)
[2017-12-06] MEDS ORDERED: Potassium Chloride 20 mEq ER Tab PO ONE (09:05)
--- NOTE | 2017-12-06 11:05 | MRI ---
MRI right foot History: Diabetes. Evaluate for osteomyelitis. Comparison: 12/05/2017 Technique: Multi-echo multiplanar sequences were performed through the right foot without the use of intravenous contrast. Findings: Again identified is lateral subluxation of the 1st proximal phalanx in relationship to the 1st metatarsal head with prominent productive change seen at the base of the 1st proximal phalanx and adjacent 1st metatarsal head with proliferative bone formation seen most medially at the 1st metatarsal head. Bony fragmentation at the medial aspect of the 1st metatarsal head. At this level, there is signal abnormality seen at head of the 1st metatarsal bone as well as the adjacent 1st proximal phalanx with some fluid at this level. This is nonspecific and may represent the sequelae of acute on chronic infectious changes versus sequelae of neuropathic change versus acute on chronic inflammatory changes versus additional etiology. Clinical correlation. Suggestion of postsurgical changes seen at the 2nd and 3rd metatarsal heads. In addition, there is bony proliferative change at the base of the 2nd proximal phalanx and 2nd remnant metatarsal head with adjacent bony debris. At this level, there is some patchy decreased T1 signal with some faint increased STIR signal. This may represent the sequelae of postsurgical change versus developing osteonecrosis versus acute on chronic infectious and or inflammatory changes versus additional etiology. Clinical correlation. Blooming artifact from surgical debris also noted at level of the joint space. Milder signal abnormality noted at the remnant head of the 3rd metatarsal bone with decreased T1 signal and minimal patchy increased STIR signal which may represent the sequelae of postsurgical changes. Additional considerations may include neuropathic change versus mild and or early acute infectious and or inflammatory changes. Clinical correlation. Probable failure of fat suppression at the level of the 5th proximal phalanx. Clinical correlation. Impression: 1. Again identified is lateral subluxation of the 1st proximal phalanx in relationship to the 1st metatarsal head with prominent productive change seen at the base of the 1st proximal phalanx and adjacent 1st metatarsal head with proliferative bone formation seen most medially at the 1st metatarsal head. Bony fragmentation at the medial aspect of the 1st metatarsal head. At this level, there is signal abnormality seen at head of the 1st metatarsal bone as well as the adjacent 1st proximal phalanx with some fluid at this level. This is nonspecific and may represent the sequelae of acute on chronic infectious changes versus sequelae of neuropathic change versus acute on chronic inflammatory changes versus additional etiology. Clinical correlation. 2. Suggestion of postsurgical changes seen at the 2nd and 3rd metatarsal heads. In addition, there is bony proliferative change at the base of the 2nd proximal phalanx and 2nd remnant metatarsal head with adjacent bony debris. At this level, there is some patchy decreased T1 signal with some faint increased STIR signal. This may represent the sequelae of postsurgical change versus developing osteonecrosis versus acute on chronic infectious and or inflammatory changes versus additional etiology. Clinical correlation. Blooming artifact from surgical debris also noted at level of the joint space. 3. Milder signal abnormality noted at the remnant head of the 3rd metatarsal bone with decreased T1 signal and minimal patchy increased STIR signal which may represent the sequelae of postsurgical changes. Additional considerations may include neuropathic change versus mild and or early acute infectious and or inflammatory changes. Clinical correlation. 4. Probable failure of fat suppression at the level of the 5th proximal phalanx. Clinical correlation.
[2017-12-06] MEDS: Potassium Chloride 20 mEq ER Tab PO SCH (16:46)
[2017-12-06] MEDS: Meropenem 1 GM in Sodium Chloride 0.9% 100 ML IVPB SCH (18:28)
--- NOTE | 2017-12-06 20:46 | CP.PCM.PN ---
Subjective - Date & Time of Evaluation Date of Evaluation: 12/06/17 Time of Evaluation: 07:55 - Subjective Subjective: Patient seen and examined at bedside with attending-Dr. Nguyen. Awake, alert, cooperative with exam. Denies abdominal pain, chest pain, nausea or vomiting. Is tolerating PO fluids. Objective - Vital Signs/Intake and Output Vital Signs (last 24 hours): Temp Pulse Resp BP Pulse Ox 98.6 F 74 20 139/90 97 12/06/17 15:58 12/06/17 15:58 12/06/17 15:58 12/06/17 15:58 12/06/17 15:58 - Medications Medications: Current Medications Acetaminophen/Codeine Phosphate (Tylenol/Codeine 300 Mg/30 Mg) 1 tab PO Q6 PRN PRN Reason: Pain, moderate (4-7) Last Admin: 12/06/17 16:48 Dose: 1 tab Enoxaparin Sodium (Lovenox) 30 mg SC DAILY [facility] PRN Reason: Protocol Last Admin: 12/06/17 08:33 Dose: 30 mg Lactated Ringer's (Lactated Ringer's) 1,000 mls @ 250 mls/hr IV .Q4H [facility] Last Admin: 12/06/17 15:00 Dose: 250 mls/hr Vancomycin HCl 1 gm/ Sodium (Chloride) 250 mls @ 166.667 mls/hr IVPB Q12@0100, 1300 [facility] PRN Reason: Protocol Last Admin: 12/06/17 15:00 Dose: 166.667 mls/hr Meropenem 1 gm/ Sodium (Chloride) 100 mls @ 100 mls/hr IVPB Q12H [facility] PRN Reason: Protocol Last Admin: 12/06/17 18:28 Dose: 100 mls/hr Nicotine (Nicoderm Cq) 1 patch TD DAILY [facility] Last Admin: 12/06/17 08:34 Dose: 1 patch Pantoprazole Sodium (Protonix Inj) 40 mg IVP DAILY [facility] Last Admin: 12/06/17 08:34 Dose: 40 mg Potassium Chloride (K-Dur 20 Meq Er Tab) 20 meq PO DAILY [facility] Last Admin: 12/06/17 16:46 Dose: 20 meq Risperidone (Risperdal Tab) 3 mg PO BID [facility] Last Admin: 12/06/17 16:46 Dose: 3 mg Sertraline HCl (Zoloft) 100 mg PO DAILY [facility] Last Admin: 12/06/17 08:34 Dose: 100 mg - Labs Labs: 12/06/17 05:44 12/06/17 06:38 - Constitutional Appears: Non-toxic - Head Exam Head Exam: ATRAUMATIC, NORMOCEPHALIC - Eye Exam Eye Exam: EOMI - ENT Exam ENT Exam: Mucous Membranes Moist - Neck Exam Neck Exam: Full ROM - Respiratory Exam Respiratory Exam: Clear to Ausculation Bilateral, NORMAL BREATHING PATTERN - Cardiovascular Exam Cardiovascular Exam: REGULAR RHYTHM, +S1, +S2 - GI/Abdominal Exam GI & Abdominal Exam: Soft, Normal Bowel Sounds. absent: Tenderness - Extremities Exam Extremities Exam: Full ROM. absent: Pedal Edema Additional comments: per podiatry: Circular ulceration measuring approx 0.8cm in diameter noted to sub met 4 R foot, hyperkeratotic; s/p right foot 2nd met head and proximal phalanx resection-surgical site healed, no discharge - Neurological Exam Neurological Exam: Alert, Awake, CN II-XII Intact - Psychiatric Exam Psychiatric exam: Depressed, Flat Affect - Skin Skin Exam: Dry, Warm Assessment and Plan - Assessment and Plan (Free Text) Assessment: 1. Pancreatitis -acute, improving -lipase trending down, -advance to regular diet -continue current management 2. Diabetes Mellitus Type 2 -chronic, uncontrolled -HbA1c 8.9 -will consider starting insulin after pancreatitis fully resolves -continue present management 3. Bipolar/Schizophrenia/Depression -chronic -Psychiatry consult appreciated 4. Diabetic foot ulcer -continue present management (IV antibiotics, daily wound change); monitor serum vancomycin levels -wound culture positive for Proteus Mirabilis -Podiatry consult appreciated -Infectious Disease consult appreciated: antibiotics adjusted -f/u Right foot MRI 5. DVT prophylaxis -Lovenox 30mg SC QD
--- NOTE | 2017-12-06 21:09 | CON ---
DATE: INFECTIOUS DISEASE CONSULTATION LOCATION: He is presently in room 663, bed 2. HISTORY OF PRESENT ILLNESS: The patient is being seen for probable osteomyelitis of the foot, but initially he was complaining about abdominal pain for about 3 days and as it became worse, he was brought to ER and there via CT scan and labs, he was found to have acute pancreatitis and was admitted for further management. PAST MEDICAL HISTORY: The patient has past medical history of anxiety, depression, type 2 diabetes, hypertension, schizophrenia and also erectile dysfunction and foot cellulitis and questionable osteomyelitis. The patient states he drinks at least every other day and 6 beers per day. PHYSICAL EXAMINATION: GENERAL: He is alert and cooperative, oriented to time and place and he is definitely overweight. HEENT: Within normal limits. NECK: Supple. LUNGS: Essentially clear. ABDOMEN: Soft, but there are positive bowel sounds and there is left upper abdominal tenderness. No guarding or rigidity. EXTREMITIES: As noted, the patient's right foot examined with the resident and noted to have palpable pulses, but diminished. Has an ulceration on 1st/2nd the metatarsal, the hyperkeratotic skin had been debrided by the podiatry resident and at that time there was some drainage noted that was malodorous and it was sent for culture and which grew Proteus and Staph epidermidis. Surgical site was healed, but on review of the MRI, this is may be an osteomyelitis. LABORATORY DATA: As noted, there is Proteus and coag-negative Staph growing from the culture taken by Podiatry. Proteus is sensitive to all and presently is on Zosyn, but we will discontinue as the MICs for meropenem are significantly better. There are similar MICs for Cipro, but actual bone penetration for the meropenem would be better and I have switched him to meropenem 1 g q. 12 and I have put him on just the dose as he is a diabetic and there is probably some level of renal dysfunction. WBC is 10.6, it was 7.3 while receiving antibiotics. Hemoglobin dropped down to 10.6. Platelet count is 151 and has 86% polys. Chemistry: The creatinine is 0.6, GFR is greater than 60. Of note, lipase is 570. ASSESSMENT: At the present time, I feel as previously noted we will treat with vancomycin and meropenem. Vancomycin levels should be monitored carefully. Also, this patient has pancreatitis and diabetes and hypertension. I feel that possibly the adrenal and the possible liver areas noted on the CAT scan should be followed carefully. Kye Robert MD [id number]
[2017-12-07] MEDS: Lactated Ringer's 1,000 ML IV SCH ×9 (00:32→23:45)
[2017-12-07] MEDS: Meropenem 1 GM in Sodium Chloride 0.9% 100 ML IVPB SCH ×2 (04:47→16:30)
--- NOTE | 2017-12-07 07:18 | CP.PCM.PN ---
Subjective - Date & Time of Evaluation Date of Evaluation: 12/07/17 Time of Evaluation: 07:05 - Subjective Subjective: Patient seen and examined at bedside with attending-Dr. Nguyen. Awake, alert, tolerating PO diet, has normal urine and stool output. Denies fevers, chills or abdominal pain. Objective - Vital Signs/Intake and Output Vital Signs (last 24 hours): Temp Pulse Resp BP Pulse Ox 98.6 F 99 H 19 107/69 95 12/06/17 23:41 12/06/17 23:41 12/06/17 23:41 12/06/17 23:41 12/06/17 23:41 - Medications Medications: Current Medications Acetaminophen/Codeine Phosphate (Tylenol/Codeine 300 Mg/30 Mg) 1 tab PO Q6 PRN PRN Reason: Pain, moderate (4-7) Last Admin: 12/06/17 22:17 Dose: 1 tab Enoxaparin Sodium (Lovenox) 30 mg SC DAILY [facility] PRN Reason: Protocol Last Admin: 12/06/17 08:33 Dose: 30 mg Lactated Ringer's (Lactated Ringer's) 1,000 mls @ 250 mls/hr IV .Q4H [facility] Last Admin: 12/07/17 04:46 Dose: 250 mls/hr Vancomycin HCl 1 gm/ Sodium (Chloride) 250 mls @ 166.667 mls/hr IVPB Q12@0100, 1300 [facility] PRN Reason: Protocol Last Admin: 12/07/17 00:25 Dose: 166.667 mls/hr Meropenem 1 gm/ Sodium (Chloride) 100 mls @ 100 mls/hr IVPB Q12H [facility] PRN Reason: Protocol Last Admin: 12/07/17 04:47 Dose: 100 mls/hr Nicotine (Nicoderm Cq) 1 patch TD DAILY [facility] Last Admin: 12/06/17 08:34 Dose: 1 patch Pantoprazole Sodium (Protonix Inj) 40 mg IVP DAILY [facility] Last Admin: 12/06/17 08:34 Dose: 40 mg Potassium Chloride (K-Dur 20 Meq Er Tab) 20 meq PO DAILY [facility] Last Admin: 12/06/17 16:46 Dose: 20 meq Risperidone (Risperdal Tab) 3 mg PO BID [facility] Last Admin: 12/06/17 16:46 Dose: 3 mg Sertraline HCl (Zoloft) 100 mg PO DAILY [facility] Last Admin: 12/06/17 08:34 Dose: 100 mg - Labs Labs: 12/06/17 05:44 12/06/17 06:38 - Constitutional Appears: Non-toxic - Head Exam Head Exam: ATRAUMATIC - Eye Exam Eye Exam: EOMI - ENT Exam ENT Exam: Mucous Membranes Moist - Neck Exam Neck Exam: Full ROM - Respiratory Exam Respiratory Exam: NORMAL BREATHING PATTERN - Cardiovascular Exam Cardiovascular Exam: REGULAR RHYTHM, +S1, +S2 - GI/Abdominal Exam GI & Abdominal Exam: Soft, Normal Bowel Sounds. absent: Tenderness - Extremities Exam Extremities Exam: Full ROM. absent: Pedal Edema - Neurological Exam Neurological Exam: Alert, Awake, CN II-XII Intact, Oriented x3 - Psychiatric Exam Psychiatric exam: Normal Affect, Normal Mood - Skin Skin Exam: Dry, Warm Assessment and Plan - Assessment and Plan (Free Text) Assessment: 1. Pancreatitis -acute, improving -lipase trending down, -advance to regular diet -GI consult appreciated: recommend consult surgery as gallstone induced pancreatitis is still a possibilty, if no BM may give miralax -continue current management 2. Diabetes Mellitus Type 2 -chronic, uncontrolled -HbA1c 8.9 -will consider starting insulin after pancreatitis fully resolves -continue present management 3. Bipolar/Schizophrenia/Depression -chronic -Psychiatry consult appreciated 4. Diabetic foot ulcer -continue present management (IV antibiotics, daily wound change); monitor serum vancomycin levels -wound culture positive for Proteus Mirabilis -Podiatry consult appreciated: osteomyelitis not clinically suspected at this time -Infectious Disease consult appreciated: antibiotics adjusted -Right foot MRI: diabetic arthropic changes to 1st MPJ, 2nd and 3rd metatarsal heads 5. DVT prophylaxis -Lovenox 30mg SC QD
[2017-12-07] MEDS: Acetaminophen-Codeine 300/30 mg Tab PO PRN ×3 (07:48→20:52)
[2017-12-07] MEDS: Potassium Chloride 20 mEq ER Tab PO SCH (08:29)
[2017-12-07] MEDS: Enoxaparin 30 mg Syringe SC SCH (08:29)
[2017-12-07 10:41] LABS: ALB/GLOB RATIO 0.8 (1.0-2.1); ALT/SGPT 33 U/L (21-72); AST/SGOT 30 U/L (17-59); BLOOD UREA NITROGEN 3 mg/dl (9-20); GFR AFRICAN-AMERICAN > 60; GFR NON-AFRICAN AMERICAN > 60
[2017-12-07 10:48] LABS: HEMOGLOBIN 11.8 g/dL (12.0-18.0); MEAN CELL VOLUME 101.1 fl (80.0-94.0); MEAN CORPUSCULAR HEMOGLOBIN 34.3 pg (27.0-31.0); RBC 3.44 Mil/uL (4.40-5.90); RED CELL DISTRIBUTION WIDTH 13.5 % (11.5-14.5); WHITE BLOOD COUNT 6.5 K/uL (4.8-10.8)
--- NOTE | 2017-12-07 10:48 | CP.PCM.CON ---
<Marshall Peck - Last Filed: 12/07/17 11:02> History of Present Illness - History of Present Illness History of Present Illness: PGY4 Initial GI Consult Panda Read is a 47M w/a hx of DM 2 Insulin Dependent, Anxiety/Depression, Schizophrenia who presents with abd pain. Pt states that the onset was 4-5 days ago. He notes that it was located in the epigastrium and radiated to his back. He states that it gradually worsened. He denies any aggravating or alleviating factors. He has been nauseous since onset. He had diarrhea starting a day before onset. He noted liquidy stool with blood and mucus, but it has since resolved. He denies any fever, chills, or diaphoresis. He states that he drinks daily, at least 3-4 beers a day with 2-3 shots of vodka. His last drink was the day of onset. He denies any RUQ pain or previous episodes of biliary colic. Pt states that his BM are otherwise normal, daily without any BRBPR or melena. Denies any recent weight-loss PMHx:DM 2 Insulin Dependent, Anxiety/Depression, Schizophrenia, Suicide Attempt October 2016 by overdosing on Insulin, RUL Lung Mass, Acne, Left Ankle Fracture , Right Shoulder Dislocation PSHx: Left Ankle Surgery 1981, Right Shoulder Surgery 1991 ALL: Denies Social Hx: Unemployed, Living with Mom, (+) Tobacco: 1 pack every 2 days for past 2.5 years, (+) Alcohol: 3 beers on Saturdays and Sundays, NO illicit drugs Family Hx: Mom ("Bone CA"), Dad ( of [place] at 62 y/o), ROS: 12-point ROS conducted, neg other than above Past Patient History - Infectious Disease Hx of Infectious Diseases: None - Tetanus Immunizations Tetanus Immunization: Unknown - Past Medical History & Family History Past Medical History?: Yes - Past Social History Smoking Status: Heavy Smoker > 10 Cigarettes Daily - CARDIAC Hx Cardiac Disorders: Yes Hx Hypertension: Yes - PULMONARY Hx Respiratory Disorders: Yes Hx Asthma: Yes Hx Tuberculosis: No - NEUROLOGICAL Hx Neurological Disorder: No Hx Seizures: No - HEENT Hx HEENT Problems: No - RENAL Hx Chronic Kidney Disease: No - ENDOCRINE/METABOLIC Hx Endocrine Disorders: Yes (DM) - HEMATOLOGICAL/ONCOLOGICAL Hx Blood Disorders: No Hx Human Immunodeficiency Virus (HIV): No - INTEGUMENTARY Hx Dermatological Problems: Yes Other/Comment: Facial rash - MUSCULOSKELETAL/RHEUMATOLOGICAL Hx Musculoskeletal Disorders: No Hx Falls: No - GASTROINTESTINAL Hx Gastrointestinal Disorders: No - GENITOURINARY/GYNECOLOGICAL Hx Genitourinary Disorders: Yes Hx Sexually Transmitted Disorders: Yes (erectile Dysfunction) - PSYCHIATRIC Hx Psychophysiologic Disorder: Yes Hx Anxiety: Yes Hx Bipolar Disorder: Yes Hx Depression: Yes Hx Schizophrenia: Yes Hx Substance Use: No - SURGICAL HISTORY Hx Surgeries: Yes Hx Orthopedic Surgery: Yes (Right shoulder 1992 rotator cuff and dislocation 1988) Other/Comment: R foot wound debridement - ANESTHESIA Hx Anesthesia: Yes Hx Anesthesia Reactions: No Hx Malignant Hyperthermia: No Has any member of the family had a problem w/ anesthesia?: No Meds Allergies/Adverse Reactions: Allergies Allergy/AdvReac Type Severity Reaction Status Date / Time almond Allergy ITCHING Verified 05/27/17 06:32 cashew nut Allergy ITCHING Verified 05/27/17 06:32 walnut Allergy ITCHING Verified 05/25/17 06:02 water chestnut Allergy ITCHING Verified 05/25/17 06:02 apples Allergy ITCHING Uncoded 05/25/17 06:02 - Medications Medications: Current Medications Acetaminophen/Codeine Phosphate (Tylenol/Codeine 300 Mg/30 Mg) 1 tab PO Q6 PRN PRN Reason: Pain, moderate (4-7) Last Admin: 12/07/17 07:48 Dose: 1 tab Enoxaparin Sodium (Lovenox) 30 mg SC DAILY [facility] PRN Reason: Protocol Last Admin: 12/07/17 08:29 Dose: 30 mg Lactated Ringer's (Lactated Ringer's) 1,000 mls @ 250 mls/hr IV .Q4H [facility] Last Admin: 12/07/17 08:25 Dose: Not Given Vancomycin HCl 1 gm/ Sodium (Chloride) 250 mls @ 166.667 mls/hr IVPB Q12@0100, 1300 [facility] PRN Reason: Protocol Last Admin: 12/07/17 00:25 Dose: 166.667 mls/hr Meropenem 1 gm/ Sodium (Chloride) 100 mls @ 100 mls/hr IVPB Q12H [facility] PRN Reason: Protocol Last Admin: 12/07/17 04:47 Dose: 100 mls/hr Nicotine (Nicoderm Cq) 1 patch TD DAILY [facility] Last Admin: 12/07/17 08:29 Dose: 1 patch Pantoprazole Sodium (Protonix Inj) 40 mg IVP DAILY [facility] Last Admin: 12/07/17 08:29 Dose: 40 mg Potassium Chloride (K-Dur 20 Meq Er Tab) 20 meq PO DAILY [facility] Last Admin: 12/07/17 08:29 Dose: 20 meq Risperidone (Risperdal Tab) 3 mg PO BID [facility] Last Admin: 12/07/17 08:30 Dose: 3 mg Sertraline HCl (Zoloft) 100 mg PO DAILY [facility] Last Admin: 12/07/17 08:30 Dose: 100 mg Physical Exam - Constitutional Appears: Well, No Acute Distress - Head Exam Head Exam: ATRAUMATIC, NORMOCEPHALIC - Eye Exam Eye Exam: Normal appearance - ENT Exam ENT Exam: Mucous Membranes Moist - Neck Exam Neck exam: Positive for: Normal Inspection - Respiratory Exam Respiratory Exam: Clear to Auscultation Bilateral, NORMAL BREATHING PATTERN. absent: Rales, Rhonchi, Wheezes, Respiratory Distress - Cardiovascular Exam Cardiovascular Exam: REGULAR RHYTHM, +S1, +S2 - GI/Abdominal Exam GI & Abdominal Exam: Normal Bowel Sounds, Soft. absent: Distended, Organomegaly , Rebound, Rigid - Rectal Exam Rectal Exam: NORMAL INSPECTION - Extremities Exam Extremities exam: Negative for: joint swelling, pedal edema - Neurological Exam Neurological exam: Alert, Oriented x3 - Psychiatric Exam Psychiatric exam: Normal Affect, Normal Mood - Skin Skin Exam: Dry, Intact, Normal Color, Warm Results - Vital Signs Recent Vital Signs: Last Vital Signs Temp 98.3 F 12/07/17 08:41 Pulse 82 12/07/17 08:41 Resp 20 12/07/17 08:41 BP 153/93 H 12/07/17 08:41 Pulse Ox 93 L 12/07/17 08:41 - Labs Result Diagrams: 12/07/17 10:15 12/07/17 10:15 Labs: Laboratory Results - last 24 hr 12/06/17 12/06/17 12/06/17 06:20 10:51 15:49 POC Glucose (mg/dL) 132 H 158 H Hemoglobin A1c 8.9 H 12/06/17 12/07/17 21:09 05:29 POC Glucose (mg/dL) 118 H 194 H Hemoglobin A1c Assessment & Plan - Assessment and Plan (Free Text) Assessment: This pt is a 47M w/ hx of DM and HTN who presents to the ED with complaints of abd pain. Etiology is likely from pancreatitis of unknown etiology DDx: alcohol , gallstone, r/o autoimmune; CT abd revealed acute pancreatitis and cholelithiasis with normal CBD Acute Pancreatitis Cholelithiasis Abd pain Alcohol abuse Plan: -advance diet as tolerated -continue fluids -consult surgery; as gallstone induced pancreatitis is still a possibility so pt may benefit from elective lap elba -will send for IgG4, TG normal -advise alcohol avoidence -consulted on alcohol cessation -supportive care -zofran PRN -if no BM, can start miralax -pain management as per primary team D/W Dr. Hanson <Doug Hanson - Last Filed: 12/07/17 12:42> Meds - Medications Medications: Current Medications Acetaminophen/Codeine Phosphate (Tylenol/Codeine 300 Mg/30 Mg) 1 tab PO Q6 PRN PRN Reason: Pain, moderate (4-7) Last Admin: 12/07/17 07:48 Dose: 1 tab Enoxaparin Sodium (Lovenox) 30 mg SC DAILY [facility] PRN Reason: Protocol Last Admin: 12/07/17 08:29 Dose: 30 mg Lactated Ringer's (Lactated Ringer's) 1,000 mls @ 250 mls/hr IV .Q4H [facility] Last Admin: 12/07/17 12:00 Dose: Not Given Vancomycin HCl 1 gm/ Sodium (Chloride) 250 mls @ 166.667 mls/hr IVPB Q12@0100, 1300 [facility] PRN Reason: Protocol Last Admin: 12/07/17 12:00 Dose: 166.667 mls/hr Meropenem 1 gm/ Sodium (Chloride) 100 mls @ 100 mls/hr IVPB Q12H [facility] PRN Reason: Protocol Last Admin: 12/07/17 04:47 Dose: 100 mls/hr Nicotine (Nicoderm Cq) 1 patch TD DAILY [facility] Last Admin: 12/07/17 08:29 Dose: 1 patch Pantoprazole Sodium (Protonix Inj) 40 mg IVP DAILY [facility] Last Admin: 12/07/17 08:29 Dose: 40 mg Potassium Chloride (K-Dur 20 Meq Er Tab) 20 meq PO DAILY [facility] Last Admin: 12/07/17 08:29 Dose: 20 meq Risperidone (Risperdal Tab) 3 mg PO BID [facility] Last Admin: 12/07/17 08:30 Dose: 3 mg Sertraline HCl (Zoloft) 100 mg PO DAILY [facility] Last Admin: 12/07/17 08:30 Dose: 100 mg Results - Vital Signs Recent Vital Signs: Last Vital Signs Temp 98.3 F 12/07/17 08:41 Pulse 82 12/07/17 08:41 Resp 20 12/07/17 08:41 BP 153/93 H 12/07/17 08:41 Pulse Ox 93 L 12/07/17 08:41 - Labs Result Diagrams: 12/07/17 10:15 12/07/17 10:15 Labs: Laboratory Results - last 24 hr 12/06/17 12/06/17 12/07/17 15:49 21:09 05:29 WBC RBC Hgb Hct MCV MCH MCHC RDW Plt Count Sodium Potassium Chloride Carbon Dioxide Anion Gap BUN Creatinine Est GFR ( Amer) Est GFR (Non-Af Amer) POC Glucose (mg/dL) 158 H 118 H 194 H Random Glucose Calcium Total Bilirubin AST ALT Alkaline Phosphatase Total Protein Albumin Globulin Albumin/Globulin Ratio 12/07/17 12/07/17 10:15 10:15 WBC 6.5 RBC 3.44 L Hgb 11.8 L Hct 34.8 L MCV 101.1 H MCH 34.3 H MCHC 34.0 RDW 13.5 Plt Count 199 Sodium 136 Potassium 3.9 Chloride 102 Carbon Dioxide 25 Anion Gap 13 BUN 3 L Creatinine 0.6 L Est GFR ( Amer) > 60 Est GFR (Non-Af Amer) > 60 POC Glucose (mg/dL) Random Glucose 213 H Calcium 8.0 L Total Bilirubin 1.3 AST 30 ALT 33 Alkaline Phosphatase 91 Total Protein 6.6 Albumin 3.0 L Globulin 3.6 Albumin/Globulin Ratio 0.8 L Attending/Attestation - Attestation I have personally seen and examined this patient.: Yes I have fully participated in the care of the patient.: Yes I have reviewed all pertinent clinical information: Yes Notes (Text): 12/07/17 12:39 47 year old male with h/o DM, HTN admitted with abdominal pain, found to have acute pancreatitis. 1. Acute pancreatitis 2. Cholelithiasis 3. Alcohol abuse Plan: -patients first episode of acute pancreatitis -no apparent local or systemic complications, episode is mild/improved -he has received IV hydration with LR and is mostly improved -although etiology appears to be alcohol, he also has a gallstone -would still recommend surgical removal of gallbladder to prevent future episodes of pancreatitis -also advised etoh/smoking cessation to avoid further pancreatic injury -low fat diet as tolerated
--- NOTE | 2017-12-07 12:00 | CP.PCM.PN ---
Subjective - Date & Time of Evaluation Date of Evaluation: 12/07/17 Time of Evaluation: 12:00 - Subjective Subjective: 47 y/o male seen at bedside this morning. Pt denies any acute events overnight. Denies any drainage or pain to the right foot. Admits to wearing surgical shoe at all times weight bearing. Complains of painful toenails that feel as though they are digging into his skin. Denies F/C/N/V/CP/SOB Objective - Vital Signs/Intake and Output Vital Signs (last 24 hours): Temp Pulse Resp BP Pulse Ox 98.3 F 82 20 153/93 H 93 L 12/07/17 08:41 12/07/17 08:41 12/07/17 08:41 12/07/17 08:41 12/07/17 08:41 - Medications Medications: Current Medications Acetaminophen/Codeine Phosphate (Tylenol/Codeine 300 Mg/30 Mg) 1 tab PO Q6 PRN PRN Reason: Pain, moderate (4-7) Last Admin: 12/07/17 07:48 Dose: 1 tab Enoxaparin Sodium (Lovenox) 30 mg SC DAILY [facility] [place] PRN Reason: Protocol Last Admin: 12/07/17 08:29 Dose: 30 mg Lactated Ringer's (Lactated Ringer's) 1,000 mls @ 250 mls/hr IV .Q4H [facility] [place] Last Admin: 12/07/17 12:00 Dose: Not Given Vancomycin HCl 1 gm/ Sodium (Chloride) 250 mls @ 166.667 mls/hr IVPB Q12@0100, 1300 [facility] PRN Reason: Protocol Last Admin: 12/07/17 12:00 Dose: 166.667 mls/hr Meropenem 1 gm/ Sodium (Chloride) 100 mls @ 100 mls/hr IVPB Q12H [facility] PRN Reason: Protocol Last Admin: 12/07/17 04:47 Dose: 100 mls/hr Nicotine (Nicoderm Cq) 1 patch TD DAILY [facility] [place] Last Admin: 12/07/17 08:29 Dose: 1 patch Pantoprazole Sodium (Protonix Inj) 40 mg IVP DAILY [facility] [place] Last Admin: 12/07/17 08:29 Dose: 40 mg Potassium Chloride (K-Dur 20 Meq Er Tab) 20 meq PO DAILY [facility] [place] Last Admin: 12/07/17 08:29 Dose: 20 meq Risperidone (Risperdal Tab) 3 mg PO BID [facility] [place] Last Admin: 12/07/17 08:30 Dose: 3 mg Sertraline HCl (Zoloft) 100 mg PO DAILY [facility] [place] Last Admin: 12/07/17 08:30 Dose: 100 mg - Labs Labs: 12/07/17 10:15 12/07/17 10:15 - Constitutional Appears: Well, Non-toxic, No Acute Distress - Extremities Exam Additional comments: Lower extremity focused exam: Vasc: DP/PT pulses palpable 2/4 B/L. Temp gradient warm to cool from proximal to distal. CFT < 3 sec to all digits. Mild non pitting pedal edema noted to R foot diffusely. Neuro: Protective sensation grossly diminished Derm: Circular ulceration measuring approx 0.7cm in diameter noted to sub met 4 R foot. Hyperkeratotic thickened skin noted to wound borders. Wound bed is 30% granular and 70% fibrotic in nature with overlying biofilm noted. No purulence or drainage expressed, no fluctuance, no probe to bone. Post mechanical debridement, malodor noted. Dystrophic elongated thickened toenails x 10. Ortho: No tenderness noted to palpation of ulceration. Patient s/p right foot 2nd met head and prox phalanx resection - surgical site healed with no open ulceration noted. - Neurological Exam Neurological Exam: Alert, Awake, Oriented x3 - Psychiatric Exam Psychiatric exam: Normal Affect, Normal Mood Assessment and Plan - Assessment and Plan (Free Text) Assessment: 47 y/o male with right plantar foot diabetic ulceration Plan: Pt seen and evaluated at bedside with attending Dr. Bennett Labs and vitals reviewed- afebrile, WBC 6.5 Wound bed cleansed with sterile saline Aseptic debridement of toenails x10 with sterile nippers Pt tolerated procedure without incident Right foot wound dressed with saline wet to dry gauze + DSD ID on board, continue IV Vancomycin and Zosyn - appreciate recs RLE MRI shows diabetic arthropathic changes to 1st MPJ, 2nd and 3rd met heads; likely chronic in nature secondary to DM with Charcot arthropathy changes - osteomyelitis not clinically suspected at this time No surgical intervention planned at this time Podiatry will continue to follow while in house
[2017-12-07] MEDS ORDERED: Insulin Regular 100 units/ml SC SCH (16:30)
--- NOTE | 2017-12-07 16:38 | CP.PCM.CON ---
<Maria L Houston - Last Filed: 12/07/17 16:35> History of Present Illness - History of Present Illness History of Present Illness: General surgery consult for Dr. Sharda Houston, PGY-1 Pt S & E at bedside. 47M w/PMH sig for ETOH abuse consulted for cholelithiasis in setting of alcoholic pancreatitis. Pt reports epigastric abdominal pain that started 4 days prior to evaluation. Pain is cramping, severe, radiates to back, constant since onset. Alleviated by regular pain medication use, no other alleviating factors identified. Aggravated by/incited [place] food. Admits to nausea, emesis x 5 (nbnb), diarrhea x 1, occasional SOB, generalized weakness, peripheral neuropathy. Denies ever having before, AYALA, changes in bowel habits, changes in urinary habits, other complaints. PMH: DM, HTN, hx obesity, anxiety, depression, paranoid schizophrenia, some undetermined lung disease PSH: R shoulder sx All: nuts, apples SH: Admits to ETOH abuse- #22 drinks per wk on average x 5 yrs; admits to tobacco use 1/2 pdd x 27 yrs; denies illicit drugs PMD: Denies Review of Systems - Review of Systems All systems: reviewed and no additional remarkable complaints except - Constitutional Constitutional: absent: Chills, Fever - EENT Eyes: absent: Change in Vision Ears: absent: Dizziness Nose/Mouth/Throat: absent: Sore Throat - Cardiovascular Cardiovascular: absent: Chest Pain - Respiratory Respiratory: absent: Cough - Gastrointestinal Gastrointestinal: Abdominal Pain, Change in Bowel Habits, Cramping, Diarrhea ( once), Nausea, Vomiting. absent: Constipation - Genitourinary Genitourinary: absent: Change in Urinary Stream - Musculoskeletal Musculoskeletal: Numbness, Tingling - Integumentary Integumentary: absent: Rash - Neurological Neurological: absent: Loss of Vision - Psychiatric Psychiatric: Abnormal Sleep Pattern (increased), Anxiety, Panic Attacks Past Patient History - Infectious Disease Hx of Infectious Diseases: None - Tetanus Immunizations Tetanus Immunization: Unknown - Past Medical History & Family History Past Medical History?: Yes - Past Social History Smoking Status: Heavy Smoker > 10 Cigarettes Daily - CARDIAC Hx Cardiac Disorders: Yes Hx Hypertension: Yes - PULMONARY Hx Respiratory Disorders: Yes Hx Asthma: Yes Hx Tuberculosis: No - NEUROLOGICAL Hx Neurological Disorder: No Hx Seizures: No - HEENT Hx HEENT Problems: No - RENAL Hx Chronic Kidney Disease: No - ENDOCRINE/METABOLIC Hx Endocrine Disorders: Yes (DM) - HEMATOLOGICAL/ONCOLOGICAL Hx Blood Disorders: No Hx Human Immunodeficiency Virus (HIV): No - INTEGUMENTARY Hx Dermatological Problems: Yes Other/Comment: Facial rash - MUSCULOSKELETAL/RHEUMATOLOGICAL Hx Musculoskeletal Disorders: No Hx Falls: No - GASTROINTESTINAL Hx Gastrointestinal Disorders: No - GENITOURINARY/GYNECOLOGICAL Hx Genitourinary Disorders: Yes Hx Sexually Transmitted Disorders: Yes (erectile Dysfunction) - PSYCHIATRIC Hx Psychophysiologic Disorder: Yes Hx Anxiety: Yes Hx Bipolar Disorder: Yes Hx Depression: Yes Hx Schizophrenia: Yes Hx Substance Use: No - SURGICAL HISTORY Hx Surgeries: Yes Hx Orthopedic Surgery: Yes (Right shoulder 1991 rotator cuff and dislocation 1988) Other/Comment: R foot wound debridement - ANESTHESIA Hx Anesthesia: Yes Hx Anesthesia Reactions: No Hx Malignant Hyperthermia: No Has any member of the family had a problem w/ anesthesia?: No Meds Allergies/Adverse Reactions: Allergies Allergy/AdvReac Type Severity Reaction Status Date / Time almond Allergy ITCHING Verified 05/27/17 06:32 cashew nut Allergy ITCHING Verified 05/27/17 06:32 walnut Allergy ITCHING Verified 05/25/17 06:02 water chestnut Allergy ITCHING Verified 05/25/17 06:02 apples Allergy ITCHING Uncoded 05/25/17 06:02 - Medications Medications: Current Medications Acetaminophen/Codeine Phosphate (Tylenol/Codeine 300 Mg/30 Mg) 1 tab PO Q6 PRN PRN Reason: Pain, moderate (4-7) Last Admin: 12/07/17 14:32 Dose: 1 tab Enoxaparin Sodium (Lovenox) 30 mg SC DAILY [facility] PRN Reason: Protocol Last Admin: 12/07/17 08:29 Dose: 30 mg Lactated Ringer's (Lactated Ringer's) 1,000 mls @ 250 mls/hr IV .Q4H [facility] Last Admin: 12/07/17 14:24 Dose: 250 mls/hr Vancomycin HCl 1 gm/ Sodium (Chloride) 250 mls @ 166.667 mls/hr IVPB Q12@0100, 1300 [facility] PRN Reason: Protocol Last Admin: 12/07/17 12:00 Dose: 166.667 mls/hr Meropenem 1 gm/ Sodium (Chloride) 100 mls @ 100 mls/hr IVPB Q12H [facility] PRN Reason: Protocol Last Admin: 12/07/17 16:30 Dose: 100 mls/hr Insulin Human Regular (Humulin R) 0 units SC ACHS [facility] PRN Reason: Protocol Metformin HCl (Glucophage) 1,000 mg PO BIDWM [facility] Last Admin: 12/07/17 16:30 Dose: 1,000 mg Nicotine (Nicoderm Cq) 1 patch TD DAILY [facility] Last Admin: 12/07/17 08:29 Dose: 1 patch Pantoprazole Sodium (Protonix Inj) 40 mg IVP DAILY [facility] Last Admin: 12/07/17 08:29 Dose: 40 mg Potassium Chloride (K-Dur 20 Meq Er Tab) 20 meq PO DAILY [facility] Last Admin: 12/07/17 08:29 Dose: 20 meq Risperidone (Risperdal Tab) 3 mg PO BID [facility] Last Admin: 12/07/17 16:31 Dose: 3 mg Sertraline HCl (Zoloft) 100 mg PO DAILY [facility] Last Admin: 12/07/17 08:30 Dose: 100 mg Physical Exam - Constitutional Appears: Non-toxic, No Acute Distress - Head Exam Head Exam: ATRAUMATIC, NORMAL INSPECTION, NORMOCEPHALIC - Eye Exam Eye Exam: EOMI, Normal appearance - ENT Exam ENT Exam: Mucous Membranes Moist, Normal Exam - Neck Exam Neck exam: Positive for: Full Rom, Normal Inspection - Respiratory Exam Respiratory Exam: NORMAL BREATHING PATTERN - Cardiovascular Exam Cardiovascular Exam: REGULAR RHYTHM, +S1, +S2 - GI/Abdominal Exam GI & Abdominal Exam: Guarding (slight, RUQ), Soft, Tenderness (RUQ). absent: Distended, Firm, Hernia, Rebound, Rigid - Extremities Exam Extremities exam: Positive for: normal inspection. Negative for: pedal edema - Back Exam Back exam: NORMAL INSPECTION - Neurological Exam Neurological exam: Alert, CN II-XII Intact, Normal Gait, Oriented x3 - Psychiatric Exam Psychiatric exam: Normal Affect, Normal Mood - Skin Skin Exam: Dry, Intact, Normal Color, Warm Results - Vital Signs Recent Vital Signs: Last Vital Signs Temp 98.3 F 12/07/17 16:07 Pulse 76 12/07/17 16:07 Resp 20 12/07/17 16:07 BP 151/91 H 12/07/17 16:07 Pulse Ox 96 12/07/17 16:07 - Labs Result Diagrams: 12/07/17 10:15 12/07/17 10:15 Labs: Laboratory Results - last 24 hr 12/06/17 12/07/17 12/07/17 21:09 05:29 10:15 WBC 6.5 RBC 3.44 L Hgb 11.8 L Hct 34.8 L MCV 101.1 H MCH 34.3 H MCHC 34.0 RDW 13.5 Plt Count 199 Sodium Potassium Chloride Carbon Dioxide Anion Gap BUN Creatinine Est GFR ( Amer) Est GFR (Non-Af Amer) POC Glucose (mg/dL) 118 H 194 H Random Glucose Calcium Total Bilirubin AST ALT Alkaline Phosphatase Total Protein Albumin Globulin Albumin/Globulin Ratio 12/07/17 12/07/17 10:15 15:34 WBC RBC Hgb Hct MCV MCH MCHC RDW Plt Count Sodium 136 Potassium 3.9 Chloride 102 Carbon Dioxide 25 Anion Gap 13 BUN 3 L Creatinine 0.6 L Est GFR ( Amer) > 60 Est GFR (Non-Af Amer) > 60 POC Glucose (mg/dL) 261 H Random Glucose 213 H Calcium 8.0 L Total Bilirubin 1.3 AST 30 ALT 33 Alkaline Phosphatase 91 Total Protein 6.6 Albumin 3.0 L Globulin 3.6 Albumin/Globulin Ratio 0.8 L Assessment & Plan - Assessment and Plan (Free Text) Assessment: 47M w/PMH sig for ETOH abuse consulted for cholelithasis in setting of alcoholic pancreatitis Plan: Pain control IVF No immediate surgical intervention at this time, pancreatitis likely due to ETOH abuse Most likely for elective cholecystectomy, however pending attending evaluation tomorrow DW attending Rosemarie, PGY-1 - Date & Time Date: 12/07/17 Time: 16:37 <Rip Smith - Last Filed: 12/08/17 09:55> History of Present Illness - History of Present Illness History of Present Illness: Patient was seen and examined at the bedside. Agree with resident's note above. Meds - Medications Medications: Current Medications Acetaminophen/Codeine Phosphate (Tylenol/Codeine 300 Mg/30 Mg) 1 tab PO Q6 PRN PRN Reason: Pain, moderate (4-7) Last Admin: 12/08/17 04:13 Dose: 1 tab Enoxaparin Sodium (Lovenox) 30 mg SC DAILY [facility] PRN Reason: Protocol Last Admin: 12/08/17 09:17 Dose: 30 mg Lactated Ringer's (Lactated Ringer's) 1,000 mls @ 250 mls/hr IV .Q4H [facility] Last Admin: 12/08/17 07:30 Dose: 250 mls/hr Vancomycin HCl 1 gm/ Sodium (Chloride) 250 mls @ 166.667 mls/hr IVPB Q12@0100, 1300 [facility] PRN Reason: Protocol Last Admin: 12/08/17 01:00 Dose: 166.667 mls/hr Meropenem 1 gm/ Sodium (Chloride) 100 mls @ 100 mls/hr IVPB Q12H [facility] PRN Reason: Protocol Last Admin: 12/08/17 04:21 Dose: 100 mls/hr Insulin Human Regular (Humulin R) 0 units SC ACHS [facility] PRN Reason: Protocol Last Admin: 12/08/17 09:20 Dose: 2 units Metformin HCl (Glucophage) 1,000 mg PO BIDWM [facility] Last Admin: 12/08/17 09:17 Dose: 1,000 mg Nicotine (Nicoderm Cq) 1 patch TD DAILY [facility] Last Admin: 12/08/17 09:17 Dose: 1 patch Pantoprazole Sodium (Protonix Inj) 40 mg IVP DAILY [facility] Last Admin: 12/08/17 09:17 Dose: 40 mg Potassium Chloride (K-Dur 20 Meq Er Tab) 20 meq PO DAILY [facility] Last Admin: 12/08/17 09:18 Dose: 20 meq Risperidone (Risperdal Tab) 3 mg PO BID [facility] Last Admin: 12/08/17 09:16 Dose: 3 mg Sertraline HCl (Zoloft) 100 mg PO DAILY [facility] Last Admin: 12/08/17 09:17 Dose: 100 mg Results - Vital Signs Recent Vital Signs: Last Vital Signs Temp 97.6 F 12/08/17 07:56 Pulse 73 12/08/17 07:56 Resp 18 12/08/17 07:56 BP 147/93 H 12/08/17 07:56 Pulse Ox 97 12/08/17 07:56 - Labs Result Diagrams: 12/07/17 10:15 12/07/17 10:15 Labs: Laboratory Results - last 24 hr 12/07/17 12/07/17 12/07/17 10:15 10:15 15:34 WBC 6.5 RBC 3.44 L Hgb 11.8 L Hct 34.8 L MCV 101.1 H MCH 34.3 H MCHC 34.0 RDW 13.5 Plt Count 199 Sodium 136 Potassium 3.9 Chloride 102 Carbon Dioxide 25 Anion Gap 13 BUN 3 L Creatinine 0.6 L Est GFR ( Amer) > 60 Est GFR (Non-Af Amer) > 60 POC Glucose (mg/dL) 261 H Random Glucose 213 H Calcium 8.0 L Total Bilirubin 1.3 AST 30 ALT 33 Alkaline Phosphatase 91 Total Protein 6.6 Albumin 3.0 L Globulin 3.6 Albumin/Globulin Ratio 0.8 L Vancomycin Trough 12/07/17 12/07/17 12/08/17 20:01 21:08 05:58 WBC RBC Hgb Hct MCV MCH MCHC RDW Plt Count Sodium Potassium Chloride Carbon Dioxide Anion Gap BUN Creatinine Est GFR ( Amer) Est GFR (Non-Af Amer) POC Glucose (mg/dL) 154 H 179 H Random Glucose Calcium Total Bilirubin AST ALT Alkaline Phosphatase Total Protein Albumin Globulin Albumin/Globulin Ratio Vancomycin Trough 9.2 - Imaging and Cardiology CT scan - abdomen Status: Image reviewed by me, Report reviewed by me Assessment & Plan - Assessment and Plan (Free Text) Plan: - No general surgery intervention at present time - Continue diet - Pain control - Care as per primary team - Follow up on the outpatient bases - General surgery will sign off - please re-consult as needed
[2017-12-07] MEDS: Insulin Regular 100 units/ml SC SCH ×2 (17:18→21:13)
--- NOTE | 2017-12-08 00:08 | CP.PCM.PN ---
Objective - Vital Signs/Intake and Output Vital Signs (last 24 hours): Temp Pulse Resp BP Pulse Ox 98.5 F 83 20 150/95 H 98 12/07/17 23:24 12/07/17 23:24 12/07/17 23:24 12/07/17 23:24 12/07/17 23:24 - Medications Medications: Current Medications Acetaminophen/Codeine Phosphate (Tylenol/Codeine 300 Mg/30 Mg) 1 tab PO Q6 PRN PRN Reason: Pain, moderate (4-7) Last Admin: 12/07/17 20:52 Dose: 1 tab Enoxaparin Sodium (Lovenox) 30 mg SC DAILY [facility] PRN Reason: Protocol Last Admin: 12/07/17 08:29 Dose: 30 mg Lactated Ringer's (Lactated Ringer's) 1,000 mls @ 250 mls/hr IV .Q4H [facility] Last Admin: 12/07/17 22:30 Dose: 250 mls/hr Vancomycin HCl 1 gm/ Sodium (Chloride) 250 mls @ 166.667 mls/hr IVPB Q12@0100, 1300 [facility] PRN Reason: Protocol Last Admin: 12/07/17 12:00 Dose: 166.667 mls/hr Meropenem 1 gm/ Sodium (Chloride) 100 mls @ 100 mls/hr IVPB Q12H [facility] PRN Reason: Protocol Last Admin: 12/07/17 16:30 Dose: 100 mls/hr Insulin Human Regular (Humulin R) 0 units SC ACHS [facility] PRN Reason: Protocol Last Admin: 12/07/17 21:13 Dose: Not Given Metformin HCl (Glucophage) 1,000 mg PO BIDWM [facility] Last Admin: 12/07/17 16:30 Dose: 1,000 mg Nicotine (Nicoderm Cq) 1 patch TD DAILY [facility] Last Admin: 12/07/17 08:29 Dose: 1 patch Pantoprazole Sodium (Protonix Inj) 40 mg IVP DAILY [facility] Last Admin: 12/07/17 08:29 Dose: 40 mg Potassium Chloride (K-Dur 20 Meq Er Tab) 20 meq PO DAILY [facility] Last Admin: 12/07/17 08:29 Dose: 20 meq Risperidone (Risperdal Tab) 3 mg PO BID [facility] Last Admin: 12/07/17 16:31 Dose: 3 mg Sertraline HCl (Zoloft) 100 mg PO DAILY [facility] Last Admin: 12/07/17 08:30 Dose: 100 mg - Labs Labs: 12/07/17 10:15 12/07/17 10:15
[2017-12-08] MEDS: Acetaminophen-Codeine 300/30 mg Tab PO PRN ×4 (04:13→22:45)
[2017-12-08] MEDS: Meropenem 1 GM in Sodium Chloride 0.9% 100 ML IVPB SCH ×2 (04:21→16:18)
[2017-12-08] MEDS: Lactated Ringer's 1,000 ML IV SCH ×7 (04:23→22:40)
--- NOTE | 2017-12-08 07:48 | CP.PCM.PN ---
<Marshall Peck - Last Filed: 12/08/17 12:06> Subjective - Date & Time of Evaluation Date of Evaluation: 12/08/17 Time of Evaluation: 07:00 - Subjective Subjective: PGY4 GI Follow Up Pt seen and examined bedside No complaints slight abd pain upon palpation denies any BM ROS: 10 point ROS conducted, neg other than above Objective - Vital Signs/Intake and Output Vital Signs (last 24 hours): Temp Pulse Resp BP Pulse Ox 98.5 F 83 20 150/95 H 98 12/07/17 23:24 12/07/17 23:24 12/07/17 23:24 12/07/17 23:24 12/07/17 23:24 - Medications Medications: Current Medications Acetaminophen/Codeine Phosphate (Tylenol/Codeine 300 Mg/30 Mg) 1 tab PO Q6 PRN PRN Reason: Pain, moderate (4-7) Last Admin: 12/08/17 04:13 Dose: 1 tab Enoxaparin Sodium (Lovenox) 30 mg SC DAILY [facility] PRN Reason: Protocol Last Admin: 12/07/17 08:29 Dose: 30 mg Lactated Ringer's (Lactated Ringer's) 1,000 mls @ 250 mls/hr IV .Q4H [facility] Last Admin: 12/08/17 04:23 Dose: 250 mls/hr Vancomycin HCl 1 gm/ Sodium (Chloride) 250 mls @ 166.667 mls/hr IVPB Q12@0100, 1300 [facility] PRN Reason: Protocol Last Admin: 12/08/17 01:00 Dose: 166.667 mls/hr Meropenem 1 gm/ Sodium (Chloride) 100 mls @ 100 mls/hr IVPB Q12H [facility] PRN Reason: Protocol Last Admin: 12/08/17 04:21 Dose: 100 mls/hr Insulin Human Regular (Humulin R) 0 units SC ACHS [facility] PRN Reason: Protocol Last Admin: 12/07/17 21:13 Dose: Not Given Metformin HCl (Glucophage) 1,000 mg PO BIDWM [facility] Last Admin: 12/07/17 16:30 Dose: 1,000 mg Nicotine (Nicoderm Cq) 1 patch TD DAILY [facility] Last Admin: 12/07/17 08:29 Dose: 1 patch Pantoprazole Sodium (Protonix Inj) 40 mg IVP DAILY [facility] Last Admin: 12/07/17 08:29 Dose: 40 mg Potassium Chloride (K-Dur 20 Meq Er Tab) 20 meq PO DAILY [facility] Last Admin: 12/07/17 08:29 Dose: 20 meq Risperidone (Risperdal Tab) 3 mg PO BID [facility] Last Admin: 12/07/17 16:31 Dose: 3 mg Sertraline HCl (Zoloft) 100 mg PO DAILY [facility] Last Admin: 12/07/17 08:30 Dose: 100 mg - Labs Labs: 12/07/17 10:15 12/07/17 10:15 - Constitutional Appears: No Acute Distress - Head Exam Head Exam: ATRAUMATIC, NORMOCEPHALIC - Eye Exam Eye Exam: Normal appearance - ENT Exam ENT Exam: Mucous Membranes Moist - Respiratory Exam Respiratory Exam: Clear to Ausculation Bilateral, NORMAL BREATHING PATTERN. absent: Rales, Rhonchi, Wheezes, Respiratory Distress - Cardiovascular Exam Cardiovascular Exam: REGULAR RHYTHM, +S1, +S2 - GI/Abdominal Exam GI & Abdominal Exam: Soft, Normal Bowel Sounds. absent: Guarding, Rigid, Tenderness, Organomegaly - Extremities Exam Extremities Exam: absent: Joint Swelling, Pedal Edema - Neurological Exam Neurological Exam: Alert, Awake, Oriented x3 - Psychiatric Exam Psychiatric exam: Normal Affect, Normal Mood - Skin Skin Exam: Dry, Intact, Normal Color, Warm Assessment and Plan - Assessment and Plan (Free Text) Assessment: This pt is a 47M w/ hx of DM and HTN who presents to the ED with complaints of abd pain. Etiology is likely from pancreatitis etiology likely ETOH r/o autoimmune; CT abd revealed acute pancreatitis and cholelithiasis with normal CBD Acute Pancreatitis Cholelithiasis Abd pain Alcohol abuse Plan: -continue regular diet -decrease fluids to 100ml/hr -IgG4 pending, TG normal -advise alcohol avoidance -with finding of gallstones, would recommend cholecysectomy -consulted on alcohol cessation -supportive care -zofran PRN -if no BM, can start miralax -pain management as per primary team -will sign off will d/w Dr. Webber <Clay Webber MD - Last Filed: 12/08/17 14:41> Objective - Vital Signs/Intake and Output Vital Signs (last 24 hours): Temp Pulse Resp BP Pulse Ox 97.6 F 73 18 147/93 H 97 12/08/17 07:56 12/08/17 07:56 12/08/17 07:56 12/08/17 07:56 12/08/17 07:56 - Medications Medications: Current Medications Acetaminophen/Codeine Phosphate (Tylenol/Codeine 300 Mg/30 Mg) 1 tab PO Q6 PRN PRN Reason: Pain, moderate (4-7) Last Admin: 12/08/17 10:50 Dose: 1 tab Enoxaparin Sodium (Lovenox) 30 mg SC DAILY [facility] PRN Reason: Protocol Last Admin: 12/08/17 09:17 Dose: 30 mg Lactated Ringer's (Lactated Ringer's) 1,000 mls @ 250 mls/hr IV .Q4H [facility] Last Admin: 12/08/17 07:30 Dose: 250 mls/hr Vancomycin HCl 1 gm/ Sodium (Chloride) 250 mls @ 166.667 mls/hr IVPB Q12@0100, 1300 [facility] PRN Reason: Protocol Last Admin: 12/08/17 01:00 Dose: 166.667 mls/hr Meropenem 1 gm/ Sodium (Chloride) 100 mls @ 100 mls/hr IVPB Q12H [facility] PRN Reason: Protocol Last Admin: 12/08/17 04:21 Dose: 100 mls/hr Insulin Human Regular (Humulin R) 0 units SC ACHS [facility] PRN Reason: Protocol Last Admin: 12/08/17 09:20 Dose: 2 units Metformin HCl (Glucophage) 1,000 mg PO BIDWM [facility] Last Admin: 12/08/17 09:17 Dose: 1,000 mg Nicotine (Nicoderm Cq) 1 patch TD DAILY [facility] Last Admin: 12/08/17 09:17 Dose: 1 patch Pantoprazole Sodium (Protonix Inj) 40 mg IVP DAILY [facility] Last Admin: 12/08/17 09:17 Dose: 40 mg Potassium Chloride (K-Dur 20 Meq Er Tab) 20 meq PO DAILY [facility] Last Admin: 12/08/17 09:18 Dose: 20 meq Risperidone (Risperdal Tab) 3 mg PO BID [facility] Last Admin: 12/08/17 09:16 Dose: 3 mg Sertraline HCl (Zoloft) 100 mg PO DAILY [facility] Last Admin: 12/08/17 09:17 Dose: 100 mg - Labs Labs: 12/07/17 10:15 01/10/18 10:15 Attending/Attestation - Attestation I have personally seen and examined this patient.: Yes I have fully participated in the care of the patient.: Yes I have reviewed all pertinent clinical information, including history, physical exam and plan: Yes Notes (Text): 12/08/17 14:38 47 yr old M admitted with pancreatitis due to alcohol and cholelithaisis. Symptoms have resolved clinically and biochemically. He is being treated with primary team for RLE wound infection. Advance diet as tolerated. No further GI work up necessary. Alcohol cessation counselling. Will benefit from cholecystectomy
[2017-12-08] MEDS: Enoxaparin 30 mg Syringe SC SCH (09:17)
[2017-12-08] MEDS: Potassium Chloride 20 mEq ER Tab PO SCH (09:18)
[2017-12-08] MEDS: Insulin Regular 100 units/ml SC SCH ×4 (09:20→21:54)
--- NOTE | 2017-12-08 09:58 | CP.PCM.PN ---
Subjective - Date & Time of Evaluation Date of Evaluation: 12/08/17 Time of Evaluation: 09:30 - Subjective Subjective: Patient was seen and examined at the bedside. Objective - Vital Signs/Intake and Output Vital Signs (last 24 hours): Temp Pulse Resp BP Pulse Ox 97.6 F 73 18 147/93 H 97 12/08/17 07:56 12/08/17 07:56 12/08/17 07:56 12/08/17 07:56 12/08/17 07:56 - Medications Medications: Current Medications Acetaminophen/Codeine Phosphate (Tylenol/Codeine 300 Mg/30 Mg) 1 tab PO Q6 PRN PRN Reason: Pain, moderate (4-7) Last Admin: 12/08/17 04:13 Dose: 1 tab Enoxaparin Sodium (Lovenox) 30 mg SC DAILY [facility] PRN Reason: Protocol Last Admin: 12/08/17 09:17 Dose: 30 mg Lactated Ringer's (Lactated Ringer's) 1,000 mls @ 250 mls/hr IV .Q4H [facility] Last Admin: 12/08/17 07:30 Dose: 250 mls/hr Vancomycin HCl 1 gm/ Sodium (Chloride) 250 mls @ 166.667 mls/hr IVPB Q12@0100, 1300 [facility] PRN Reason: Protocol Last Admin: 12/08/17 01:00 Dose: 166.667 mls/hr Meropenem 1 gm/ Sodium (Chloride) 100 mls @ 100 mls/hr IVPB Q12H [facility] PRN Reason: Protocol Last Admin: 12/08/17 04:21 Dose: 100 mls/hr Insulin Human Regular (Humulin R) 0 units SC ACHS [facility] PRN Reason: Protocol Last Admin: 12/08/17 09:20 Dose: 2 units Metformin HCl (Glucophage) 1,000 mg PO BIDWM [facility] Last Admin: 12/08/17 09:17 Dose: 1,000 mg Nicotine (Nicoderm Cq) 1 patch TD DAILY [facility] Last Admin: 12/08/17 09:17 Dose: 1 patch Pantoprazole Sodium (Protonix Inj) 40 mg IVP DAILY [facility] Last Admin: 12/08/17 09:17 Dose: 40 mg Potassium Chloride (K-Dur 20 Meq Er Tab) 20 meq PO DAILY [facility] Last Admin: 01/11/18 09:18 Dose: 20 meq Risperidone (Risperdal Tab) 3 mg PO BID [facility] Last Admin: 12/08/17 09:16 Dose: 3 mg Sertraline HCl (Zoloft) 100 mg PO DAILY [facility] Last Admin: 12/08/17 09:17 Dose: 100 mg - Labs Labs: 12/07/17 10:15 12/07/17 10:15 - Constitutional Appears: Well, Non-toxic, No Acute Distress - Head Exam Head Exam: ATRAUMATIC, NORMAL INSPECTION, NORMOCEPHALIC - Eye Exam Eye Exam: EOMI, Normal appearance, PERRL Pupil Exam: NORMAL ACCOMODATION, PERRL - ENT Exam ENT Exam: Mucous Membranes Moist, Normal Exam - Neck Exam Neck Exam: Full ROM, Normal Inspection - Respiratory Exam Respiratory Exam: Clear to Ausculation Bilateral, NORMAL BREATHING PATTERN - Cardiovascular Exam Cardiovascular Exam: REGULAR RHYTHM, +S1, +S2 - GI/Abdominal Exam GI & Abdominal Exam: Soft, Normal Bowel Sounds Additional comments: mildly tender in the epigastrium, ND, no rebound, no guarding - Rectal Exam Rectal Exam: Deferred - Extremities Exam Extremities Exam: Full ROM, Normal Inspection - Neurological Exam Neurological Exam: Alert, Awake, Oriented x3 - Psychiatric Exam Psychiatric exam: Normal Affect, Normal Mood - Skin Skin Exam: Dry, Intact, Normal Color, Warm Assessment and Plan - Assessment and Plan (Free Text) Assessment: 47 y.o. male with alcoholic pancreatitis Plan: - No general surgery intervention - Surgery will sign off - Please re-consult as needed
[2017-12-08] MEDS ORDERED: Lidocaine 1% Inj (20ml) ONE (12:44)
--- NOTE | 2017-12-08 13:12 | PCM.SURG1 ---
Surgeon's Initial Post Op Note - Surgeon's Notes Surgeon: Willian Rogel MD Community Sports Coordinator: NONE Type of Anesthesia: Local Pre-Operative Diagnosis: Foot infection Operative Findings: US showed a patent right basilic vein. Post-Operative Diagnosis: Foot infection Operation Performed: Single lumen picc placement via the right basilic vein, 37 cm. Tip is in the SVC. Specimen/Specimens Removed: NONE Estimated Blood Loss: EBL {In ML}: 0 Blood Products Given: N/A Drains Used: No Drains Post-Op Condition: Fair Date of Surgery/Procedure: 12/08/17 Time of Surgery/Procedure: 13:05
[2017-12-09] MEDS: Meropenem 1 GM in Sodium Chloride 0.9% 100 ML IVPB SCH ×2 (04:29→17:30)
[2017-12-09] MEDS: Lactated Ringer's 1,000 ML IV SCH ×3 (04:35→12:03)
[2017-12-09] MEDS: Acetaminophen-Codeine 300/30 mg Tab PO PRN ×2 (05:03→12:18)
[2017-12-09] MEDS: Insulin Regular 100 units/ml SC SCH ×4 (08:16→21:45)
[2017-12-09] MEDS: Potassium Chloride 20 mEq ER Tab PO SCH (08:16)
[2017-12-09] MEDS: Pantoprazole 40 mg EC Tab PO SCH (08:18)
[2017-12-09] MEDS: Enoxaparin 30 mg Syringe SC SCH (08:18)
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
--- NOTE | 2017-12-09 10:26 | CP.PCM.PCO ---
Physician Communication Note - Physician Communication Note Physician Communication Note: Per , pt requires Ertapenem 1g IVPB daily x 4 weeks
--- NOTE | 2017-12-09 10:52 | CP.PCM.PN ---
Subjective - Date & Time of Evaluation Date of Evaluation: 12/09/17 Time of Evaluation: 10:49 - Subjective Subjective: 47 y/o male seen at bedside this AM for right foot infected ulcer. Pt states he had PICC line put in yesterday and it remains in place to his right arm. He is aware he may be discharged soon and is understanding that he needs to follow up for his diabetic foot ulcer to prevent worsening or spread of infection. Denies any pain in wound. Denies F/C/N/V/CP/SOB. Denies drainage through dressing and admits to keeping clean/dry/intact and using surgical shoe for weightbearing Objective - Vital Signs/Intake and Output Vital Signs (last 24 hours): Temp Pulse Resp BP Pulse Ox 98.0 F 71 19 151/92 H 97 12/09/17 07:43 12/09/17 07:43 12/09/17 07:43 12/09/17 07:43 12/09/17 07:43 - Medications Medications: Current Medications Acetaminophen/Codeine Phosphate (Tylenol/Codeine 300 Mg/30 Mg) 1 tab PO Q6 PRN PRN Reason: Pain, moderate (4-7) Last Admin: 12/09/17 05:03 Dose: 1 tab Enoxaparin Sodium (Lovenox) 30 mg SC DAILY [facility] PRN Reason: Protocol Last Admin: 12/09/17 08:18 Dose: 30 mg Lactated Ringer's (Lactated Ringer's) 1,000 mls @ 250 mls/hr IV .Q4H [facility] Last Admin: 12/09/17 08:19 Dose: Not Given Vancomycin HCl 1 gm/ Sodium (Chloride) 250 mls @ 166.667 mls/hr IVPB Q12@0100, 1300 [facility] PRN Reason: Protocol Last Admin: 12/09/17 00:57 Dose: 166.667 mls/hr Meropenem 1 gm/ Sodium (Chloride) 100 mls @ 100 mls/hr IVPB Q12H [facility] PRN Reason: Protocol Last Admin: 12/09/17 04:29 Dose: 100 mls/hr Insulin Human Regular (Humulin R) 0 units SC ACHS [facility] PRN Reason: Protocol Last Admin: 12/09/17 08:16 Dose: 2 units Metformin HCl (Glucophage) 1,000 mg PO BIDWM [facility] Last Admin: 12/09/17 08:16 Dose: 1,000 mg Nicotine (Nicoderm Cq) 1 patch TD DAILY [facility] Last Admin: 12/09/17 08:18 Dose: 1 patch Pantoprazole Sodium (Protonix Ec Tab) 40 mg PO DAILY [facility] Last Admin: 12/09/17 08:18 Dose: 40 mg Potassium Chloride (K-Dur 20 Meq Er Tab) 20 meq PO DAILY [facility] Last Admin: 12/09/17 08:16 Dose: 20 meq Risperidone (Risperdal Tab) 3 mg PO BID [facility] Last Admin: 12/09/17 08:17 Dose: 3 mg Sertraline HCl (Zoloft) 100 mg PO DAILY [facility] Last Admin: 12/09/17 08:17 Dose: 100 mg - Labs Labs: 12/07/17 10:15 12/07/17 10:15 - Constitutional Appears: Well, Non-toxic, No Acute Distress - Extremities Exam Additional comments: Lower extremity focused exam: Vasc: DP/PT pulses palpable 2/4 B/L. Temp gradient warm to cool from proximal to distal. CFT < 3 sec to all digits. Minimal non pitting pedal edema noted to R foot diffusely. Neuro: Protective sensation grossly diminished Derm: Circular ulceration measuring approx 0.7cm in diameter noted to sub met 4 R foot. Minimal thickened hyperkeratotic skin remains to wound borders. Wound bed is 50% granular and 50% fibrotic in nature. No purulence or drainage expressed, no fluctuance, no probe to bone. Dystrophic thickened toenails x 10. Ortho: No tenderness noted to palpation of ulceration. Patient s/p right foot 2nd met head and prox phalanx resection - surgical site healed with no open ulceration noted. - Neurological Exam Neurological Exam: Alert, Awake, Oriented x3 - Psychiatric Exam Psychiatric exam: Normal Affect, Normal Mood Assessment and Plan - Assessment and Plan (Free Text) Assessment: 47 y/o male with right plantar foot infected diabetic ulceration with positive wound culture for Proteus mirabilis, coag neg Staph Plan: Pt seen and evaluated at bedside Discussed plan with attending Dr. Bennett Labs and vitals reviewed- afebrile, NNL Wcx of R foot ulcer positive for Proteus mirabilis, coag neg Staph RLE MRI shows diabetic arthropathic changes to 1st MPJ, 2nd and 3rd met heads; likely chronic in nature secondary to DM with Charcot arthropathy changes - osteomyelitis not clinically suspected at this time No surgical intervention planned at this time Wound bed cleansed with sterile saline Right foot ulcer dressed with xeroform + DSD ID on board, per Dr. Robert plan is IV Ertapenem for 4 weeks [address] line in place to R arm Podiatry will continue to follow while in house Pt is stable for discharge from podiatry standpoint Pt to follow up in [facility] podiatry clinic with Dr. Bennett within one week of discharge
--- NOTE | 2017-12-09 23:49 | CP.PCM.PN ---
Subjective - Subjective Subjective: Feels fairly well, no CP or SOB or leg pain Objective - Vital Signs/Intake and Output Vital Signs (last 24 hours): Temp Pulse Resp BP Pulse Ox 98.1 F 82 18 120/79 96 12/09/17 16:24 12/09/17 16:24 12/09/17 16:24 12/09/17 16:24 12/09/17 16:24 - Medications Medications: Current Medications Acetaminophen/Codeine Phosphate (Tylenol/Codeine 300 Mg/30 Mg) 1 tab PO Q6 PRN PRN Reason: Pain, moderate (4-7) Last Admin: 12/09/17 12:18 Dose: 1 tab Alprazolam (Xanax) 0.5 mg PO HS PRN PRN Reason: Anxiety Last Admin: 12/09/17 21:51 Dose: 0.5 mg Enoxaparin Sodium (Lovenox) 30 mg SC DAILY [facility] PRN Reason: Protocol Last Admin: 12/09/17 08:18 Dose: 30 mg Vancomycin HCl 1 gm/ Sodium (Chloride) 250 mls @ 166.667 mls/hr IVPB Q12@0100, 1300 [facility] PRN Reason: Protocol Last Admin: 12/09/17 13:39 Dose: 166.667 mls/hr Meropenem 1 gm/ Sodium (Chloride) 100 mls @ 100 mls/hr IVPB Q12H [facility] PRN Reason: Protocol Last Admin: 12/09/17 17:30 Dose: 100 mls/hr Insulin Human Regular (Humulin R) 0 units SC ACHS [facility] PRN Reason: Protocol Last Admin: 12/09/17 21:45 Dose: Not Given Metformin HCl (Glucophage) 1,000 mg PO BIDWM [facility] Last Admin: 12/09/17 17:28 Dose: 1,000 mg Nicotine (Nicoderm Cq) 1 patch TD DAILY [facility] Last Admin: 12/09/17 08:18 Dose: 1 patch Pantoprazole Sodium (Protonix Ec Tab) 40 mg PO DAILY [facility] Last Admin: 12/09/17 08:18 Dose: 40 mg Potassium Chloride (K-Dur 20 Meq Er Tab) 20 meq PO DAILY [facility] Last Admin: 12/09/17 08:16 Dose: 20 meq Risperidone (Risperdal Tab) 3 mg PO BID [facility] Last Admin: 01/12/18 17:29 Dose: 3 mg Sertraline HCl (Zoloft) 100 mg PO DAILY [facility] Last Admin: 12/09/17 08:17 Dose: 100 mg - Labs Labs: 12/07/17 10:15 12/07/17 10:15 - Constitutional Appears: Well, Non-toxic - Head Exam Head Exam: ATRAUMATIC - Eye Exam Eye Exam: EOMI, Normal appearance Pupil Exam: NORMAL ACCOMODATION - ENT Exam ENT Exam: Mucous Membranes Moist - Neck Exam Neck Exam: Full ROM, Normal Inspection - Respiratory Exam Respiratory Exam: Clear to Ausculation Bilateral, NORMAL BREATHING PATTERN - Cardiovascular Exam Cardiovascular Exam: REGULAR RHYTHM - GI/Abdominal Exam GI & Abdominal Exam: Soft, Normal Bowel Sounds - Extremities Exam Extremities Exam: Full ROM Additional comments: R foot plantar DM ulcer - Neurological Exam Neurological Exam: Alert, Awake, Oriented x3 - Psychiatric Exam Psychiatric exam: Normal Affect, Normal Mood Assessment and Plan - Assessment and Plan (Free Text) Assessment: Pt with non healing DM foot ulcer, pancreatitis, schizophrenia -continue with current medical management, PICC line inserted for IV abx, pending discharge due to pt not able to go home, he needs to pay IV abx copay, he is awaiting for a RUPAL placement.
[2017-12-10] MEDS: Meropenem 1 GM in Sodium Chloride 0.9% 100 ML IVPB SCH ×2 (04:05→16:04)
[2017-12-10] MEDS: Acetaminophen-Codeine 300/30 mg Tab PO PRN ×4 (06:57→19:05)
[2017-12-10 08:20] LABS: HEMOGLOBIN 11.6 g/dL (12.0-18.0); MEAN CELL VOLUME 101.7 fl (80.0-94.0); MEAN CORPUSCULAR HEMOGLOBIN 33.9 pg (27.0-31.0); MEAN CORPUSCULAR HGB CONC 33.3 g/dL (33.0-37.0); RBC 3.43 Mil/uL (4.40-5.90); RED CELL DISTRIBUTION WIDTH 13.3 % (11.5-14.5); WHITE BLOOD COUNT 7.6 K/uL (4.8-10.8)
[2017-12-10 08:39] LABS: ALB/GLOB RATIO 0.8 (1.0-2.1); ALBUMIN 3.1 g/dL (3.5-5.0); ALT/SGPT 35 U/L (21-72); AST/SGOT 40 U/L (17-59); BLOOD UREA NITROGEN 8 mg/dl (9-20); CALCIUM 8.8 mg/dL (8.4-10.2); GFR AFRICAN-AMERICAN > 60; GFR NON-AFRICAN AMERICAN > 60; LIPASE 751 U/L (23-300)
[2017-12-10] MEDS: Insulin Regular 100 units/ml SC SCH ×4 (09:00→22:54)
[2017-12-10] MEDS: Pantoprazole 40 mg EC Tab PO SCH (09:29)
[2017-12-10] MEDS: Enoxaparin 30 mg Syringe SC SCH (09:30)
[2017-12-10] MEDS: Potassium Chloride 20 mEq ER Tab PO SCH (09:30)
[2017-12-10] MEDS ORDERED: Magnesium Citrate Oral SOL (300 ml) PO ONE (10:00)
--- NOTE | 2017-12-10 23:33 | CP.PCM.PN ---
Objective - Vital Signs/Intake and Output Vital Signs (last 24 hours): Temp Pulse Resp BP Pulse Ox 97.4 F L 73 20 129/84 97 12/10/17 16:23 12/10/17 16:23 12/10/17 16:23 12/10/17 16:23 12/10/17 16:23 - Medications Medications: Current Medications Acetaminophen/Codeine Phosphate (Tylenol/Codeine 300 Mg/30 Mg) 1 tab PO Q6 PRN PRN Reason: Pain, moderate (4-7) Last Admin: 12/10/17 19:05 Dose: 1 tab Alprazolam (Xanax) 0.5 mg PO HS PRN PRN Reason: Anxiety Last Admin: 12/09/17 21:51 Dose: 0.5 mg Enoxaparin Sodium (Lovenox) 30 mg SC DAILY [facility] PRN Reason: Protocol Last Admin: 12/10/17 09:30 Dose: 30 mg Vancomycin HCl 1 gm/ Sodium (Chloride) 250 mls @ 166.667 mls/hr IVPB Q12@0100, 1300 [facility] PRN Reason: Protocol Last Admin: 12/10/17 12:16 Dose: 166.667 mls/hr Meropenem 1 gm/ Sodium (Chloride) 100 mls @ 100 mls/hr IVPB Q12H [facility] PRN Reason: Protocol Last Admin: 12/10/17 16:04 Dose: 100 mls/hr Insulin Human Regular (Humulin R) 0 units SC ACHS [facility] PRN Reason: Protocol Last Admin: 12/10/17 22:54 Dose: Not Given Metformin HCl (Glucophage) 1,000 mg PO BIDWM [facility] Last Admin: 12/10/17 16:25 Dose: 1,000 mg Nicotine (Nicoderm Cq) 1 patch TD DAILY [facility] Last Admin: 12/10/17 09:30 Dose: 1 patch Pantoprazole Sodium (Protonix Ec Tab) 40 mg PO DAILY [facility] Last Admin: 12/10/17 09:29 Dose: 40 mg Potassium Chloride (K-Dur 20 Meq Er Tab) 20 meq PO DAILY [facility] Last Admin: 12/10/17 09:30 Dose: 20 meq Risperidone (Risperdal Tab) 3 mg PO BID [facility] Last Admin: 12/10/17 16:25 Dose: 3 mg Sertraline HCl (Zoloft) 100 mg PO DAILY [facility] Last Admin: 12/10/17 09:29 Dose: 100 mg - Labs Labs: 12/10/17 08:03 12/10/17 08:03
[2017-12-11] MEDS: Acetaminophen-Codeine 300/30 mg Tab PO PRN ×4 (01:21→20:52)
[2017-12-11] MEDS: Meropenem 1 GM in Sodium Chloride 0.9% 100 ML IVPB SCH ×2 (04:21→16:07)
[2017-12-11] MEDS: Insulin Regular 100 units/ml SC SCH ×4 (06:58→21:47)
[2017-12-11] MEDS: Potassium Chloride 20 mEq ER Tab PO SCH (08:11)
[2017-12-11] MEDS: Pantoprazole 40 mg EC Tab PO SCH (08:11)
[2017-12-11] MEDS: Enoxaparin 30 mg Syringe SC SCH (08:11)
--- NOTE | 2017-12-11 11:07 | CP.PCM.PN ---
Subjective - Date & Time of Evaluation Date of Evaluation: 12/11/17 Time of Evaluation: 11:07 - Subjective Subjective: Podiatry Progress Note - Dr. Bennett 47 year old male patient seen and evaluated for right foot infected ulceration. No acute events overnight. Surgical shoe not present to right foot. States he is able to ambulate without any issues. Patient aware he is to follow up at [facility] [place] podiatry clinic for outpatient care. Denies N/V/F/D/C/SOB/calf pain. Objective - Vital Signs/Intake and Output Vital Signs (last 24 hours): Temp Pulse Resp BP Pulse Ox 98.1 F 70 18 136/92 H 97 12/11/17 08:21 12/11/17 08:21 12/11/17 08:21 12/11/17 08:21 12/11/17 08:21 - Medications Medications: Current Medications Acetaminophen/Codeine Phosphate (Tylenol/Codeine 300 Mg/30 Mg) 1 tab PO Q6 PRN PRN Reason: Pain, moderate (4-7) Last Admin: 12/11/17 08:09 Dose: 1 tab Alprazolam (Xanax) 0.5 mg PO HS PRN PRN Reason: Anxiety Last Admin: 12/10/17 23:53 Dose: 0.5 mg Enoxaparin Sodium (Lovenox) 30 mg SC DAILY [facility] PRN Reason: Protocol Last Admin: 12/11/17 08:11 Dose: 30 mg Vancomycin HCl 1 gm/ Sodium (Chloride) 250 mls @ 166.667 mls/hr IVPB Q12@0100, 1300 [facility] PRN Reason: Protocol Last Admin: 12/11/17 00:07 Dose: 166.667 mls/hr Meropenem 1 gm/ Sodium (Chloride) 100 mls @ 100 mls/hr IVPB Q12H [facility] PRN Reason: Protocol Last Admin: 12/11/17 04:21 Dose: 100 mls/hr Insulin Human Regular (Humulin R) 0 units SC ACHS [facility] PRN Reason: Protocol Last Admin: 12/11/17 06:58 Dose: 2 units Metformin HCl (Glucophage) 1,000 mg PO BIDWM [facility] Last Admin: 12/11/17 08:10 Dose: 1,000 mg Nicotine (Nicoderm Cq) 1 patch TD DAILY [facility] Last Admin: 12/11/17 08:10 Dose: 1 patch Pantoprazole Sodium (Protonix Ec Tab) 40 mg PO DAILY [facility] Last Admin: 12/11/17 08:11 Dose: 40 mg Potassium Chloride (K-Dur 20 Meq Er Tab) 20 meq PO DAILY [facility] Last Admin: 12/11/17 08:11 Dose: 20 meq Risperidone (Risperdal Tab) 3 mg PO BID [facility] Last Admin: 12/11/17 08:11 Dose: 3 mg Sertraline HCl (Zoloft) 100 mg PO DAILY [facility] Last Admin: 12/11/17 08:10 Dose: 100 mg - Labs Labs: 12/10/17 08:03 12/10/17 08:03 - Constitutional Appears: Well, Non-toxic, No Acute Distress - Extremities Exam Additional comments: Lower extremity focused exam: Dressing to right foot appears clean/dry/intact with no strikethrough noted Vasc: DP/PT pulses palpable 2/4 B/L. Temp gradient warm to warm from proximal to distal. CFT < 3 sec to all digits. Minimal non pitting pedal edema noted to R foot diffusely. Neuro: Protective sensation grossly diminished Derm: Circular ulceration measuring approx 0.7cm in diameter noted sub met 4 R foot. Minimal thickened hyperkeratotic skin remains to wound borders. Wound bed is 50% granular and 50% fibrotic in nature. No purulence or drainage expressed, no fluctuance, no probe to bone. Dystrophic thickened toenails x 10. Ortho: No tenderness noted to palpation of ulceration. Patient s/p right foot 2nd met head and prox phalanx resection - surgical site healed with no open ulceration noted. - Neurological Exam Neurological Exam: Alert, Awake, Oriented x3 - Psychiatric Exam Psychiatric exam: Normal Affect, Normal Mood Assessment and Plan - Assessment and Plan (Free Text) Assessment: 47 y/o male with right plantar foot infected diabetic ulceration with positive wound culture for Proteus mirabilis, coag neg Staph Plan: Patient seen and evaluated at bedside Discussed with attending, Dr. Donald Newmanebvladislav Right foot ulcer WCx reveals growth of proteus mirabilis, coagulase negative staphylcoccus RLE MRI: diabetic arthropathic changes to 1st MPJ, 2nd and 3rd met heads; likely chronic in nature secondary to DM with Charcot arthropathy changes - osteomyelitis not clinically suspected at this time No surgical intervention planned at this time Ulcer cleansed with saline and dressed with Xeroform, DSD Plan for 4 weeks of IV ertapenem per ID Wound stable per podiatry standpoint Podiatry will continue to follow while in house Pt to follow up in [facility] [place] podiatry clinic with Dr. Bennett within one week of discharge
--- NOTE | 2017-12-11 21:33 | CP.PCM.PN ---
Objective - Vital Signs/Intake and Output Vital Signs (last 24 hours): Temp Pulse Resp BP Pulse Ox 97.3 F L 81 20 107/74 98 12/11/17 16:34 12/11/17 16:34 12/11/17 16:34 12/11/17 16:34 12/11/17 16:34 - Medications Medications: Current Medications Acetaminophen/Codeine Phosphate (Tylenol/Codeine 300 Mg/30 Mg) 1 tab PO Q6 PRN PRN Reason: Pain, moderate (4-7) Last Admin: 12/11/17 20:52 Dose: 1 tab Alprazolam (Xanax) 0.5 mg PO HS PRN PRN Reason: Anxiety Last Admin: 12/10/17 23:53 Dose: 0.5 mg Enoxaparin Sodium (Lovenox) 30 mg SC DAILY [facility] PRN Reason: Protocol Last Admin: 12/11/17 08:11 Dose: 30 mg Vancomycin HCl 1 gm/ Sodium (Chloride) 250 mls @ 166.667 mls/hr IVPB Q12@0100, 1300 [facility] PRN Reason: Protocol Last Admin: 12/11/17 12:08 Dose: 166.667 mls/hr Meropenem 1 gm/ Sodium (Chloride) 100 mls @ 100 mls/hr IVPB Q12H [facility] PRN Reason: Protocol Last Admin: 12/11/17 16:07 Dose: 100 mls/hr Insulin Human Regular (Humulin R) 0 units SC ACHS [facility] PRN Reason: Protocol Last Admin: 12/11/17 16:10 Dose: 3 units Metformin HCl (Glucophage) 1,000 mg PO BIDWM [facility] Last Admin: 12/11/17 16:08 Dose: 1,000 mg Nicotine (Nicoderm Cq) 1 patch TD DAILY [facility] Last Admin: 12/11/17 08:10 Dose: 1 patch Pantoprazole Sodium (Protonix Ec Tab) 40 mg PO DAILY [facility] Last Admin: 12/11/17 08:11 Dose: 40 mg Potassium Chloride (K-Dur 20 Meq Er Tab) 20 meq PO DAILY [facility] Last Admin: 12/11/17 08:11 Dose: 20 meq Risperidone (Risperdal Tab) 3 mg PO BID [facility] Last Admin: 12/11/17 16:08 Dose: 3 mg Sertraline HCl (Zoloft) 100 mg PO DAILY [facility] Last Admin: 12/11/17 08:10 Dose: 100 mg - Labs Labs: 12/10/17 08:03 12/10/17 08:03
[2017-12-12] MEDS: Acetaminophen-Codeine 300/30 mg Tab PO PRN ×4 (02:48→22:42)
[2017-12-12] MEDS: Meropenem 1 GM in Sodium Chloride 0.9% 100 ML IVPB SCH (04:31)
[2017-12-12] MEDS: Insulin Regular 100 units/ml SC SCH ×4 (09:04→21:51)
[2017-12-12] MEDS: Enoxaparin 30 mg Syringe SC SCH (09:05)
[2017-12-12] MEDS: Potassium Chloride 20 mEq ER Tab PO SCH (09:05)
[2017-12-12] MEDS: Pantoprazole 40 mg EC Tab PO SCH (09:06)
--- NOTE | 2017-12-12 22:26 | CP.PCM.PN ---
Objective - Vital Signs/Intake and Output Vital Signs (last 24 hours): Temp Pulse Resp BP Pulse Ox 98 F 72 18 128/86 99 12/12/17 16:03 12/12/17 16:03 12/12/17 16:03 12/12/17 16:03 12/12/17 16:03 - Medications Medications: Current Medications Acetaminophen/Codeine Phosphate (Tylenol/Codeine 300 Mg/30 Mg) 1 tab PO Q6 PRN PRN Reason: Pain, moderate (4-7) Last Admin: 12/12/17 16:15 Dose: 1 tab Alprazolam (Xanax) 0.5 mg PO HS PRN PRN Reason: Anxiety Last Admin: 12/11/17 22:39 Dose: 0.5 mg Enoxaparin Sodium (Lovenox) 30 mg SC DAILY [facility] PRN Reason: Protocol Last Admin: 12/12/17 09:05 Dose: 30 mg Vancomycin HCl 1 gm/ Sodium (Chloride) 250 mls @ 166.667 mls/hr IVPB Q12@0100, 1300 [facility] PRN Reason: Protocol Last Admin: 12/12/17 12:20 Dose: 166.667 mls/hr Meropenem 1 gm/ Sodium (Chloride) 50 mls @ 50 mls/hr IVPB Q12@0445,1645 [facility] PRN Reason: Protocol Last Admin: 12/12/17 16:16 Dose: 50 mls/hr Insulin Human Regular (Humulin R) 0 units SC ACHS [facility] PRN Reason: Protocol Last Admin: 12/12/17 21:51 Dose: Not Given Metformin HCl (Glucophage) 1,000 mg PO BIDWM [facility] Last Admin: 12/12/17 16:16 Dose: 1,000 mg Nicotine (Nicoderm Cq) 1 patch TD DAILY [facility] Last Admin: 12/12/17 09:05 Dose: 1 patch Pantoprazole Sodium (Protonix Ec Tab) 40 mg PO DAILY [facility] Last Admin: 12/12/17 09:06 Dose: 40 mg Potassium Chloride (K-Dur 20 Meq Er Tab) 20 meq PO DAILY [facility] Last Admin: 12/12/17 09:05 Dose: 20 meq Risperidone (Risperdal Tab) 3 mg PO BID [facility] Last Admin: 12/12/17 16:16 Dose: 3 mg Sertraline HCl (Zoloft) 100 mg PO DAILY [facility] Last Admin: 12/12/17 09:06 Dose: 100 mg - Labs Labs: 12/10/17 08:03 12/10/17 08:03
[2017-12-13] MEDS: Acetaminophen-Codeine 300/30 mg Tab PO PRN ×2 (05:40→11:39)
[2017-12-13 06:13] LABS: HEMOGLOBIN 12.8 g/dL (12.0-18.0); MEAN CELL VOLUME 101.3 fl (80.0-94.0); MEAN CORPUSCULAR HEMOGLOBIN 33.9 pg (27.0-31.0); MEAN CORPUSCULAR HGB CONC 33.5 g/dL (33.0-37.0); RBC 3.77 Mil/uL (4.40-5.90); RED CELL DISTRIBUTION WIDTH 13.1 % (11.5-14.5); WHITE BLOOD COUNT 8.6 K/uL (4.8-10.8)
[2017-12-13 06:19] LABS: BLOOD UREA NITROGEN 11 mg/dl (9-20); CALCIUM 9.4 mg/dL (8.4-10.2); GFR AFRICAN-AMERICAN > 60; GFR NON-AFRICAN AMERICAN > 60
[2017-12-13] MEDS: Enoxaparin 30 mg Syringe SC SCH (08:52)
[2017-12-13] MEDS: Pantoprazole 40 mg EC Tab PO SCH (08:53)
[2017-12-13] MEDS: Potassium Chloride 20 mEq ER Tab PO SCH (08:56)
[2017-12-13] MEDS: Insulin Regular 100 units/ml SC SCH ×3 (08:57→16:41)
[2017-12-13 16:23] VITALS: BP 100/68; PULSE 69; RESP 18; TEMP 97.6; O2SAT 97
--- NOTE | 2017-12-13 21:11 | CP.PCM.DIS ---
Provider - Provider Date of Admission: 12/04/17 03:38 Attending physician: Burke Nguyen MD Hospital Course - Lab Results Lab Results: Micro Results 12/04/17 01:12 Blood-Venous Blood Culture - Final NO GROWTH AFTER 5 DAYS 12/04/17 01:12 Blood-Venous Gram Stain - Final TEST NOT PERFORMED 12/04/17 17:30 Foot - Right Gram Stain - Final 12/04/17 17:30 Foot - Right Wound Culture - Final Proteus Mirabilis Coagulase Neg Staphylococcus Most Recent Lab Values WBC 8.6 K/uL (4.8-10.8) 12/13/17 05:20 RBC 3.77 Mil/uL (4.40-5.90) L 12/13/17 05:20 Hgb 12.8 g/dL (12.0-18.0) 12/13/17 05:20 Hct 38.2 % (35.0-51.0) 12/13/17 05:20 MCV 101.3 fl (80.0-94.0) H 12/13/17 05:20 MCH 33.9 pg (27.0-31.0) H 12/13/17 05:20 MCHC 33.5 g/dL (33.0-37.0) 12/13/17 05:20 RDW 13.1 % (11.5-14.5) 12/13/17 05:20 Plt Count 244 K/uL (130-400) 12/13/17 05:20 MPV 9.1 fl (7.2-11.7) 12/04/17 01:12 Neut % (Auto) 86.6 % (50.0-75.0) H 12/04/17 01:12 Lymph % (Auto) 6.2 % (20.0-40.0) L 12/04/17 01:12 [place] % (Auto) 5.9 % (0.0-10.0) 12/04/17 01:12 Eos % (Auto) 0.8 % (0.0-4.0) 12/04/17 01:12 Baso % (Auto) 0.5 % (0.0-2.0) 12/04/17 01:12 Neut # 9.2 K/uL (1.8-7.0) H 12/04/17 01:12 Lymph # 0.7 K/uL (1.0-4.3) L 12/04/17 01:12 [place] # 0.6 K/uL (0.0-0.8) 12/04/17 01:12 Eos # 0.1 K/uL (0.0-0.7) 12/04/17 01:12 Baso # 0.1 K/uL (0.0-0.2) 12/04/17 01:12 Neutrophils % (Manual) 85 % (42-75) H 12/04/17 01:12 Band Neutrophils % 1 % (0-2) 12/04/17 01:12 Lymphocytes % (Manual) 7 % (20-50) L 12/04/17 01:12 Monocytes % (Manual) 7 % (0-10) 12/04/17 01:12 Platelet Estimate Normal (NORMAL) 12/04/17 01:12 RBC Morphology Normal (NORMAL) 12/04/17 01:12 Sodium 137 mmol/l (132-148) 12/13/17 05:20 Potassium 5.1 MMOL/L (3.6-5.0) H 12/13/17 05:20 Chloride 98 mmol/L (98-107) 12/13/17 05:20 Carbon Dioxide 28 mmol/L (22-30) 12/13/17 05:20 Anion Gap 16 (10-20) 12/13/17 05:20 BUN 11 mg/dl (9-20) 12/13/17 05:20 Creatinine 0.6 mg/dl (0.8-1.5) L 12/13/17 05:20 Est GFR ( Amer) > 60 12/13/17 05:20 Est GFR (Non-Af Amer) > 60 12/13/17 05:20 POC Glucose (mg/dL) 212 mg/dL (65-110) H 12/13/17 16:08 Random Glucose 231 mg/dL (75-110) H 12/13/17 05:20 Hemoglobin A1c 8.9 % (4.2-6.5) H 12/06/17 06:20 Calcium 9.4 mg/dL (8.4-10.2) 12/13/17 05:20 Total Bilirubin 0.5 mg/dl (0.2-1.3) 12/10/17 08:03 AST 40 U/L (17-59) 12/10/17 08:03 ALT 35 U/L (21-72) 12/10/17 08:03 Alkaline Phosphatase 124 U/L (38-126) 12/10/17 08:03 Total Protein 7.0 G/DL (6.3-8.2) 12/10/17 08:03 Albumin 3.1 g/dL (3.5-5.0) L 12/10/17 08:03 Globulin 3.8 gm/dL (2.2-3.9) 12/10/17 08:03 Albumin/Globulin Ratio 0.8 (1.0-2.1) L 12/10/17 08:03 Triglycerides 62 mg/DL (0-149) D 12/05/17 05:50 Cholesterol 80 mg/dL (0-199) 12/05/17 05:50 LDL Cholesterol Direct 47 mg/dL (0-129) 12/05/17 05:50 HDL Cholesterol 23 MG/DL (30-70) L 12/05/17 05:50 Amylase 445 U/L (30-110) H 12/05/17 05:50 Lipase 751 U/L (23-300) H 12/10/17 08:03 Urine Color Michelle (YELLOW) 12/04/17 02:43 Urine Clarity Cloudy (Clear) 12/04/17 02:43 Urine pH 5.0 (5.0-8.0) 12/04/17 02:43 Ur Specific [place] 1.027 (1.003-1.030) 12/04/17 02:43 Urine Protein 100 mg/dL (NEGATIVE) 12/04/17 02:43 Urine Glucose (UA) >=500 mg/dL (Normal) 12/04/17 02:43 Urine Ketones Negative mg/dL (NEGATIVE) 12/04/17 02:43 Urine Blood Small (NEGATIVE) 12/04/17 02:43 Urine Nitrate Negative (NEGATIVE) 12/04/17 02:43 Urine Bilirubin Negative (NEGATIVE) 12/04/17 02:43 Urine Urobilinogen 0.2-1.0 mg/dL (0.2-1.0) 12/04/17 02:43 Ur Leukocyte Esterase Neg [place]/uL (Negative) 12/04/17 02:43 Urine RBC (Auto) 3 /hpf (0-3) 12/04/17 02:43 Urine Microscopic WBC 4 /hpf (0-5) 12/04/17 02:43 Ur Squamous Epith Cells < 1 /hpf (0-5) 12/04/17 02:43 Urine Bacteria Mod (<OCC) H 12/04/17 02:43 Hyaline Casts 3-5 /hpf (0-2) H 12/04/17 02:43 IgG, Serum (MS) 44.4 mg/dL (4-86) 12/07/17 11:15 Vancomycin Trough 12.9 ug/mL (5.0-10.0) H 12/12/17 20:01 Alcohol, Quantitative < 10 mg/dl (0-10) 12/04/17 03:00 Discharge Exam - Head Exam Head Exam: ATRAUMATIC Discharge Plan - Discharge Medications Prescriptions: Ertapenem [Invanz] 1 gm IVPB DAILY #28 pds - Follow Up Plan Condition: STABLE Disposition: REHAB FACILITY/REHAB UNIT Instructions: Potassium Content of Foods List (GEN)
== END 2017-12-13 17:45 | DRG 424 ==
LOC: H.ER 22:56 → H.ERHOLD 12-04 03:38 → H.MEDSURG1 12-04 05:50
PROVIDERS: ADMIT Internal Medicine; ATTEND Internal Medicine
PROC: 0JBQ0ZZ Excision of Right Foot Subcutaneous Tissue and Fascia, Open Approach (ICD-10-PCS; principal; 2017-12-04)
PROC: 02HV33Z Insertion of Infusion Device into Superior Vena Cava, Percutaneous Approach (ICD-10-PCS; 2017-12-08)
DX: K85.20 Alcohol induced acute pancreatitis without necrosis or infection (principal); F20.0 Paranoid schizophrenia; E11.610 Type 2 diabetes mellitus with diabetic neuropathic arthropathy; E11.621 Type 2 diabetes mellitus with foot ulcer; F10.94 Alcohol use, unspecified with alcohol-induced mood disorder; F10.959 Alcohol use, unspecified with alcohol-induced psychotic disorder, unspecified; E11.65 Type 2 diabetes mellitus with hyperglycemia; N52.9 Male erectile dysfunction, unspecified; K85.10 Biliary acute pancreatitis without necrosis or infection; Z79.4 Long term (current) use of insulin; F17.210 Nicotine dependence, cigarettes, uncomplicated; Z91.14 Patient's other noncompliance with medication regimen; B96.4 Proteus (mirabilis) (morganii) as the cause of diseases classified elsewhere; I10 Essential (primary) hypertension; Z91.018 Allergy to other foods; B95.7 Other staphylococcus as the cause of diseases classified elsewhere; Y90.0 Blood alcohol level of less than 20 mg/100 ml

== ENCOUNTER 2018-07-11 11:44 | Emergency (ER) | payer MEDICARE ==
[2018-07-11 11:47] VITALS: BMI 27.6
--- NOTE | 2018-07-11 13:17 | ED PDOC ---
HPI: Psych/Substance Abuse Time Seen by Provider: 07/11/18 12:04 Chief Complaint (Nursing): Psychiatric Evaluation Chief Complaint (Provider): Psychiatric Evaluation History Per: Patient History/Exam Limitations: no limitations Onset/Duration Of Symptoms: Days Current Symptoms Are (Timing): Still Present Associated Symptoms: Depression Additional Complaint(s): 48 year old male [facility]. Patient reports of auditory hallucinations and is depressed. He is 5 days status post left foot 1st digit amputation and positive for MRSA. He denies suicidal ideation or homicidal ideation. He has no other complaints. PMD: Burke Nguyen Past Medical History Reviewed: Historical Data, Nursing Documentation, Vital Signs Vital Signs: Last Vital Signs Temp 97.9 F 07/11/18 12:23 Pulse 108 H 07/11/18 12:23 Resp 18 07/11/18 12:23 BP 115/84 07/11/18 12:23 Pulse Ox 98 07/11/18 12:23 - Medical History PMH: Anxiety, Asthma, Bipolar Disorder, Depression, Diabetes (Blood sugar 283), Fractures (RT toe), HTN, Schizophrenia, Sexually Transmitted Disease (erectile Dysfunction) Denies: Hepatitis, HIV, Chronic Kidney Disease, Seizures - Family History Family History: States: Unknown Family Hx - Social History Current smoker - smoking cessation education provided: Yes (Light Smoker < 10 Cigarettes Daily) Alcohol: Social Drugs: Denies - Immunization History Hx Tetanus Toxoid Vaccination: No Hx Influenza Vaccination: No Hx Pneumococcal Vaccination: No - Home Medications Home Medications: Ambulatory Orders Medication Instructions Recorded MetFORMIN [glucoPHAGE] 1,000 mg PO BID #60 tab 06/17/17 Acetaminophen [Tylenol 325mg tab] 650 mg PO Q4 PRN 07/11/18 Acetaminophen [Tylenol 325mg tab] 650 mg PO Q4 PRN 07/11/18 Acetaminophen with Codeine 1 tab PO Q4 PRN 07/11/18 [Tylenol with Codeine #3 Tablet] Insulin Glargine, Recombina 10 unit SC HS 07/11/18 [Lantus] Meropenem [Merrem IV] 1 gm IV Q8 07/11/18 SITagliptin [Januvia] 100 mg PO DAILY 07/11/18 Vancomycin [Vancomycin Inj] 1 gm IVPB Q12 07/11/18 oxyCODONE/Acetaminophen [Percocet 1 tab PO Q6 PRN 07/11/18 5/325 mg Tab] oxyCODONE/Acetaminophen [Percocet 2 tab PO Q6 PRN 07/11/18 5/325 mg Tab] - Allergies Allergies/Adverse Reactions: Allergies Allergy/AdvReac Type Severity Reaction Status Date / Time almond Allergy ITCHING Verified 05/27/17 06:32 cashew nut Allergy ITCHING Verified 05/27/17 06:32 walnut Allergy ITCHING Verified 05/25/17 06:02 water chestnut Allergy ITCHING Verified 05/25/17 06:02 apples Allergy ITCHING Uncoded 05/25/17 06:02 Review of Systems ROS Statement: Except As Marked, All Systems Reviewed And Found Negative Psych: Positive for: Depression, Other (auditory hallucinations ). Negative for : Suicidal ideation (homicidal ideation) Physical Exam - Reviewed Nursing Documentation Reviewed: Yes Vital Signs Reviewed: Yes - Physical Exam Appears: Positive for: Non-toxic, No Acute Distress (calm, cooperative) Head Exam: Positive for: ATRAUMATIC, NORMAL INSPECTION, NORMOCEPHALIC Skin: Positive for: Normal Color, Warm, Dry Eye Exam: Positive for: Normal appearance, EOMI, PERRL ENT: Positive for: Normal ENT Inspection Neck: Positive for: Normal, Painless ROM. Negative for: Supple Cardiovascular/Chest: Positive for: Regular Rate, Rhythm. Negative for: Murmur Respiratory: Positive for: Normal Breath Sounds. Negative for: Decreased Breath Sounds, Wheezing, Respiratory Distress Gastrointestinal/Abdominal: Positive for: Normal Exam, Bowel Sounds, Soft. Negative for: Tenderness, Guarding, Rebound Back: Positive for: Normal Inspection Extremity: Positive for: Other (left foot in bandages) Neurologic/Psych: Positive for: Alert, Oriented (x3) - Laboratory Results Result Diagrams: 07/11/18 13:25 07/11/18 13:25 - ECG Interpretation Of ECG: NSR @ 98, no ST-T changes. O2 Sat by Pulse Oximetry: 98 (RA) Pulse Ox Interpretation: Normal Medical Decision Making Medical Decision Making: Time: 1257 Initial Impression: psychiatric evaluation Initial Plan: --EKG --Acetaminophen --CMP --Drug Screen --Salicylate --ED Urine --CBC w/ Differential --Chest Portable [RAD] --Urinalysis --Reevaluation Time: 1300 Podiatry resident contacted to evaluate the patient's left foot covered in bandages. Time: 1333 Chest Portable [RAD] FINDINGS: LUNGS: The lungs are well inflated and clear. PLEURA: No significant pleural effusion identified, no pneumothorax apparent. CARDIOVASCULAR: Normal. OSSEOUS STRUCTURES: No significant abnormalities. VISUALIZED UPPER ABDOMEN: Normal. OTHER FINDINGS: None. IMPRESSION: No active pulmonary disease. MEDICAL CLEARANCE: Pt medically cleared for psychiatric admission. Scribe Attestation: Documented by Blossom Gao, acting as a scribe for Aure Abdi MD Provider Scribe Attestation: All medical record entries made by the Scribe were at my direction and personally dictated by me. I have reviewed the chart and agree that the record accurately reflects my personal performance of the history, physical exam, medical decision making, and the department course for this patient. I have also personally Disposition - Clinical Impression Clinical Impression: Major depressive disorder, recurrent, unspecified - Disposition Disposition: Other Institution ([facility]) Disposition Time: 16:35 Condition: CRITICAL Instructions: Depression Forms: [employer] (Korean)
[2018-07-11 13:34] LABS: BASO % 0.2 % (0.0-2.0); EOS # 0.2 K/uL (0.0-0.7); EOS % 1.8 % (0.0-4.0); HEMOGLOBIN 13.9 g/dL (12.0-18.0); LYMPH # 2.5 K/uL (1.0-4.3); MEAN CORPUSCULAR HGB CONC 34.3 g/dL (33.0-37.0); MEAN PLATELET VOLUME 8.7 fl (7.2-11.7); MONO # 0.7 K/uL (0.0-0.8); MONO % 7.3 % (0.0-10.0); NEUT # 6.2 K/uL (1.8-7.0); NEUT % 64.7 % (50.0-75.0); RBC 4.07 Mil/uL (4.40-5.90); RED CELL DISTRIBUTION WIDTH 13.2 % (11.5-14.5); WHITE BLOOD COUNT 9.7 K/uL (4.8-10.8)
--- NOTE | 2018-07-11 13:35 | RAD ---
Date of service: 07/11/2018 HISTORY: Medical clearance COMPARISON: 06/12/2017. FINDINGS: LUNGS: The lungs are well inflated and clear. PLEURA: No significant pleural effusion identified, no pneumothorax apparent. CARDIOVASCULAR: Normal. OSSEOUS STRUCTURES: No significant abnormalities. VISUALIZED UPPER ABDOMEN: Normal. OTHER FINDINGS: None. IMPRESSION: No active pulmonary disease.
[2018-07-11 13:39] LABS: MEAN CELL VOLUME 99.3 fl (80.0-94.0)
[2018-07-11 13:48] LABS: ACETAMINOPHEN < 10.0 ug/ml (10.0-30.0); ALB/GLOB RATIO 0.9 (1.0-2.1); ALT/SGPT 79 U/L (21-72); AST/SGOT 84 U/L (17-59); BLOOD UREA NITROGEN 12 mg/dl (9-20); CALCIUM 10.3 mg/dL (8.4-10.2); GFR AFRICAN-AMERICAN > 60; GFR NON-AFRICAN AMERICAN > 60; SALICYLATE < 1.0 mg/dl
[2018-07-11] MEDS ORDERED: Povidone Iodine Oint 10% Foilpak UD ONE (14:08)
[2018-07-11] MEDS ORDERED: Sodium Chloride 0.9% 1,000 ML IV STA (14:41)
[2018-07-11] MEDS ORDERED: Insulin Regular 100 units/ml IV STA (14:41)
--- NOTE | 2018-07-11 14:53 | CP.PCM.CON ---
History of Present Illness - History of Present Illness History of Present Illness: Podiatry Consult Note for Dr. Burrell 48 yo male patient seen and evaluated for left partial hallux amp and right plantar wound. 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 King, at [place] who manages his b/l lower extremities. He notes that the wound was growing MRSA before he had the amputation. After his surgery he was placed in a senior facility and continues to receive IV antibiotics. Today he is in mild, but tolerable pain to his left toe. His dressing is clean, dry, and intact to bilateral feet. He denies any other pedal complaints at this time. Denies N/V/F/SOB/CP. PMHx: DM, HTN PSHx: R rotator cuff Social: Tobacco use (4 cigarettes a day), alcohol use QOD ALL: nuts Review of Systems - Review of Systems Review of Systems: As per HPI Past Patient History - Infectious Disease Hx of Infectious Diseases: MRSA - Tetanus Immunizations Tetanus Immunization: Unknown - Past Medical History & Family History Past Medical History?: Yes - Past Social History Alcohol: Social Drugs: Denies - CARDIAC Hx Hypertension: Yes - PULMONARY Hx Asthma: Yes - NEUROLOGICAL Hx Seizures: No - HEENT Hx HEENT Problems: No - RENAL Hx Chronic Kidney Disease: No - ENDOCRINE/METABOLIC Hx Endocrine Disorders: Yes (DM) Hx Diabetes Mellitus Type 2: Yes - HEMATOLOGICAL/ONCOLOGICAL Hx Human Immunodeficiency Virus (HIV): No - INTEGUMENTARY Hx Dermatological Problems: No - MUSCULOSKELETAL/RHEUMATOLOGICAL Hx Fractures: Yes (RT toe) - GASTROINTESTINAL Hx Gastrointestinal Disorders: No - GENITOURINARY/GYNECOLOGICAL Hx Sexually Transmitted Disorders: Yes (erectile Dysfunction) - PSYCHIATRIC Hx Anxiety: Yes Hx Bipolar Disorder: Yes Hx Depression: Yes Hx Schizophrenia: Yes - SURGICAL HISTORY Hx Surgeries: Yes Hx Amputation: Yes (LT toe) Hx Orthopedic Surgery: Yes (Right shoulder 1992 rotator cuff and dislocation 1988) Other/Comment: R foot wound debridement - ANESTHESIA Hx Anesthesia: Yes Hx Anesthesia Reactions: No Hx Malignant Hyperthermia: No Meds Allergies/Adverse Reactions: Allergies Allergy/AdvReac Type Severity Reaction Status Date / Time almond Allergy ITCHING Verified 05/27/17 06:32 cashew nut Allergy ITCHING Verified 05/27/17 06:32 walnut Allergy ITCHING Verified 05/25/17 06:02 water chestnut Allergy ITCHING Verified 05/25/17 06:02 apples Allergy ITCHING Uncoded 05/25/17 06:02 - Medications Medications: Current Medications Sodium Chloride (Sodium Chloride 0.9%) 1,000 mls @ 1,000 mls/hr IV .Q1H STA Stop: 07/11/18 15:40 Insulin Human Regular (Humulin R) 4 units IV STAT STA Stop: 07/11/18 14:42 Physical Exam - Constitutional Appears: Well, Non-toxic, No Acute Distress - Head Exam Head Exam: ATRAUMATIC, NORMOCEPHALIC - Extremities Exam Additional comments: Vascular: DP 2/4, PT 1/4 bilaterally, CFT <3 seconds to all 9 digits, mild edema noted to left hallux amputation site Ortho: Mild tenderness to palpation of left hallux amp site, MMT 5/5 bilaterally Neuro: Gross sensation intact, protective sensation diminished Derm: Left partial hallux amp, sutures intact, no dehiscence, skin edges well coapted, no purulence, no clinical signs of infection. Mild erythema noted to surgical site with xerosis. Elongated, dystrophic toenails x9. Right submetarsal 4 ulceration measuring 1 x .5 x .5, no purulence, no probe to bone, no serous drainage, hyperkeratotic border, no erythema, no clinical signs of infection. No interdigital maceration - Neurological Exam Neurological exam: Alert, Oriented x3 Results - Vital Signs Recent Vital Signs: Last Vital Signs Temp 97.9 F 07/11/18 12:23 Pulse 108 H 07/11/18 12:23 Resp 18 07/11/18 12:23 BP 115/84 07/11/18 12:23 Pulse Ox 98 07/11/18 13:50 - Labs Result Diagrams: 07/11/18 13:25 07/11/18 13:25 Labs: Laboratory Results - last 24 hr 07/11/18 07/11/18 07/11/18 13:25 13:25 13:25 WBC 9.7 RBC 4.07 L Hgb 13.9 Hct 40.4 MCV 99.3 H D MCH 34.0 H MCHC 34.3 RDW 13.2 Plt Count 361 D MPV 8.7 Neut % (Auto) 64.7 Lymph % (Auto) 26.0 [place] % (Auto) 7.3 Eos % (Auto) 1.8 Baso % (Auto) 0.2 Neut # (Auto) 6.2 Lymph # (Auto) 2.5 [place] # (Auto) 0.7 Eos # (Auto) 0.2 Baso # (Auto) 0.0 Sodium 132 Potassium 4.9 Chloride 96 L Carbon Dioxide 25 Anion Gap 16 BUN 12 Creatinine 0.6 L Est GFR ( Amer) > 60 Est GFR (Non-Af Amer) > 60 Random Glucose 225 H Calcium 10.3 H Total Bilirubin 0.5 AST 84 H D ALT 79 H D Alkaline Phosphatase 92 Total Protein 8.6 H Albumin 4.0 Globulin 4.6 H Albumin/Globulin Ratio 0.9 L Salicylates < 1.0 Acetaminophen < 10.0 L Assessment & Plan - Assessment and Plan (Free Text) Assessment: 48 yo male patient seen and evaluated for s/p 5 days left partial hallux amp and right plantar wound. Plan: Patient seen and evaluated with all questions and concerns addressed Discussed in detail with Dr. Burrell Chart, labs, and vitals reviewed; absent leukocytosis, afebrile Patient amputation and ulceration site dressed with betadine, Telfa, DSD, OFELIA. Continue with IV abx that patient was receiving at [place] per Dr. King's plan of care Plan for bactroban dressing changes to right plantar ulceration and betadine, Telfa, and DSD to left surgical site while in house Podiatry to s/o; please reconsult as needed Advised patient to ambulate in b/l surgical shoes at all times Thank you for the consult and trusting us in the care of this patient - Date & Time Date: 07/11/18 Time: 15:13
[2018-07-11] MEDS ORDERED: Insulin Regular 100 units/ml ONE ×2 (16:04→16:13)
[2018-07-11 16:09] LABS: BARBITURATES, UR NEGATIVE (NEGATIVE); BENZODIAZEPINES, UR NEGATIVE (NEGATIVE); OPIATES, UR POSITIVE (NEGATIVE)
[2018-07-11 16:21] LABS: URINE BACTERIA RARE (<OCC); URINE BILIRUBIN NEGATIVE (NEGATIVE); URINE BLOOD NEGATIVE (NEGATIVE); URINE CLARITY SLIGHTY-CLOUDY (Clear); URINE COLOR YELLOW (YELLOW); URINE GLUCOSE (UA) 150 mg/dL (Normal); URINE LEUKOCYTE ESTERASE NEG Leu/uL (Negative); URINE PROTEIN NEGATIVE (NEGATIVE); URINE UROBILINOGEN 0.2-1.0 mg/dL (0.2-1.0)
[2018-07-11] MEDS ORDERED: Acetaminophen-Codeine 300/30 mg Tab PO STA ×2 (16:29→20:07)
[2018-07-11] MEDS ORDERED: Acetaminophen-Codeine 300/30 mg Tab ONE ×2 (16:36→20:12)
[2018-07-11 16:48] LABS: PHENCYCLIDINE, UR NEGATIVE (NEGATIVE)
[2018-07-11 20:11] VITALS: TEMP 98; O2SAT 99
[2018-07-11 23:48] VITALS: BP 141/60; PULSE 88; RESP 22
--- NOTE | 2018-07-12 08:34 | CARD ---
APPROVED REPORT Date of service: 07/11/2018 <Conclusion> Normal sinus rhythm Normal ECG
== END 2018-07-11 21:40 | disposition home or self-care (01) ==
LOC: H.ER 11:44
DX: F32.9 Major depressive disorder, single episode, unspecified (principal); Z86.59 Personal history of other mental and behavioral disorders; F17.210 Nicotine dependence, cigarettes, uncomplicated; E11.9 Type 2 diabetes mellitus without complications; I10 Essential (primary) hypertension; J45.909 Unspecified asthma, uncomplicated; Z79.4 Long term (current) use of insulin; Z98.890 Other specified postprocedural states
CPT/HCPCS: 71045; 80053; 81003; 82948; 85025; 93005; 99284; G0480; J7030